=== PATIENT | male | born 1955 | race Caucasian/White ===

== ENCOUNTER 2016-08-17 12:08 | Emergency (ER) | payer OTHER ==
[~2016-08-17] VITALS: Ht 167.6 cm; Wt 82.0 kg
[~2016-08-17 12:08] MED LIST: AMLO10TA2 PO; LEVE500 PO; LISI-515 PO
[2016-08-17 12:18] VITALS: BP 160/97; PULSE 63; RESP 16; TEMP 98.8; O2SAT 96
[2016-08-17] MEDS ORDERED: LISI-515 PO (12:47)
[2016-08-17] MEDS ORDERED: AMLO10TA2 PO (12:47)
[2016-08-17] MEDS ORDERED: LEVE500 PO (12:47)
--- NOTE | 2016-08-17 12:48 | PD ---
HPI Chief Complaint: Seizure Time Seen by Provider: 12:44 Travel History International Travel<30 days: No Contact w/Intl Traveler<30days: No Traveled to known affect area: No History of Present Illness HPI Patient presents with complaints of a seizure yesterday. Reports a past history of hypertension and seizure activity. States he has been without his medications for 3 days. States he is in transition between neurologists currently. Denies any head trauma or loss of consciousness associated with seizure activity yesterday. Denies any new chest pain shortness of breath urinary or bowel symptoms. PFSH Past Medical History Hx Anticoagulant Therapy: No Asthma: Yes Autoimmune Disease: No Anxiety: No Depression: No Heart Rhythm Problems: No Cancer: No Cardiac Catheterization: No Cardiovascular Problems: Yes (HTN) High Cholesterol: No Chemotherapy: No Chest Pain: No Congestive Heart Failure: No COPD: No Cerebrovascular Accident: Yes ( CVA) Diabetes: No Diminished Hearing: No Endocrine: No Gastrointestinal Disorders: No Genitourinary: No Headaches: Yes Hypertension: Yes Immune Disorder: No Implanted Vascular Access Dvce: No Kidney Stones: No Musculoskeletal: No Neurologic: Yes Psychiatric: No Reproductive: No Respiratory: Yes (asthma) Immunizations Current: No Migraines: No Radiation Therapy: No Renal Failure: No 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) Sickle Cell Disease: No Sleep Apnea: No Ulcer: No Past Surgical History Surgical History: No Previous Surgery Abdominal Surgery: No AICD: No Arteriovenous Shunt: No Cardiac Surgery: No Coronary Artery Bypass Graft: No Ear Surgery: No Endocrine Surgery: No Eye Surgery: No Genitourinary Surgery: No Gynecologic Surgery: No Hysterectomy: Yes (htn on meds) Insulin Pump: No Joint Replacement: No Neurologic Surgery: No Oral Surgery: No Pacemaker: No Thoracic Surgery: No Other Surgery: No Family History Family Myocardial Infarction: Yes (mother, father, brother) Social History Alcohol Use: Yes Tobacco Use: Yes (0.5 ppd) Substance Use: No Allergies-Medications (Allergen,Severity, Reaction): Coded Allergies: No Known Allergies (Unverified , 08/17/16) verified/yes Reported Meds & Prescriptions Reported Meds & Active Scripts Active Amlodipine (Amlodipine Besylate) 10 Mg Tab 10 Mg PO DAILY 30 Days Lisinopril 20 Mg Tab 20 Mg PO BID 30 Days Keppra (Levetiracetam) 500 Mg Tab 500 Mg PO BID Review of Systems General / Constitutional: No: Fever Eyes: No: Visual changes HENT: No: Headaches Cardiovascular: No: Chest Pain or Discomfort Respiratory: No: Shortness of Breath Gastrointestinal: No: Abdominal Pain Genitourinary: No: Dysuria Musculoskeletal: No: Pain Skin: No Rash Neurologic: No: Weakness Psychiatric: No: Depression Endocrine: No: Polydipsia Hematologic/Lymphatic: No: Easy Bruising Physical Exam Narrative GENERAL: Well-nourished, well-developed patient. SKIN: Warm and dry. HEAD: Normocephalic. EYES: No scleral icterus. No injection or drainage. NECK: Supple, trachea midline. No JVD or lymphadenopathy. CARDIOVASCULAR: Regular rate and rhythm without murmurs, gallops, or rubs. RESPIRATORY: Breath sounds equal bilaterally. No accessory muscle use. GASTROINTESTINAL: Abdomen soft, non-tender, nondistended. MUSCULOSKELETAL: No cyanosis, or edema. BACK: Nontender without obvious deformity. No CVA tenderness. Data Data Last Documented VS Vital Signs Date Time Temp Pulse Resp B/P Pulse Ox O2 Delivery O2 Flow Rate FiO2 08/17/16 12:34 Room Air 08/17/16 12:18 98.8 63 16 160/97 96 MDM Medical Decision Making Medical Screen Exam Complete: Yes Emergency Medical Condition: Yes Differential Diagnosis Seizures, hypertension, malingering Narrative Course Assessment and plan discussed with patient at bedside Diagnosis Primary Impression: Epilepsy Qualified Code: G40.909 - Nonintractable epilepsy without status epilepticus, unspecified epilepsy type Additional Impression: Hypertension Qualified Code: I10 - Essential hypertension Patient Instructions: General Instructions Additional Instructions: Encouraged patient to resume medications, encouraged to blood pressure log, encouraged to follow-up with his primary care provider and neurologist. Scripts Amlodipine 10 Mg Tab10 Mg PO DAILY 30 Days Ref 0 Prov:Keron Luo MD 08/17/16 Lisinopril 20 Mg Tab20 Mg PO BID 30 Days Ref 0 Prov:Keron Luo MD 08/17/16 Levetiracetam (Keppra)500 Mg [id number] Mg PO BID #60 TAB Ref 0 Prov:Keron Luo MD 08/17/16 Disposition: 01 DISCHARGE HOME Condition: Good Keron Luo MD Aug 17, 2016 12:48
[2016-08-17 13:03] VITALS: BP 165/96
[2016-12-20] MEDS ORDERED: LISI-515 PO (08:18)
== END 2016-08-17 13:04 | disposition home or self-care (01) ==
LOC: PHED 12:08
DX: G40.909 Epilepsy, unspecified, not intractable, without status epilepticus (principal); I10 Essential (primary) hypertension; J45.909 Unspecified asthma, uncomplicated; F17.210 Nicotine dependence, cigarettes, uncomplicated; Z79.899 Other long term (current) drug therapy
CPT/HCPCS: 99283

== ENCOUNTER 2016-09-08 13:32 | Emergency (ER) | payer OTHER ==
[2016-09-08 13:36] VITALS: BP 109/76; PULSE 93; RESP 20; TEMP 98.8; O2SAT 96
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
[2016-09-08 14:19] LABS: AUTOMATED NEUTROPHIL # 6.4 TH/MM3 (1.8-7.7); BASOPHIL % 0.3 % (0.0-2.0); EOSINOPHIL # 0.1 TH/MM3 (0-0.4); EOSINOPHIL % 0.8 % (0.0-4.0); HEMATOCRIT 46.7 % (39.0-51.0); HEMO FLAGS DIFF FINAL; LYMPH % 20.3 % (9.0-44.0); LYMPHOCYTE # 1.8 TH/MM3 (1.0-4.8); MEAN CELL VOLUME 90.3 FL (80.0-100.0); MEAN CORPUSCULAR HEMOGLOBIN 30.1 PG (27.0-34.0); MEAN CORPUSCULAR HGB CONC 33.3 % (32.0-36.0); MONO % 6.8 % (0.0-8.0); NEUT % 71.8 % (16.0-70.0); PLATELET COUNT 264 TH/MM3 (150-450); RED BLOOD COUNT 5.17 MIL/MM3 (4.50-5.90); RED CELL DISTRIBUTION WIDTH 12.8 % (11.6-17.2); WHITE BLOOD COUNT 8.9 TH/MM3 (4.0-11.0)
[2016-09-08 14:28] LABS: POTASSIUM 3.5 MEQ/L (3.5-5.1)
[2016-09-08 14:30] LABS: BICARBONATE 23.8 MEQ/L (21.0-32.0); MAGNESIUM 2.3 MG/DL (1.5-2.5)
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
[2016-09-08 14:49] VITALS: BP 117/76; PULSE 73; RESP 20; O2SAT 96
--- NOTE | 2016-09-08 14:56 | RADHPO ---
EXAM DATE/TIME: 09/08/2016 14:25 [facility] COMPARISON: CT BRAIN W/O CONTRAST, April 27, 2016, 10:06. INDICATIONS : Seizure. RADIATION DOSE: 65.44 CTDIvol (mGy) MEDICAL HISTORY : Cerebrovascular disease. SURGICAL HISTORY : None. ENCOUNTER: Initial ACUITY: 1 day PAIN SCALE: 3/10 LOCATION: cranial TECHNIQUE: Multiple contiguous axial images were obtained of the head. Using automated exposure control and adj ustment of the mA and/or kV according to patient size, radiation dose was kept as low as reasonably a chievable to obtain optimal diagnostic quality images. FINDINGS: CEREBRUM: The ventricles are normal for age. No evidence of midline shift, mass lesion, hemorrhage or acute in farction. No extra-axial fluid collections are seen. Chronic encephalomalacia again seen right parie kimberli lobe POSTERIOR FOSSA: The cerebellum and brainstem are intact. The 4th ventricle is midline. The cerebellopontine angle i s unremarkable. EXTRACRANIAL: The visualized portion of the orbits is intact. SKULL: The calvaria is intact. No evidence of skull fracture. CONCLUSION: No acute intracranial abnormality. Chronic right parietal lobe encephalomalacia. Varinder Hurt MD on September 08, 2016 at 14:54 Board Certified Radiologist. This report was verified electronically.
[2016-09-08] MEDS ORDERED: levETIRAcetam 500 MG TAB PO ONE (15:45)
[2016-09-08 15:51] VITALS: BP 126/82; PULSE 66; RESP 20; O2SAT 99
[2016-12-20] MEDS ORDERED: LISI-515 PO (08:18)
== END 2016-09-08 19:09 | disposition home or self-care (01) ==
LOC: PHED 13:32
DX: G40.909 Epilepsy, unspecified, not intractable, without status epilepticus (principal); Z79.899 Other long term (current) drug therapy
CPT/HCPCS: 70450; 73560; 80048; 83735; 85025

== ENCOUNTER 2016-10-26 18:41 | Emergency (ER) | payer OTHER ==
[~2016-10-26] VITALS: Ht 167.6 cm; Wt 68.0 kg
--- NOTE | 2016-10-26 19:00 | PD ---
HPI Chief Complaint: Possible Seizure Time Seen by Provider: 18:59 Travel History International Travel<30 days: No Contact w/Intl Traveler<30days: No Traveled to known affect area: No History of Present Illness HPI 61-year-old male with known seizure disorder presents to emergency department via EMS status post witnessed seizure at work. Patient is postictal. Patient is supposedly taking Keppra 500 mg twice a day but cannot recall if he's been taking his medications the last several days. Patient has history of chronic back pain and hypertension. Patient complains of pain in the right lower lumbar region and hip, but cannot recall falling or other injury. Patient states he is somewhat nauseous and has his typical postseizure headache. His headache is 5/10. The headache is generalized and aching. He states this is typical for his postseizure state. He has no known drug allergies. PFSH Past Medical History Hx Anticoagulant Therapy: No Asthma: Yes Autoimmune Disease: No Anxiety: No Depression: No Heart Rhythm Problems: No Cancer: No Cardiac Catheterization: No Cardiovascular Problems: Yes (HTN) High Cholesterol: No Chemotherapy: No Chest Pain: No Congestive Heart Failure: No COPD: No Cerebrovascular Accident: Yes ( CVA) Diabetes: No Diminished Hearing: No Endocrine: No Gastrointestinal Disorders: No Genitourinary: No Headaches: Yes Hypertension: Yes Immune Disorder: No Implanted Vascular Access Dvce: No Kidney Stones: No Musculoskeletal: No Neurologic: Yes Psychiatric: No Reproductive: No Respiratory: Yes (asthma) Immunizations Current: No Migraines: No Radiation Therapy: No Renal Failure: No 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) Sickle Cell Disease: No Sleep Apnea: No Ulcer: No Past Surgical History Abdominal Surgery: No AICD: No Arteriovenous Shunt: No Cardiac Surgery: No Coronary Artery Bypass Graft: No Ear Surgery: No Endocrine Surgery: No Eye Surgery: No Genitourinary Surgery: No Gynecologic Surgery: No Hysterectomy: Yes (htn on meds) Insulin Pump: No Joint Replacement: No Neurologic Surgery: No Oral Surgery: No Pacemaker: No Thoracic Surgery: No Other Surgery: No Social History Alcohol Use: Yes Tobacco Use: Yes (0.5 ppd) Substance Use: No Allergies-Medications (Allergen,Severity, Reaction): Coded Allergies: No Known Allergies (Unverified , 10/26/16) verified/yes Reported Meds & Prescriptions Reported Meds & Active Scripts Active Amlodipine (Amlodipine Besylate) 10 Mg Tab 10 Mg PO DAILY 30 Days Lisinopril 20 Mg Tab 20 Mg PO BID 30 Days Keppra (Levetiracetam) 500 Mg Tab 500 Mg PO BID Review of Systems Except as stated in HPI: all other systems reviewed are Neg General / Constitutional: No: Fever Eyes: No: Visual changes HENT: No: Headaches Cardiovascular: No: Chest Pain or Discomfort Respiratory: No: Shortness of Breath Gastrointestinal: No: Abdominal Pain Genitourinary: No: Dysuria Musculoskeletal: Positive: Arthralgias, Pain (see history present illness.) Skin: No Rash Neurologic: No: Weakness Psychiatric: No: Depression Endocrine: No: Polydipsia Hematologic/Lymphatic: No: Easy Bruising Physical Exam Narrative GENERAL: Patient appears postictal. He is oriented to person place and time. SKIN: Warm and dry. Normal color. Normal turgor. HEAD: Atraumatic. Normocephalic. No signs trauma. EYES: Pupils equal and round. No scleral icterus. No injection or drainage. ENT: No nasal bleeding or discharge. Mucous membranes pink and moist. No dental injury. No buccal injury or tongue injury. Pharynx is clear. Airway is patent. NECK: Trachea midline. No JVD. No bony tenderness or step-off. She motion is full and supple. CARDIOVASCULAR: Regular rate and rhythm. RESPIRATORY: No accessory muscle use. Clear to auscultation. Breath sounds equal bilaterally. GASTROINTESTINAL: Abdomen soft, non-tender, nondistended. Hepatic and splenic margins not palpable. MUSCULOSKELETAL: Extremities without clubbing, cyanosis, or edema. No obvious deformities. Patient has tenderness in the soft tissues of the right lower lumbar region, without bony tenderness or step-off. Right hip has normal range of motion without tenderness. Rest of the extremity exam is unremarkable. NEUROLOGICAL: Awake and alert. No obvious cranial nerve deficits. Motor grossly within normal limits. Five out of 5 muscle strength in the arms and legs. Normal speech. PSYCHIATRIC: Appropriate mood and affect; insight and judgment normal. Data Data Last Documented VS Vital Signs Date Time Temp Pulse Resp B/P Pulse Ox O2 Delivery O2 Flow Rate FiO2 10/26/16 20:38 18 10/26/16 19:05 95 Room Air 10/26/16 19:03 97.9 75 105/70 Orders Complete Blood Count With Diff (10/26/16 19:07) Blood Glucose (10/26/16 19:07) Ecg Monitoring (10/26/16 19:07) Iv Access Insert/Monitor (10/26/16 19:) Oximetry (10/26/16 19:07) Comprehensive Metabolic Panel (10/26/16 19:07) Sodium Chlor 0.9% 1000 Ml Inj (Ns 1000 M (10/26/16 19:07) Sodium Chloride 0.9% Flush (Ns Flush) (10/26/16 19:15) Levetiracetam 1000 Mg Inj (Keppra 1000 M (10/26/16 19:15) Ondansetron Inj (Zofran Inj) (10/26/16 19:15) Ketorolac Inj (Toradol Inj) (10/26/16 19:15) Morphine Inj (Morphine Inj) (10/26/16 19:15) Labs Laboratory Tests Test 10/26/16 19:25 White Blood Count 9.0 TH/MM3 Red Blood Count 5.00 MIL/MM3 Hemoglobin 15.3 GM/DL Hematocrit 44.0 % Mean Corpuscular Volume 88.1 FL Mean Corpuscular Hemoglobin 30.7 PG Mean Corpuscular Hemoglobin 34.8 % Concent Red Cell Distribution Width 13.0 % Platelet Count 233 TH/MM3 Mean Platelet Volume 7.8 FL Neutrophils (%) (Auto) 68.8 % Lymphocytes (%) (Auto) 20.1 % Monocytes (%) (Auto) 7.5 % Eosinophils (%) (Auto) 2.7 % Basophils (%) (Auto) 0.9 % Neutrophils # (Auto) 6.2 TH/MM3 Lymphocytes # (Auto) 1.8 TH/MM3 Monocytes # (Auto) 0.7 TH/MM3 Eosinophils # (Auto) 0.2 TH/MM3 Basophils # (Auto) 0.1 TH/MM3 CBC Comment DIFF FINAL Differential Comment Sodium Level 138 MEQ/L Potassium Level 4.1 MEQ/L Chloride Level 106 MEQ/L Carbon Dioxide Level 20.6 MEQ/L Anion Gap 11 MEQ/L Blood Urea Nitrogen 22 MG/DL Creatinine 1.17 MG/DL Estimat Glomerular Filtration 63 ML/MIN Rate Random Glucose 88 MG/DL Calcium Level 9.1 MG/DL Total Bilirubin 0.7 MG/DL Aspartate Amino Transf 26 U/L (AST/SGOT) Alanine Aminotransferase 21 U/L (ALT/SGPT) Alkaline Phosphatase 91 U/L Total Protein 6.9 GM/DL Albumin 4.0 GM/DL MDM Medical Decision Making Medical Screen Exam Complete: Yes Emergency Medical Condition: Yes Medical Record Reviewed: Yes Differential Diagnosis Seizure. Lumbar strain. Muscle spasm. Narrative Course Patient is medically stable and appears postictal at time of exam. Labs ordered including CBC, CMP. IV access is obtained patient is given 1000 mL's normal saline as well as 1000 mg Keppra IV. Patient is given 30 mg Toradol IV as well as 2 mg morphine, and 4 mg Zofran IV. CBC is unremarkable. CMP is unremarkable. 2045 hrs. patient is reassessed and found to be improved. Patient is felt stable for discharge. Patient was discharged home with Keppra 500 mg twice a day #60. He can return the emergency department as needed. Patient should follow with his primary care physician and see about referral to neurologist as discussed. Diagnosis Primary Impression: Seizure disorder as sequela of cerebrovascular accident Additional Impression: Recurrent seizures Referrals: Primary Care Physician Patient Instructions: General Instructions Additional Instructions: Patient is felt stable for discharge. Patient was discharged home with Keppra 500 mg twice a day #60. He can return the emergency department as needed. Patient should follow with his primary care physician and see about referral to neurologist as discussed. Scripts Levetiracetam (Keppra)500 Mg [id number] Mg PO BID #60 TAB Ref 0 Prov:Darien Cerna MD 10/26/16 Disposition: DISCHARGE HOME Condition: Stable Fab Polk Oct 26, 2016 19:00
[2016-10-26 19:03] VITALS: BP 105/70; PULSE 75; RESP 18; TEMP 97.9
[2016-10-26] MEDS ORDERED: SODIUM CHLOR 0.9% 1000 ML INJ 1,000 ML IV ONE (19:07)
[2016-10-26] MEDS ORDERED: levETIRAcetam 1000 MG INJ 100 ML IV ONE (19:15)
[2016-10-26] MEDS ORDERED: SODIUM CHLORIDE 0.9% FLUSH 10 ML FLUSH IVF PRN (19:15)
[2016-10-26] MEDS ORDERED: KETOROLAC TROMETHAMINE 30 MG/ML (IVP) VIAL IV PUSH ONE (19:15)
[2016-10-26] MEDS ORDERED: MORPHINE SULFATE 4 MG/ML INJ IV PUSH ONE (19:15)
[2016-10-26] MEDS ORDERED: ONDANSETRON HCL 4 MG/2 ML VIAL IV PUSH ONE (19:15)
[2016-10-26 19:34] LABS: AUTOMATED NEUTROPHIL # 6.2 TH/MM3 (1.8-7.7); BASOPHIL # 0.1 TH/MM3 (0-0.2); BASOPHIL % 0.9 % (0.0-2.0); EOSINOPHIL # 0.2 TH/MM3 (0-0.4); EOSINOPHIL % 2.7 % (0.0-4.0); HEMO FLAGS DIFF FINAL; LYMPH % 20.1 % (9.0-44.0); LYMPHOCYTE # 1.8 TH/MM3 (1.0-4.8); MEAN CELL VOLUME 88.1 FL (80.0-100.0); MEAN CORPUSCULAR HEMOGLOBIN 30.7 PG (27.0-34.0); MEAN CORPUSCULAR HGB CONC 34.8 % (32.0-36.0); MONO % 7.5 % (0.0-8.0); NEUT % 68.8 % (16.0-70.0); PLATELET COUNT 233 TH/MM3 (150-450)
[2016-10-26 20:13] LABS: ALKALINE PHOSPHATASE 91 U/L (45-117); ALT (GPT) 21 U/L (12-78); ANION GAP 11 MEQ/L (5-15); AST (GOT) 26 U/L (15-37); BICARBONATE 20.6 MEQ/L (21.0-32.0); BLOOD UREA NITROGEN 22 MG/DL (7-18); CHLORIDE 106 MEQ/L (98-107); GLOMERULAR FILTRATION RATE 63 ML/MIN (>89); POTASSIUM 4.1 MEQ/L (3.5-5.1); SODIUM (NA) 138 MEQ/L (136-145); TOTAL BILIRUBIN ADULT 0.7 MG/DL (0.2-1.0)
[2016-10-26] MEDS ORDERED: LEVE500 PO (20:46)
[2016-10-26 21:18] VITALS: BP 103/62; PULSE 53; RESP 18; O2SAT 98
[2016-10-26 21:19] VITALS: O2SAT 98
[2016-10-26 23:10] VITALS: BP 107/66; PULSE 55; RESP 18; O2SAT 98
[2016-10-27 03:36] VITALS: BP 119/70; PULSE 48; RESP 18; O2SAT 99
[2016-12-20] MEDS ORDERED: LISI-515 PO (08:18)
== END 2016-10-27 09:53 | disposition home or self-care (01) ==
LOC: NEPE 18:41
DX: R56.9 Unspecified convulsions (principal); I10 Essential (primary) hypertension; M54.9 Dorsalgia, unspecified; G89.29 Other chronic pain; R51 Headache; J45.909 Unspecified asthma, uncomplicated; Z86.73 Personal history of transient ischemic attack (TIA), and cerebral infarction without residual deficits; F17.210 Nicotine dependence, cigarettes, uncomplicated
CPT/HCPCS: 80053; 85025; 96365; 96375; 99284; J1885; J1953; J2270; J2405; J7030

== ENCOUNTER 2016-11-04 10:21 | Emergency (ER) | payer OTHER ==
[~2016-11-04] VITALS: Ht 167.6 cm; Wt 85.0 kg
[2016-11-04 10:29] VITALS: BP 116/72; PULSE 68; RESP 16; RESP 18; TEMP 98.6; O2SAT 9; O2SAT 98
[2016-11-04] MEDS ORDERED: LORazepam 2 MG/ML VIAL IV PUSH ONE (10:45)
[2016-11-04] MEDS ORDERED: levETIRAcetam INJ 500 MG in SODIUM CHLORIDE 0.9% INJ 100 ML IV ONE (10:45)
[2016-11-04] MEDS ORDERED: KEPP10002 PO (11:01)
--- NOTE | 2016-11-04 11:01 | PD ---
HPI Chief Complaint: Seizure Time Seen by Provider: 10:43 Travel History International Travel<30 days: No Contact w/Intl Traveler<30days: No Traveled to known affect area: No History of Present Illness HPI This is a 61-year-old man who presents to the emergency department with reported seizure. He was at the [facility] when he had a witnessed approximately 1 minute long generalized seizure. Patient states he's had seizures ever since he had a hemorrhagic stroke several years ago. He is on Keppra 500 mg twice daily. Patient emergency department yesterday for seizure. States he takes his Keppra regularly. Does not drink alcohol. Does not take illicit drugs. Despite this he has seizures one to 2 times per month, is usually seen in the hospital following this. History Past Medical History Narrative Medical Chronic back pain Hypertension Seizures Hemorrhagic CVA Social History Alcohol Use: Yes Tobacco Use: Yes (0.5 ppd) Allergies-Medications (Allergen,Severity, Reaction): Coded Allergies: No Known Allergies (Unverified , 10/26/16) verified/yes Reported Meds & Prescriptions Reported Meds & Active Scripts Active Keppra (Levetiracetam) 500 Mg Tab 500 Mg PO BID Amlodipine (Amlodipine Besylate) 10 Mg Tab 10 Mg PO DAILY 30 Days Lisinopril 20 Mg Tab 20 Mg PO BID 30 Days Keppra (Levetiracetam) 500 Mg Tab 500 Mg PO BID Review of Systems Except as stated in HPI: all other systems reviewed are Neg Physical Exam Narrative GENERAL: Well-appearing 61-year-old man, no acute distress. SKIN: Focused skin assessment warm/dry. HEAD: Atraumatic. Normocephalic. EYES: Pupils equal and round. No scleral icterus. No injection or drainage. ENT: No nasal bleeding or discharge. Mucous membranes pink and moist. NECK: Trachea midline. No JVD. CARDIOVASCULAR: Regular rate and rhythm. No murmur appreciated. RESPIRATORY: No accessory muscle use. Clear to auscultation. Breath sounds equal bilaterally. GASTROINTESTINAL: Abdomen soft, non-tender, nondistended. Hepatic and splenic margins not palpable. MUSCULOSKELETAL: No obvious deformities. No clubbing. No cyanosis. No edema. NEUROLOGICAL: Awake and alert. No obvious cranial nerve deficits. Motor grossly within normal limits. Normal speech. PSYCHIATRIC: Appropriate mood and affect; insight and judgment normal. Data Data Last Documented VS Vital Signs Date Time Temp Pulse Resp B/P Pulse Ox O2 Delivery O2 Flow Rate FiO2 11/04/16 10:29 98.6 68 16 116/72 9 Room Air Orders Levetiracetam Inj (Keppra Inj) (11/04/16 10:45) Lorazepam Inj (Ativan Inj) (11/04/16 10:45) MDM Medical Decision Making Medical Screen Exam Complete: Yes Emergency Medical Condition: Yes Differential Diagnosis Poorly controlled seizures, electrolyte abnormality, medication noncompliance, infection, other Narrative Course Medical decision making 61-year-old male presents to the emergency department complaining of seizure. He had a 1 minute generalized seizure prior to arrival. He had a seizure yesterday. He typically is 1-2 seizures per month. Labs and evaluation yesterday was unremarkable. Don't see any evidence of trauma. He takes Keppra 500 twice a day. He states he takes it regularly. Complains of a question that the past. We'll give Ativan. We'll go multiple services Keppra through the IV. He has a primary doctor, would recommend follow-up with neurology, and will increase his Keppra to 1000 twice daily pending neuro follow-up. Diagnosis Primary Impression: Seizure disorder as sequela of cerebrovascular accident Additional Instructions: Increase Keppra to 1000 mg twice daily. Follow up with her primary doctor for referral to neurology. Do not drive or operate heavy machinery until cleared by neurology. You should avoid being in any situation where if you had a seizure it could be dangerous such as swimming, looking on a ladder, or other such activities. Return to the emergency department for any seizures lasting more than 5 minutes , [id number] seizures, or seizures with prolonged confusion afterwards. Med/Other Pt SpecificInfo: Existing Med Changed Scripts Levetiracetam (Keppra)1,000 Mg Tab1,000 Mg PO BID #60 TAB Ref 0 Prov:Chon Ramos MD 11/04/16 Disposition: 01 DISCHARGE HOME Condition: Stable Chon Ramos MD Nov 04, 2016 11:01
[2016-11-04 12:01] VITALS: BP 120/73; PULSE 60; RESP 16; O2SAT 97
[2016-12-20] MEDS ORDERED: LISI-515 PO (08:18)
== END 2016-11-04 12:23 | disposition home or self-care (01) ==
LOC: NEPD 10:21
DX: G40.802 Other epilepsy, not intractable, without status epilepticus (principal); I69.398 Other sequelae of cerebral infarction; I10 Essential (primary) hypertension; F17.200 Nicotine dependence, unspecified, uncomplicated; Z87.39 Personal history of other diseases of the musculoskeletal system and connective tissue; Z86.69 Personal history of other diseases of the nervous system and sense organs
CPT/HCPCS: 96365; 99284; J1953

== ENCOUNTER 2016-11-06 13:46 | Emergency (ER) | payer OTHER ==
[~2016-11-06] VITALS: Ht 167.6 cm; Wt 81.8 kg
[~2016-11-06 13:46] MED LIST changes: +KEPP10002 PO
[2016-11-06 13:50] VITALS: BP 142/74; PULSE 65; RESP 14; TEMP 98.7; O2SAT 97
[2016-11-06] MEDS ORDERED: LORazepam 2 MG/ML VIAL IV PUSH ONE (14:00)
[2016-11-06] MEDS ORDERED: KETOROLAC TROMETHAMINE 30 MG/ML (IVP) VIAL IV PUSH ONE (14:00)
[2016-11-06] MEDS ORDERED: SODIUM CHLOR 0.9% 1000 ML INJ 1,000 ML IV SCH (14:00)
--- NOTE | 2016-11-06 14:02 | PD ---
HPI Chief Complaint: Seizure Time Seen by Provider: 13:55 Travel History International Travel<30 days: No Contact w/Intl Traveler<30days: No Traveled to known affect area: No History of Present Illness HPI Is a 61-year-old man who presents to the emergency department complaining of seizures. I saw the patient emergency department yesterday. He's had seizures ever since he had a hemorrhagic stroke several years ago. He was taking Keppra 5 mg twice daily, we'll increase him yesterday with thousand milligrams twice daily. His seizure medications managed by his primary physician, Dr. Andrews. He's not seen a neurologist in some time. He endorses regular use of the Keppra , but is been having more frequent seizures recently. This he is having about 2 seizures a month. History Past Medical History Narrative Medical Chronic back pain Hypertension Seizures Hemorrhagic CVA Tetanus Vaccination: < 5 Years Influenza Vaccination: No Past Surgical History Surgical History: No Previous Surgery Social History Alcohol Use: No Tobacco Use: Yes (5 cigarettes/day) Allergies-Medications (Allergen,Severity, Reaction): Coded Allergies: No Known Allergies (Unverified , 11/06/16) verified/yes Reported Meds & Prescriptions Reported Meds & Active Scripts Active Keppra (Levetiracetam) 1,000 Mg Tab 1,000 Mg PO BID Amlodipine (Amlodipine Besylate) 10 Mg Tab 10 Mg PO DAILY 30 Days Lisinopril 20 Mg Tab 20 Mg PO BID 30 Days Review of Systems Except as stated in HPI: all other systems reviewed are Neg Physical Exam Narrative GENERAL: Well-appearing 61-year-old woman. SKIN: Focused skin assessment warm/dry. HEAD: Atraumatic. Normocephalic. CARDIOVASCULAR: Regular rate and rhythm. No murmur appreciated. RESPIRATORY: No accessory muscle use. Clear to auscultation. Breath sounds equal bilaterally. GASTROINTESTINAL: Abdomen soft, non-tender, nondistended. Hepatic and splenic margins not palpable. MUSCULOSKELETAL: No obvious deformities. No edema. NEUROLOGICAL: Awake and alert. No obvious cranial nerve deficits. Motor grossly within normal limits. Normal speech. PSYCHIATRIC: Appropriate mood and affect; insight and judgment normal. Data Data Last Documented VS Vital Signs Date Time Temp Pulse Resp B/P Pulse Ox O2 Delivery O2 Flow Rate FiO2 11/06/16 13:50 98.7 65 14 142/74 97 Orders Complete Blood Count With Diff (11/06/16 13:50) Comprehensive Metabolic Panel (11/06/16 13:50) Alcohol (Ethanol) (11/06/16 13:50) Iv Access Insert/Monitor (11/06/16 13:50) Lorazepam Inj (Ativan Inj) (11/06/16 14:00) Ketorolac Inj (Toradol Inj) (11/06/16 14:00) Sodium Chlor 0.9% 1000 Ml Inj (Ns 1000 M (11/06/16 14:00) Labs Laboratory Tests Test 11/06/16 14:00 White Blood Count 9.4 TH/MM3 Red Blood Count 4.50 MIL/MM3 Hemoglobin 13.6 GM/DL Hematocrit 40.1 % Mean Corpuscular Volume 89.0 FL Mean Corpuscular Hemoglobin 30.2 PG Mean Corpuscular Hemoglobin 34.0 % Concent Red Cell Distribution Width 12.7 % Platelet Count 246 TH/MM3 Mean Platelet Volume 7.5 FL Neutrophils (%) (Auto) 65.2 % Lymphocytes (%) (Auto) 23.5 % Monocytes (%) (Auto) 6.0 % Eosinophils (%) (Auto) 4.7 % Basophils (%) (Auto) 0.6 % Neutrophils # (Auto) 6.1 TH/MM3 Lymphocytes # (Auto) 2.2 TH/MM3 Monocytes # (Auto) 0.6 TH/MM3 Eosinophils # (Auto) 0.4 TH/MM3 Basophils # (Auto) 0.1 TH/MM3 CBC Comment DIFF FINAL Differential Comment Sodium Level 144 MEQ/L Potassium Level 3.5 MEQ/L Chloride Level 111 MEQ/L Carbon Dioxide Level 24.5 MEQ/L Anion Gap 9 MEQ/L Blood Urea Nitrogen 15 MG/DL Creatinine 0.75 MG/DL Estimat Glomerular Filtration 105 ML/MIN Rate Random Glucose 88 MG/DL Calcium Level 8.2 MG/DL Total Bilirubin 0.4 MG/DL Aspartate Amino Transf 28 U/L (AST/SGOT) Alanine Aminotransferase 19 U/L (ALT/SGPT) Alkaline Phosphatase 99 U/L Total Protein 6.1 GM/DL Albumin 3.3 GM/DL Ethyl Alcohol Level LESS THAN 3 MG/DL MDM Medical Decision Making Medical Screen Exam Complete: Yes Emergency Medical Condition: Yes Interpretation(s) LABS: CBC is unremarkable. CMP is unremarkable. Hypoproteinemia. Alcohol negative. Differential Diagnosis Seizures, electrolyte abnormality, trauma, noncompliance, other Narrative Course Medical decision making 60-year-old man of recurrent seizures. Here with increasing frequency of seizures. Adjusted his medications yesterday. We'll need more time to see full affect. Will need neurology follow-up. We'll give referral to on-call neurology. Diagnosis Primary Impression: Seizure disorder as sequela of cerebrovascular accident Referrals: Ti Kern MD call for appointment Additional Instructions: Continue Keppra 1000 mg twice daily. Follow with her primary doctor in the next one to 2 days. Follow-up with a neurologist at first available appointment. Return to the emergency department for any new or worsening symptoms. Med/Other Pt SpecificInfo: No Change to Meds Disposition: 01 DISCHARGE HOME Condition: Stable Chon Ramos MD Nov 06, 2016 14:02
[2016-11-06 14:06] LABS: AUTOMATED NEUTROPHIL # 6.1 TH/MM3 (1.8-7.7); BASOPHIL # 0.1 TH/MM3 (0-0.2); BASOPHIL % 0.6 % (0.0-2.0); EOSINOPHIL # 0.4 TH/MM3 (0-0.4); EOSINOPHIL % 4.7 % (0.0-4.0); HEMATOCRIT 40.1 % (39.0-51.0); HEMO FLAGS DIFF FINAL; LYMPH % 23.5 % (9.0-44.0); LYMPHOCYTE # 2.2 TH/MM3 (1.0-4.8); MEAN CORPUSCULAR HEMOGLOBIN 30.2 PG (27.0-34.0); NEUT % 65.2 % (16.0-70.0); PLATELET COUNT 246 TH/MM3 (150-450); RED CELL DISTRIBUTION WIDTH 12.7 % (11.6-17.2); WHITE BLOOD COUNT 9.4 TH/MM3 (4.0-11.0)
[2016-11-06 14:14] LABS: CHLORIDE 111 MEQ/L (98-107); POTASSIUM 3.5 MEQ/L (3.5-5.1); SODIUM (NA) 144 MEQ/L (136-145)
[2016-11-06 14:18] LABS: ANION GAP 9 MEQ/L (5-15); BICARBONATE 24.5 MEQ/L (21.0-32.0); BLOOD UREA NITROGEN 15 MG/DL (7-18)
[2016-11-06 14:21] LABS: ALT (GPT) 19 U/L (12-78); AST (GOT) 28 U/L (15-37); GLOMERULAR FILTRATION RATE 105 ML/MIN (>89)
[2016-11-06 14:23] LABS: TOTAL BILIRUBIN ADULT 0.4 MG/DL (0.2-1.0)
[2016-11-06 14:24] LABS: ALKALINE PHOSPHATASE 99 U/L (45-117)
[2016-11-06 15:05] VITALS: BP 138/78; PULSE 71; RESP 16; O2SAT 98
[2016-11-06 15:10] VITALS: RESP 16
--- NOTE | 2016-11-07 14:00 | EKG ---
Date Performed: 11/06/2016 Time Performed: 13:40:18 PTAGE: 61 years EKG: Sinus rhythm with PAC(s). Borderline ECG Compared to prior tracing no significant change PREVIOUS TRACING : 04/27/2016 10.00 DOCTOR: Eleazar Guallpa Interpretating Date/Time 11/07/2016 13:58:06
[2016-12-20] MEDS ORDERED: LISI-515 PO (08:18)
== END 2016-11-06 15:10 | disposition home or self-care (01) ==
LOC: PHED 13:46
DX: G40.909 Epilepsy, unspecified, not intractable, without status epilepticus (principal); I69.898 Other sequelae of other cerebrovascular disease; R94.31 Abnormal electrocardiogram [ECG] [EKG]; I10 Essential (primary) hypertension; Z72.0 Tobacco use; Z87.39 Personal history of other diseases of the musculoskeletal system and connective tissue; Z86.79 Personal history of other diseases of the circulatory system; Z86.69 Personal history of other diseases of the nervous system and sense organs
CPT/HCPCS: 80053; 80307; 85025; 93005; 96361; 96374; 96375; 99284; J1885; J2060; J7030

== ENCOUNTER 2016-11-12 17:27 | Emergency (ER) | payer OTHER ==
[~2016-11-12] VITALS: Ht 167.6 cm; Wt 80.0 kg
[~2016-11-12 17:27] MED LIST changes: -LEVE500 PO
[2016-11-12 17:36] VITALS: BP 129/77; PULSE 71; RESP 16; TEMP 98.3; O2SAT 99
[2016-11-12] MEDS ORDERED: KETOROLAC TROMETHAMINE 60 MG/2 ML (IM) VIAL IM ONE (18:15)
[2016-11-12] MEDS ORDERED: DEXAMETHASONE SOD PHOS 20 MG/5 ML VIAL IM ONE (18:15)
[2016-11-12] MEDS ORDERED: MEDR4PAK PO (18:55)
[2016-11-12] MEDS ORDERED: PERC5TAB12 PO (18:55)
[2016-11-12] MEDS ORDERED: DIAZ5 PO (18:55)
--- NOTE | 2016-11-12 19:03 | PD ---
HPI Chief Complaint: Pain: Acute or Chronic Time Seen by Provider: 18:06 Travel History International Travel<30 days: No Contact w/Intl Traveler<30days: No Traveled to known affect area: No History of Present Illness HPI Patient is a 61-year-old male with history of low back pain for the past 35 years, presents to emergency room with complaints of exacerbation of low back pain. Patient reports that he has history of chronic low back pain, reports that he is currently being treated by a pain management physician who had sent him for an MRI of his low back, reports that he will not prescribe him any pain medications until he gets this MRI. Patient reports that this morning, his back began to act up on him. Patient reports that he has acute on chronic low back pain with sciatica laying down his right leg. Patient reports that symptoms are similar to his previous episodes, patient denies any saddle anesthesia, denies any incontinence of urine or stool. Patient denies any gait dysfunction, reports that he is walking without any difficulty. Patient denies any new trauma to his low back. Patient here for pain medications for his acute on chronic low back pain PFSH Past Medical History Hx Anticoagulant Therapy: No Asthma: Yes Autoimmune Disease: No Anxiety: No Depression: No Heart Rhythm Problems: No Cancer: No Cardiac Catheterization: No Cardiovascular Problems: Yes High Cholesterol: No Chemotherapy: No Chest Pain: No Congestive Heart Failure: No COPD: No Cerebrovascular Accident: Yes Diabetes: No Diminished Hearing: No Endocrine: No Gastrointestinal Disorders: No Genitourinary: No Headaches: Yes Hypertension: Yes Immune Disorder: No Implanted Vascular Access Dvce: No Kidney Stones: No Musculoskeletal: No Neurologic: Yes Psychiatric: No Reproductive: No Respiratory: Yes (asthma) Immunizations Current: No Migraines: No Radiation Therapy: No Renal Failure: No 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) Sickle Cell Disease: No Sleep Apnea: No Ulcer: No Tetanus Vaccination: < 5 Years Past Surgical History Abdominal Surgery: No AICD: No Arteriovenous Shunt: No Cardiac Surgery: No Coronary Artery Bypass Graft: No Ear Surgery: No Endocrine Surgery: No Eye Surgery: No Genitourinary Surgery: No Gynecologic Surgery: No Hysterectomy: Yes (htn on meds) Insulin Pump: No Joint Replacement: No Neurologic Surgery: No Oral Surgery: No Pacemaker: No Thoracic Surgery: No Other Surgery: No Family History Family Myocardial Infarction: Yes (mother, father, brother) Social History Alcohol Use: No Tobacco Use: Yes (5 cigarettes/day) Substance Use: No Allergies-Medications (Allergen,Severity, Reaction): Coded Allergies: No Known Allergies (Unverified , 11/12/16) verified/yes Reported Meds & Prescriptions Reported Meds & Active Scripts Active Percocet (Oxycodone-Acetaminophen) 5-325 mg Tab 1 Tab PO Q6H PRN Valium (Diazepam) 5 Mg Tab 5 Mg PO BID PRN Medrol Dosepak (Methylprednisolone) 4 Mg Dspk 4 Mg PO DIRECTED Per Pharmacist direction Keppra (Levetiracetam) 1,000 Mg Tab 1,000 Mg PO BID Amlodipine (Amlodipine Besylate) 10 Mg Tab 10 Mg PO DAILY 30 Days Lisinopril 20 Mg Tab 20 Mg PO BID 30 Days Review of Systems General / Constitutional: No: Fever Eyes: No: Visual changes HENT: No: Headaches Cardiovascular: No: Chest Pain or Discomfort Respiratory: No: Shortness of Breath Gastrointestinal: No: Abdominal Pain Genitourinary: No: Dysuria Musculoskeletal: Positive: Pain Skin: No Rash Neurologic: No: Weakness Psychiatric: No: Depression Endocrine: No: Polydipsia Hematologic/Lymphatic: No: Easy Bruising Physical Exam Narrative GENERAL: No acute distress, nontoxic SKIN: Focused skin assessment warm/dry. HEAD: Atraumatic. Normocephalic. EYES: Pupils equal and round. No scleral icterus. No injection or drainage. ENT: No nasal bleeding or discharge. Mucous membranes pink and moist. NECK: Trachea midline. No JVD. CARDIOVASCULAR: Regular rate and rhythm. No murmur appreciated. RESPIRATORY: No accessory muscle use. Clear to auscultation. Breath sounds equal bilaterally. GASTROINTESTINAL: Abdomen soft, non-tender, nondistended. Hepatic and splenic margins not palpable, patient with no saddle anesthesia MUSCULOSKELETAL: No obvious deformities. No clubbing. No cyanosis. No edema. Patient with right lower lumbar paraspinal tenderness, no midline tenderness, patient with no pain with straight leg raises on exam, patient ambulating in the emergency with normal gait NEUROLOGICAL: Awake and alert. No obvious cranial nerve deficits. Motor grossly within normal limits. Normal speech. PSYCHIATRIC: Appropriate mood and affect; insight and judgment normal. Data Data Last Documented VS Vital Signs Date Time Temp Pulse Resp B/P Pulse Ox O2 Delivery O2 Flow Rate FiO2 11/12/16 17:36 98.3 71 16 129/77 99 Room Air Orders Ketorolac Inj (Toradol Inj) (11/12/16 18:15) Dexamethasone Inj (Decadron Inj) (11/12/16 18:15) MDM Medical Decision Making Medical Screen Exam Complete: Yes Emergency Medical Condition: Yes Interpretation(s) Vital Signs Date Time Temp Pulse Resp B/P Pulse Ox O2 Delivery O2 Flow Rate FiO2 11/12/16 17:36 98.3 71 16 129/77 99 Room Air Differential Diagnosis Acute on chronic low back pain, sciatica, cauda equina though unlikely Narrative Course Patient is a 61-year-old male who presents to emergency room with complaints of acute on chronic low back pain. Patient with no new injuries to his low back, no saddle anesthesia, no acute dysfunction, no incontinence or retention of urine or stool. Patient requesting medications to help with acute on chronic low back pain. Patient reports no new injuries, reports that he has had MRI as well as x-rays of his low back in the past. Plan to hold on any imaging as patient with new injuries. 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 Patient will get this MRI as an outpatient as there is no emergent need to get one today emergency room. Signs and symptoms of when to return to the emergency room was reviewed with patient in detail. Patient understands that he should not drive or operate heavy machinery while taking narcotic pain medications. Diagnosis Primary Impression: Lumbago with sciatica, right side Patient Instructions: General Instructions Additional Instructions: Please follow up with pain management doctor as scheduled Please schedule your MRI as outpatient as directed by her pain management doctor Return to the emergency room as needed her symptoms worsen or progress Please do not drive or operate heavy machinery while taking narcotic pain medications and muscle relaxers Med/Other Pt SpecificInfo: Prescription(s) given Scripts Oxycodone-Acetaminophen (Percocet)5-325 mg Tab1 Tab PO Q6H PRN (PAIN) #10 TAB Ref 0 Prov:Denise Padron DO 11/12/16 Diazepam (Valium)5 Mg Tab5 Mg PO BID PRN (MUSCLE SPASM) #12 TAB Ref 0 Prov:Denise Padron DO 5/2/17 Methylprednisolone Dosepak (Medrol Dosepak)4 Mg Dspk4 Mg PO DIRECTED #1 DSPK Ref 0 Per Pharmacist direction Prov:Denise Padron DO 11/12/16 Disposition: 01 DISCHARGE HOME Condition: Stable Denise Padron DO November 12, 2016 19:03
[2016-11-12 19:25] VITALS: BP 135/80; PULSE 70; RESP 18; TEMP 97.6; O2SAT 100
[2016-12-20] MEDS ORDERED: LISI-515 PO (08:18)
== END 2016-11-12 19:44 | disposition home or self-care (01) ==
LOC: PHED 17:27
DX: M54.41 Lumbago with sciatica, right side (principal); I10 Essential (primary) hypertension; R56.9 Unspecified convulsions; F17.210 Nicotine dependence, cigarettes, uncomplicated; Z86.73 Personal history of transient ischemic attack (TIA), and cerebral infarction without residual deficits
CPT/HCPCS: 96372; 99283; J1100; J1885

== ENCOUNTER 2016-11-17 13:31 | Emergency (ER) | payer OTHER ==
[~2016-11-17] VITALS: Ht 167.6 cm; Wt 78.0 kg
[~2016-11-17 13:31] MED LIST changes: +DIAZ5 PO; +MEDR4PAK PO; +PERC5TAB12 PO
[2016-11-17 13:35] VITALS: BP 116/63; PULSE 63; RESP 16; TEMP 98.5; O2SAT 98
[2016-11-17 13:40] VITALS: RESP 16; O2SAT 98
[2016-11-17] MEDS ORDERED: levETIRAcetam 1000 MG INJ 100 ML IV ONE (13:45)
[2016-11-17] MEDS ORDERED: KEPP10002 PO (13:59)
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
[2016-11-17 14:50] VITALS: BP 120/64; PULSE 60; RESP 16; O2SAT 98
[2016-12-20] MEDS ORDERED: LISI-515 PO (08:18)
== END 2016-11-17 14:57 | disposition home or self-care (01) ==
LOC: PHED 13:31
DX: R56.9 Unspecified convulsions (principal); S09.90XA Unspecified injury of head, initial encounter; J45.909 Unspecified asthma, uncomplicated; I10 Essential (primary) hypertension; F17.210 Nicotine dependence, cigarettes, uncomplicated; Z86.73 Personal history of transient ischemic attack (TIA), and cerebral infarction without residual deficits; W22.09XA Striking against other stationary object, initial encounter; Y93.55 Activity, bike riding; Y92.512 Supermarket, store or market as the place of occurrence of the external cause; Y99.8 Other external cause status
CPT/HCPCS: 70450; 96365; 99284; J1953

== ENCOUNTER 2016-11-19 10:41 | Emergency (ER) | payer OTHER ==
[~2016-11-19] VITALS: Ht 157.5 cm; Wt 80.0 kg
--- NOTE | 2016-11-19 10:51 | PD ---
HPI . here to schedule MRI Chief Complaint: Pain: Acute or Chronic Time Seen by Provider: 10:50 Travel History International Travel<30 days: No Contact w/Intl Traveler<30days: No Traveled to known affect area: No History of Present Illness HPI Patient tells me he is here to schedule MRI. He has no emergency. He says he missed a phone call because he has no minutes on his phone and decided to come to [place] to schedule the MRI. He has on standing history of chronic back pain. He denies any changes. PFSH Past Medical History Hx Anticoagulant Therapy: No Asthma: Yes Autoimmune Disease: No Anxiety: No Depression: No Heart Rhythm Problems: No Cancer: No Cardiac Catheterization: No Cardiovascular Problems: Yes High Cholesterol: No Chemotherapy: No Chest Pain: No Congestive Heart Failure: No COPD: No Cerebrovascular Accident: Yes Diabetes: No Diminished Hearing: No Endocrine: No Gastrointestinal Disorders: No Genitourinary: No Headaches: Yes Heparin Induced Thrombocytopen: No Hypertension: Yes Immune Disorder: No Implanted Vascular Access Dvce: No Kidney Stones: No Musculoskeletal: No Neurologic: Yes Psychiatric: No Reproductive: No Respiratory: Yes (asthma) Immunizations Current: No Migraines: No Radiation Therapy: No Renal Failure: No 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) Sickle Cell Disease: No Sleep Apnea: No Ulcer: No ?: Not Past Surgical History Abdominal Surgery: No AICD: No Arteriovenous Shunt: No Cardiac Surgery: No Coronary Artery Bypass Graft: No Ear Surgery: No Endocrine Surgery: No Eye Surgery: No Genitourinary Surgery: No Gynecologic Surgery: No Hysterectomy: Yes (htn on meds) Insulin Pump: No Joint Replacement: No Neurologic Surgery: No Oral Surgery: No Pacemaker: No Thoracic Surgery: No Other Surgery: No Social History Alcohol Use: No Tobacco Use: Yes (5 cigarettes/day) Substance Use: No Allergies-Medications (Allergen,Severity, Reaction): Coded Allergies: No Known Allergies (Unverified , 11/17/16) verified/yes Reported Meds & Prescriptions Reported Meds & Active Scripts Active Keppra (Levetiracetam) 1,000 Mg Tab 1,000 Mg PO BID Keppra (Levetiracetam) 1,000 Mg Tab 1,000 Mg PO BID Amlodipine (Amlodipine Besylate) 10 Mg Tab 10 Mg PO DAILY 30 Days Lisinopril 20 Mg Tab 20 Mg PO BID 30 Days Review of Systems General / Constitutional: No: Fever Eyes: No: Visual changes HENT: No: Headaches Cardiovascular: No: Chest Pain or Discomfort Respiratory: No: Shortness of Breath Gastrointestinal: No: Abdominal Pain Genitourinary: No: Dysuria Musculoskeletal: No: Pain Skin: No Rash Neurologic: No: Weakness Psychiatric: No: Depression Endocrine: No: Polydipsia Hematologic/Lymphatic: No: Easy Bruising Physical Exam Narrative GENERAL: AAO x 3, no acute distress, Well-nourished, well-developed patient. Comfortable SKIN: Warm and dry. No visible rashes or bruising. HEAD: Normocephalic and atraumatic. EYES: No scleral icterus. No injection or drainage. ENT: No nasal drainage noted. Airway patent. NECK: Supple, trachea midline. No JVD. CARDIOVASCULAR: Regular rate and rhythm without murmurs, gallops, or rubs. RESPIRATORY: Breath sounds equal bilaterally. No accessory muscle use. No rhonchi or rales. GASTROINTESTINAL: Visual inspection normal EXTREMITIES: No cyanosis or edema. BACK: Nontender without obvious deformity. No CVA tenderness. PSYCH: AAO x 3, normal affect. Data Data Last Documented VS Vital Signs Date Time Temp Pulse Resp B/P Pulse Ox O2 Delivery O2 Flow Rate FiO2 11/19/16 11:07 98.3 87 17 138/74 98 MDM Medical Decision Making Medical Screen Exam Complete: Yes Emergency Medical Condition: No Medical Record Reviewed: Yes Differential Diagnosis chronic back pain Narrative Course A medical screening exam was performed: At the time of evaluation the presenting medical condition was determined not to be of an emergent nature. The patient was given the option of receiving additional care, but declined. Patient was given options for additional community resources from which to obtain care. The Patient Has Been advised to seek medical attention for their presenting complaint. The patient has been advised to return to the ER at any time if an emergent condition develops. Patient is just here to schedule MRI. He requests a phone to call for an appointment as he does not have minutes on his phone. Diagnosis Primary Impression: Encounter for medical screening examination Condition: Stable Kamille Olvera November 19, 2016 10:51 Kamille Olvera November 19, 2016 10:51
[2016-11-19 11:07] VITALS: BP 138/74; PULSE 87; RESP 17; TEMP 98.3; O2SAT 98
[2016-12-20] MEDS ORDERED: LISI-515 PO (08:18)
== END 2016-11-19 11:22 | disposition left against medical advice (07) ==
LOC: NEPK 10:41
DX: M54.9 Dorsalgia, unspecified (principal); G89.29 Other chronic pain
CPT/HCPCS: 99281

== ENCOUNTER 2016-11-24 11:51 | Emergency (ER) | payer OTHER ==
[~2016-11-24] VITALS: Ht 167.6 cm; Wt 78.2 kg
[~2016-11-24 11:51] MED LIST changes: -DIAZ5 PO; -MEDR4PAK PO; -PERC5TAB12 PO
[2016-11-24 11:57] VITALS: BP 104/62; PULSE 72; RESP 16; TEMP 98.7; O2SAT 99
--- NOTE | 2016-11-24 12:11 | PD ---
HPI Chief Complaint: Skin Problem Time Seen by Provider: 12:08 Travel History International Travel<30 days: No Contact w/Intl Traveler<30days: No Traveled to known affect area: No History of Present Illness HPI 61-year-old male presents the emergency Department with question of cellulitis in the right second toe and foot. Patient states he's had some pain and swelling in the right foot. Patient states he had a seizure 3 days ago. Since that time his right foot has been painful. Automated been bitten by an insect. Patient is able to ambulate but it is painful. His pain is a 8/10 in the foot. Patient takes Keppra for his seizure disorder. He also takes amlodipine and lisinopril for hypertension. Patient denies fever, chills, or other symptoms. He has no known drug allergies. PFSH Past Medical History Hx Anticoagulant Therapy: No Asthma: Yes Autoimmune Disease: No Anxiety: No Depression: No Heart Rhythm Problems: No Cancer: No Cardiac Catheterization: No Cardiovascular Problems: Yes (HTN) High Cholesterol: No Chemotherapy: No Chest Pain: No Congestive Heart Failure: No COPD: No Cerebrovascular Accident: Yes (CVA) Diabetes: No Diminished Hearing: No Endocrine: No Gastrointestinal Disorders: No Genitourinary: No Headaches: Yes Heparin Induced Thrombocytopen: No Hypertension: Yes Immune Disorder: No Implanted Vascular Access Dvce: No Kidney Stones: No Musculoskeletal: No Neurologic: Yes Psychiatric: No Reproductive: No Respiratory: Yes (asthma) Immunizations Current: No Migraines: No Radiation Therapy: No Renal Failure: No 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) Sickle Cell Disease: No Sleep Apnea: No Ulcer: No Past Surgical History Abdominal Surgery: No AICD: No Arteriovenous Shunt: No Cardiac Surgery: No Coronary Artery Bypass Graft: No Ear Surgery: No Endocrine Surgery: No Eye Surgery: No Genitourinary Surgery: No Gynecologic Surgery: No Hysterectomy: Yes (htn on meds) Insulin Pump: No Joint Replacement: No Neurologic Surgery: No Oral Surgery: No Pacemaker: No Thoracic Surgery: No Other Surgery: No Social History Alcohol Use: No Tobacco Use: Yes (5 cigarettes/day) Substance Use: No Allergies-Medications (Allergen,Severity, Reaction): Coded Allergies: No Known Allergies (Unverified , 11/24/16) verified/yes Reported Meds & Prescriptions Reported Meds & Active Scripts Active Keppra (Levetiracetam) 1,000 Mg Tab 1,000 Mg PO BID Amlodipine (Amlodipine Besylate) 10 Mg Tab 10 Mg PO DAILY 30 Days Lisinopril 20 Mg Tab 20 Mg PO BID 30 Days Review of Systems Except as stated in HPI: all other systems reviewed are Neg General / Constitutional: No: Fever Eyes: No: Visual changes HENT: No: Headaches Cardiovascular: No: Chest Pain or Discomfort Respiratory: No: Shortness of Breath Gastrointestinal: No: Abdominal Pain Genitourinary: No: Dysuria Musculoskeletal: Positive: Arthralgias, Limited ROM, Pain Skin: Positive Lesions (see history present illness.), No Rash Neurologic: No: Weakness Psychiatric: No: Depression Endocrine: No: Polydipsia Hematologic/Lymphatic: No: Easy Bruising Physical Exam Exam Limitations: Poor Historian Narrative GENERAL: Patient appears in mild distress. SKIN: Warm and dry. Patient has multiple small excoriations to the right foot, carbajal, and leg. Patient appears to have an insect bite to the dorsal second toe. Patient has obvious swelling and ecchymosis to the right foot. No significant erythema or warmth is noted. No streaking is noted. HEAD: Atraumatic. Normocephalic. EYES: Pupils equal and round. No scleral icterus. No injection or drainage. ENT: No nasal bleeding or discharge. Mucous membranes pink and moist. Pharynx is clear. Airway is patent. NECK: Trachea midline. Supple nontender. CARDIOVASCULAR: Regular rate and rhythm. RESPIRATORY: No accessory muscle use. Clear to auscultation. Breath sounds equal bilaterally. MUSCULOSKELETAL: Extremities without clubbing, cyanosis, or edema. No obvious deformities. Patient has pain with palpation to the right distal foot at the base of the second toe. This area is obviously swollen with ecchymosis present. Toes do not show obvious deformity. NEUROLOGICAL: Awake and alert. No obvious cranial nerve deficits. Motor grossly within normal limits. Five out of 5 muscle strength in the arms and legs. Normal speech. PSYCHIATRIC: Appropriate mood and affect; insight and judgment normal. Data Data Last Documented VS Vital Signs Date Time Temp Pulse Resp B/P Pulse Ox O2 Delivery O2 Flow Rate FiO2 11/24/16 11:57 98.7 72 16 104/62 99 Orders Foot, Complete ([id number]) (11/24/16 12:11) Ice/Cold Pack (11/24/16 12:11) Sulfamet-Trimeth Ds 800-160 Mg (Bactrim (11/24/16 12:15) Naproxen (Naprosyn) (11/24/16 12:15) Splint Or Brace Apply/Monitor (11/24/16 12:52) [facility] Medical Decision Making Medical Screen Exam Complete: Yes Emergency Medical Condition: Yes Differential Diagnosis Insect bite. Cellulitis. Seizure disorder. Right foot contusion. Right foot fracture. Narrative Course Patient is medically stable at time of exam. X-rays of the right foot ordered. Patient is given Bactrim DS by mouth 1 as well as Naprosyn 500 mg by mouth. X-ray shows soft tissue swelling without fracture. Patient will be treated with Bactrim DS twice a day 7 days. Patient will continue on Naprosyn 500 mg twice a day when necessary #20. Patient is placed in a postop shoe for comfort. He is to continue his other meds as previously prescribed. Patient follow up if symptoms do not improve or worsen as discussed. Diagnosis Primary Impression: Contusion of right foot including toes Qualified Code: S90.31XA - Contusion of right foot including toes, initial encounter Additional Impression: Cellulitis Qualified Code: L03.031 - Cellulitis of toe of right foot Referrals: Primary Care Physician Patient Instructions: Cellulitis (ED), Foot Contusion (ED), General Instructions Additional Instructions: Patient is given Bactrim DS by mouth 1 as well as Naprosyn 500 mg by mouth. X-ray shows soft tissue swelling without fracture. Patient will be treated with Bactrim DS twice a day 7 days. Patient will continue on Naprosyn 500 mg twice a day when necessary #20. Patient is placed in a postop shoe for comfort. He is to continue his other meds as previously prescribed. Patient follow up if symptoms do not improve or worsen as discussed. Med/Other Pt SpecificInfo: Prescription(s) given Scripts Naproxen (Naprosyn)500 Mg [id number] Mg PO BID #20 TAB Prov:Toño Carrasquillo MD 11/24/16 Sulfamethoxazole-Trimethoprim (Bactrim DS)800-160 Mg Tab1 Tab PO BID #14 TAB Prov:Toño Carrasquillo MD 5/14/17 Disposition: 01 DISCHARGE HOME Condition: Stable Fab Polk November 24, 2016 12:11
[2016-11-24] MEDS ORDERED: NAPROXEN 500 MG TAB PO ONE (12:15)
[2016-11-24] MEDS ORDERED: SULFAMETHOXAZOLE-TRIMETHOPRIM DS 800-160 MG TAB PO ONE (12:15)
--- NOTE | 2016-11-24 12:43 | RADHPO ---
EXAM DATE/TIME: 11/24/2016 12:27 [facility] COMPARISON: No previous studies available for comparison. INDICATIONS : Red, swollen, painful right foot for 2 days from possible insect bite, patient had seizure 3 days ago with a possible foot injury MEDICAL HISTORY : Stroke. seizures SURGICAL HISTORY : None. ENCOUNTER: Initial ACUITY: 2 days PAIN SCORE: 8/10 LOCATION: Right foot FINDINGS: Three view examination of the right foot demonstrates soft tissue swelling without dislocation, or fr acture. The tarsal bones appear intact. The interphalangeal and metatarsophalangeal joints are int act. The calcaneus is intact. Bony mineralization is normal. CONCLUSION: Soft tissue swelling without fracture. Radames Wallace MD on November 24, 2016 at 12:40 Board Certified Radiologist. This report was verified electronically.
[2016-11-24] MEDS ORDERED: NAPR500 PO (12:55)
[2016-11-24] MEDS ORDERED: BACT800T5 PO (12:55)
[2016-12-20] MEDS ORDERED: LISI-515 PO (08:18)
== END 2016-11-24 13:08 | disposition home or self-care (01) ==
LOC: PHEFT 11:51
DX: S90.31XA Contusion of right foot, initial encounter (principal); L03.031 Cellulitis of right toe; I10 Essential (primary) hypertension; Z72.0 Tobacco use; Z86.69 Personal history of other diseases of the nervous system and sense organs; Z87.09 Personal history of other diseases of the respiratory system; Z86.79 Personal history of other diseases of the circulatory system; X58.XXXA Exposure to other specified factors, initial encounter
CPT/HCPCS: 73630; 99283; L3260

== ENCOUNTER 2016-12-27 15:00 | Emergency (ER) | payer OTHER ==
[~2016-12-27] VITALS: Ht 167.6 cm; Wt 80.0 kg
[~2016-12-27 15:00] MED LIST changes: +BACT800T5 PO; +NAPR500 PO
[2016-12-27 15:13] VITALS: BP 122/79; PULSE 59; RESP 16; TEMP 98.6; O2SAT 98
--- NOTE | 2016-12-27 16:18 | PD ---
HPI Chief Complaint: Back/ Neck Pain or Injury Time Seen by Provider: 15:40 Travel History International Travel<30 days: No Contact w/Intl Traveler<30days: No Traveled to known affect area: No History of Present Illness HPI 61 year old male presents emergency department for evaluation of right low back pain radiating down into the right leg. He reports symptom onset 3 days ago. He reports he has been doing heavy lifting and twisting which exacerbated his chronic sciatica. He reports pain severity as 6 out of 10. Pain is worse with movement and relieved by rest. Similar to previous sciatica. He denies fever, chills, urinary or fecal incontinence, or numbness/tingling/weakness in the extremity. PFSH Past Medical History Narrative Medical Significant for CVA, chronic back pain, sciatica, seizures Hx Anticoagulant Therapy: No Asthma: Yes Autoimmune Disease: No Anxiety: No Depression: No Heart Rhythm Problems: No Cancer: No Cardiac Catheterization: No Cardiovascular Problems: Yes (htn on meds) High Cholesterol: No Chemotherapy: No Chest Pain: No Congestive Heart Failure: No COPD: No Cerebrovascular Accident: Yes (cva) Diabetes: No Diminished Hearing: No Endocrine: No Gastrointestinal Disorders: No Genitourinary: No Headaches: Yes Heparin Induced Thrombocytopen: No Hypertension: Yes Immune Disorder: No Implanted Vascular Access Dvce: No Kidney Stones: No Musculoskeletal: No Neurologic: Yes Psychiatric: No Reproductive: No Respiratory: Yes (asthma) Immunizations Current: No Migraines: No Radiation Therapy: No Renal Failure: No 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) Sickle Cell Disease: No Sleep Apnea: No Ulcer: No Tetanus Vaccination: < 5 Years Past Surgical History Abdominal Surgery: No AICD: No Arteriovenous Shunt: No Cardiac Surgery: No Coronary Artery Bypass Graft: No Ear Surgery: No Endocrine Surgery: No Eye Surgery: No Genitourinary Surgery: No Gynecologic Surgery: No Insulin Pump: No Joint Replacement: No Neurologic Surgery: No Oral Surgery: No Pacemaker: No Thoracic Surgery: No Other Surgery: No Family History Family Myocardial Infarction: Yes (mother, father, brother) Social History Alcohol Use: No Tobacco Use: Yes (5 cigarettes/day) Substance Use: No Allergies-Medications (Allergen,Severity, Reaction): Coded Allergies: No Known Allergies (Unverified , 12/27/16) verified/yes Reported Meds & Prescriptions Reported Meds & Active Scripts Active Lisinopril 20 Mg Tab 20 Mg PO BID 30 Days Naprosyn (Naproxen) 500 Mg Tab 500 Mg PO BID Keppra (Levetiracetam) 1,000 Mg Tab 1,000 Mg PO BID Amlodipine (Amlodipine Besylate) 10 Mg Tab 10 Mg PO DAILY 30 Days Review of Systems Except as stated in HPI: all other systems reviewed are Neg Physical Exam Narrative GENERAL: Alert, well-appearing male, no acute distress SKIN: Focused skin assessment warm/dry. HEAD: Atraumatic. Normocephalic. EYES: Pupils equal and round. No scleral icterus. No injection or drainage. ENT: No nasal bleeding or discharge. Mucous membranes pink and moist. NECK: Trachea midline. No JVD. CARDIOVASCULAR: Regular rate and rhythm. No murmur appreciated. RESPIRATORY: No accessory muscle use. Clear to auscultation. Breath sounds equal bilaterally. GASTROINTESTINAL: Abdomen soft, non-tender, nondistended. Hepatic and splenic margins not palpable. MUSCULOSKELETAL: No obvious deformities. No clubbing. No cyanosis. No edema. NEUROLOGICAL: Awake and alert. No obvious cranial nerve deficits. Motor grossly within normal limits. Normal speech. 2+ DTRs. Dorsiflex and plantarflex intact. 5 out of 5 strength in lower extremities BACK: No midline spine tenderness, no CVA tenderness. Tender over the right paraspinous muscles and SI joint PSYCHIATRIC: Appropriate mood and affect; insight and judgment normal. Data Data Last Documented VS Vital Signs Date Time Temp Pulse Resp B/P Pulse Ox O2 Delivery O2 Flow Rate FiO2 12/27/16 15:13 98.6 59 16 122/79 98 MDM Medical Decision Making Medical Screen Exam Complete: Yes Emergency Medical Condition: Yes Medical Record Reviewed: Yes Differential Diagnosis Sciatica, lumbago, lumbar strain, herniated disc Narrative Course 61-year-old male presents for evaluation of right low back pain radiating down into his leg. He reports a history of sciatica with similar pain. He is asleep on stretcher and I enter room. He does not appear uncomfortable. Physical exam is consistent with sciatica pain. He is ambulating without difficulty. No lower extremity weakness. Diagnosis Primary Impression: Lumbago with sciatica, right side Referrals: Primary Care Physician Scripts Cyclobenzaprine (Flexeril)5 Mg Tab5 Mg PO TID #12 TAB Ref 0 Prov:Jocelyn Cody 12/27/16 Ibuprofen 800 Mg Ysl000 Mg PO Q8H PRN (Pain/Inflammation) #30 TAB Prov:Jocelyn Cody 12/27/16 Disposition: 01 DISCHARGE HOME Condition: Stable Jocelyn Cody Dec 27, 2016 16:18
[2016-12-27] MEDS ORDERED: IBUP800T23 PO (16:21)
[2016-12-27] MEDS ORDERED: CYCL5TAB PO (16:21)
[2016-12-27] MEDS ORDERED: KETOROLAC TROMETHAMINE 60 MG/2 ML (IM) VIAL IM ONE (16:30)
== END 2016-12-27 16:35 | disposition home or self-care (01) ==
LOC: PHEFT 15:00
DX: M54.41 Lumbago with sciatica, right side (principal); I10 Essential (primary) hypertension; F17.210 Nicotine dependence, cigarettes, uncomplicated; Z86.73 Personal history of transient ischemic attack (TIA), and cerebral infarction without residual deficits
CPT/HCPCS: 96372; 99284; J1885

== ENCOUNTER 2016-12-28 12:31 | Emergency (ER) | payer OTHER ==
[~2016-12-28] VITALS: Ht 167.6 cm; Wt 80.0 kg
[~2016-12-28 12:31] MED LIST changes: -BACT800T5 PO; +CYCL5TAB PO; +IBUP800T23 PO
[2016-12-28 12:37] VITALS: BP 117/70; PULSE 67; RESP 16; TEMP 98.2; O2SAT 99
--- NOTE | 2016-12-28 14:19 | RADHPO ---
EXAM DATE/TIME: 12/28/2016 13:56 [facility] COMPARISON: No previous studies available for comparison. INDICATIONS : Low back pain after lifting heavy object MEDICAL HISTORY : Stroke. seizures SURGICAL HISTORY : None. ENCOUNTER: Initial ACUITY: 1 day PAIN SCORE: 8/10 LOCATION: Bilateral low back FINDINGS: 5 views of the lumbar spine demonstrate rightward convex curvature. No fracture or compression deform ity is present. There is decreased disc height at the L3-L4, L4-L5, and L5-S1 levels with endplate sc lerosis and osteophytes. There is no anterolisthesis or retrolisthesis. No pars defect is visualized. Pelvic bones and soft tissues demonstrate no acute finding. CONCLUSION: Lumbar scoliosis with severe degenerative disc disease at L3-L4 through L5-S1. No acute lumbar spine abnormality is identified. Varinder Martinez MD on December 28, 2016 at 14:14 Board Certified Radiologist. This report was verified electronically.
--- NOTE | 2016-12-28 14:25 | PD ---
HPI Chief Complaint: Back/ Neck Pain or Injury Time Seen by Provider: 13:20 Travel History International Travel<30 days: No Contact w/Intl Traveler<30days: No Traveled to known affect area: No History of Present Illness HPI 61-year-old male presents emergency department for evaluation of back pain. Patient was seen yesterday in the emergency room for same complaint. Patient reports his pain has persisted and he is requesting x-rays. He does not endorse worsening of symptoms at this time. He reports symptom onset 4 days ago. He reports he has been doing heavy lifting and twisting which exacerbated his chronic sciatica. He reports pain severity as 6 out of 10. Pain is worse with movement and relieved by rest. Similar to previous sciatica. He denies fever, chills, urinary or fecal incontinence, or numbness/tingling/weakness in the extremity. He reports that shot given to him yesterday helped the pain and he would like the same shot today. PFSH Past Medical History Hx Anticoagulant Therapy: No Asthma: Yes Autoimmune Disease: No Anxiety: No Depression: No Heart Rhythm Problems: No Cancer: No Cardiac Catheterization: No Cardiovascular Problems: Yes (htn on meds) High Cholesterol: No Chemotherapy: No Chest Pain: No Congestive Heart Failure: No COPD: No Cerebrovascular Accident: Yes (cva) Diabetes: No Diminished Hearing: No Endocrine: No Gastrointestinal Disorders: No Genitourinary: No Headaches: Yes Heparin Induced Thrombocytopen: No Hypertension: Yes Immune Disorder: No Implanted Vascular Access Dvce: No Kidney Stones: No Musculoskeletal: No Neurologic: Yes Psychiatric: No Reproductive: No Respiratory: Yes (asthma) Immunizations Current: No Migraines: No Radiation Therapy: No Renal Failure: No 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) Sickle Cell Disease: No Sleep Apnea: No Ulcer: No ?: Not Past Surgical History Surgical History: No Previous Surgery Abdominal Surgery: No AICD: No Arteriovenous Shunt: No Cardiac Surgery: No Coronary Artery Bypass Graft: No Ear Surgery: No Endocrine Surgery: No Eye Surgery: No Genitourinary Surgery: No Gynecologic Surgery: No Insulin Pump: No Joint Replacement: No Neurologic Surgery: No Oral Surgery: No Pacemaker: No Thoracic Surgery: No Other Surgery: No Family History Family Myocardial Infarction: Yes (mother, father, brother) Social History Alcohol Use: No Tobacco Use: Yes (5 cigarettes/day) Substance Use: No Allergies-Medications (Allergen,Severity, Reaction): Coded Allergies: No Known Allergies (Unverified , 12/28/16) verified/yes Reported Meds & Prescriptions Reported Meds & Active Scripts Active Flexeril (Cyclobenzaprine HCl) 5 Mg Tab 5 Mg PO TID Ibuprofen 800 Mg Tab 800 Mg PO Q8H PRN Lisinopril 20 Mg Tab 20 Mg PO BID 30 Days Keppra (Levetiracetam) 1,000 Mg Tab 1,000 Mg PO BID Amlodipine (Amlodipine Besylate) 10 Mg Tab 10 Mg PO DAILY 30 Days Review of Systems Except as stated in HPI: all other systems reviewed are Neg Physical Exam Narrative GENERAL: Well-nourished, well-developed patient. SKIN: Focused skin assessment warm/dry. HEAD: Normocephalic. EYES: No scleral icterus. No injection or drainage. NECK: Supple, trachea midline. No JVD or lymphadenopathy. CARDIOVASCULAR: Regular rate and rhythm without murmurs, gallops, or rubs. RESPIRATORY: Breath sounds equal bilaterally. No accessory muscle use. GASTROINTESTINAL: Abdomen soft, non-tender, nondistended. MUSCULOSKELETAL: No cyanosis, or edema. BACK: Nontender without obvious deformity. No CVA tenderness. Mild tenderness in the lumbar spine region. Right sided paraspinous muscle tenderness. 2+ DTRs. Patient ambulatory without difficulty. 5 out of 5 strength in lower extremities. Data Data Last Documented VS Vital Signs Date Time Temp Pulse Resp B/P Pulse Ox O2 Delivery O2 Flow Rate FiO2 12/28/16 12:37 98.2 67 16 117/70 99 Orders Spine, Lumbar Comp W/Obliq (12/28/16 ) Ketorolac Inj (Toradol Inj) (12/28/16 14:30) [facility] Medical Decision Making Medical Screen Exam Complete: Yes Emergency Medical Condition: Yes Differential Diagnosis Sciatica, lumbar strain, degenerative disc disease Narrative Course 61-year-old male presents emergency department for evaluation of low back pain. Patient has history of sciatica. He reports similar symptoms in the past. He was seen yesterday for the same complaint and presents today requesting x- rays so that he can schedule his pain management appointment this week. He is comfortable asleep on the stretcher when I into the room to examine him. I witnessed him ambulating without difficulty. X-ray of the lumbar spine show no acute fracture but found scoliosis and evidence of degenerative disc disease. Diagnostic findings discussed with patient. He is requesting a shot of Toradol. Patient was instructed to follow up with his pain management doctor. Diagnosis Primary Impression: Lumbago with sciatica, right side Referrals: Pain Management Disposition: 01 DISCHARGE HOME Condition: Stable Jocelyn Cody Dec 28, 2016 14:25
[2016-12-28] MEDS ORDERED: KETOROLAC TROMETHAMINE 60 MG/2 ML (IM) VIAL IM ONE (14:30)
== END 2016-12-28 14:51 | disposition home or self-care (01) ==
LOC: PHEFT 12:31
DX: M54.41 Lumbago with sciatica, right side (principal); F17.210 Nicotine dependence, cigarettes, uncomplicated; I10 Essential (primary) hypertension; Z86.73 Personal history of transient ischemic attack (TIA), and cerebral infarction without residual deficits
CPT/HCPCS: 72110; 96372; 99284; J1885

== ENCOUNTER 2017-01-01 07:05 | Emergency (ER) | payer OTHER ==
[~2017-01-01 07:05] MED LIST changes: -NAPR500 PO
[2017-01-01 07:10] VITALS: BP 124/69; PULSE 85; RESP 16; TEMP 98; O2SAT 97
[2017-01-01] MEDS ORDERED: SODIUM CHLOR 0.9% 1000 ML INJ 1,000 ML IV ONE (07:13)
[2017-01-01 07:15] VITALS: O2SAT 100
[2017-01-01] MEDS ORDERED: levETIRAcetam INJ 500 MG in SODIUM CHLORIDE 0.9% INJ 100 ML IV ONE (07:15)
[2017-01-01] MEDS ORDERED: SODIUM CHLORIDE 0.9% FLUSH 10 ML FLUSH IVF PRN (07:15)
--- NOTE | 2017-01-01 07:19 | PD ---
HPI Chief Complaint: Seizure Time Seen by Provider: 07:08 Travel History International Travel<30 days: No Contact w/Intl Traveler<30days: No Traveled to known affect area: No History of Present Illness HPI The patient is a 61-year-old male who presents to the emergency department via EMS for seizure. 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 The patient was taking Keppra 500 mg twice a day, was recently increased 1000 mg twice a day in October after he was seen for multiple seizures in the emergency department. The patient does not recall his seizure earlier today, does state he bit his tongue, but there is no urinary incontinence. He denies any current headache, neck pain, chest pain, shortness of breath, nausea, vomiting, or abdominal pain. EMS states that the seizure was witnessed, unknown length of time, and the patient initially was postictal. The patient cannot recall his primary physician or neurologist. Symptoms are mild to moderate, possibly exacerbated by history seizures, and there are no current alleviating factors. The patient denies any current illicit drug use or alcohol use, does use tobacco daily. PFSH Past Medical History Hx Anticoagulant Therapy: No Asthma: Yes Autoimmune Disease: No Anxiety: No Depression: No Heart Rhythm Problems: No Cancer: No Cardiac Catheterization: No Cardiovascular Problems: Yes (htn on meds) High Cholesterol: No Chemotherapy: No Chest Pain: No Congestive Heart Failure: No COPD: No Cerebrovascular Accident: Yes (cva) Diabetes: No Diminished Hearing: No Endocrine: No Gastrointestinal Disorders: No Genitourinary: No Headaches: Yes Heparin Induced Thrombocytopen: No Hypertension: Yes Immune Disorder: No Implanted Vascular Access Dvce: No Kidney Stones: No Musculoskeletal: No Neurologic: Yes Psychiatric: No Reproductive: No Respiratory: Yes (asthma) Immunizations Current: No Migraines: No Radiation Therapy: No Renal Failure: No 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) Sickle Cell Disease: No Sleep Apnea: No Ulcer: No Tetanus Vaccination: < 5 Years Influenza Vaccination: Yes Past Surgical History Abdominal Surgery: No AICD: No Arteriovenous Shunt: No Cardiac Surgery: No Coronary Artery Bypass Graft: No Ear Surgery: No Endocrine Surgery: No Eye Surgery: No Genitourinary Surgery: No Gynecologic Surgery: No Insulin Pump: No Joint Replacement: No Neurologic Surgery: No Oral Surgery: No Pacemaker: No Thoracic Surgery: No Other Surgery: No Family History Family Myocardial Infarction: Yes (mother, father, brother) Social History Alcohol Use: No Tobacco Use: Yes (5 cigarettes/day) Substance Use: No Allergies-Medications (Allergen,Severity, Reaction): Coded Allergies: No Known Allergies (Unverified , 01/01/17) verified/yes Reported Meds & Prescriptions Reported Meds & Active Scripts Active Flexeril (Cyclobenzaprine HCl) 5 Mg Tab 5 Mg PO TID Ibuprofen 800 Mg Tab 800 Mg PO Q8H PRN Lisinopril 20 Mg Tab 20 Mg PO BID 30 Days Keppra (Levetiracetam) 1,000 Mg Tab 1,000 Mg PO BID Amlodipine (Amlodipine Besylate) 10 Mg Tab 10 Mg PO DAILY 30 Days Review of Systems Except as stated in HPI: all other systems reviewed are Neg General / Constitutional: No: Fever HENT: No: Headaches, Lightheadedness, Neck Pain Cardiovascular: No: Chest Pain or Discomfort Respiratory: No: Shortness of Breath Gastrointestinal: No: Nausea, Vomiting, Abdominal Pain Genitourinary: No: Incontinence Musculoskeletal: No: Weakness Neurologic: Positive: Seizures, No: Slurred Speech Physical Exam Narrative GENERAL: Awake, alert, pleasant 61-year-old male who appears his stated age and is in no acute respiratory distress. He does appear mildly postictal. SKIN: Focused skin assessment warm/dry. HEAD: Atraumatic. Normocephalic. EYES: Pupils equal and round. Pupils are 4 mm bilateral and reactive. EOMs are intact. ENT: No nasal bleeding or discharge. Superficial abrasions and ecchymosis to the anterior aspect of the tongue. NECK: Trachea midline. No JVD. No tenderness of cervical vertebrae. CARDIOVASCULAR: Regular rate and rhythm. No murmur appreciated. RESPIRATORY: No accessory muscle use. Clear to auscultation. Breath sounds equal bilaterally. GASTROINTESTINAL: Abdomen soft, non-tender, nondistended. No rebound tenderness. MUSCULOSKELETAL: Old appearing right clavicle injury. Moves all 4 extremities without difficulty. Back: No tenderness over the thoracic or lumbar vertebrae. NEUROLOGICAL: Awake and alert. No obvious cranial nerve deficits. Motor grossly within normal limits. Normal speech. Patient is oriented to person, place, and year. Follows commands without difficulty. PSYCHIATRIC: Appropriate mood and affect; insight and judgment normal. Data Data Last Documented VS Vital Signs Date Time Temp Pulse Resp B/P Pulse Ox O2 Delivery O2 Flow Rate FiO2 01/01/17 08:26 61 16 96/57 98 Room Air 01/01/17 07:15 2 01/01/17 07:10 98.0 Orders Complete Blood Count With Diff (01/01/17 07:13) Electrocardiogram (01/01/17 ) Ct Brain W/O Iv Contrast(Rout) (01/01/17 ) Blood Glucose (01/01/17 07:13) Ecg Monitoring (01/01/17 07:13) Iv Access Insert/Monitor (01/01/17 07:13) Oximetry (01/01/17 07:13) Comprehensive Metabolic Panel (01/01/17 07:13) Sodium Chlor 0.9% 1000 Ml Inj (Ns 1000 M (01/01/17 07:13) Sodium Chloride 0.9% Flush (Ns Flush) (01/01/17 07:15) Levetiracetam Inj (Keppra Inj) (01/01/17 07:15) Labs Laboratory Tests Test 01/01/17 07:18 White Blood Count 7.6 TH/MM3 Red Blood Count 5.17 MIL/MM3 Hemoglobin 15.3 GM/DL Hematocrit 46.1 % Mean Corpuscular Volume 89.1 FL Mean Corpuscular Hemoglobin 29.6 PG Mean Corpuscular Hemoglobin 33.3 % Concent Red Cell Distribution Width 12.1 % Platelet Count 280 TH/MM3 Mean Platelet Volume 7.4 FL Neutrophils (%) (Auto) 57.8 % Lymphocytes (%) (Auto) 28.0 % Monocytes (%) (Auto) 8.6 % Eosinophils (%) (Auto) 4.9 % Basophils (%) (Auto) 0.7 % Neutrophils # (Auto) 4.4 TH/MM3 Lymphocytes # (Auto) 2.1 TH/MM3 Monocytes # (Auto) 0.6 TH/MM3 Eosinophils # (Auto) 0.4 TH/MM3 Basophils # (Auto) 0.1 TH/MM3 CBC Comment DIFF FINAL Differential Comment Sodium Level 141 MEQ/L Potassium Level 3.8 MEQ/L Chloride Level 107 MEQ/L Carbon Dioxide Level 17.4 MEQ/L Anion Gap 17 MEQ/L Blood Urea Nitrogen 24 MG/DL Creatinine 1.30 MG/DL Estimat Glomerular Filtration 56 ML/MIN Rate Random Glucose 128 MG/DL Calcium Level 9.3 MG/DL Total Bilirubin 0.5 MG/DL Aspartate Amino Transf 19 U/L (AST/SGOT) Alanine Aminotransferase 22 U/L (ALT/SGPT) Alkaline Phosphatase 86 U/L Total Protein 7.2 GM/DL Albumin 3.9 GM/DL [facility] Medical Decision Making Medical Screen Exam Complete: Yes Emergency Medical Condition: Yes Medical Record Reviewed: Yes Interpretation(s) EKG reveals normal sinus rhythm with a rate of 75. No evidence of WPW or Brugada syndrome. No arrhythmia or ectopy noted. Laboratory Tests Test 01/01/17 07:18 White Blood Count 7.6 TH/MM3 Red Blood Count 5.17 MIL/MM3 Hemoglobin 15.3 GM/DL Hematocrit 46.1 % Mean Corpuscular Volume 89.1 FL Mean Corpuscular Hemoglobin 29.6 PG Mean Corpuscular Hemoglobin 33.3 % Concent Red Cell Distribution Width 12.1 % Platelet Count 280 TH/MM3 Mean Platelet Volume 7.4 FL Neutrophils (%) (Auto) 57.8 % Lymphocytes (%) (Auto) 28.0 % Monocytes (%) (Auto) 8.6 % Eosinophils (%) (Auto) 4.9 % Basophils (%) (Auto) 0.7 % Neutrophils # (Auto) 4.4 TH/MM3 Lymphocytes # (Auto) 2.1 TH/MM3 Monocytes # (Auto) 0.6 TH/MM3 Eosinophils # (Auto) 0.4 TH/MM3 Basophils # (Auto) 0.1 TH/MM3 CBC Comment DIFF FINAL Differential Comment Sodium Level 141 MEQ/L Potassium Level 3.8 MEQ/L Chloride Level 107 MEQ/L Carbon Dioxide Level 17.4 MEQ/L Anion Gap 17 MEQ/L Blood Urea Nitrogen 24 MG/DL Creatinine 1.30 MG/DL Estimat Glomerular Filtration 56 ML/MIN Rate Random Glucose 128 MG/DL Calcium Level 9.3 MG/DL Total Bilirubin 0.5 MG/DL Aspartate Amino Transf 19 U/L (AST/SGOT) Alanine Aminotransferase 22 U/L (ALT/SGPT) Alkaline Phosphatase 86 U/L Total Protein 7.2 GM/DL Albumin 3.9 GM/DL CT of the head reveals stable CT scanning of the head with old infarct in the right parietal occipital region. Differential Diagnosis Differential diagnosis includes seizure, breakthrough seizure, noncompliance, intracranial hemorrhage, hyponatremia, hypocalcemia, syncope. Narrative Course IV was established, labs were drawn and sent, and the patient was placed on cardiac telemetry monitoring and continuous pulse oximetry monitoring. EKG was ordered and interpreted. Sodium level and calcium level were sent to lab. The patient was administered Her [address] of the brain was ordered as patient does have a history of hemorrhagic stroke with breakthrough seizure. The patient's CO2 17.4, and anion gap is 17, most likely related to lactic acidosis from the patient's seizure. Sodium and calcium levels are unremarkable. The BUN was slightly elevated at 24, the patient was administered 1 L of IV fluids. CT reveals a stable CT scan of the head with old infarct in the right parietal occipital region. The patient's vitals are stable, heart rate was 75 at 8:56 AM. The patient was reevaluated, the postictal state had resolved, he was awake and alert and down into his physician was. He states he ran out of his medication 2 days ago. I will rewrite the patient's Keppra 1000 g twice a day. He is requesting medicine for pain, therefore, was administered Toradol 30 mg intravenously. Patient be discharged with Keppra is finished. Diagnosis Primary Impression: Seizure disorder as sequela of cerebrovascular accident Patient Instructions: General Instructions Additional Instructions: Medications as directed. Follow-up with your primary physician. Return if symptoms worsen or progress. Take medications as directed. Follow-up with neurology. Med/Other Pt SpecificInfo: Prescription(s) given Scripts Levetiracetam (Keppra)1,000 Mg Tab1,000 Mg PO BID #60 TAB Ref 0 Prov:Cornell Dalal MD 01/01/17 Disposition: 01 DISCHARGE HOME Condition: Stable Cornell Dalal MD Jan 01, 2017 07:19
[2017-01-01 07:28] LABS: AUTOMATED NEUTROPHIL # 4.4 TH/MM3 (1.8-7.7); BASOPHIL # 0.1 TH/MM3 (0-0.2); BASOPHIL % 0.7 % (0.0-2.0); EOSINOPHIL # 0.4 TH/MM3 (0-0.4); EOSINOPHIL % 4.9 % (0.0-4.0); HEMATOCRIT 46.1 % (39.0-51.0); HEMO FLAGS DIFF FINAL; LYMPHOCYTE # 2.1 TH/MM3 (1.0-4.8); MEAN CELL VOLUME 89.1 FL (80.0-100.0); MEAN CORPUSCULAR HEMOGLOBIN 29.6 PG (27.0-34.0); MEAN CORPUSCULAR HGB CONC 33.3 % (32.0-36.0); MONO % 8.6 % (0.0-8.0); NEUT % 57.8 % (16.0-70.0); PLATELET COUNT 280 TH/MM3 (150-450); RED BLOOD COUNT 5.17 MIL/MM3 (4.50-5.90); RED CELL DISTRIBUTION WIDTH 12.1 % (11.6-17.2); WHITE BLOOD COUNT 7.6 TH/MM3 (4.0-11.0)
[2017-01-01 07:35] LABS: CHLORIDE 107 MEQ/L (98-107); POTASSIUM 3.8 MEQ/L (3.5-5.1); SODIUM (NA) 141 MEQ/L (136-145)
[2017-01-01 07:38] LABS: ANION GAP 17 MEQ/L (5-15); BICARBONATE 17.4 MEQ/L (21.0-32.0); BLOOD UREA NITROGEN 24 MG/DL (7-18)
[2017-01-01 07:41] LABS: ALT (GPT) 22 U/L (12-78); AST (GOT) 19 U/L (15-37); GLOMERULAR FILTRATION RATE 56 ML/MIN (>89)
[2017-01-01 07:43] LABS: TOTAL BILIRUBIN ADULT 0.5 MG/DL (0.2-1.0)
[2017-01-01 07:44] LABS: ALKALINE PHOSPHATASE 86 U/L (45-117)
[2017-01-01 08:26] VITALS: BP 96/57; PULSE 61; RESP 16; O2SAT 98
--- NOTE | 2017-01-01 08:36 | RADHPO ---
EXAM DATE/TIME: 01/01/2017 07:49 Caution: Report not yet finalized and possibly incomplete! [facility] COMPARISON: CT BRAIN W/O CONTRAST, November 17, 2016, 14:04. INDICATIONS : <<Seizure.>> RADIATION DOSE: <<65.61>> CTDIvol (mGy) MEDICAL HISTORY : Hypertension. Cerebrovascular disease. Seizures. SURGICAL HISTORY : Hysterectomy. ENCOUNTER: Initial ACUITY: 1 day PAIN SCALE: 0/10 LOCATION: Cranial TECHNIQUE: Multiple contiguous axial images were obtained of the head. Using automated exposure control and adj ustment of the mA and/or kV according to patient size, radiation dose was kept as low as reasonably a chievable to obtain optimal diagnostic quality images. FINDINGS: There is an old infarct in the right parietal occipital region. The left hemisphere is unremarkable. Posterior fossa appears normal;. Ventricular size is appropriate. There is no parenc hymal hemorrhage or mass lesion. There is no sinus disease. CONCLUSION: Stable CT scan of the head with old infarct in the right parietal occipital region. Aurelio Crisostomo MD FACR on January 01, 2017 at 8:07
[2017-01-01] MEDS ORDERED: KEPP10002 PO (08:58)
[2017-01-01] MEDS ORDERED: KETOROLAC TROMETHAMINE 30 MG/ML (IVP) VIAL IV PUSH ONE (09:00)
[2017-01-01 09:29] VITALS: BP 118/70
--- NOTE | 2017-01-01 09:51 | EKG ---
Date Performed: 01/01/2017 Time Performed: 07:25:45 PTAGE: 61 years EKG: Sinus rhythm NORMAL ECG PREVIOUS TRACING : 11/06/2016 13.40 No significant change from previous tracing noted. DOCTOR: Alexandro Loyola Interpretating Date/Time 01/01/2017 09:50:09
== END 2017-01-01 09:31 | disposition home or self-care (01) ==
LOC: PHED 07:05
DX: R56.9 Unspecified convulsions (principal); J45.909 Unspecified asthma, uncomplicated; I10 Essential (primary) hypertension; F17.210 Nicotine dependence, cigarettes, uncomplicated; Z86.73 Personal history of transient ischemic attack (TIA), and cerebral infarction without residual deficits
CPT/HCPCS: 70450; 80053; 85025; 93005; 96361; 96365; 96375; 99285; J1885; J1953; J7030

== ENCOUNTER 2017-01-22 08:47 | Emergency (ER) | payer OTHER ==
[~2017-01-22] VITALS: Ht 167.6 cm; Wt 78.2 kg
[2017-01-22 08:57] VITALS: BP 97/67; PULSE 79; RESP 18; TEMP 98.4; O2SAT 99
--- NOTE | 2017-01-22 09:04 | PD ---
HPI Chief Complaint: Medication Refill Request Time Seen by Provider: 09:00 Travel History International Travel<30 days: No Contact w/Intl Traveler<30days: No Traveled to known affect area: No History of Present Illness HPI PATIENT HAS A H/O SEIZURES , FOLLOWS UP WITH DR SABI PARSONS, HAS BEEN UNABLE TO MAKE APPOINTMENT AND JUST TOOK HIS LAST KEPPRA TODAY. STATES THAT HE HAS SEIZURES IF HE MISSES DOSES PFSH Past Medical History Hx Anticoagulant Therapy: No Asthma: Yes Autoimmune Disease: No Anxiety: No Depression: No Heart Rhythm Problems: No Cancer: No Cardiac Catheterization: No Cardiovascular Problems: Yes (HTN) High Cholesterol: No Chemotherapy: No Chest Pain: No Congestive Heart Failure: No COPD: No Cerebrovascular Accident: Yes (CVA) Diabetes: No Diminished Hearing: No Endocrine: No Gastrointestinal Disorders: No Genitourinary: No Headaches: Yes Heparin Induced Thrombocytopen: No Hypertension: Yes Immune Disorder: No Implanted Vascular Access Dvce: No Kidney Stones: No Musculoskeletal: No Neurologic: Yes Psychiatric: No Reproductive: No Respiratory: Yes (asthma) Immunizations Current: No Migraines: No Radiation Therapy: No Renal Failure: No 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) Sickle Cell Disease: No Sleep Apnea: No Ulcer: No Past Surgical History Abdominal Surgery: No AICD: No Arteriovenous Shunt: No Cardiac Surgery: No Coronary Artery Bypass Graft: No Ear Surgery: No Endocrine Surgery: No Eye Surgery: No Genitourinary Surgery: No Gynecologic Surgery: No Insulin Pump: No Joint Replacement: No Neurologic Surgery: No Oral Surgery: No Pacemaker: No Thoracic Surgery: No Other Surgery: No Social History Alcohol Use: No Tobacco Use: Yes (5 cigarettes/day) Substance Use: No Allergies-Medications (Allergen,Severity, Reaction): Coded Allergies: No Known Allergies (Unverified , 01/22/17) verified/yes Reported Meds & Prescriptions Reported Meds & Active Scripts Active Keppra (Levetiracetam) 1,000 Mg Tab 1,000 Mg PO BID Flexeril (Cyclobenzaprine HCl) 5 Mg Tab 5 Mg PO TID Ibuprofen 800 Mg Tab 800 Mg PO Q8H PRN Lisinopril 20 Mg Tab 20 Mg PO BID 30 Days Keppra (Levetiracetam) 1,000 Mg Tab 1,000 Mg PO BID Amlodipine (Amlodipine Besylate) 10 Mg Tab 10 Mg PO DAILY 30 Days Review of Systems Except as stated in HPI: all other systems reviewed are Neg Physical Exam Narrative GENERAL: SKIN: Warm and dry. HEAD: Atraumatic. Normocephalic. EYES: Pupils equal and round. No scleral icterus. No injection or drainage. ENT: No nasal bleeding or discharge. Mucous membranes pink and moist. NECK: Trachea midline. No JVD. CARDIOVASCULAR: Regular rate and rhythm. RESPIRATORY: No accessory muscle use. Clear to auscultation. Breath sounds equal bilaterally. GASTROINTESTINAL: Abdomen soft, non-tender, nondistended. Hepatic and splenic margins not palpable. MUSCULOSKELETAL: Extremities without clubbing, cyanosis, or edema. No obvious deformities. NEUROLOGICAL: Awake and alert. No obvious cranial nerve deficits. Motor grossly within normal limits. Five out of 5 muscle strength in the arms and legs. Normal speech. PSYCHIATRIC: Appropriate mood and affect; insight and judgment normal. Data Data Last Documented VS Vital Signs Date Time Temp Pulse Resp B/P Pulse Ox O2 Delivery O2 Flow Rate FiO2 01/22/17 08:57 98.4 79 18 97/67 99 MDM Medical Decision Making Medical Screen Exam Complete: Yes Emergency Medical Condition: No Medical Record Reviewed: Yes Differential Diagnosis N/A Narrative Course N/A Diagnosis Primary Impression: MEDICATION REFILL Scripts Levetiracetam (Keppra)1,000 Mg Tab1,000 Mg PO BID #60 TAB Ref 1 Prov:Gautam Hunt MD 01/22/17 Disposition: 01 DISCHARGE HOME Condition: Stable Gautam Hunt MD Jan 22, 2017 09:04
[2017-01-22] MEDS ORDERED: KEPP10002 PO (09:05)
== END 2017-01-22 09:21 | disposition home or self-care (01) ==
LOC: PHEFT 08:47
DX: G40.909 Epilepsy, unspecified, not intractable, without status epilepticus (principal); Z76.0 Encounter for issue of repeat prescription
CPT/HCPCS: 99281

== ENCOUNTER 2017-01-24 18:33 | Emergency (ER) | payer OTHER ==
[~2017-01-24] VITALS: Ht 167.6 cm; Wt 80.0 kg
[~2017-01-24 18:33] MED LIST changes: -CYCL5TAB PO; -IBUP800T23 PO
[2017-01-24 18:48] VITALS: BP 111/68; PULSE 76; RESP 16; TEMP 98; O2SAT 97
[2017-01-24] MEDS ORDERED: SODIUM CHLOR 0.9% 1000 ML INJ 1,000 ML IV ONE (19:14)
[2017-01-24] MEDS ORDERED: levETIRAcetam INJ 500 MG in SODIUM CHLORIDE 0.9% INJ 100 ML IV ONE (19:15)
[2017-01-24] MEDS ORDERED: SODIUM CHLORIDE 0.9% FLUSH 10 ML FLUSH IVF PRN (19:15)
--- NOTE | 2017-01-24 19:18 | PD ---
HPI Chief Complaint: Seizure Time Seen by Provider: 19:16 Travel History International Travel<30 days: No Contact w/Intl Traveler<30days: No Traveled to known affect area: No History of Present Illness HPI 62-year-old male presents to the emergency department via EMS after a seizure at a park. Patient states he has a known history of seizures. He states that he ran out of his Keppra 2 days ago. He does report he a seizure home yesterday as well. Patient states he had tongue biting. He denies incontinence. Patient denies any headache. No neck pain or back pain. No chest pain or abdominal pain. No shortness of breath. He denies taking alcohol or using any illicit drugs. Patient also reports history of hypertension. He is not currently on any anticoagulants. PFSH Past Medical History Hx Anticoagulant Therapy: No Asthma: Yes Autoimmune Disease: No Anxiety: No Depression: No Heart Rhythm Problems: No Cancer: No Cardiac Catheterization: No Cardiovascular Problems: Yes (HTN) High Cholesterol: No Chemotherapy: No Chest Pain: No Congestive Heart Failure: No COPD: No Cerebrovascular Accident: Yes (CVA) Diabetes: No Diminished Hearing: No Endocrine: No Gastrointestinal Disorders: No Genitourinary: No Headaches: Yes Heparin Induced Thrombocytopen: No Hypertension: Yes Immune Disorder: No Implanted Vascular Access Dvce: No Kidney Stones: No Musculoskeletal: No Neurologic: Yes Psychiatric: No Reproductive: No Respiratory: Yes (asthma) Immunizations Current: No Migraines: No Radiation Therapy: No Renal Failure: No 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) Sickle Cell Disease: No Sleep Apnea: No Ulcer: No Past Surgical History Abdominal Surgery: No AICD: No Arteriovenous Shunt: No Cardiac Surgery: No Coronary Artery Bypass Graft: No Ear Surgery: No Endocrine Surgery: No Eye Surgery: No Genitourinary Surgery: No Gynecologic Surgery: No Insulin Pump: No Joint Replacement: No Neurologic Surgery: No Oral Surgery: No Pacemaker: No Thoracic Surgery: No Other Surgery: No Social History Alcohol Use: No Tobacco Use: Yes (5 cigarettes/day) Substance Use: No Allergies-Medications (Allergen,Severity, Reaction): Coded Allergies: No Known Allergies (Unverified , 01/24/17) verified/yes Reported Meds & Prescriptions Reported Meds & Active Scripts Active Lisinopril 20 Mg Tab 20 Mg PO BID 30 Days Keppra (Levetiracetam) 1,000 Mg Tab 1,000 Mg PO BID Amlodipine (Amlodipine Besylate) 10 Mg Tab 10 Mg PO DAILY 30 Days Review of Systems Except as stated in HPI: all other systems reviewed are Neg Physical Exam Narrative GENERAL: Well-nourished, well-developed male patient, afebrile. SKIN: Focused skin assessment warm/dry. Patient has abrasion to tongue. HEAD: Normocephalic. Atraumatic EYES: No scleral icterus. No injection or drainage. NECK: Supple, trachea midline. No JVD or lymphadenopathy. CARDIOVASCULAR: Regular rate and rhythm without murmurs, gallops, or rubs. Bilateral radial and pedal pulses 2+. RESPIRATORY: Breath sounds equal bilaterally. No accessory muscle use. Lungs sounds are clear to auscultation GASTROINTESTINAL: Abdomen soft, non-tender, nondistended. MUSCULOSKELETAL: No cyanosis, or edema. Bilateral upper and lower extremities strength 5/5. All extremities are neurovascularly intact. BACK: Nontender without obvious deformity. No CVA tenderness. Data Data Last Documented VS Vital Signs Date Time Temp Pulse Resp B/P Pulse Ox O2 Delivery O2 Flow Rate FiO2 01/24/17 19:29 18 01/24/17 18:51 Room Air 01/24/17 18:48 98.0 76 111/68 97 Orders Complete Blood Count With Diff (01/24/17 19:14) Blood Glucose (01/24/17 19:14) Ecg Monitoring (01/24/17 19:14) Iv Access Insert/Monitor (01/24/17 19:14) Oximetry (01/24/17 19:14) Comprehensive Metabolic Panel (01/24/17 19:14) Sodium Chlor 0.9% 1000 Ml Inj (Ns 1000 M (01/24/17 19:14) Sodium Chloride 0.9% Flush (Ns Flush) (01/24/17 19:15) Levetiracetam Inj (Keppra Inj) (01/24/17 19:15) Electrocardiogram (01/24/17 ) Labs Laboratory Tests Test 01/24/17 01/24/17 19:30 20:15 White Blood Count 8.0 TH/MM3 Red Blood Count 5.29 MIL/MM3 Hemoglobin 15.8 GM/DL Hematocrit 47.6 % Mean Corpuscular Volume 90.0 FL Mean Corpuscular Hemoglobin 29.8 PG Mean Corpuscular Hemoglobin 33.1 % Concent Red Cell Distribution Width 13.5 % Platelet Count 254 TH/MM3 Mean Platelet Volume 7.7 FL Neutrophils (%) (Auto) 56.6 % Lymphocytes (%) (Auto) 30.2 % Monocytes (%) (Auto) 8.1 % Eosinophils (%) (Auto) 4.4 % Basophils (%) (Auto) 0.7 % Neutrophils # (Auto) 4.5 TH/MM3 Lymphocytes # (Auto) 2.4 TH/MM3 Monocytes # (Auto) 0.6 TH/MM3 Eosinophils # (Auto) 0.4 TH/MM3 Basophils # (Auto) 0.1 TH/MM3 CBC Comment DIFF FINAL Differential Comment Sodium Level 141 MEQ/L Potassium Level 3.4 MEQ/L Chloride Level 109 MEQ/L Carbon Dioxide Level 24.0 MEQ/L Anion Gap 8 MEQ/L Blood Urea Nitrogen 19 MG/DL Creatinine 1.11 MG/DL Estimat Glomerular Filtration 67 ML/MIN Rate Random Glucose 84 MG/DL Calcium Level 8.6 MG/DL Total Bilirubin 0.8 MG/DL Aspartate Amino Transf 19 U/L (AST/SGOT) Alanine Aminotransferase 17 U/L (ALT/SGPT) Alkaline Phosphatase 79 U/L Total Protein 6.1 GM/DL Albumin 3.4 GM/DL MDM Medical Decision Making Medical Screen Exam Complete: Yes Emergency Medical Condition: Yes Medical Record Reviewed: Yes Differential Diagnosis Medication noncompliance versus breakthrough seizure versus electrolyte abnormality Narrative Course 62-year-old male presents to the emergency department via EMS for evaluation after a seizure in a park. CBC, CMP are ordered and pending. Patient is given normal saline 1 L IV bolus, Keppra 500 mg IV. EKG shows sinus rhythm, heart rate 78, no acute ST changes. CBC shows no acute abnormality. CMP shows no acute abnormality. Patient is instructed to continue Keppra and follow up with his physician. He is to return for any acute, worsening of symptoms. Diagnosis Primary Impression: Seizure Referrals: Primary Care Physician call for appointment Patient Instructions: General Instructions, Recurrent Seizures in Adults (ED) Additional Instructions: Take Keppra as prescribed. Follow-up with your primary care physician. Return to the emergency department for any acute worsening of symptoms. Med/Other Pt SpecificInfo: No Change to Meds Disposition: 01 DISCHARGE HOME Condition: Stable Cordelia Acuna Jan 24, 2017 19:18
[2017-01-24 19:29] VITALS: RESP 18
[2017-01-24 20:02] LABS: AUTOMATED NEUTROPHIL # 4.5 TH/MM3 (1.8-7.7); BASOPHIL # 0.1 TH/MM3 (0-0.2); BASOPHIL % 0.7 % (0.0-2.0); EOSINOPHIL # 0.4 TH/MM3 (0-0.4); EOSINOPHIL % 4.4 % (0.0-4.0); HEMATOCRIT 47.6 % (39.0-51.0); HEMO FLAGS DIFF FINAL; LYMPH % 30.2 % (9.0-44.0); LYMPHOCYTE # 2.4 TH/MM3 (1.0-4.8); MEAN CORPUSCULAR HEMOGLOBIN 29.8 PG (27.0-34.0); MEAN CORPUSCULAR HGB CONC 33.1 % (32.0-36.0); MONO % 8.1 % (0.0-8.0); NEUT % 56.6 % (16.0-70.0); PLATELET COUNT 254 TH/MM3 (150-450); RED BLOOD COUNT 5.29 MIL/MM3 (4.50-5.90); RED CELL DISTRIBUTION WIDTH 13.5 % (11.6-17.2)
--- NOTE | 2017-01-24 20:30 | PD ---
Data Data Last Documented VS Vital Signs Date Time Temp Pulse Resp B/P Pulse Ox O2 Delivery O2 Flow Rate FiO2 01/24/17 19:29 18 01/24/17 18:51 Room Air 01/24/17 18:48 98.0 76 111/68 97 Orders Complete Blood Count With Diff (01/24/17 19:14) Blood Glucose (01/24/17 19:14) Ecg Monitoring (01/24/17 19:14) Iv Access Insert/Monitor (01/24/17 19:14) Oximetry (01/24/17 19:14) Comprehensive Metabolic Panel (01/24/17 19:14) Sodium Chlor 0.9% 1000 Ml Inj (Ns 1000 M (01/24/17 19:14) Sodium Chloride 0.9% Flush (Ns Flush) (01/24/17 19:15) Levetiracetam Inj (Keppra Inj) (01/24/17 19:15) Electrocardiogram (01/24/17 ) Labs Laboratory Tests Test 01/24/17 19:30 White Blood Count 8.0 TH/MM3 Red Blood Count 5.29 MIL/MM3 Hemoglobin 15.8 GM/DL Hematocrit 47.6 % Mean Corpuscular Volume 90.0 FL Mean Corpuscular Hemoglobin 29.8 PG Mean Corpuscular Hemoglobin 33.1 % Concent Red Cell Distribution Width 13.5 % Platelet Count 254 TH/MM3 Mean Platelet Volume 7.7 FL Neutrophils (%) (Auto) 56.6 % Lymphocytes (%) (Auto) 30.2 % Monocytes (%) (Auto) 8.1 % Eosinophils (%) (Auto) 4.4 % Basophils (%) (Auto) 0.7 % Neutrophils # (Auto) 4.5 TH/MM3 Lymphocytes # (Auto) 2.4 TH/MM3 Monocytes # (Auto) 0.6 TH/MM3 Eosinophils # (Auto) 0.4 TH/MM3 Basophils # (Auto) 0.1 TH/MM3 CBC Comment DIFF FINAL Differential Comment MDM Supervised Visit with GRETEL: Yes Narrative Course I, Dr. Nova, have reviewed the advance practice practioner's documentation and am in agreement, met with the patient face to face, made the diagnosis, and the medical decision making was done by me. *My assessment and Findings: 62-year-old male with history of seizure here with complaint of same. Ran out of Keppra 2 days ago stating that he was not able to get a refill and place him and he may have stolen it. He had a witnessed seizure, positive tongue biting but no incontinence. Neuro intact here with no evidence of postictal phase at this time. Neurologic examination is unremarkable. He does have a bite to the tongue. Suspect medication nonadherence, breakthrough seizure. We'll obtain basic laboratory results to evaluate for electrolyte abnormality and a dose of Keppra, discharged home if unremarkable. Kelsie Nova MD Jan 24, 2017 20:30
[2017-01-24 20:58] LABS: ANION GAP 8 MEQ/L (5-15); AST (GOT) 19 U/L (15-37); BLOOD UREA NITROGEN 19 MG/DL (7-18); CHLORIDE 109 MEQ/L (98-107); GLOMERULAR FILTRATION RATE 67 ML/MIN (>89); POTASSIUM 3.4 MEQ/L (3.5-5.1); SODIUM (NA) 141 MEQ/L (136-145)
[2017-01-24 20:59] LABS: ALT (GPT) 17 U/L (12-78)
[2017-01-24 21:01] LABS: ALKALINE PHOSPHATASE 79 U/L (45-117); TOTAL BILIRUBIN ADULT 0.8 MG/DL (0.2-1.0)
--- NOTE | 2017-01-25 12:43 | EKG ---
Date Performed: 01/24/2017 Time Performed: 18:52:01 PTAGE: 62 years EKG: Sinus rhythm NONSPECIFIC T-WAVE ABNORMALITY Compared to prior tracing no significant change BORDERLINE ECG INTERP RETATION BASED ON A DEFAULT AGE OF 40 YEARS PREVIOUS TRACING : 01/01/2017 07.25 DOCTOR: Lobo Schultz Interpretating Date/Time 01/25/2017 12:39:44
== END 2017-01-24 21:19 | disposition home or self-care (01) ==
LOC: NEPE 18:33
DX: R56.9 Unspecified convulsions (principal); R94.31 Abnormal electrocardiogram [ECG] [EKG]; I10 Essential (primary) hypertension; Z72.0 Tobacco use
CPT/HCPCS: 80053; 85025; 93005; 96374; 99284; J1953; J7030

== ENCOUNTER 2017-02-05 05:56 | Inpatient (IN) | payer OTHER ==
[~2017-02-05] VITALS: Ht 167.6 cm; Wt 79.0 kg
[2017-02-05] VITALS (11 sets, daily range): BP systolic 103–121; BP diastolic 55–77; PULSE 51–86; RESP 18; TEMP 96.9–98.5; O2SAT 96–100
--- NOTE | 2017-02-05 06:16 | PD ---
HPI Chief Complaint: Chest Pain Time Seen by Provider: 05:57 Travel History International Travel<30 days: No Contact w/Intl Traveler<30days: No Traveled to known affect area: No History of Present Illness HPI 62-year-old male complains of chest pain. Patient states that he has chest pains yesterday and today. Patient states that the chest pain is dull aching pain pressure pain substernally last between 10 minutes to an hour yesterday. Patient states that the chest pain started again this morning and has been persistent since since then. Patient denies any pain radiation. Patient denies palpitation nausea vomiting diaphoresis. Patient denies any coughing congestion fever chills. Patient has history hypertension and on medication. Patient denies diabetes or hyperlipidemia. Patient is a smoker. Patient has family history of heart disease. Patient status post hemorrhagic CVA. Patient has history of seizure disorder and on Keppra. Patient states that he had stress test done a year ago and was normal. PFSH Past Medical History Hx Anticoagulant Therapy: No Asthma: Yes Autoimmune Disease: No Anxiety: No Depression: No Heart Rhythm Problems: No Cancer: No Cardiac Catheterization: No Cardiovascular Problems: Yes (HTN) High Cholesterol: No Chemotherapy: No Chest Pain: No Congestive Heart Failure: No COPD: No Cerebrovascular Accident: Yes Diabetes: No Diminished Hearing: No Endocrine: No Gastrointestinal Disorders: No Genitourinary: No Headaches: Yes Heparin Induced Thrombocytopen: No Hypertension: Yes Immune Disorder: No Implanted Vascular Access Dvce: No Kidney Stones: No Musculoskeletal: No Neurologic: Yes Psychiatric: No Reproductive: No Respiratory: Yes (asthma) Immunizations Current: No Migraines: No Radiation Therapy: No Renal Failure: No 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) Sickle Cell Disease: No Sleep Apnea: No Ulcer: No Past Surgical History Abdominal Surgery: No AICD: No Arteriovenous Shunt: No Cardiac Surgery: No Coronary Artery Bypass Graft: No Ear Surgery: No Endocrine Surgery: No Eye Surgery: No Genitourinary Surgery: No Gynecologic Surgery: No Insulin Pump: No Joint Replacement: No Neurologic Surgery: No Oral Surgery: No Pacemaker: No Thoracic Surgery: No Other Surgery: No Social History Alcohol Use: No Tobacco Use: Yes (5 cigarettes/day) Substance Use: No Allergies-Medications (Allergen,Severity, Reaction): Coded Allergies: No Known Allergies (Unverified , 02/05/17) verified/yes Reported Meds & Prescriptions Reported Meds & Active Scripts Active Lisinopril 20 Mg Tab 20 Mg PO BID 30 Days Keppra (Levetiracetam) 1,000 Mg Tab 1,000 Mg PO BID Reported Amlodipine (Amlodipine Besylate) 10 Mg Tab 10 Mg PO HS Review of Systems General / Constitutional: No: Fever Eyes: No: Visual changes HENT: No: Headaches Cardiovascular: Positive: Chest Pain or Discomfort Respiratory: No: Shortness of Breath Gastrointestinal: No: Abdominal Pain Genitourinary: No: Dysuria Musculoskeletal: No: Pain Skin: No Rash Neurologic: No: Weakness Psychiatric: No: Depression Endocrine: No: Polydipsia Hematologic/Lymphatic: No: Easy Bruising Physical Exam Narrative GENERAL: Well-nourished, well-developed patient. SKIN: Focused skin assessment warm/dry. HEAD: Normocephalic. EYES: No scleral icterus. No injection or drainage. NECK: Supple, trachea midline. No JVD or lymphadenopathy. CARDIOVASCULAR: Regular rate and rhythm without murmurs, gallops, or rubs. RESPIRATORY: Breath sounds equal bilaterally. No accessory muscle use. GASTROINTESTINAL: Abdomen soft, non-tender, nondistended. MUSCULOSKELETAL: No cyanosis, or edema. BACK: Nontender without obvious deformity. No CVA tenderness. Neurologic exam normal. Data Data Last Documented VS Vital Signs Date Time Temp Pulse Resp B/P Pulse Ox O2 Delivery O2 Flow Rate FiO2 02/05/17 06:34 58 112/70 98 Room Air 02/05/17 06:05 98.2 18 Orders Electrocardiogram (02/05/17 06:08) Complete Blood Count With Diff (02/05/17 06:08) Comprehensive Metabolic Panel (02/05/17 06:08) Creatine Kinase (Cpk) (02/05/17 06:08) Troponin I (02/05/17 06:08) Prothrombin Time / Inr (Pt) (02/05/17 06:08) Act Partial Throm Time (Ptt) (02/05/17 06:08) Chest, Single Ap (02/05/17 06:08) Iv Access Insert/Monitor (02/05/17 06:08) Ecg Monitoring (02/05/17 06:08) Oximetry (02/05/17 06:08) Aspirin (Aspirin) (02/05/17 06:30) Admit Order (Ed Use Only) (02/05/17 06:58) Labs Laboratory Tests Test 02/05/17 06:05 White Blood Count 9.2 TH/MM3 Red Blood Count 5.21 MIL/MM3 Hemoglobin 15.4 GM/DL Hematocrit 45.9 % Mean Corpuscular Volume 88.2 FL Mean Corpuscular Hemoglobin 29.6 PG Mean Corpuscular Hemoglobin 33.6 % Concent Red Cell Distribution Width 12.2 % Platelet Count 297 TH/MM3 Mean Platelet Volume 8.0 FL Neutrophils (%) (Auto) 65.6 % Lymphocytes (%) (Auto) 22.8 % Monocytes (%) (Auto) 5.2 % Eosinophils (%) (Auto) 5.2 % Basophils (%) (Auto) 1.2 % Neutrophils # (Auto) 6.0 TH/MM3 Lymphocytes # (Auto) 2.1 TH/MM3 Monocytes # (Auto) 0.5 TH/MM3 Eosinophils # (Auto) 0.5 TH/MM3 Basophils # (Auto) 0.1 TH/MM3 CBC Comment DIFF FINAL Differential Comment Prothrombin Time 10.7 SEC Prothromb Time International 1.0 RATIO Ratio Activated Partial 27.9 SEC Thromboplast Time Sodium Level 141 MEQ/L Potassium Level 3.7 MEQ/L Chloride Level 109 MEQ/L Carbon Dioxide Level 24.9 MEQ/L Anion Gap 7 MEQ/L Blood Urea Nitrogen 17 MG/DL Creatinine 1.10 MG/DL Estimat Glomerular Filtration 67 ML/MIN Rate Random Glucose 115 MG/DL Calcium Level 9.1 MG/DL Total Bilirubin 0.7 MG/DL Aspartate Amino Transf 18 U/L (AST/SGOT) Alanine Aminotransferase 20 U/L (ALT/SGPT) Alkaline Phosphatase 95 U/L Total Creatine Kinase 108 U/L Troponin I LESS THAN 0.02 NG/ML Total Protein 7.3 GM/DL Albumin 3.9 GM/DL [facility] Medical Decision Making Medical Screen Exam Complete: Yes Emergency Medical Condition: Yes Interpretation(s) 6:14 AM. EKG shows sinus rhythm nonspecific ST-T wave changes. Differential Diagnosis Differential diagnosis including musculoskeletal, angina, AR, PE, pneumothorax. Narrative Course 62-year-old male with chest pain. Aspirin 325 mg by mouth given. Patient will be admitted to the chest pain center [facility]. Diagnosis Primary Impression: Chest pain Qualified Code: R07.9 - Chest pain, unspecified type Toni Cote MD Feb 05, 2017 06:16
[2017-02-05] MEDS ORDERED: AMLO10TA2 PO (06:19)
[2017-02-05] MEDS ORDERED: ASPIRIN 325 MG TAB PO ONE (06:30)
--- NOTE | 2017-02-05 06:35 | RADRPT ---
EXAM DATE/TIME: 02/05/2017 06:21 [facility] COMPARISON: CHEST SINGLE AP, July 31, 2015, 14:11. INDICATIONS : Chest pain. MEDICAL HISTORY : Hypertension. Cerebrovascular disease. Seizures. SURGICAL HISTORY : None. ENCOUNTER: Initial ACUITY: 1 day PAIN SCORE: 6/10 LOCATION: Bilateral chest FINDINGS: Portable AP view of the chest demonstrates a normal-sized cardiac silhouette. No effusion, consolidat ion, or pneumothorax is visualized. The bones and soft tissues demonstrate no acute abnormality. Ther e is a stable ununited distal right clavicle fracture. CONCLUSION: Stable chest x-ray. No acute cardiopulmonary abnormality is identified. Varinder Martinez MD on February 05, 2017 at 6:33 Board Certified Radiologist. This report was verified electronically.
[2017-02-05 06:41] LABS: CHLORIDE 109 MEQ/L (98-107); POTASSIUM 3.7 MEQ/L (3.5-5.1); SODIUM (NA) 141 MEQ/L (136-145)
[2017-02-05 06:43] LABS: BASOPHIL # 0.1 TH/MM3 (0-0.2); BASOPHIL % 1.2 % (0.0-2.0); EOSINOPHIL # 0.5 TH/MM3 (0-0.4); EOSINOPHIL % 5.2 % (0.0-4.0); HEMATOCRIT 45.9 % (39.0-51.0); LYMPH % 22.8 % (9.0-44.0); LYMPHOCYTE # 2.1 TH/MM3 (1.0-4.8); MEAN CELL VOLUME 88.2 FL (80.0-100.0); MEAN CORPUSCULAR HEMOGLOBIN 29.6 PG (27.0-34.0); MEAN CORPUSCULAR HGB CONC 33.6 % (32.0-36.0); MONO % 5.2 % (0.0-8.0); NEUT % 65.6 % (16.0-70.0); PLATELET COUNT 297 TH/MM3 (150-450); RED BLOOD COUNT 5.21 MIL/MM3 (4.50-5.90); RED CELL DISTRIBUTION WIDTH 12.2 % (11.6-17.2); WHITE BLOOD COUNT 9.2 TH/MM3 (4.0-11.0)
[2017-02-05 06:45] LABS: ANION GAP 7 MEQ/L (5-15); BICARBONATE 24.9 MEQ/L (21.0-32.0); BLOOD UREA NITROGEN 17 MG/DL (7-18)
[2017-02-05 06:46] LABS: APTT (PATIENT) 27.9 SEC (24.3-30.1); PROTHROMBIN TIME - PATIENT 10.7 SEC (9.8-11.6)
[2017-02-05 06:48] LABS: ALT (GPT) 20 U/L (12-78); AST (GOT) 18 U/L (15-37); GLOMERULAR FILTRATION RATE 67 ML/MIN (>89)
[2017-02-05 06:50] LABS: HEMO FLAGS DIFF FINAL; TOTAL BILIRUBIN ADULT 0.7 MG/DL (0.2-1.0)
[2017-02-05 06:51] LABS: ALKALINE PHOSPHATASE 95 U/L (45-117); CREATINE KINASE 108 U/L (39-308)
[2017-02-05] MEDS ORDERED: SODIUM CHLORIDE 0.9% FLUSH 10 ML FLUSH IV FLUSH PRN ×2 (07:15→09:15)
[2017-02-05] MEDS ORDERED: SODIUM CHLORIDE 0.9% FLUSH 10 ML FLUSH IV FLUSH SCH (09:00)
[2017-02-05] MEDS ORDERED: NALOXONE HCL 0.4 MG/ML AMP IV PRN (09:15)
[2017-02-05] MEDS ORDERED: MORPHINE SULFATE 4 MG/ML INJ IV PRN (09:15)
[2017-02-05] MEDS ORDERED: ACETAMINOPHEN 325 MG TAB PO PRN ×2 (09:15)
[2017-02-05] MEDS ORDERED: ONDANSETRON HCL 4 MG/2 ML VIAL IVP PRN (09:15)
[2017-02-05 09:28] LABS: CREATINE KINASE 84 U/L (39-308)
[2017-02-05 12:06] LABS: CREATINE KINASE 83 U/L (39-308)
--- NOTE | 2017-02-05 12:22 | HHI.HP ---
[facility] Unknown Admission Diagnosis chest pain Diagnoses: (1) Chest pain Diagnosis: Principal Chief Complaint: chest pain Travel History International Travel<30 Days: No Contact w/Intl Traveler <30 Da: No Traveled to Known Affected Are: No History of Present Illness Written by Angelique Avery PA-C acting as scribe for Dr. Mooney on 02/05/17 at 1215. 62 old male with history of hypertension, seizures, and tobacco use presents complaining of chest pain. He states it started yesterday initially but then he awoke at 3:30 AM this morning again with the pain over the center of his chest described as sharp and "strange". He states the pain was constant and denies radiation. Denies any alleviating or exacerbating factors. Denies any recent fall. Patient has been compliant with his medications. Denies any history of prior FL. He states he was told his ankles are swollen but he has not noted any swelling. Denies any fevers or chills, shortness of breath, nausea, or vomiting. Review of Systems Except as stated in HPI: all other systems reviewed are Neg Past Family Social History Past Medical History Hypertension Seizures Past Surgical History No reported surgeries Reported Medications Reported Meds & Active Scripts Active Lisinopril 20 Mg Tab 20 Mg PO BID 30 Days Keppra (Levetiracetam) 1,000 Mg Tab 1,000 Mg PO BID Reported Amlodipine (Amlodipine Besylate) 10 Mg Tab 10 Mg PO HS Allergies: Coded Allergies: No Known Allergies (Unverified , 02/05/17) verified/yes Family History Patient states his mother and father both had heart disease. His mother is still living in her 80s. His father at age 84 and had his first FL in his 40s. Patient has one brother who ; had an FL in his 40s. Social History Patient denies any alcohol use and denies any history of heavy drinking. He states he would only have 2-3 drinks per year when he did drink. Patient smokes 4 cigarettes per day. He admits to smoking on and off since his 20s. He did quit for 20 years and then restart at the age of 58. Denies illicit drug use. Physical Exam Vital Signs Vital Signs Date Time Temp Pulse Resp B/P Pulse Ox O2 Delivery O2 Flow Rate FiO2 02/05/17 10:02 60 18 103/55 98 02/05/17 07:03 59 02/05/17 07:03 98.5 57 18 104/65 99 Room Air 02/05/17 06:34 58 112/70 98 Room Air 02/05/17 06:15 62 98 Room Air 02/05/17 06:05 98.2 66 18 113/71 98 Physical Exam GENERAL: This is a well-nourished, well-developed patient, in no apparent distress. SKIN: Abrasions to right proximal dorsal forearm which are mildly bleeding. Abrasions to dorsal left hand. Warm and dry. HEAD: Atraumatic. Normocephalic. EYES: Pupils equal round. No scleral icterus. No injection or drainage. NECK: Trachea midline. 4cm x 4cm mobile mass to the posterior neck, likely lipoma. CHEST: Pectus carinatum. CARDIOVASCULAR: Regular rate and rhythm without murmurs, gallops, or rubs. RESPIRATORY: Clear to auscultation. Breath sounds equal bilaterally. No wheezes , rales, or rhonchi. GASTROINTESTINAL: Abdomen soft, non-tender, nondistended. No guarding. MUSCULOSKELETAL: No lower extremity edema bilaterally. NEUROLOGICAL: Awake, alert, and oriented. Motor grossly within normal limits. Five out of 5 muscle strength in bilateral upper extremities. Normal brachioradialis reflexes bilaterally. Hyperreflexic patellar reflex bilaterally. Normal speech. Laboratory Laboratory Tests Test 02/05/17 02/05/17 02/05/17 06:05 08:45 11:30 White Blood Count 9.2 Red Blood Count 5.21 Hemoglobin 15.4 Hematocrit 45.9 Mean Corpuscular Volume 88.2 Mean Corpuscular Hemoglobin 29.6 Mean Corpuscular Hemoglobin 33.6 Concent Red Cell Distribution Width 12.2 Platelet Count 297 Mean Platelet Volume 8.0 Neutrophils (%) (Auto) 65.6 Lymphocytes (%) (Auto) 22.8 Monocytes (%) (Auto) 5.2 Eosinophils (%) (Auto) 5.2 Basophils (%) (Auto) 1.2 Neutrophils # (Auto) 6.0 Lymphocytes # (Auto) 2.1 Monocytes # (Auto) 0.5 Eosinophils # (Auto) 0.5 Basophils # (Auto) 0.1 CBC Comment DIFF FINAL Differential Comment Prothrombin Time 10.7 Prothromb Time International 1.0 Ratio Activated Partial 27.9 Thromboplast Time Sodium Level 141 Potassium Level 3.7 Chloride Level 109 Carbon Dioxide Level 24.9 Anion Gap 7 Blood Urea Nitrogen 17 Creatinine 1.10 Estimat Glomerular Filtration 67 Rate Random Glucose 115 Calcium Level 9.1 Total Bilirubin 0.7 Aspartate Amino Transf 18 (AST/SGOT) Alanine Aminotransferase 20 (ALT/SGPT) Alkaline Phosphatase 95 Total Creatine Kinase 108 84 83 Troponin I LESS THAN 0.02 LESS THAN 0.02 LESS THAN 0.02 Total Protein 7.3 Albumin 3.9 Result Diagram: 02/05/1760402/05/17604 Imaging Last Impressions Chest X-Ray 02/05/17 0608 Signed Impressions: Service Date/Time: Sunday, February 05, 2017 06:21 - CONCLUSION: Stable chest x-ray. No acute cardiopulmonary abnormality is identified. Varinder Martinez MD Assessment and Plan Assessment and Plan 62-year-old male with: Chest pain: Chest x-ray with no acute abnormality noted. Troponin 3 less than 0.02. EKGs personally interpreted. No ischemia evident. Sinus bradycardia on EKG #2 and #3. PVC noted on EKG #1 and #2. Mg normal. -Patient was given 325 mg aspirin in the ED this morning, continue 325 mg daily EC aspirin. -Nitro/Oxycodone/morphine prn chest pain -Telemetry -Patient to undergo nuclear stress test as he does not appear to be a good candidate for the treadmill. Hypertension: -Hold lisinopril and amlodipine due to hypertension Seizures: Continue Keppra. Hyperreflexia B/L lower extremities: TSH ordered and normal. GI prophylaxis: Protonix po. DVT prophylaxis: SCDs. Myocardial perfusion scan shows significant ischemia involving the lateral wall , intermediate risk. Normal EF. Patient informed of results. Spoke with Dr. Cleaning, electronics parts sales representative sewer connector, this evening who advises making the patient NPO after breakfast tomorrow and transferring to the main hospital tomorrow for cardiac catheterization likely tomorrow evening. Cardiology consult placed. Patient transfer order placed for tomorrow morning. Admitted to inpatient. Discussed Condition With This note was transcribed by jefry Avery PA-C. I, Dr. Jp Mooney personally performed the history, physical exam, and medical decision making; and confirmed the accuracy of the information in the transcribed note. Authenticated by Dr. Jp Mooney on 02/05/17 at 18:57. Problem Qualifiers (1) Chest pain: Qualified Code: R07.9 - Chest pain, unspecified type Angelique Avery Feb 05, 2017 12:22 Jp Mooney MD Feb 05, 2017 18:57
[2017-02-05 12:42] LABS: MAGNESIUM 2.1 MG/DL (1.5-2.5)
[2017-02-05] MEDS ORDERED: REGADENOSON INJ 0.4 MG/5 ML SYR IV ONE (15:39)
--- NOTE | 2017-02-05 16:50 | RADRPT ---
EXAM DATE/TIME: 02/05/2017 15:07 [facility] COMPARISON: No previous studies available for comparison. INDICATIONS : Substernal chest pain. Angina. DOSE: 26.8 mCi Tc99m Myoview at stress. 8.7 mCi Tc99m Myoview at rest. 0.4 mg Lexiscan STRESS SYMPTOMS: Dyspnea. EJECTION FRACTION: 60% MEDICAL HISTORY : Stroke. Hypertension. Smoker. Asthma. SURGICAL HISTORY : None. ENCOUNTER: Initial ACUITY: 2 days PAIN SCALE: 4/10 LOCATION: Substernal chest TECHNIQUE: The patient underwent pharmacologic stress with infusion of prescribed dose. Continuous ECG tracing was monitored during stress. Gated SPECT imaging was performed after stress and conventional SPECT i maging was performed at rest. The examination was performed on a SPECT/CT scanner, both attenuation and non-corrected datasets were reviewed. FINDINGS: DISTRIBUTION: The maximum perfused segment at stress is in the posterobasal wall. PERFUSION STUDY: Presented size area of moderately severely diminished relative perfusion involving the lateral wall w hich does not extend to the cardiac apex. There is significant redistribution. GATED STUDY: There is intact wall motion and thickening without hypokinetic or dyskinetic segments. CONCLUSION: Suspect significant ischemia at least involving the lateral wall. RISK CATEGORY: Intermediate (1-3% Annual Mortality Rate) Varinder Perez MD on February 05, 2017 at 16:42 Board Certified Radiologist. This report was verified electronically.
[2017-02-05] MEDS ORDERED: NITROGLYCERIN 0.4 MG SL 25 TABS/BTL SL PRN (18:00)
--- NOTE | 2017-02-05 20:08 | EKG ---
Date Performed: 02/05/2017 Time Performed: 11:15:04 PTAGE: 62 years EKG: SINUS BRADYCARDIA BORDERLINE ECG PREVIOUS TRACING : 02/05/2017 08.52 Compared to prior tracing no significant change DOCTOR: Haylee Cleaning Interpretating Date/Time 02/05/2017 20:07:04
--- NOTE | 2017-02-05 20:20 | EKG ---
Date Performed: 02/05/2017 Time Performed: 08:52:47 PTAGE: 62 years EKG: SINUS BRADYCARDIA WITH OCCASIONAL SUPRAVENTRICULAR PREMATURE COMPLEXES AND ATRIAL PACED BAUDILIO TS BORDERLINE ECG PREVIOUS TRACING : 02/05/2017 06.06 Compared to prior tracing no significant change DOCTOR: Haylee Cleaning Interpretating Date/Time 02/05/2017 20:19:23
--- NOTE | 2017-02-05 20:34 | EKG ---
Date Performed: 02/05/2017 Time Performed: 06:06:33 PTAGE: 62 years EKG: Sinus rhythm WITH OCCASIONAL VENTRICULAR PREMATURE COMPLEXES BORDERLINE ECG PREVIOUS TRACING : 01/24/2017 18.52 Compared to prior tracing no significant change DOCTOR: Haylee Cleaning Interpretating Date/Time 02/05/2017 20:33:14
[2017-02-05] MEDS: DOCUSATE SODIUM 50 MG/SENNA 8.6 MG TAB PO SCH (20:50)
[2017-02-05] MEDS: levETIRAcetam 500 MG TAB PO SCH (20:51)
[2017-02-05] MEDS: SODIUM CHLORIDE 0.9% FLUSH 10 ML FLUSH IV FLUSH SCH (20:51)
[2017-02-06] VITALS (8 sets, daily range): BP systolic 96–118; BP diastolic 63–71; PULSE 48–58; RESP 16–18; TEMP 96.7–97.6; O2SAT 98–100
[2017-02-06 06:20] LABS: AUTOMATED NEUTROPHIL # 3.6 TH/MM3 (1.8-7.7); BASOPHIL # 0.1 TH/MM3 (0-0.2); BASOPHIL % 0.8 % (0.0-2.0); EOSINOPHIL # 0.6 TH/MM3 (0-0.4); EOSINOPHIL % 8.3 % (0.0-4.0); HEMATOCRIT 43.7 % (39.0-51.0); HEMO FLAGS DIFF FINAL; LYMPHOCYTE # 2.1 TH/MM3 (1.0-4.8); MEAN CELL VOLUME 88.6 FL (80.0-100.0); MEAN CORPUSCULAR HEMOGLOBIN 30.1 PG (27.0-34.0); MONO % 7.4 % (0.0-8.0); NEUT % 53.5 % (16.0-70.0); PLATELET COUNT 273 TH/MM3 (150-450); RED BLOOD COUNT 4.93 MIL/MM3 (4.50-5.90); RED CELL DISTRIBUTION WIDTH 12.4 % (11.6-17.2); WHITE BLOOD COUNT 6.9 TH/MM3 (4.0-11.0)
[2017-02-06 06:34] LABS: POTASSIUM 4.5 MEQ/L (3.5-5.1)
[2017-02-06 06:38] LABS: BICARBONATE 25.9 MEQ/L (21.0-32.0)
[2017-02-06] MEDS ORDERED: ASPIRIN EC 325 MG TABEC PO SCH (09:00)
[2017-02-06] MEDS: DOCUSATE SODIUM 50 MG/SENNA 8.6 MG TAB PO SCH ×2 (09:03→21:38)
[2017-02-06] MEDS: levETIRAcetam 500 MG TAB PO SCH ×2 (09:04→21:39)
[2017-02-06] MEDS: SODIUM CHLORIDE 0.9% FLUSH 10 ML FLUSH IV FLUSH SCH ×2 (09:04→21:00)
[2017-02-06] MEDS: PANTOPRAZOLE SOD 40 MG DELAYED RELEASE TAB PO SCH (09:04)
--- NOTE | 2017-02-06 09:38 | TR ---
Date Performed: 02/05/2017 Time Performed: 15:38:07 DOCTOR: Roseann Head DRUG LIST: CLINICAL HISTORY: REASON FOR TEST: Chest pain REASON FOR ENDING: OBSERVATION: CONCLUSION: Lexiscan stress test was performed under standard four minute protocol. Radionuclid e was injected one minute prior to ending the test. No electrocardiographic abormalities were present to suggest ischemia. Nuclear imaging and interpretation are pending. COMMENTS:
--- NOTE | 2017-02-06 10:54 | HHI.PR ---
Subjective Remarks Patient seen today in follow-up for abnormal stress test with anginal symptoms. Patient currently chest pain-free. Plan for cardiac catheterization per cardiology. Patient with chronic severe back pain relieved with oxycodone Objective Vitals Vital Signs Date Time Temp Pulse Resp B/P Pulse Ox O2 Delivery O2 Flow Rate FiO2 02/06/17 10:10 97.2 50 18 96/66 100 02/06/17 08:00 98 21 02/06/17 04:00 97.5 58 16 100/68 98 02/06/17 00:00 96.7 57 16 99/68 98 02/05/17 21:17 97 21 02/05/17 20:00 51 02/05/17 20:00 51 02/05/17 20:00 97.5 55 18 121/77 98 02/05/17 17:32 20 02/05/17 16:20 63 02/05/17 16:00 97.3 51 18 110/68 100 02/05/17 12:00 96.9 52 18 105/71 96 02/05/17 11:00 86 I/O 02/05/17 02/05/17 02/05/17 02/06/17 02/06/17 02/06/17 06:59 14:59 22:59 06:59 14:59 22:59 Intake Total 750 ml Balance 750 ml Intake Oral 750 ml # Voids 4 Result Diagram: 02/06/17 0547 02/06/17 0547 Imaging Last Impressions Myocardial Perfusion Scan Nuc Med 02/05/17 1222 Signed Impressions: Service Date/Time: Sunday, February 05, 2017 15:07 - CONCLUSION: Suspect significant ischemia at least involving the lateral wall. RISK CATEGORY: Intermediate (1-3%% Annual Mortality Rate) Varinder Perez MD Chest X-Ray 02/05/17 0608 Signed Impressions: Service Date/Time: Sunday, February 05, 2017 06:21 - CONCLUSION: Stable chest x-ray. No acute cardiopulmonary abnormality is identified. Varinder Martinez MD Objective Remarks Skin with multiple abrasions GENERAL: This is a well-nourished, well-developed patient, in no apparent distress. CARDIOVASCULAR: Regular rate and rhythm without murmurs, gallops, or rubs. Denies chest pain RESPIRATORY: Clear to auscultation. Breath sounds equal bilaterally. No wheezes , rales, or rhonchi. GASTROINTESTINAL: Abdomen soft, non-tender, nondistended. Normal active bowel sounds MUSCULOSKELETAL: Extremities without clubbing, cyanosis, or edema. NEURO: Alert & Oriented x4 to person, place, time, situation. Moves all ext x4 A/P Problem List: (1) Chest pain ICD Code: R07.9 Status: Acute Plan: With abnormal pharmacological stress test, cardiology to follow with cardiac catheterization today. Continue with IV morphine, aspirin, beta ivette, nitroglycerin Telemetry, bradycardia, sinus Cardiac enzymes negative (2) Epilepsy ICD Code: G40.909 Status: Acute Plan: Patient on Keppra, was previously on gabapentin which she stopped taking for unknown reasons (3) Hypertension ICD Code: I10 Status: Acute Plan: Blood pressure low. Was on amlodipine and lisinopril, but these medications have been held Assessment and Plan Transferred to maintain for cardiac catheterization Problem Qualifiers (1) Chest pain: Qualified Code: R07.9 - Chest pain, unspecified type Payal Richter MD Feb 06, 2017 10:54
[2017-02-06] MEDS ORDERED: HEPARIN-NS/PF INJ 500 ML ONE (18:05)
[2017-02-06] MEDS ORDERED: MIDAZOLAM HCL 2 MG/2 ML VIAL ONE ×3 (18:06→19:17)
[2017-02-06] MEDS ORDERED: HEPARIN SODIUM - IV 10,000 UNITS/10 ML VIAL ONE (18:06)
[2017-02-06] MEDS ORDERED: IOHEXOL 350 MG/ML 50 ML BTL (for Cath Lab) OTHER ONE (18:15)
[2017-02-06] MEDS ORDERED: IOHEXOL 350 MG/ML 100 ML BTL (for Cath Lab) OTHER ONE (18:15)
[2017-02-06] MEDS ORDERED: TICAGRELOR 90 MG TAB PO ONE (19:41)
--- NOTE | 2017-02-06 19:54 | CATHPROC ---
Minded HIS Report Study Information Study Number Admission Scheduled Start Study Start [id number] Feb 05 2017 6:12PM 02/06/2017 Feb 06 2017 6:22PM [place] [facility] Cardiac Catheterization Admit Source Facility Department Transfer in from another acute care facility [facility] - Office Machine Servicer Apprentice Physician and Clinical Staff Initial Haylee Membreno Laser Specialist Elana Hernandez,MAYRA Other cathlab, cathlab Recorder Ellis Norton RCIS(BS) Scrub Sherine Cool,RT(R) (BS) X-Ray Heidy Worrell,RT(R) TECH2 Procedures Performed Procedure Location (Site) Vessel Name Angiogram LV LV Ventricle Coronary Angiograms LCA Left Coronary Coronary Angiograms RCA Right Coronary L Heart Cath PTCA LAD Mid Left Coronary Stent LAD Mid Left Coronary Equipment Time Engineering Assistant Description Size Mfg Part Number Used/Scraped [id number] 19:33 INGRAM CRITICAL CARE STENT, 2.0 12 MINI-VISION RX 2.0 12 Used *[id number] WIRE, BALANCE MIDDLEWEIGHT [id number] 19:09 INGRAM CRITICAL CARE 190CM Used 190CM *[id number] [employer] 19:21 SHEATH, FR7 24CM 7FR 24CM [id number] Used INC. TRANSDUCER, TREcho it [id number] 18:33 JORGE HERNANDEZ * Used W/STOCKCOCK *[id number] 534-548T *[id number] 534-520T *[id number] 534-552S *[id number] [id number] *[id number] *[id number] 19:40 DAIG/ST. ORAL MEDICAL ANGIOSEAL FR8 FR 8 Used *[id number] 18:33 MEDLINE INDUSTRIES PACK, CCL CUSTOM * Used *[id number] 18:33 Gelato [place] PACER PEN, SKIN DUAL W/ RULER * Used *[id number] BALLOON, 1.25 X 10MM [id number] 19:33 MEDTRONIC 10MM Used SPRINTER LEGEND RX *[id number] 19:30 TGR [employer] MEDICAL 30 DAQUAN INDEFLATOR Used *[id number] PSI-6F-11- 19:12 [employer] MEDICAL SHEATH, FR6.5 PRELUDE 11CM FR 6.5 038ACT Used *[id number] PSI-7F-11- 19:19 T[employer] MEDICAL SHEATH, FR7.5 PRELUDE 11CM FR 7.5 11CM Used [id number] 18:33 [employer] MEDICAL WIRE, 3MMJ .035 180CM 180CM Used *[id number] PROBE COVER, STERILE [id number] 18:33 [employer]lo MEDICAL * Used ULTRASOUND W/ GEL *[id number] 18:33 NAMIC MANIFOLD, 4 PORT * Used *[id number] 18:33 NAMIC TUBING, HIGH PRESSURE 48" 48" Used *[id number] 18:33 NYCOMED OMNIPAQUE, 350 MG, 150ML 150ML [id number] Used [id number] 18:33 [employer] MEDICAL BLANKET,WARM AIR CCL * Used *[id number] 18:33 TERUMO MEDICAL SHEATH, FR5 TERUMO (10CM) FR 5 Used *[id number] 18:55 TERUMO MEDICAL SHEATH, FR5 TERUMO (10CM) FR 5 Used *[id number] Equipment Model, Serial, Lot Number and Expiration Data Description Model Number Serial Number Lot Number Expiration Date STENT, 2.0 12 MINI-VISION RX [id number] 10-12-2019 History: Current Medications Medication Dosage/Unit Route Frequency Last Date/Time Taken ASA History: Allergies Allergy Reaction No Known Allergies History: Risk Factors Family History of Hypertension Dyslipidemia Previous CA Previous Heart Failure Premature CAD Yes No Yes No No Prior Valve Prior PCI Prior CABG Surgery No No No Cerebrovascular Peripheral Artery Chronic Lung On Dialysis Diabetes Disease Disease Disease No Yes No No No History: Symptoms/Diagnosis Selection Items Chest pain History: Stress Tests Stress or Imaging Studies Performed Yes Standard Exercise Stress Test No Stress Echo No Stress Test SPECT Stress Test SPECT Result Stress Test SPECT Ischemia Risk/Extent Yes Positive Intermediate Stress Test CMR No Cardiac CTA Coronary Calcium Score No No History: Other Current Smoker Method Packs a Day Years Used Pack Years Yes Cigarettes 1 10 10 Labs Hgb (g/dl) Hct (%) WBC (l/cumm) Platelets (thousands) 11.60-17.00 35.00-51.00 4.00-11.00 150.00-450.00 14.8 43.7 6.9 273 Glucose (mg/dl) BUN (mg/dl) Creatinine (mg/dl) BUN:Creatinine (1:x) 74.00-106.00 7.00-18.00 0.50-1.30 10.00-20.00 79 20 0.7 28.6 Na (meq/l) K (meq/l) 136.00-145.00 3.50-5.10 142 4.5 INR (PTT:PT) 0.90-1.10 1 Troponin I (ng/ml) 0.02-0.05 0.02 Medication Medication Total Dose (Bolus/Oral) Medication Total Dosage/Unit 1% XYLOCAINE 20 mL BRILINTA 180 mg FENTANYL 75 mcg HEPARIN 8000 units NTG (IC) 200 mcg VERSED 6 mg Medications (Bolus/Oral) Medication Time Given Dosage/Unit Administered By Reason VERSED 02/06/2017 6:37:00 PM 2 mg Guy Hernandeza 2 mg VERSED given in lab by Elana Hernandez RN in Left Forearm via Peripheral IV. Ordered by Haylee Archer. FENTANYL 02/06/2017 6:38:17 PM 50 mcg Elana Hernandez 50 mcg FENTANYL given in lab by Elana Hernandez RN in Left Forearm via Peripheral IV. Ordered by Haylee Aguirre. VERSED 02/06/2017 6:43:52 PM 2 mg Elana Hernandez 2 mg VERSED given in lab by Elana Hernandez RN in Left Forearm via Peripheral IV. Ordered by Haylee Archer. 1% XYLOCAINE 02/06/2017 6:51:45 PM 20 mL Haylee Cleaning 20 mL 1% XYLOCAINE given in lab by Haylee Cleaning in Right Groin via Subcutaneous. Ordered by Haylee Dahl. HEPARIN 02/06/2017 7:13:47 PM 6000 units Elana Hernandez 6000 units HEPARIN given in lab by Elana Hernandez RN in Left Forearm via Peripheral IV. Ordered b y Haylee Cleaning. VERSED 02/06/2017 7:17:04 PM 2 mg Elana Hernandez 2 mg VERSED given in lab by Elana Hernandez RN in Left Forearm via Peripheral IV. Ordered by Haylee Archer. FENTANYL 02/06/2017 7:18:11 PM 25 mcg Elana Hernandez 25 mcg FENTANYL given in lab by Elana Hernandez RN in Left Forearm via Peripheral IV. Ordered by Haylee Aguirre. NTG (IC) 02/06/2017 7:25:56 PM 100 mcg Haylee Cleaning 100 mcg NTG (IC) given in lab by Haylee Cleaning via Intra-coronary. Ordered by Haylee Cleaning. HEPARIN 02/06/2017 7:29:00 PM 2000 units Elana Hernandez 2000 units HEPARIN given in lab by Elana Hernandez RN in Left Forearm via Peripheral IV. Ordered b y Haylee Cleaning. NTG (IC) 02/06/2017 7:31:10 PM 100 mcg Haylee Cleaning 100 mcg NTG (IC) given in lab by Haylee Cleaning via Intra-coronary. Ordered by Haylee Cleaning. BRILINTA 02/06/2017 7:50:21 PM 180 mg Elana Hernandez 180 mg BRILINTA given in lab by Elana Hernandez RN via Oral. Ordered by Haylee Cleaning. Initial Case Assessment Cardiovascular HR Rhythm NIBP Chest Pain 50 SR 110/73 0 Edema Present Skin color Skin None Normal Warm Dry Circulatory - Right Pulses Dorsalis Pedis Femoral 3 3 Scale (0,1,2,3,4,d) Circulatory - Left Pulses Dorsalis Pedis Femoral 3 3 Scale (0,1,2,3,4,d) Circulatory - Lower Extremities Color Lower Right Color Lower Left Normal Normal Neurological State Oriented to time-place- Alert Moves all extremities person Respiration - General Respiration Rate SpO2 (%) (B/min) 18 99 Final Case Assessment Cardiovascular HR Rhythm NIBP Chest Pain 50 SR 110/73 0 Edema Present Skin color Skin None Normal Warm Dry Circulatory - Right Pulses Dorsalis Pedis Femoral 3 3 Scale (0,1,2,3,4,d) Circulatory - Left Pulses Dorsalis Pedis Femoral 3 3 Scale (0,1,2,3,4,d) Circulatory - Lower Extremities Color Lower Right Color Lower Left Normal Normal Neurological State Oriented to time-place- Alert Moves all extremities person Respiration - General Respiration Rate SpO2 (%) (B/min) 18 99 Chronological Log Time Study Chronological Log 18:15:39 Patient arrived via Bed. 18:22:46 Patient Name, D.O.B, / Armband Verified By R.N. 18:22:47 Consent signed by the physician and the patient and verified by the Office Machine Servicer Apprentice staff. 18:22:48 Pre-op and post- op instructions given; patient acknowledges understanding of instructions. 18:22:50 Patient has been NPO for More than 6Hrs. 18:22:51 Skin Breakdown-Scabs on both arms 18:23:14 Reference ECG taken Vitals capture started with the following parameters, Patient=Adult, Interval=5 min, Initial Pr qykwqo=244 mmHg, 18:23:16 Deflation Rate=5 mmHg 18:23:19 Patient Warmer Placed on the Table. 18:23:42 History and physical on the chart or being dictated. Assessment: Initial Case, HR=50 BPM, Rhythm=SR, MZOG=889/73 mmhg, Chest Pain=0, Edema=None, Col or=Normal, Skin = Warm, Dry Right Pulses: Sandip Ped=3, Femoral=3 Left Pulses: Sandip Ped=3, Femoral=3 18:23:43 Lower Right Extremities: Color=Normal Lower Left Extremities: Color=Normal Neurological: State=Alert, Ox3, THOMAS Respiration: Resp=18 B/min, SpO2=99 % 18:23:55 HR=45 bpm, EGMG=990/73 mmhg, RhJ9=210.0 %, Resp=10 B/min, Pain=0, Dima=10, Montalvo=2 18:28:11 MD arrived. 18:28:46 HR=43 bpm, LORD=140/68 mmhg, NgG6=114 %, Resp=10 B/min, Pain=0, Dima=10, Montalvo=2 18:33:45 HR=42 bpm, PDTE=443/70 mmhg, Resp=12 B/min, Pain=0, Dima=10, Montalvo=2 18:36:00 Bilateral groins prepped with 2% chlorhexidine, and with a 3 min. waiting time. 18:37:00 2 mg VERSED given in lab by Elana Hernandez, MAYRA in Left Forearm via Peripheral IV. Ordere d by Haylee Cleaning. 18:37:10 A # 20 IV was noted in the Forearm (left). Grade = 0 50 mcg FENTANYL given in lab by Elana Hernandez, MAYRA in Left Forearm via Peripheral IV. Ordere d by Hermila, 18:38:17 Haylee. 18:38:51 HR=55 bpm, EYYH=123/66 mmhg, DbZ4=393.0 %, Resp=12 B/min, Pain=0, Dima=10, Montalvo=2 18:43:01 Pressure channel 1 zeroed. 18:43:45 HR=47 bpm, NIBP=96/72 mmhg, SpO2=99.0 %, Resp=12 B/min 18:43:52 2 mg VERSED given in lab by Elana Hernandez RN in Left Forearm via Peripheral IV. Ordere d by Haylee Cleaning. 18:48:44 HR=45 bpm, MXQS=762/74 mmhg, SpO2=99.0 %, Resp=19 B/min, Pain=0, Dima=10, Montalvo=2 Time Out. Correct patient, correct procedure,correct physician, power injector loaded with cont rast with surgical team 18:51:18 present. Time Out Concurred by MD, individual staff in procedure 18:51:42 Case Start 18:51:45 20 mL 1% XYLOCAINE given in lab by Haylee Cleaning in Right Groin via Subcutaneous. Ordered by Haylee Cleaning. 18:53:36 Access site was Right Femoral Artery. 18:53:46 HR=44 bpm, BRGB=572/65 mmhg, SpO2=98.0 %, Resp=11 B/min, Pain=0, Dima=10, Montalvo=2 18:54:07 A SHEATH, FR5 TERUMO (10CM) FR 5 was advanced into the Fem Art (right) using the Percutaneo us technique. A PIGTAIL ANG. INFINITI CATHETER FR 5 was advanced over a wire. OMNIPAQUE, 350 MG, 150ML 150ML was used 18:55:24 for injections. Recorded Pressure: LV, HR=46, Condition=Condition 1 18:56:33 (Left Ventricle) LV 96/1/6 18:56:45 The LV was injected at 10 cc/sec for a total of 30. OMNIPAQUE, 350 MG, 150ML 150ML used. Recorded Pressure: LV, Ao, HR=50, Condition=Condition 1 18:58:23 (Left Ventricle) LV 81/1/14, (Aorta) Ao 100/47/68 18:58:38 Catheter was removed 18:58:51 HR=45 bpm, NIBP=99/66 mmhg, SpO2=96.0 %, Resp=12 B/min, Pain=0, Dima=10, Montalvo=2 A JL 4.0 INFINITI CATHETER FR 5 was advanced over a wire. OMNIPAQUE, 350 MG, 150ML 150ML was us ed for 18:59:24 injections. Recorded Pressure: Ao, HR=44, Condition=Condition 1 18:59:55 (Aorta) Ao 99/57/75 19:00:34 The LCA was injected and visualized at various angles. OMNIPAQUE, 350 MG, 150ML 150ML used . 19:03:13 Catheter was removed A AR MOD INFINITI CATHETER FR 5 was advanced over a wire. OMNIPAQUE, 350 MG, 150ML 150ML was us ed for 19:03:14 injections. 19:03:56 The RCA was injected and visualized at various angles. OMNIPAQUE, 350 MG, 150ML 150ML used . 19:04:16 HR=46 bpm, ZQIT=006/65 mmhg, SpO2=99.0 %, Resp=16 B/min, Pain=0, Dima=10, Montalvo=2 Recorded Pressure: Ao, HR=48, Condition=Condition 1 19:05:17 (Aorta) Ao 108/59/80 19:08:47 HR=46 bpm, ETHB=402/70 mmhg, SpO2=99.0 %, Resp=14 B/min, Pain=0, Dima=10, Montalvo=2 19:11:10 Catheter was removed A SHEATH, FR6.5 PRELUDE 11CM FR 6.5 was exchanged in the Fem Art (right). This was necessary in order to 19:12:06 accomodate a larger catheter. 6000 units HEPARIN given in lab by Elana Hernandez RN in Left Forearm via Peripheral IV. Ord ered by Hermila, 19:13:47 Haylee. 19:13:50 HR=43 bpm, YKDP=573/66 mmhg, AnL2=293 %, Resp=14 B/min, Pain=0, Dima=10, Montalvo=2 A XBLAD 3.5 GUIDE CATHETER FR 6 was advanced over a wire. OMNIPAQUE, 350 MG, 150ML 150ML was us ed for 19:14:08 injections. 19:15:00 Catheter was removed 19:17:04 2 mg VERSED given in lab by Elana Hernandez RN in Left Forearm via Peripheral IV. Ordere d by Haylee Cleaning. 25 mcg FENTANYL given in lab by Elana Hernandez, MAYRA in Left Forearm via Peripheral IV. Ordere d by Hermila, 19:18:11 Haylee. 19:18:47 HR=45 bpm, NIBP=96/72 mmhg, Resp=21 B/min, Pain=0, Dima=10, Montalvo=2 19:20:00 Activated Clotting Time Drawn A SHEATH, FR7 24CM 7FR 24CM was exchanged in the Fem Art (right). This was necessary in order t o accomodate a 19:20:00 larger catheter. A XB 3.0 GUIDE CATHETER FR 7 was advanced over a wire. OMNIPAQUE, 350 MG, 150ML 150ML was used for 19:21:06 injections. 19:24:25 HR=47 bpm, RMUB=794/71 mmhg, SpO2=92.0 %, Resp=12 B/min, Pain=0, Dima=10, Montalvo=2 19:25:16 ACT (Normal Range 90-180) = 249 19:25:56 100 mcg NTG (IC) given in lab by Haylee Cleaning via Intra-coronary. Ordered by Mookie Cleaning. A BALLOON, 1.25 X 10MM SPRINTER LEGEND RX 10MM was inserted over WIRE, BALANCE MIDDLEWEIGHT 190 CM 19:28:04 190CM via the Fem Art (right). 2000 units HEPARIN given in lab by Elana Hernandez RN in Left Forearm via Peripheral IV. Ord ered by Hermila, 19:29:00 Haylee. A BALLOON, 1.25 X 10MM SPRINTER LEGEND RX 10MM over a WIRE, BALANCE MIDDLEWEIGHT 190CM 190CM in the 19:29:07 LAD Mid was inflated using a 30 DAQUAN INDEFLATOR at 15 daquan for 35 sec. 19:29:24 HR=49 bpm, FMML=048/69 mmhg, SpO2=99.0 %, Resp=14 B/min, Pain=0, Dima=10, Montalvo=2 19:30:20 Balloon Removed. 19:31:10 100 mcg NTG (IC) given in lab by Haylee Cleaning via Intra-coronary. Ordered by Mookie Cleaning. An STENT, 2.0 12 MINI-VISION RX 2.0 12 Bare Metal Stent was inserted through a XB 3.0 GUIDE CAT HETER FR 7 19:32:54 over a WIRE, BALANCE MIDDLEWEIGHT 190CM 190CM. 19:33:50 HR=50 bpm, GDGJ=131/67 mmhg, Resp=9 B/min, Pain=0, Dima=10, Montalvo=2 A STENT, 2.0 12 MINI-VISION RX 2.0 12 was deployed using a 30 DAQUAN INDEFLATOR at 16 atmospheres for 35 seconds 19:34:28 in the LAD Mid. 19:36:19 Delivery device removed 19:36:24 Wire removed 19:36:34 Catheter was removed Assessment: Final Case, HR=50 BPM, Rhythm=SR, FTHV=874/73 mmhg, Chest Pain=0, Edema=None, Color =Normal, Skin = Warm, Dry Right Pulses: Sandip Ped=3, Femoral=3 Left Pulses: Sandip Ped=3, Femoral=3 19:38:49 Lower Right Extremities: Color=Normal Lower Left Extremities: Color=Normal Neurological: State=Alert, Ox3, THOMAS Respiration: Resp=18 B/min, SpO2=99 % 19:38:51 HR=44 bpm, EDOA=596/66 mmhg, SpO2=99.0 %, Resp=17 B/min, Pain=0, Dima=10, Montalvo=2 19:39:02 ANGIOSEAL FR8 FR 8 placement in the Fem Art (right) 19:40:37 Case End 19:40:59 Sterile dressing applied to site 19:41:01 No case complications noted. 19:41:02 Cine recording checked. 19:41:06 Bedside Report will be given. 19:41:08 Implantable Device card placed in patient's chart. 19:41:10 Contrast Scanned 19:41:12 A Left Heart Cath was performed. 19:43:52 HR=49 bpm, IJPX=270/74 mmhg, Resp=9 B/min, Pain=0, Dima=10, Montalvo=2 19:48:51 HR=42 bpm, VJVR=934/69 mmhg, Resp=7 B/min 19:50:21 180 mg BRILINTA given in lab by Elana Hernandez RN via Oral. Ordered by Haylee Cleaning . 19:50:47 Patient moved to stretcher End Study - Contrast Media Used In Study Contrast Total Opened (mL) Total Used (mL) Total Wasted (mL) Omnipaque 150 150 0 End Study - Maximum Contrast Load Max Contrast Load (mL) 543.5 End Study - Radiation Exposure Fluoro Time (minutes) 6.6 End Study - Patient Disposition Complications Transferred To Interventional Outcome No Telemetry Bed successful
[2017-02-06] MEDS ORDERED: SODIUM CHLOR 0.9% 1000 ML INJ 1,000 ML IV SCH (20:05)
[2017-02-06] MEDS ORDERED: MISC INFORMATION XX ONE (20:15)
[2017-02-06] MEDS ORDERED: LIDOCAINE 2% JELLY 30 ML TUBE TOP PRN (20:15)
--- NOTE | 2017-02-06 20:25 | MB ---
cc: AMARA KIRK MD DATE OF CONSULTATION 02/06/17 HISTORY OF PRESENT ILLNESS A 62 year old white male with history of hypertension, seizure disorder and smoking who presented to the [place] emergency room with substernal chest discomfort. It started yesterday morning and was constant without radiation. The patient on previous cardiac history, he underwent nuclear myocardial perfusion study in the chest pain center which showed lateral wall ischemia; this was an intermediate risk study. PAST MEDICAL HISTORY 1. Hypertension 2. Seizure disorder. MEDICATIONS 1. Lisinopril 20 mg twice a day. 2. Keppra. 3. Amlodipine. ALLERGIES None. SOCIAL HISTORY The patient is a smoker. He does not drink alcohol. FAMILY HISTORY Strongly positive for heart disease in direct relatives. REVIEW OF SYSTEMS Otherwise negative. PHYSICAL EXAMINATION VITAL SIGNS: Blood pressure 96/66, pulse 50 and regular. HEENT: Negative. 2+ carotid upstrokes. No bruits. LUNGS: Clear. HEART: Regular with no murmur, gallop or rub. ABDOMEN: Soft, no bruits EXTREMITIES: Without edema. 2+ distal pulses. NEUROLOGIC: Grossly intact. CARDIOLOGY STUDIES EKG was reviewed and showed normal sinus rhythm, PVCs, normal axis and intervals, no acute changes. LABORATORY DATA Hemoglobin 14.8, potassium 4.5, creatinine 0.8. CK and troponin negative x3. TSH 0.9. DIAGNOSES 1. Unstable angina 2. Intermediate risk nuclear myocardial perfusion study consistent with lateral ischemia. 3. Hypertension. 4. Seizure disorder. DISPOSITION Mr. Aguila will undergo cardiac catheterization and cardiac intervention if necessary. He understands the risks and benefits and wishes to proceed. MD RUSSELL Irizarry/ /6:25 PM /8:16 PM
[2017-02-06] MEDS ORDERED: ATORVASTATIN 80 MG TAB PO SCH (21:00)
[2017-02-07] VITALS (14 sets, daily range): BP systolic 90–106; BP diastolic 56–65; PULSE 46–64; RESP 16–18; TEMP 97.8–98.4; O2SAT 96–98
[2017-02-07 05:54] LABS: BASOPHIL # 0.2 TH/MM3 (0-0.2); BASOPHIL % 1.9 % (0.0-2.0); EOSINOPHIL # 0.6 TH/MM3 (0-0.4); EOSINOPHIL % 7.1 % (0.0-4.0); HEMATOCRIT 40.3 % (39.0-51.0); HEMO FLAGS DIFF FINAL; LYMPH % 26.7 % (9.0-44.0); LYMPHOCYTE # 2.3 TH/MM3 (1.0-4.8); MEAN CELL VOLUME 87.3 FL (80.0-100.0); MEAN CORPUSCULAR HGB CONC 35.5 % (32.0-36.0); MONO % 5.6 % (0.0-8.0); NEUT % 58.7 % (16.0-70.0); PLATELET COUNT 229 TH/MM3 (150-450); RED BLOOD COUNT 4.62 MIL/MM3 (4.50-5.90); WHITE BLOOD COUNT 8.6 TH/MM3 (4.0-11.0)
[2017-02-07 06:15] LABS: BICARBONATE 24.8 MEQ/L (21.0-32.0); POTASSIUM 3.6 MEQ/L (3.5-5.1)
[2017-02-07 06:17] LABS: HDL CHOLESTEROL 37.1 MG/DL (40.0-60.0)
[2017-02-07] MEDS ORDERED: ISOSORBIDE MONONITRATE 30 MG TAB PO SCH (07:00)
--- NOTE | 2017-02-07 07:48 | EKG ---
Date Performed: 02/07/2017 Time Performed: 06:01:46 PTAGE: 62 years EKG: Baseline artifact present Sinus bradycardia Low QRS voltages in limb leads Borderline ECG N o significant change from prior electrocardiogram. PREVIOUS TRACING : 02/06/2017 23.01 DOCTOR: Armin Cox Interpretating Date/Time 02/07/2017 07:47:43
--- NOTE | 2017-02-07 07:50 | EKG ---
Date Performed: 02/06/2017 Time Performed: 23:01:48 PTAGE: 62 years EKG: Baseline artifact present Sinus bradycardia Inferior T wave changes are nonspecific Borderl ine ECG Within the constraints of artifact, no definite changes seen. PREVIOUS TRACING : 02/05/2017 11.15 DOCTOR: Armin Cox Interpretating Date/Time 02/07/2017 07:49:23
[2017-02-07] MEDS: SODIUM CHLORIDE 0.9% FLUSH 10 ML FLUSH IV FLUSH SCH (07:59)
[2017-02-07] MEDS: levETIRAcetam 500 MG TAB PO SCH (07:59)
[2017-02-07] MEDS: PANTOPRAZOLE SOD 40 MG DELAYED RELEASE TAB PO SCH (07:59)
[2017-02-07] MEDS: DOCUSATE SODIUM 50 MG/SENNA 8.6 MG TAB PO SCH (07:59)
[2017-02-07] MEDS ORDERED: TICAGRELOR 90 MG TAB PO SCH (09:00)
[2017-02-07] MEDS ORDERED: ASPIRIN 81 MG CHEW TAB PO SCH (09:00)
--- NOTE | 2017-02-07 11:18 | HHI.PR ---
Subjective Remarks Follow-up for unstable STEMI Status post cardiac catheterization Patient denies any chest pain. He is eating breakfast during the interview. Denies any shortness of breathing, palpitation, and his dizziness. He has no complaints. He stated that he had a stent placed this morning and he was told possible discharge today. Objective Vitals Vital Signs Date Time Temp Pulse Resp B/P Pulse Ox O2 Delivery O2 Flow Rate FiO2 02/07/17 08:00 97.8 54 16 90/56 97 02/07/17 08:00 58 02/07/17 06:00 47 02/07/17 05:00 50 02/07/17 04:00 46 02/07/17 03:00 98.4 49 18 97/65 98 02/07/17 03:00 59 02/07/17 02:00 50 02/07/17 01:00 48 02/07/17 00:00 50 02/06/17 23:26 97.6 54 18 118/63 100 02/06/17 23:00 54 02/06/17 22:00 54 02/06/17 20:10 48 18 107/71 99 I/O 02/06/17 02/06/17 02/06/17 02/07/17 02/07/17 02/07/17 07:00 15:00 23:00 07:00 15:00 23:00 Intake Total 480 ml Output Total 1125 ml Balance -645 ml Intake Oral 480 ml Output Urine Total 1125 ml Result Diagram: 02/07/17 0404 02/07/17 0404 Objective Remarks GENERAL: in NAD CARDIOVASCULAR: Regular rate and rhythm without murmurs, gallops, or rubs. RESPIRATORY: Breath sounds equal bilaterally. No accessory muscle use. GASTROINTESTINAL: Abdomen soft, non-tender, nondistended. MUSCULOSKELETAL: Right groin pressure dressing in place. Minimal blood noted.. Medications and IVs Current Medications Aspirin (Aspirin) 325 mg ONCE ONCE PO Last administered on 02/05/17t 06:26; Start 02/05/17 at 06:30; Stop 02/05/17 at 06:31; Status DC Sodium Chloride (NS Flush) 2 ml UNSCH PRN IV FLUSH FLUSH AFTER USING IV ACCESS ; Start 02/05/17 at 07:15; Stop 02/05/17 at 09:35; Status DC Sodium Chloride (NS Flush) 2 ml BID IV FLUSH Last administered on 02/05/17 08: 58; Start 02/05/17 at 09:00; Stop 02/05/17 at 09:35; Status DC Levetriacetam (Keppra) 1,000 mg BID PO Last administered on 02/07/17 07:59; Start 02/05/17 at 21:00 Sodium Chloride (NS Flush) 2 ml UNSCH PRN IV FLUSH FLUSH AFTER USING IV ACCESS ; Start 02/05/17 at 09:15 Sodium Chloride (NS Flush) 2 ml BID IV FLUSH Last administered on 02/07/17 07: 59; Start 02/05/17 at 21:00 Acetaminophen (Tylenol) 650 mg Q4H PRN PO TEMP > 100.4; Start 02/05/17 at 09:15 Ondansetron HCl (Zofran Inj) 4 mg Q6H PRN IVP NAUSEA OR VOMITING; Start at 09:15 Acetaminophen (Tylenol) 650 mg Q6H PRN PO PAIN SCALE 1 TO 2; Start 02/05/17 at 09:15 Morphine Sulfate (Morphine Inj) 2 mg Q3H PRN IV BREAKTHROUGH PAIN; Start at 09:15 Oxycodone HCl (Roxicodone) 5 mg Q4H PRN PO PAIN SCALE 3 TO 10 Last administered on 02/07/17 03:51; Start 02/05/17 at 09:15 Naloxone HCl (Narcan Inj) 0.4 mg UNSCH PRN IV SEE LABEL COMMENTS; Start at 09:15 Senna/Docusate Sodium (Ina-Colace) 1 tab BID PO Last administered on 21:38; Start 02/05/17 at 21:00 Regadenoson (Lexiscan Inj) 0.4 mg STK-MED ONCE IV Last administered on 15:39; Start 02/05/17 at 15:39; Stop 02/05/17 at 15:40; Status DC Aspirin (Ecotrin Ec) 325 mg DAILY PO Last administered on 02/06/17 09:04; Start 02/06/17 at 09:00; Stop 02/06/17 at 20:08; Status DC Pantoprazole Sodium (Protonix) 40 mg DAILY PO Last administered on 02/07/17 07 :59; Start 02/06/17 at 09:00 Nitroglycerin 0.4 mg 0.4 mg Q5M PRN SL CHEST PAIN; Start 02/05/17 at 18:00 Heparin Sodium/ Sodium Chloride (Heparin-NS/Pf Inj) 500 ml @ As Directed STK- MED ONCE .ROUTE Last administered on 02/06/17 18:05; Start 02/06/17 at 18:05; Stop 02/06/17 at 18:06; Status DC Midazolam HCl (Versed Inj) 2 mg STK-MED ONCE .ROUTE Last administered on 18:06; Start 02/06/17 at 18:06; Stop 02/06/17 at 18:07; Status DC Fentanyl Citrate (fentaNYL INJ) 100 mcg STK-MED ONCE .ROUTE Last administered on 02/06/17 18:06; Start 02/06/17 at 18:06; Stop 02/06/17 at 18:07; Status DC Heparin Sodium (Porcine) (Heparin Inj) 10,000 units STK-MED ONCE .ROUTE Last administered on 02/06/17 18:06; Start 02/06/17 at 18:06; Stop 02/06/17 at 18:07 ; Status DC Midazolam HCl (Versed Inj) 2 mg STK-MED ONCE .ROUTE Last administered on 18:39; Start 02/06/17 at 18:39; Stop 02/06/17 at 18:40; Status DC Midazolam HCl (Versed Inj) 2 mg STK-MED ONCE .ROUTE Last administered on 19:17; Start 02/06/17 at 19:17; Stop 02/06/17 at 19:18; Status DC Ticagrelor (Brilinta) 180 mg STK-MED ONCE PO Last administered on 02/06/17 19: 41; Start 02/06/17 at 19:41; Stop 02/06/17 at 19:42; Status DC Lidocaine HCl 1 applic 1 applic UNSCH PRN TOP CATHETER INSERTION; Start at 20:15 Sodium Chloride (NS 1000 ml Inj) 1,000 ml @ 100 mls/hr Q10H IV ; Start at 20:05; Stop 02/07/17 at 00:04; Status DC Aspirin (Aspirin Chew) 81 mg DAILY PO Last administered on 02/07/17 07:59; Start 02/07/17 at 09:00 Ticagrelor (Brilinta) 90 mg BID PO Last administered on 02/07/17 07:58; Start 02/07/17 at 09:00 Miscellaneous Information 1 ONCE ONCE XX ; Start 02/06/17 at 20:15; Stop at 20:26; Status DC Atorvastatin Calcium (Lipitor) 80 mg HS PO Last administered on 02/06/17 21:38 ; Start 02/06/17 at 21:00 Isosorbide Mononitrate (Imdur) 30 mg DAILY@07 PO Last administered on 06:32; Start 02/07/17 at 07:00 Iohexol (OMNIPAQUE 350 INJ ([employer] [place] [employer])) 100 ml STK-MED ONCE OTHER ; Start at 18:15; Stop 02/07/17 at 08:26; Status DC Iohexol (OMNIPAQUE 350 INJ ([employer] [place] [employer])) 50 ml STK-MED ONCE OTHER ; Start at 18:15; Stop 02/07/17 at 08:26; Status DC A/P Problem List: (1) Chest pain ICD Code: R07.9 Status: Acute (2) Epilepsy ICD Code: G40.909 Status: Acute (3) Hypertension ICD Code: I10 Status: Acute Assessment and Plan Unstable angina. -Patient had an abnormal nuclear stress test. -Pending cardiac catheterization report. -Patient is on aspirin, Brilinta, atorvastatin. Beta ivette held secondary to Procardia. Seizure disorder. -On Keppra. Asymptomatic. Hypertension -Blood pressures low lisinopril and amlodipine was held. DVT prophylaxis -SCDs. Discharge Planning Once patient cleared by acquisition associate can be discharged home. Problem Qualifiers (1) Chest pain: Qualified Code: R07.9 - Chest pain, unspecified type Chelsea Miller MD Feb 07, 2017 11:18
[2017-02-07] MEDS ORDERED: ATOR1TAB18 PO (15:00)
[2017-02-07] MEDS ORDERED: ASPI81CH25 PO (15:00)
[2017-02-07] MEDS ORDERED: ISOS30TA3 PO (15:00)
[2017-02-07] MEDS ORDERED: BRIL90TA PO (15:00)
--- NOTE | 2017-02-07 15:02 | HHI.DCPOC ---
Discharge Care Plan Diagnosis: (1) Coronary artery disease (2) Unstable angina Goals to Promote Your Health * To prevent worsening of your condition and complications * To maintain your health at the optimal level Directions to Meet Your Goals Take your medications as prescribed Follow your dietary instruction Follow activity as directed Keep your appointments as scheduled Take your immunizations and boosters as scheduled If your symptoms worsen call your PCP, if no PCP go to Urgent Care Center or Emergency Room Smoking is Dangerous to Your Health. Avoid second hand smoke Call the 24-hour hour crisis hotline for domestic abuse at Chelsea Miller MD Feb 07, 2017 15:01
--- NOTE | 2017-02-07 15:03 | HHI.DS ---
Discharge Summary Admission Date Feb 05, 2017 at 18:12 Discharge Date: Feb 07, 2017 Admitting Diagnosis chest pain (1) Unstable angina ICD Code: I20.0 Diagnosis: Principal (2) Coronary artery disease ICD Code: I25.10 Diagnosis: Principal (3) Epilepsy ICD Code: G40.909 Diagnosis: Secondary (4) Hypertension ICD Code: I10 Diagnosis: Secondary Procedures cardiac catheterization Brief History - From Admission 62 old male with history of hypertension, seizures, and tobacco use presents complaining of chest pain. He states it started yesterday initially but then he awoke at 3:30 AM this morning again with the pain over the center of his chest described as sharp and "strange". He states the pain was constant and denies radiation. Denies any alleviating or exacerbating factors. Denies any recent fall. Patient has been compliant with his medications. Denies any history of prior MD. He states he was told his ankles are swollen but he has not noted any swelling. Denies any fevers or chills, shortness of breath, nausea, or vomiting. CBC/BMP: 02/07/17 0404 02/07/17 0404 Significant Findings Laboratory Tests Test 02/05/17 02/05/17 02/05/17 02/06/17 06:05 08:45 11:30 05:47 Eosinophils (%) (Auto) 5.2 % (0.0-4.0) 8.3 % (0.0-4.0) Eosinophils # (Auto) 0.5 TH/MM3 0.6 TH/MM3 (0-0.4) (0-0.4) Chloride Level 109 MEQ/L 109 MEQ/L (98-107) (98-107) Estimat Glomerular Filtration 67 ML/MIN (>89) Rate Random Glucose 115 MG/DL (74-106) Troponin I LESS THAN 0.02 LESS THAN 0.02 LESS THAN 0.02 NG/ML NG/ML NG/ML (0.02-0.05) (0.02-0.05) (0.02-0.05) Blood Urea Nitrogen 20 MG/DL (7-18) Test 02/07/17 04:04 Eosinophils (%) (Auto) 7.1 % (0.0-4.0) Eosinophils # (Auto) 0.6 TH/MM3 (0-0.4) Chloride Level 108 MEQ/L (98-107) Blood Urea Nitrogen 19 MG/DL (7-18) Calcium Level 8.3 MG/DL (8.5-10.1) Triglycerides Level 260 MG/DL (42-150) HDL Cholesterol 37.1 MG/DL (40.0-60.0) Imaging Last Impressions Myocardial Perfusion Scan Nuc Med 02/05/17 1222 Signed Impressions: Service Date/Time: Friday, February 05, 2017 15:07 - CONCLUSION: Suspect significant ischemia at least involving the lateral wall. RISK CATEGORY: Intermediate (1-3%% Annual Mortality Rate) Varinder Perez MD Chest X-Ray 02/05/17 0608 Signed Impressions: Service Date/Time: Friday, February 05, 2017 06:21 - CONCLUSION: Stable chest x-ray. No acute cardiopulmonary abnormality is identified. Varinder Martinez MD PE at Discharge GENERAL: in NAD CARDIOVASCULAR: Regular rate and rhythm without murmurs, gallops, or rubs. RESPIRATORY: Breath sounds equal bilaterally. No accessory muscle use. GASTROINTESTINAL: Abdomen soft, non-tender, nondistended. MUSCULOSKELETAL: Right groin pressure dressing in place. Minimal blood noted. Pt update on day of discharge See progress note on the day of discharge. Hospital Course Unstable angina. -Patient had an abnormal nuclear stress test. -Patient had a cardiac catheterization showing stable post cath and coronary stenting using a bare metal stent to LAD. -Patient is on aspirin, Brilinta, atorvastatin. Beta ivette held secondary to hypotension and bradycardia. Seizure disorder. -On Keppra. Asymptomatic. Hypertension -Blood pressures low lisinopril and amlodipine was held. Tobacco dependence -Smoking cessation. Pt Condition on Discharge: Stable Discharge Disposition: Discharge Home Discharge Time: <= 30 minutes Discharge Instructions DIET: Follow Instructions for: Heart Healthy Diet Activities you can perform: See Additionl Instruction Other Activity Instructions: as directed by body finisher Follow up Referrals: Cardiology - 2 Weeks with Haylee Cleaning MD PCP Follow-up - 1 Week New Medications: Aspirin (Aspirin Low Strength) 81 Mg Chew 81 MG PO DAILY CAD #30 Ref 0 EA Atorvastatin (Atorvastatin) 80 Mg Tab 80 MG PO HS CAD #30 Ref 0 TAB Isosorbide Mononitrate ER (Isosorbide Mononitrate ER) 30 Mg Kassie 30 MG PO DAILY@07 CAD #30 Ref 0 TAB Ticagrelor (Brilinta) 90 Mg Tab 90 MG PO BID CAD/stent #60 Ref 0 TAB Continued Medications: Levetiracetam (Keppra) 1,000 Mg Tab 1000 MG PO BID Control Seizures #60 Ref 0 TAB Discontinued Medications: Amlodipine (Amlodipine) 10 Mg Tab 10 MG PO HS Blood Pressure Management #30 Ref 0 TAB Lisinopril (Lisinopril) 20 Mg Tab 20 MG PO BID Days 30 Ref 2 TAB Chelsea Miller MD Feb 07, 2017 15:03
--- NOTE | 2017-02-07 15:56 | PD.CARD.PN ---
Subjective Subjective Remarks No CP or SOB, feels much better Objective Medications Current Medications Medications (Trade) Dose Ordered Sig/Natalia Route Start Time Stop Time Status Last Admin (Keppra) 1,000 mg BID PO 02/05/17 21:00 02/07/17 07:59 (NS Flush) 2 ml UNSCH PRN IV FLUSH 02/05/17 09:15 (NS Flush) 2 ml BID IV FLUSH 02/05/17 21:00 02/07/17 07:59 (Tylenol) 650 mg Q4H PRN PO 02/05/17 09:15 (Zofran Inj) 4 mg Q6H PRN IVP 02/05/17 09:15 (Tylenol) 650 mg Q6H PRN PO 02/05/17 09:15 (Morphine Inj) 2 mg Q3H PRN IV 02/05/17 09:15 (Roxicodone) 5 mg Q4H PRN PO 02/05/17 09:15 02/07/17 03:51 (Narcan Inj) 0.4 mg UNSCH PRN IV 02/05/17 09:15 (Ina-Colace) 1 tab BID PO 02/05/17 21:00 02/06/17 21:38 (Protonix) 40 mg DAILY PO 02/06/17 09:00 02/07/17 07:59 (Nitrostat Sl) 0.4 mg Q5M PRN SL 02/05/17 18:00 (Xylocaine 2% Jelly) 1 applic UNSCH PRN TOP 02/06/17 20:15 (Aspirin Chew) 81 mg DAILY PO 02/07/17 09:00 02/07/17 07:59 (Brilinta) 90 mg BID PO 02/07/17 09:00 02/07/17 07:58 (Lipitor) 80 mg HS PO 02/06/17 21:00 02/06/17 21:38 (Imdur) 30 mg DAILY@07 PO 02/07/17 07:00 02/07/17 06:32 Vital Signs / I&O Vital Signs Date Time Temp Pulse Resp B/P Pulse Ox O2 Delivery O2 Flow Rate FiO2 02/07/17 12:00 98.1 55 18 106/59 98 02/07/17 12:00 60 02/07/17 11:51 96 02/07/17 11:00 56 02/07/17 10:00 58 02/07/17 09:00 64 02/07/17 08:00 97.8 54 16 90/56 97 02/07/17 08:00 58 02/07/17 07:00 54 02/07/17 06:00 47 02/07/17 05:00 50 02/07/17 04:00 46 02/07/17 03:00 98.4 49 18 97/65 98 02/07/17 03:00 59 02/07/17 02:00 50 02/07/17 01:00 48 02/07/17 00:00 50 02/06/17 23:26 97.6 54 18 118/63 100 02/06/17 23:00 54 02/06/17 22:00 54 02/06/17 20:10 48 18 107/71 99 I/O 02/06/17 02/06/17 02/06/17 02/07/17 02/07/17 02/07/17 07:00 15:00 23:00 07:00 15:00 23:00 Intake Total 480 ml Output Total 1125 ml Balance -645 ml Intake Oral 480 ml Output Urine Total 1125 ml Physical Exam GENERAL: In NAD SKIN: Warm and dry. HEAD: Normocephalic. EYES: No scleral icterus. No injection or drainage. NECK: Supple, trachea midline. No JVD or lymphadenopathy. CARDIOVASCULAR: Regular rate and rhythm without murmurs, gallops, or rubs. RESPIRATORY: Breath sounds equal bilaterally. No accessory muscle use. GASTROINTESTINAL: Abdomen soft, non-tender, nondistended. MUSCULOSKELETAL: No cyanosis, or edema. Groin stable. Laboratory Laboratory Tests Test 02/07/17 04:04 White Blood Count 8.6 TH/MM3 Red Blood Count 4.62 MIL/MM3 Hemoglobin 14.3 GM/DL Hematocrit 40.3 % Mean Corpuscular Volume 87.3 FL Mean Corpuscular Hemoglobin 31.0 PG Mean Corpuscular Hemoglobin 35.5 % Concent Red Cell Distribution Width 13.0 % Platelet Count 229 TH/MM3 Mean Platelet Volume 7.9 FL Neutrophils (%) (Auto) 58.7 % Lymphocytes (%) (Auto) 26.7 % Monocytes (%) (Auto) 5.6 % Eosinophils (%) (Auto) 7.1 % Basophils (%) (Auto) 1.9 % Neutrophils # (Auto) 5.0 TH/MM3 Lymphocytes # (Auto) 2.3 TH/MM3 Monocytes # (Auto) 0.5 TH/MM3 Eosinophils # (Auto) 0.6 TH/MM3 Basophils # (Auto) 0.2 TH/MM3 CBC Comment DIFF FINAL Differential Comment Sodium Level 142 MEQ/L Potassium Level 3.6 MEQ/L Chloride Level 108 MEQ/L Carbon Dioxide Level 24.8 MEQ/L Anion Gap 9 MEQ/L Blood Urea Nitrogen 19 MG/DL Creatinine 0.75 MG/DL Estimat Glomerular Filtration 105 ML/MIN Rate Random Glucose 95 MG/DL Calcium Level 8.3 MG/DL Total Creatine Kinase 54 U/L Triglycerides Level 260 MG/DL Cholesterol Level 146 MG/DL LDL Cholesterol 57 MG/DL HDL Cholesterol 37.1 MG/DL Cholesterol/HDL Ratio 3.93 RATIO Imaging Last Impressions Myocardial Perfusion Scan Nuc Med 02/05/17 1222 Signed Impressions: Service Date/Time: Sunday, February 05, 2017 15:07 - CONCLUSION: Suspect significant ischemia at least involving the lateral wall. RISK CATEGORY: Intermediate (1-3%% Annual Mortality Rate) Varinder Perez MD Chest X-Ray 02/05/17 0608 Signed Impressions: Service Date/Time: Sunday, February 05, 2017 06:21 - CONCLUSION: Stable chest x-ray. No acute cardiopulmonary abnormality is identified. Varinder Martinez MD Assessment and Plan Problem List: (1) Unstable angina (2) Coronary artery disease (3) Abnormal nuclear stress test (4) Hypertension (5) Tobacco abuse (6) Epilepsy Assessment and Plan Stable post cath and coronary stenting using a bare metal stent to LAD. Continue tx w Brilinta and baby ASA for at least 3 months. Continue statin and Imdur. BP and HR too low to use beta ivette at this time. He was strongly encouraged to quit smoking. DC home. Haylee Cleaning MD Feb 07, 2017 15:56
--- NOTE | 2017-02-11 10:04 | MA ---
cc: AMARA KIRK DATE 02/06/17 INDICATION Unstable angina, class IV angina, intermediate risk nuclear mycoardial perfusion study. PROCEDURE PERFORMED 1. Retrograde heart catheterization with left ventriculography and selective angiography. 2. Angioplasty and stenting of the mid left anterior descending artery. 3. Moderate sedation. ACCESS SITE Right femoral artery. EQUIPMENT USED 7-[place] XB3.0 guide, BMW wire, 1.25 balloon for predilatation, 2.0 x 12 mm Mini vision bare metal stent at 60 atmospheres. MEDICATIONS 1. Versed. 1. IV Fentanyl. 2. IV Heparin. 3. IV Nitroglycerin. 4. IC Brilinta 180 milligrams p.o. CONTRAST Omnipaque 150 cc. BLOOD LOSS Less than 10 cc. COMPLICATIONS None. MINUTE OF HEMOSTASIS Manual compression. RESULTS HEMODYNAMICS Heart rate 43 beats per minute, end diastolic pressure 5 mmHg. Left ventricle 105/5. Aorta 105/___. Left ventricular ejection fraction 60%, wall motion normal. No mitral regurgitation. CORONARY ANGIOGRAPHY Left main coronary patent. Left anterior descending artery has 60% stenosis in the proximal portion-distal portion and 99% stenosis in the midportion. First diagonal artery is a large vessel with 60% ostial stenosis and 70% stenosis in the distal portion. Left circumflex artery has 60% proximal stenosis. OM1 is small and patent. OM2 is small and patent. Right coronary is a large dominant vessel which is patent with mild irregularities. PLV has 50% stenosis in the secondary branch and PDA has distal 60% stenosis. Stenosis in the mid LAD, lesion length 9 mm, pre JOSELO flow 2, post JOSELO flow 3, post stenosis 0. This was a type A lesion. Post intervention angiography revealed excellent patency of the stented segment and no evidence of dissection, thrombosis or distal embolization. DIAGNOSIS 1. Moderate to severe multivessel coronary artery disease with 99% stenosis of a small mid left anterior descending coronary artery. 2. Overall preserved left ventricular systolic function. 3. Successful angioplasty and stenting of the mid left anterior descending artery. DISPOSITION Mr. Aguila will be monitored on telemetry after his procedure. We will continue therapy with Brilinta for at least 3 months and aspirin indefinitely. We will continue aggressive modification of his cardiac risk factors. He was strongly encouraged to quit smoking. He will follow up with his primary care physician in his office after discharge. MD ZABRINA Irizarry /7:48 PM /9:59 AM
== END 2017-02-07 15:40 | disposition home or self-care (01) | DRG 249 ==
LOC: PHED 05:56 → PHEDA 07:00 → PH3A 10:08 → OBSVTOIN 18:12 → HCIS 02-06 19:59
PROVIDERS: ADMIT Family Medicine; ATTEND Family Medicine
PROC: 4A023N7 Measurement of Cardiac Sampling and Pressure, Left Heart, Percutaneous Approach (ICD-10-PCS; 2017-02-06)
PROC: B2111ZZ Fluoroscopy of Multiple Coronary Arteries using Low Osmolar Contrast (ICD-10-PCS; 2017-02-06)
PROC: B2151ZZ Fluoroscopy of Left Heart using Low Osmolar Contrast (ICD-10-PCS; 2017-02-06)
PROC: 02703DZ Dilation of Coronary Artery, One Artery with Intraluminal Device, Percutaneous Approach (ICD-10-PCS; principal; 2017-02-06 17:30)
DX: I25.110 Atherosclerotic heart disease of native coronary artery with unstable angina pectoris (principal); R29.2 Abnormal reflex; I10 Essential (primary) hypertension; G40.909 Epilepsy, unspecified, not intractable, without status epilepticus; I49.3 Ventricular premature depolarization; M54.9 Dorsalgia, unspecified; G89.29 Other chronic pain; F17.210 Nicotine dependence, cigarettes, uncomplicated; Z82.49 Family history of ischemic heart disease and other diseases of the circulatory system; Z86.73 Personal history of transient ischemic attack (TIA), and cerebral infarction without residual deficits
CPT/HCPCS: 71010; 78452; 80048; 80053; 80061; 82550; 83735; 84443; 84484; 85002; 85025; 85610; 85730; 92928; 93005; 93017; 93458; A9502; C1725; C1760; C1769; C1876; C1887; C1893; G0269; J1644; J2250; J2785; J3010; Q9967

== ENCOUNTER 2017-02-12 11:05 | Emergency (ER) | payer OTHER ==
[~2017-02-12] VITALS: Ht 167.6 cm; Wt 74.5 kg
[~2017-02-12 11:05] MED LIST changes: -AMLO10TA2 PO; +ASPI81CH25 PO; +ATOR1TAB18 PO; +BRIL90TA PO; +ISOS30TA3 PO; -LISI-515 PO
[2017-02-12 11:10] VITALS: BP 126/87; PULSE 65; RESP 16; TEMP 98.5; O2SAT 99
[2017-02-12] MEDS ORDERED: LISI-515 PO (11:15)
[2017-02-12] MEDS ORDERED: levETIRAcetam 1000 MG INJ 100 ML IV ONE (11:15)
[2017-02-12] MEDS ORDERED: SODIUM CHLORIDE 0.9% FLUSH 10 ML FLUSH IVF PRN (11:15)
[2017-02-12] MEDS ORDERED: AMLO10TA2 PO (11:15)
[2017-02-12 11:20] VITALS: O2SAT 99
[2017-02-12 11:35] LABS: AUTOMATED NEUTROPHIL # 5.8 TH/MM3 (1.8-7.7); BASOPHIL % 0.5 % (0.0-2.0); EOSINOPHIL # 0.5 TH/MM3 (0-0.4); EOSINOPHIL % 6.6 % (0.0-4.0); HEMO FLAGS DIFF FINAL; LYMPH % 12.2 % (9.0-44.0); LYMPHOCYTE # 0.9 TH/MM3 (1.0-4.8); MEAN CELL VOLUME 87.9 FL (80.0-100.0); MEAN CORPUSCULAR HEMOGLOBIN 29.6 PG (27.0-34.0); MEAN CORPUSCULAR HGB CONC 33.7 % (32.0-36.0); MONO % 5.4 % (0.0-8.0); NEUT % 75.3 % (16.0-70.0); PLATELET COUNT 260 TH/MM3 (150-450); RED BLOOD COUNT 4.77 MIL/MM3 (4.50-5.90); RED CELL DISTRIBUTION WIDTH 12.3 % (11.6-17.2); WHITE BLOOD COUNT 7.6 TH/MM3 (4.0-11.0)
[2017-02-12] MEDS ORDERED: ACETAMINOPHEN/HYDROcodone 325 MG/5 MG TAB PO ONE (11:45)
[2017-02-12 11:47] LABS: CHLORIDE 113 MEQ/L (98-107); POTASSIUM 3.9 MEQ/L (3.5-5.1); SODIUM (NA) 143 MEQ/L (136-145)
[2017-02-12 11:50] LABS: ANION GAP 7 MEQ/L (5-15); BICARBONATE 23.4 MEQ/L (21.0-32.0); BLOOD UREA NITROGEN 17 MG/DL (7-18)
[2017-02-12 11:53] LABS: ALT (GPT) 24 U/L (12-78)
[2017-02-12 11:54] LABS: AST (GOT) 26 U/L (15-37); GLOMERULAR FILTRATION RATE 88 ML/MIN (>89)
[2017-02-12 11:55] LABS: TOTAL BILIRUBIN ADULT 0.7 MG/DL (0.2-1.0)
[2017-02-12 11:56] LABS: ALKALINE PHOSPHATASE 98 U/L (45-117)
--- NOTE | 2017-02-12 12:24 | RADRPT ---
EXAM DATE/TIME: 02/12/2017 11:39 [facility] COMPARISON: CT BRAIN W/O CONTRAST, January 01, 2017, 7:49. INDICATIONS : Trauma. Possible seizure. RADIATION DOSE: 63.62 CTDIvol (mGy) MEDICAL HISTORY : Cerebrovascular disease. Seizures. Hypertension. SURGICAL HISTORY : Hysterectomy. ENCOUNTER: Initial ACUITY: 1 day PAIN SCALE: 0/10 LOCATION: cranial TECHNIQUE: Multiple contiguous axial images were obtained of the head. Using automated exposure control and adj ustment of the mA and/or kV according to patient size, radiation dose was kept as low as reasonably a chievable to obtain optimal diagnostic quality images. DICOM format image data is available electro nically for review and comparison. 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 There i s minimal dilatation of the right lateral ventricle. The left ventricle is intact. There is no pare nchymal hemorrhage, acute infarction or new mass lesion. POSTERIOR FOSSA: The cerebellum and brainstem are intact. The 4th ventricle is midline. The cerebellopontine angle i s unremarkable. EXTRACRANIAL: The visualized portion of the orbits is intact. SKULL: The calvaria is intact. No evidence of skull fracture. CONCLUSION: Right posterior centrum semiovale, negative for an acute process. Etiology for seizures is not appar ent. Aurelio Crisostomo MD FACR on February 12, 2017 at 12:21 Board Certified Radiologist. This report was verified electronically.
--- NOTE | 2017-02-12 12:31 | PD ---
HPI Chief Complaint: Seizure Time Seen by Provider: 11:13 Travel History International Travel<30 days: No Contact w/Intl Traveler<30days: No Traveled to known affect area: No History of Present Illness HPI Patient is a 62-year-old male who comes in after he was found unconscious at [place]. He says he thinks he probably had a seizure. He has history of seizures , and says he felt an aura as is the seizure was going to come on this morning. He is out of his Keppra, he took his last dose last night. He says he has been having frequent seizures however. He says he is feeling fine otherwise prior to the event. He has some pain to his groin and his back, which is been going on for a while. He says he has had the pain in his groin since having a cardiac catheter about 6 days ago. He denies chest pain or shortness of breath. He denies headache, fever, neck pain. 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) Coronary Artery Disease: Yes Diabetes: No Diminished Hearing: No Endocrine: No Gastrointestinal Disorders: No Genitourinary: No Headaches: Yes Heparin Induced Thrombocytopen: No Hypertension: Yes Immune Disorder: No Implanted Vascular Access Dvce: No Kidney Stones: No Musculoskeletal: No Neurologic: Yes Psychiatric: No Reproductive: No Respiratory: Yes (asthma) Immunizations Current: No Migraines: No Radiation Therapy: No Renal Failure: No 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, "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") Sickle Cell Disease: No Sleep Apnea: No Ulcer: No Tetanus Vaccination: < 5 Years Influenza Vaccination: No Past Surgical History Abdominal Surgery: No AICD: No Arteriovenous Shunt: No Body Medical Devices: Cardiac stent Cardiac Surgery: No Coronary Artery Bypass Graft: No Ear Surgery: No Endocrine Surgery: No Eye Surgery: No Genitourinary Surgery: No Gynecologic Surgery: No Insulin Pump: No Joint Replacement: No Neurologic Surgery: No Oral Surgery: No Pacemaker: No Thoracic Surgery: No Other Surgery: No Family History Family Myocardial Infarction: Yes (Mother, father, brother) Social History Alcohol Use: No Tobacco Use: Yes (4 cigarettes/day) Substance Use: No Allergies-Medications (Allergen,Severity, Reaction): Coded Allergies: No Known Allergies (Unverified , 02/12/17) Reported Meds & Prescriptions Reported Meds & Active Scripts Active Brilinta (Ticagrelor) 90 Mg Tab 90 Mg PO BID Isosorbide Mononitrate ER (Isosorbide Mononitrate) 30 Mg Kassie 30 Mg PO DAILY@07 Atorvastatin (Atorvastatin Calcium) 80 Mg Tab 80 Mg PO HS Aspirin Low Strength (Aspirin) 81 Mg Chew 81 Mg PO DAILY Keppra (Levetiracetam) 1,000 Mg Tab 1,000 Mg PO BID Reported Amlodipine (Amlodipine Besylate) 10 Mg Tab 10 Mg PO DAILY Lisinopril 20 Mg Tab 20 Mg PO BID Review of Systems Except as stated in HPI: all other systems reviewed are Neg General / Constitutional: No: Fever, Chills Eyes: No: Blurred Vision HENT: No: Headaches, Lightheadedness Cardiovascular: No: Chest Pain or Discomfort Respiratory: No: Shortness of Breath Gastrointestinal: No: Nausea, Vomiting Musculoskeletal: Positive: Pain Skin: No Rash, No Change in Pigmentation Neurologic: No: Weakness, Dizziness Physical Exam Narrative GENERAL: Awake and alert, in no acute distress. SKIN: Focused skin assessment warm/dry. Small area of ecchymosis to the right groin, this appears to be healing. Abrasions to both forearms. HEAD: Atraumatic. Normocephalic. EYES: Pupils equal and round. No scleral icterus. Extraocular movements intact. ENT: Mucous membranes pink and moist. NECK: Trachea midline. No JVD. CARDIOVASCULAR: Regular rate and rhythm. No murmur appreciated. RESPIRATORY: No accessory muscle use. Clear to auscultation. Breath sounds equal bilaterally. GASTROINTESTINAL: Abdomen soft, non-tender, nondistended. MUSCULOSKELETAL: No obvious deformities. No clubbing. No cyanosis. No edema. No tenderness to palpation of the cervical spine, thoracic spine, lumbar spine. No tenderness to palpation of either of his upper extremities, no pain with movement. NEUROLOGICAL: Awake and alert. No obvious cranial nerve deficits. Motor grossly within normal limits. Normal speech. PSYCHIATRIC: Appropriate mood and affect; insight and judgment normal. Data Data Last Documented VS Vital Signs Date Time Temp Pulse Resp B/P Pulse Ox O2 Delivery O2 Flow Rate FiO2 02/12/17 13:05 65 14 125/74 99 Room Air 02/12/17 11:10 98.5 Orders Complete Blood Count With Diff (02/12/17 11:13) Ct Brain W/O Iv Contrast(Rout) (02/12/17 ) Blood Glucose (02/12/17 11:13) Ecg Monitoring (02/12/17 11:13) Iv Access Insert/Monitor (02/12/17 11:13) Oximetry (02/12/17 11:13) Comprehensive Metabolic Panel (02/12/17 11:13) Sodium Chloride 0.9% Flush (Ns Flush) (02/12/17 11:15) Levetiracetam 1000 Mg Inj (Keppra 1000 M (02/12/17 11:15) Acetamin-Hydrocod 325-5 Mg ([place] 5-325 (02/12/17 11:45) Electrocardiogram (02/12/17 11:11) Labs Laboratory Tests Test 02/12/17 11:25 White Blood Count 7.6 TH/MM3 Red Blood Count 4.77 MIL/MM3 Hemoglobin 14.1 GM/DL Hematocrit 42.0 % Mean Corpuscular Volume 87.9 FL Mean Corpuscular Hemoglobin 29.6 PG Mean Corpuscular Hemoglobin 33.7 % Concent Red Cell Distribution Width 12.3 % Platelet Count 260 TH/MM3 Mean Platelet Volume 7.0 FL Neutrophils (%) (Auto) 75.3 % Lymphocytes (%) (Auto) 12.2 % Monocytes (%) (Auto) 5.4 % Eosinophils (%) (Auto) 6.6 % Basophils (%) (Auto) 0.5 % Neutrophils # (Auto) 5.8 TH/MM3 Lymphocytes # (Auto) 0.9 TH/MM3 Monocytes # (Auto) 0.4 TH/MM3 Eosinophils # (Auto) 0.5 TH/MM3 Basophils # (Auto) 0.0 TH/MM3 CBC Comment DIFF FINAL Differential Comment Sodium Level 143 MEQ/L Potassium Level 3.9 MEQ/L Chloride Level 113 MEQ/L Carbon Dioxide Level 23.4 MEQ/L Anion Gap 7 MEQ/L Blood Urea Nitrogen 17 MG/DL Creatinine 0.87 MG/DL Estimat Glomerular Filtration 88 ML/MIN Rate Random Glucose 92 MG/DL Calcium Level 8.6 MG/DL Total Bilirubin 0.7 MG/DL Aspartate Amino Transf 26 U/L (AST/SGOT) Alanine Aminotransferase 24 U/L (ALT/SGPT) Alkaline Phosphatase 98 U/L Total Protein 7.0 GM/DL Albumin 3.7 GM/DL [facility] Medical Decision Making Medical Screen Exam Complete: Yes Emergency Medical Condition: Yes Medical Record Reviewed: Yes Differential Diagnosis Breakthrough seizure versus medication noncompliance versus electrolyte abnormality Narrative Course Patient is a 62-year-old male comes in after a likely seizure. Exam shows abrasions to both forearms, no neurologic abnormalities. IV established, labs sent. Labs show no acute abnormalities. CT head performed shows no acute abnormalities. Patient loaded with Keppra. Given a dose of pain medicine. He has the prescription for his Breath, he just needs to get it filled. He is advised to get his medication and take it as directed. Advised follow-up with his doctor and neurology. Advised to return to the emergency department as needed for any worsening symptoms. Diagnosis Primary Impression: Seizure Referrals: Ti Kern MD call for appointment Patient Instructions: General Instructions, Recurrent Seizures in Adults (DC) Additional Instructions: Take her Keppra as directed. Follow-up with her doctor. Return to the emergency department as needed for any worsening symptoms. Disposition: 01 DISCHARGE HOME Condition: Stable Nida Argueta MD Feb 12, 2017 12:30
[2017-02-12 13:05] VITALS: BP 125/74; PULSE 65; RESP 14; O2SAT 99
--- NOTE | 2017-02-13 15:41 | EKG ---
Date Performed: 02/12/2017 Time Performed: 11:11:53 PTAGE: 62 years EKG: Sinus rhythm Since previous tracing, no significant change noted NORMAL ECG PREVIOUS TRACING : 02/07/2017 06.01.46 DOCTOR: Roseann Head Interpretating Date/Time 02/13/2017 15:40:28
== END 2017-02-12 13:35 | disposition home or self-care (01) ==
LOC: PHED 11:05
DX: R56.9 Unspecified convulsions (principal); I10 Essential (primary) hypertension; I25.10 Atherosclerotic heart disease of native coronary artery without angina pectoris; Z72.0 Tobacco use
CPT/HCPCS: 70450; 80053; 85025; 93005; 96365; 99285; J1953

== ENCOUNTER 2017-02-13 11:43 | Emergency (ER) | payer OTHER ==
[~2017-02-13 11:43] MED LIST changes: +AMLO10TA2 PO; +LISI-515 PO
[2017-02-13 11:45] VITALS: BP 129/74; PULSE 79; RESP 18; TEMP 98.3; O2SAT 100
--- NOTE | 2017-02-13 11:53 | PD ---
HPI Chief Complaint: Seizure Time Seen by Provider: 11:45 Travel History International Travel<30 days: No Contact w/Intl Traveler<30days: No Traveled to known affect area: No History of Present Illness HPI PATIENT SEEN HERE YESTERDAY FOR SAME...WELL KNOWN TO [employer]SOLE [employer]MENT WORK[employer]. PATIENT GOT MULTIPLE IV LABS, CT HEAD AND LOADED WITH KEPPRA IV YESTERDAY. PER PT HE WAS PLANNING ON TAKING HIS KEPPRA THIS MORNING BUT FORGOT. PT HAS A F/U WITH NEUROLOGY WELL. 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) Coronary Artery Disease: Yes Diabetes: No Diminished Hearing: No Endocrine: No Gastrointestinal Disorders: No Genitourinary: No Headaches: Yes Heparin Induced Thrombocytopen: No Hypertension: Yes Immune Disorder: No Implanted Vascular Access Dvce: No Kidney Stones: No Musculoskeletal: No Neurologic: Yes Psychiatric: No Reproductive: No Respiratory: Yes (asthma) Immunizations Current: No Migraines: No Radiation Therapy: No Renal Failure: No 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, "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") Sickle Cell Disease: No Sleep Apnea: No Ulcer: No Past Surgical History Abdominal Surgery: No AICD: No Arteriovenous Shunt: No Body Medical Devices: Cardiac stent Cardiac Surgery: No Coronary Artery Bypass Graft: No Ear Surgery: No Endocrine Surgery: No Eye Surgery: No Genitourinary Surgery: No Gynecologic Surgery: No Insulin Pump: No Joint Replacement: No Neurologic Surgery: No Oral Surgery: No Pacemaker: No Thoracic Surgery: No Other Surgery: No Social History Alcohol Use: No Tobacco Use: Yes (4 cigarettes/day) Substance Use: No Allergies-Medications (Allergen,Severity, Reaction): Coded Allergies: No Known Allergies (Unverified , 02/13/17) Reported Meds & Prescriptions Reported Meds & Active Scripts Active Brilinta (Ticagrelor) 90 Mg Tab 90 Mg PO BID Isosorbide Mononitrate ER (Isosorbide Mononitrate) 30 Mg Kassie 30 Mg PO DAILY@07 Atorvastatin (Atorvastatin Calcium) 80 Mg Tab 80 Mg PO HS Aspirin Low Strength (Aspirin) 81 Mg Chew 81 Mg PO DAILY Keppra (Levetiracetam) 1,000 Mg Tab 1,000 Mg PO BID Reported Amlodipine (Amlodipine Besylate) 10 Mg Tab 10 Mg PO DAILY Lisinopril 20 Mg Tab 20 Mg PO BID Review of Systems Except as stated in HPI: all other systems reviewed are Neg Neurologic: Positive: Seizures Physical Exam Narrative GENERAL: SKIN: Warm and dry. HEAD: Atraumatic. Normocephalic. EYES: Pupils equal and round. No scleral icterus. No injection or drainage. ENT: No nasal bleeding or discharge. Mucous membranes pink and moist. NECK: Trachea midline. No JVD. CARDIOVASCULAR: Regular rate and rhythm. RESPIRATORY: No accessory muscle use. Clear to auscultation. Breath sounds equal bilaterally. GASTROINTESTINAL: Abdomen soft, non-tender, nondistended. MUSCULOSKELETAL: Extremities without clubbing, cyanosis, or edema. No obvious deformities. NEUROLOGICAL: Awake and alert. No obvious cranial nerve deficits. Motor grossly within normal limits. Five out of 5 muscle strength in the arms and legs. Normal speech. PSYCHIATRIC: Appropriate mood and affect; insight and judgment normal. Data Data Last Documented VS Vital Signs Date Time Temp Pulse Resp B/P Pulse Ox O2 Delivery O2 Flow Rate FiO2 02/13/17 11:45 98.3 79 18 129/74 100 Orders Blood Glucose (02/13/17 11:46) Fosphenytoin Inj (Cerebyx Inj) (02/13/17 12:00) [facility] Medical Decision Making Medical Screen Exam Complete: Yes Emergency Medical Condition: Yes Medical Record Reviewed: Yes Differential Diagnosis SEIZURE V HYPOGLYCEMIA V NONCOMPLIANCE Narrative Course REVIEWED LABS, CT HEAD, ELECTROLYTES AND KEPPRA LOADED YESTERDAY,....TODAY ACCUCHECK 109, PT NOTED TO BE A/O AND AMBULATORY, WILL GIVE CEREBYX PARTIAL LOAD AND PO KEPPRAX1 Diagnosis Primary Impression: Recurrent seizures Disposition: DISCHARGE HOME Condition: Stable Gautam Hunt MD Feb 13, 2017 11:53
[2017-02-13] MEDS ORDERED: FOSPHENYTOIN SODIUM 500 MG PE/10 ML VIAL IV ONE (12:00)
[2017-02-13] MEDS ORDERED: levETIRAcetam 500 MG TAB PO ONE (12:00)
[2017-02-13 13:23] VITALS: BP 128/78
[2017-02-14] MEDS ORDERED: CEPH-460 PO (14:09)
[2017-02-14] MEDS ORDERED: BACT800T5 PO (14:09)
== END 2017-02-13 13:25 | disposition home or self-care (01) ==
LOC: PHED 11:43
DX: G40.909 Epilepsy, unspecified, not intractable, without status epilepticus (principal); F17.210 Nicotine dependence, cigarettes, uncomplicated; Z79.899 Other long term (current) drug therapy
CPT/HCPCS: 96374; 99284; Q2009

== ENCOUNTER 2017-02-14 08:13 | Emergency (ER) | payer OTHER ==
[~2017-02-14] VITALS: Ht 167.6 cm; Wt 75.0 kg
[2017-02-14] VITALS (7 sets, daily range): BP systolic 119–131; BP diastolic 68–93; PULSE 57–66; RESP 13–24; TEMP 98.5; O2SAT 98–100
[2017-02-14] MEDS ORDERED: levETIRAcetam 500 MG TAB PO ONE (08:45)
--- NOTE | 2017-02-14 09:01 | PD ---
HPI Chief Complaint: Psychiatric Symptoms Time Seen by Provider: 08:33 Travel History International Travel<30 days: No Contact w/Intl Traveler<30days: No Traveled to known affect area: No History of Present Illness HPI This is a 62-year-old male who is homeless who presents to the emergency department having increasing thoughts of killing himself with depression. He says he thought about jumping off the bridge this morning. He says his thoughts are more frequent, constant and severe. He is in the emergency department fairly frequently because he has poor control of seizures. He says he didn't take his Keppra today. 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/27/2011) Coronary Artery Disease: Yes Diabetes: No Diminished Hearing: No Endocrine: No Gastrointestinal Disorders: No Genitourinary: No Headaches: Yes Heparin Induced Thrombocytopen: No Hypertension: Yes Immune Disorder: No Implanted Vascular Access Dvce: No Kidney Stones: No Musculoskeletal: No Neurologic: Yes Psychiatric: No Reproductive: No Respiratory: Yes (asthma) Immunizations Current: No Migraines: No Radiation Therapy: No Renal Failure: No 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, "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") Sickle Cell Disease: No Sleep Apnea: No Ulcer: No Tetanus Vaccination: < 5 Years Influenza Vaccination: Yes ?: Not Past Surgical History Abdominal Surgery: No AICD: No Arteriovenous Shunt: No Body Medical Devices: Cardiac stent Cardiac Surgery: No Coronary Artery Bypass Graft: No Ear Surgery: No Endocrine Surgery: No Eye Surgery: No Genitourinary Surgery: No Gynecologic Surgery: No Insulin Pump: No Joint Replacement: No Neurologic Surgery: No Oral Surgery: No Pacemaker: No Thoracic Surgery: No Other Surgery: No Family History Family Myocardial Infarction: Yes (mother, father, brother) Social History Alcohol Use: No Tobacco Use: Yes (4 cigarettes/day) Substance Use: No Allergies-Medications (Allergen,Severity, Reaction): Coded Allergies: No Known Allergies (Unverified , 02/14/17) Reported Meds & Prescriptions Reported Meds & Active Scripts Active Brilinta (Ticagrelor) 90 Mg Tab 90 Mg PO BID Isosorbide Mononitrate ER (Isosorbide Mononitrate) 30 Mg Kassie 30 Mg PO DAILY@07 Atorvastatin (Atorvastatin Calcium) 80 Mg Tab 80 Mg PO HS Aspirin Low Strength (Aspirin) 81 Mg Chew 81 Mg PO DAILY Keppra (Levetiracetam) 1,000 Mg Tab 1,000 Mg PO BID Reported Amlodipine (Amlodipine Besylate) 10 Mg Tab 10 Mg PO DAILY Lisinopril 20 Mg Tab 20 Mg PO BID Review of Systems Except as stated in HPI: all other systems reviewed are Neg Physical Exam Narrative GENERAL:Well appearing, disheveled SKIN: Scaly wounds with some clear discharge over the right and left upper extremities, healing with no evidence of cellulitis HEAD: Atraumatic. Normocephalic. EYES: Pupils equal and round. No injection or drainage. ENT: Moist mucous membranes NECK: Trachea midline. CARDIOVASCULAR: Regular rate and rhythm. No murmur appreciated. RESPIRATORY: Clear to auscultation. Breath sounds equal bilaterally. GASTROINTESTINAL: Abdomen soft, non-tender, nondistended. MUSCULOSKELETAL: No obvious deformities. NEUROLOGICAL: Awake and alert. No obvious cranial nerve deficits. Moving all extremities. PSYCHIATRIC: Appropriate mood and affect; insight and judgment normal. Data Data Last Documented VS Vital Signs Date Time Temp Pulse Resp B/P Pulse Ox O2 Delivery O2 Flow Rate FiO2 02/14/17 13:43 57 21 126/68 98 Room Air 02/14/17 08:31 98.5 Orders Complete Blood Count With Diff (02/14/17 08:37) Comprehensive Metabolic Panel (02/14/17 08:37) Psych Screen (02/14/17 08:37) Drug Screen, Random Urine (02/14/17 08:37) Alcohol (Ethanol) (02/14/17 08:37) Levetiracetam (Keppra) (02/14/17 08:45) Diet Heart Healthy (02/14/17 Breakfast) Clindamycin Inj (Cleocin Inj) (02/14/17 10:15) Labs Laboratory Tests Test 02/14/17 02/14/17 09:08 12:00 White Blood Count 14.7 TH/MM3 Red Blood Count 4.92 MIL/MM3 Hemoglobin 14.5 GM/DL Hematocrit 43.2 % Mean Corpuscular Volume 87.8 FL Mean Corpuscular Hemoglobin 29.5 PG Mean Corpuscular Hemoglobin 33.6 % Concent Red Cell Distribution Width 13.6 % Platelet Count 250 TH/MM3 Mean Platelet Volume 7.3 FL Neutrophils (%) (Auto) 74.8 % Lymphocytes (%) (Auto) 10.4 % Monocytes (%) (Auto) 10.2 % Eosinophils (%) (Auto) 4.1 % Basophils (%) (Auto) 0.5 % Neutrophils # (Auto) 11.0 TH/MM3 Lymphocytes # (Auto) 1.5 TH/MM3 Monocytes # (Auto) 1.5 TH/MM3 Eosinophils # (Auto) 0.6 TH/MM3 Basophils # (Auto) 0.1 TH/MM3 CBC Comment DIFF FINAL Differential Comment Sodium Level 139 MEQ/L Potassium Level 3.7 MEQ/L Chloride Level 108 MEQ/L Carbon Dioxide Level 21.4 MEQ/L Anion Gap 10 MEQ/L Blood Urea Nitrogen 24 MG/DL Creatinine 0.91 MG/DL Estimat Glomerular Filtration 84 ML/MIN Rate Random Glucose 91 MG/DL Calcium Level 8.9 MG/DL Total Bilirubin 0.8 MG/DL Aspartate Amino Transf 31 U/L (AST/SGOT) Alanine Aminotransferase 29 U/L (ALT/SGPT) Alkaline Phosphatase 102 U/L Total Protein 7.5 GM/DL Albumin 3.8 GM/DL Ethyl Alcohol Level LESS THAN 3 MG/DL Urine Opiates Screen NEG Urine Barbiturates Screen NEG Urine Amphetamines Screen NEG Urine Benzodiazepines Screen NEG Urine Cocaine Screen NEG Urine Cannabinoids Screen NEG MDM Medical Decision Making Medical Screen Exam Complete: Yes Emergency Medical Condition: Yes Interpretation(s) afebrile, no tachycardia, normotensive leukocytosis 75% neutrophils electrolytes within normal limits urine drug screen alcohol negative Differential Diagnosis depression, suicidal ideation, bipolar disorder, adjustment reaction Narrative Course This is a 62-year-old male with a history chronic homelessness who presents to the emergency department reporting depression and suicidal ideation. He does have some skin erosion and wounds on his upper extremities. He has a white count of 14 which I suspect is related to his wounds. Patient is medically cleared for psychiatric evaluation. If he is discharged he should be discharged home on antibiotics. Diagnosis Primary Impression: Wound infection Patient Instructions: General Instructions Additional Instructions: If you develop fever, increasing redness, warmth, or spreading of your infection , or severe pain return to the emergency department immediately as you may require antibiotics through your IV. Complete your course of antibiotics as prescribed. Med/Other Pt SpecificInfo: Prescription(s) given Scripts Sulfamethoxazole-Trimethoprim (Bactrim DS)800-160 Mg Tab1 Tab PO BID #14 TAB Ref 0 Prov:Bee Babcock MD 02/14/17 Cephalexin (Keflex)500 Mg Cmn416 Mg PO Q12H 7 Days Ref 0 Prov:Bee Babcock MD 02/14/17 Bee Babcock MD Feb 14, 2017 09:01
[2017-02-14 09:31] LABS: BASOPHIL # 0.1 TH/MM3 (0-0.2); BASOPHIL % 0.5 % (0.0-2.0); EOSINOPHIL # 0.6 TH/MM3 (0-0.4); EOSINOPHIL % 4.1 % (0.0-4.0); HEMATOCRIT 43.2 % (39.0-51.0); HEMO FLAGS DIFF FINAL; LYMPH % 10.4 % (9.0-44.0); LYMPHOCYTE # 1.5 TH/MM3 (1.0-4.8); MEAN CELL VOLUME 87.8 FL (80.0-100.0); MEAN CORPUSCULAR HEMOGLOBIN 29.5 PG (27.0-34.0); MEAN CORPUSCULAR HGB CONC 33.6 % (32.0-36.0); MONO % 10.2 % (0.0-8.0); NEUT % 74.8 % (16.0-70.0); PLATELET COUNT 250 TH/MM3 (150-450); RED BLOOD COUNT 4.92 MIL/MM3 (4.50-5.90); RED CELL DISTRIBUTION WIDTH 13.6 % (11.6-17.2); WHITE BLOOD COUNT 14.7 TH/MM3 (4.0-11.0)
[2017-02-14 10:10] LABS: BLOOD UREA NITROGEN 24 MG/DL (7-18); GLOMERULAR FILTRATION RATE 84 ML/MIN (>89)
[2017-02-14 10:11] LABS: ALKALINE PHOSPHATASE 102 U/L (45-117); ALT (GPT) 29 U/L (12-78); ANION GAP 10 MEQ/L (5-15); AST (GOT) 31 U/L (15-37); BICARBONATE 21.4 MEQ/L (21.0-32.0); CHLORIDE 108 MEQ/L (98-107); POTASSIUM 3.7 MEQ/L (3.5-5.1); SODIUM (NA) 139 MEQ/L (136-145); TOTAL BILIRUBIN ADULT 0.8 MG/DL (0.2-1.0)
[2017-02-14] MEDS ORDERED: CLINDAMYCIN INJ 600 MG in SODIUM CHLORIDE 0.9% INJ 100 ML IV ONE (10:15)
[2017-02-14 12:31] LABS: AMPHETAMINE, URINE NEG (NEG); BARBITURATES, URINE NEG (NEG); COCAINE, URINE NEG (NEG)
[2017-02-14] MEDS ORDERED: BACT800T5 PO (14:09)
[2017-02-14] MEDS ORDERED: CEPH-460 PO (14:09)
--- NOTE | 2017-02-14 15:14 | PD ---
History of Present Illness Chief Complaint: Psychiatric Symptoms Time Seen by Provider: 15:05 Travel History International Travel<30 Days: No Contact w/Intl Traveler<30days: No Known affected area: No Legal Status Legal Status: [place] History of Present Illness: History of Present Illness HPI This is a 62-year-old male with no psychiatric history , homeless who presents to the emergency department reporting thoughts of killing himself. He reports that he had thoughts about jumping off the bridge this morning but that he saw a man and asked him to call the police so that he could come to the hospital for help. This patient has had multiple visits to the Ed for treatment of seizures. he has never reported feeling depressed or has expressed suicidality. EMR is reviewed. This is the first contact with psychiatry. No toxicology is available for review. The patient is seen in main ed. Sitter at bedside. he is watching television and appears comfortable. he is calm, engaging . Speech is clear and logical. There is no evidence that he is experiencing any hallucinatory process and does not appear internally stimulated. Speech is of regular rate and tone. He states that he was feeling suicidal and was hopeless since yesterday and that these feelings began yesterday when " they told me I had to leave". He has been homeless for the past 3 years and stays at his son's house . He is unhappy because his son will only let him sleep in the house and not stay there during the day. Patient does not appear depressed at this time. He tells me that he will like to obtain help with housing . " I'm here to get options like how to get a place to live". He shares with me that he has $200. oo left for the month since he had to pay his son for letting him stay in the house and that he will like help in getting a room to rent. No suicidal or homicidal ideation, intent or plan. 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/27/2011) Coronary Artery Disease: Yes Diabetes: No Diminished Hearing: No Endocrine: No Gastrointestinal Disorders: No Genitourinary: No Headaches: Yes Heparin Induced Thrombocytopen: No Hypertension: Yes Immune Disorder: No Implanted Vascular Access Dvce: No Kidney Stones: No Musculoskeletal: No Neurologic: Yes Psychiatric: No Reproductive: No Respiratory: Yes (asthma) Immunizations Current: No Migraines: No Radiation Therapy: No Renal Failure: No 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, "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") Sickle Cell Disease: No Sleep Apnea: No Ulcer: No Tetanus Vaccination: < 5 Years Influenza Vaccination: Yes ?: Not Past Surgical History Abdominal Surgery: No AICD: No Arteriovenous Shunt: No Body Medical Devices: Cardiac stent Cardiac Surgery: No Coronary Artery Bypass Graft: No Ear Surgery: No Endocrine Surgery: No Eye Surgery: No Genitourinary Surgery: No Gynecologic Surgery: No Insulin Pump: No Joint Replacement: No Neurologic Surgery: No Oral Surgery: No Pacemaker: No Thoracic Surgery: No Other Surgery: No Psychiatric History Psychiatric History Hx Psychiatric Treatment: None History of Inpatient Treatment: No Guns or firearms in home: No Social History Single male. Homeless. On social security . has 2 sons. Hx Alcohol Use: No Hx Tobacco Use: Yes (4 cigarettes/day) Hx Substance Use: No Other Substances Used: PT DENIES Hx of Substance Use Treatment: No Family Psychiatric History None reported Allergies-Medications (Allergen,Severity, Reaction): Coded Allergies: No Known Allergies (Unverified , 02/14/17) Reported Meds & Prescriptions Reported Meds & Active Scripts Active Bactrim DS (Sulfamethoxazole-Trimethoprim) 800-160 Mg Tab 1 Tab PO BID Keflex (Cephalexin) 500 Mg Cap 500 Mg PO Q12H 7 Days Brilinta (Ticagrelor) 90 Mg Tab 90 Mg PO BID Isosorbide Mononitrate ER (Isosorbide Mononitrate) 30 Mg Kassie 30 Mg PO DAILY@07 Atorvastatin (Atorvastatin Calcium) 80 Mg Tab 80 Mg PO HS Aspirin Low Strength (Aspirin) 81 Mg Chew 81 Mg PO DAILY Keppra (Levetiracetam) 1,000 Mg Tab 1,000 Mg PO BID Reported Amlodipine (Amlodipine Besylate) 10 Mg Tab 10 Mg PO DAILY Lisinopril 20 Mg Tab 20 Mg PO BID Review of Systems Constitutional: COMPLAINS OF: Fatigue Endocrine: DENIES: Heat/cold intolerance, Polydipsia, Polyuria, Polyphagia Eyes: DENIES: Blurred vision, Diplopia, Eye inflammation, Eye pain, Vision loss , Photosensitivity, Double Vision Ears, nose, mouth, throat: DENIES: Tinnitus, Hearing loss, Vertigo, Nasal discharge, Oral lesions, Throat pain, Hoarseness, Ear Pain, Running Nose, Epistaxis, Sinus Pain, Toothache, Odynophagia Respiratory: DENIES: Apneas, Cough, Snoring, Wheezing, Hemoptysis, Sputum production, Shortness of breath Gastrointestinal: DENIES: Abdominal pain, Black stools, Bloody stools, Constipation, Diarrhea, Nausea, Vomiting, Difficulty Swallowing, Anorexia Genitourinary: DENIES: Sexual dysfunction, Urinary frequency, Urinary incontinence, Urgency, Hematuria, Dysuria, Nocturia, Penile Discharge, Testicular Pain, Testicular Swelling Musculoskeletal: DENIES: Joint pain, Muscle aches, Stiffness, Joint Swelling, Back pain, Neck pain Integumentary: DENIES: Abnormal pigmentation, Nail changes, Pruritus, Rash Hematologic/lymphatic: DENIES: Bruising, Lymphadenopathy Neurologic: COMPLAINS OF: Seizures Psychiatric: DENIES: Anxiety, Confusion, Mood changes, Depression, Hallucinations, Agitation, Suicidal Ideation, Homicidal Ideation, Delusions Exam Alert: Yes [place]: Person (ox4) Mood: Calm Affect: Appropriate Speech: Clear, Logical Eye Contact: Normal Memory Intact: Comment (No impairmetn) Hallucinations: Other (negative) Delusions: Yes Suicidal: Ideation (negative) Homicidal: Ideation (Negative) Insight/Judgement Poor. Not impaired MDM Medical Decision Making Medical Record Reviewed: Yes Assessment/Plan This is a 62-year-old male with no psychiatric history , homeless who presents to the emergency department reporting thoughts of killing himself. He reports that he had thoughts about jumping off the bridge this morning but that he saw a man and asked him to call the police so that he could come to the hospital for help. Patient later states that he is looking for assistance with housing services. He denies suicidal ideation. or plan. Accepts voucher for [place]. States " that's a good plan. Maybe they can help me get more stable housing" Discharge from psychiatry. Orders Complete Blood Count With Diff (02/14/17 08:37) Comprehensive Metabolic Panel (02/14/17 08:37) Psych Screen (02/14/17 08:37) Drug Screen, Random Urine (02/14/17 08:37) Alcohol (Ethanol) (02/14/17 08:37) Levetiracetam (Keppra) (02/14/17 08:45) Diet Heart Healthy (02/14/17 Breakfast) Clindamycin Inj (Cleocin Inj) (02/14/17 10:15) Results Vital Signs Date Time Temp Pulse Resp B/P Pulse Ox O2 Delivery O2 Flow Rate FiO2 02/14/17 13:43 57 21 126/68 98 Room Air 02/14/17 11:00 58 13 126/93 98 Room Air 02/14/17 10:00 60 16 119/72 99 Room Air 02/14/17 09:30 66 24 127/75 99 Room Air 02/14/17 08:31 18 02/14/17 08:31 98.5 61 18 131/81 99 Room Air 02/14/17 08:27 98.5 62 18 131/81 99 Laboratory Tests Test 02/14/17 02/14/17 09:08 12:00 White Blood Count 14.7 Red Blood Count 4.92 Hemoglobin 14.5 Hematocrit 43.2 Mean Corpuscular Volume 87.8 Mean Corpuscular Hemoglobin 29.5 Mean Corpuscular Hemoglobin 33.6 Concent Red Cell Distribution Width 13.6 Platelet Count 250 Mean Platelet Volume 7.3 Neutrophils (%) (Auto) 74.8 Lymphocytes (%) (Auto) 10.4 Monocytes (%) (Auto) 10.2 Eosinophils (%) (Auto) 4.1 Basophils (%) (Auto) 0.5 Neutrophils # (Auto) 11.0 Lymphocytes # (Auto) 1.5 Monocytes # (Auto) 1.5 Eosinophils # (Auto) 0.6 Basophils # (Auto) 0.1 CBC Comment DIFF FINAL Differential Comment Sodium Level 139 Potassium Level 3.7 Chloride Level 108 Carbon Dioxide Level 21.4 Anion Gap 10 Blood Urea Nitrogen 24 Creatinine 0.91 Estimat Glomerular Filtration 84 Rate Random Glucose 91 Calcium Level 8.9 Total Bilirubin 0.8 Aspartate Amino Transf 31 (AST/SGOT) Alanine Aminotransferase 29 (ALT/SGPT) Alkaline Phosphatase 102 Total Protein 7.5 Albumin 3.8 Ethyl Alcohol Level LESS THAN 3 Urine Opiates Screen NEG Urine Barbiturates Screen NEG Urine Amphetamines Screen NEG Urine Benzodiazepines Screen NEG Urine Cocaine Screen NEG Urine Cannabinoids Screen NEG Diagnosis Primary Impression: adjustment disorder Additional Impressions: Wound infection Malingering Psychiatrically Cleared: Yes Patient Instructions: General Instructions Additional Instructions: If you develop fever, increasing redness, warmth, or spreading of your infection , or severe pain return to the emergency department immediately as you may require antibiotics through your IV. Complete your course of antibiotics as prescribed. Prescriptions Sulfamethoxazole-Trimethoprim (Bactrim DS)800-160 Mg Tab1 Tab PO BID #14 TAB Ref 0 Prov:Bee Babcock MD 02/14/17 Cephalexin (Keflex)500 Mg [id number] Mg PO Q12H 7 Days Ref 0 Prov:Bee Babcock MD 02/14/17 Problem Qualifiers Nelly Salas EMERGENCY DEPARTMENT TECHNICIAN Feb 14, 2017 15:14
== END 2017-02-14 17:20 | disposition home or self-care (01) ==
LOC: NEPC 08:13
DX: F43.20 Adjustment disorder, unspecified (principal); Z76.5 Malingerer [conscious simulation]; F17.210 Nicotine dependence, cigarettes, uncomplicated; Z95.5 Presence of coronary angioplasty implant and graft; I10 Essential (primary) hypertension; Z86.73 Personal history of transient ischemic attack (TIA), and cerebral infarction without residual deficits; I25.10 Atherosclerotic heart disease of native coronary artery without angina pectoris; Z79.82 Long term (current) use of aspirin; Z59.0 Homelessness
CPT/HCPCS: 80053; 80307; 85025; 96365

== ENCOUNTER 2017-02-21 08:18 | Emergency (ER) | payer OTHER ==
[~2017-02-21] VITALS: Ht 167.6 cm; Wt 77.0 kg
[~2017-02-21 08:18] MED LIST changes: +BACT800T5 PO; +CEPH-460 PO
[2017-02-21 08:31] VITALS: BP 140/85; PULSE 67; RESP 20; TEMP 98.3; O2SAT 97
[2017-02-21] MEDS ORDERED: AMLO10TA2 PO (08:44)
[2017-02-21] MEDS ORDERED: KEPP10002 PO (08:44)
[2017-02-21] MEDS ORDERED: LISI-515 PO (08:44)
--- NOTE | 2017-02-21 08:44 | PD ---
HPI Chief Complaint: Seizure Time Seen by Provider: 08:35 Travel History International Travel<30 days: No Contact w/Intl Traveler<30days: No Traveled to known affect area: No History of Present Illness HPI 62-year-old male states that someone stole his Norvasc, lisinopril and Keppra prescriptions and he was told he had a seizure. He states he was only able to take a 500 mg dose last night and this morning when he supposed to be on 1000. He states he had his normal dose yesterday morning. He states that since he was here he took all of his antibiotic like he should and denies any other concurrent complaints. Patient cannot give description of seizure but staff at said that it was a generalized tonic-clonic seen by the son. History is limited from patient. PFSH Past Medical History Hx Anticoagulant Therapy: Yes (ASPIRIN) Asthma: Yes Autoimmune Disease: No Anxiety: No Depression: Yes Heart Rhythm Problems: No Cancer: No Cardiac Catheterization: Yes (STENT X1) Cardiovascular Problems: Yes (HTN) High Cholesterol: No Chemotherapy: No Chest Pain: No Congestive Heart Failure: No COPD: No Cerebrovascular Accident: Yes (Hemmorhagic CVA 06/27/2011) Coronary Artery Disease: Yes Diabetes: No Diminished Hearing: No Endocrine: No Gastrointestinal Disorders: No Genitourinary: No Headaches: Yes Heparin Induced Thrombocytopen: No Hypertension: Yes Immune Disorder: No Implanted Vascular Access Dvce: No Kidney Stones: No Musculoskeletal: No Neurologic: Yes Psychiatric: No Reproductive: No Respiratory: Yes (asthma) Immunizations Current: No Migraines: No Radiation Therapy: No Renal Failure: No 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, "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") Sickle Cell Disease: No Sleep Apnea: No Ulcer: No Tetanus Vaccination: < 5 Years Influenza Vaccination: No Past Surgical History Abdominal Surgery: No AICD: No Arteriovenous Shunt: No Body Medical Devices: Cardiac stent Cardiac Surgery: No Coronary Artery Bypass Graft: No Ear Surgery: No Endocrine Surgery: No Eye Surgery: No Genitourinary Surgery: No Gynecologic Surgery: No Insulin Pump: No Joint Replacement: No Neurologic Surgery: No Oral Surgery: No Pacemaker: No Thoracic Surgery: No Other Surgery: No Family History Family Myocardial Infarction: Yes (mother, father, brother) Social History Alcohol Use: No Tobacco Use: Yes (4 cigarettes/day) Substance Use: No Allergies-Medications (Allergen,Severity, Reaction): Coded Allergies: No Known Allergies (Unverified , 02/21/17) Reported Meds & Prescriptions Reported Meds & Active Scripts Active Lisinopril 20 Mg Tab 20 Mg PO BID Amlodipine (Amlodipine Besylate) 10 Mg Tab 10 Mg PO DAILY Keppra (Levetiracetam) 1,000 Mg Tab 1,000 Mg PO BID Aspirin Low Strength (Aspirin) 81 Mg Chew 81 Mg PO DAILY Review of Systems Except as stated in HPI: all other systems reviewed are Neg Physical Exam Narrative GENERAL: Well-nourished, well-developed patient. SKIN: Warm and dry. No active signs of cellulitis to arms HEAD: Normocephalic and atraumatic. EYES: No injection or drainage. ENT: No nasal drainage noted. NECK: Supple, trachea midline. CARDIOVASCULAR: Regular rate and rhythm RESPIRATORY: No increased effort. No accessory muscle use. GASTROINTESTINAL: Abdomen soft, nondistended. NEUROLOGICAL: Awake and alert. Motor and sensory grossly within normal limits. Normal speech. Data Data Last Documented VS Vital Signs Date Time Temp Pulse Resp B/P Pulse Ox O2 Delivery O2 Flow Rate FiO2 02/21/17 08:31 98.3 67 20 140/85 97 Orders Lorazepam (Ativan) (02/21/17 08:45) Levetiracetam (Keppra) (02/21/17 08:45) MDM Medical Decision Making Medical Screen Exam Complete: Yes Emergency Medical Condition: Yes Medical Record Reviewed: Yes (past history confirm) Differential Diagnosis Seizure, subtherapeutic medication, noncompliance Narrative Course Patient with recent laboratory studies one week ago without emergent hyponatremia, there is mild elevation in white blood cell count the patient had cellulitis at that time. Patient with cellulitis resolution and has had a seizure with taking less of his seizure medication than he should. Will dose with Ativan to decrease seizure threshold and give his Keppra dose here and hold on other testing and refill his medications. He is in agreement to this plan No seizure here,Patient denies any new complaints and states that they are feeling better. Patient happy with care, all questions answered. Patient knows that follow up is incumbent on them and to return to the emergency room immediately if new or worsening symptoms develop. Patient given strict return precautions, vitals reviewed and are normal, agrees to further workup as an outpatient. Diagnosis Primary Impression: Seizure Additional Impression: Medication refill Patient Instructions: General Instructions Additional Instructions: Return as needed, follow with primary on Friday, take seizure medication as directed, monitor your blood pressure Med/Other Pt SpecificInfo: Prescription(s) given Scripts Lisinopril 20 Mg Tab20 Mg PO BID #30 TAB Ref 0 Prov:Zamzam Foster MD 02/21/17 Amlodipine 10 Mg Tab10 Mg PO DAILY #30 TAB Ref 0 Prov:Zamzam Foster MD 02/21/17 Levetiracetam (Keppra)1,000 Mg Tab1,000 Mg PO BID #60 TAB Ref 0 Prov:Zamzam Foster MD 02/21/17 Disposition: 01 DISCHARGE HOME Condition: Stable Zamzam Foster MD Feb 21, 2017 08:44 Zamzam Foster MD Feb 21, 2017 08:44
[2017-02-21] MEDS ORDERED: LORazepam 0.5 MG TAB PO ONE (08:45)
[2017-02-21] MEDS ORDERED: levETIRAcetam 500 MG TAB PO ONE (08:45)
== END 2017-02-21 12:05 | disposition home or self-care (01) ==
LOC: NEPE 08:18
DX: R56.9 Unspecified convulsions (principal); Z76.0 Encounter for issue of repeat prescription; F17.210 Nicotine dependence, cigarettes, uncomplicated; J45.909 Unspecified asthma, uncomplicated; I10 Essential (primary) hypertension; I25.10 Atherosclerotic heart disease of native coronary artery without angina pectoris; F32.9 Major depressive disorder, single episode, unspecified; Z79.82 Long term (current) use of aspirin; Z86.73 Personal history of transient ischemic attack (TIA), and cerebral infarction without residual deficits
CPT/HCPCS: 99284

== ENCOUNTER 2017-02-24 12:13 | Emergency (ER) | payer OTHER ==
[~2017-02-24] VITALS: Ht 167.6 cm; Wt 75.0 kg
[~2017-02-24 12:13] MED LIST changes: -ATOR1TAB18 PO; -BACT800T5 PO; -BRIL90TA PO; -CEPH-460 PO; -ISOS30TA3 PO
[2017-02-24 12:29] VITALS: BP 96/53; PULSE 61; RESP 16; TEMP 98.4; O2SAT 99
[2017-02-24] MEDS ORDERED: LIDOCAINE 1%/EPINEPHrine 1:100,000 SOLN 20 ML VIAL INFIL ONE (12:45)
[2017-02-24] MEDS ORDERED: IBUPROFEN 600 MG TAB PO ONE (13:15)
--- NOTE | 2017-02-24 13:15 | PD ---
HPI Chief Complaint: Head Injury Time Seen by Provider: 12:37 Travel History International Travel<30 days: No Contact w/Intl Traveler<30days: No Traveled to known affect area: No History of Present Illness HPI 62-year-old male arrives to the ER with a complaint of scalp pain. He was attempting to leave his house there is bedroom window and accidentally struck the vertex of the scalp against the upper part of the windowsill. He's had pain since then. He's also had bleeding. No numbness tingling or weakness. No loss of consciousness. The pain is worse with palpation. Patient states he has had a tetanus within the last 5 years. 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) Coronary Artery Disease: Yes Diabetes: No Diminished Hearing: No Endocrine: No Gastrointestinal Disorders: No Genitourinary: No Headaches: Yes Heparin Induced Thrombocytopen: No Hypertension: Yes Immune Disorder: No Implanted Vascular Access Dvce: No Kidney Stones: No Musculoskeletal: No Neurologic: Yes Psychiatric: No Reproductive: No Respiratory: Yes (asthma) Immunizations Current: No Migraines: No Radiation Therapy: No Renal Failure: No 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, "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") Sickle Cell Disease: No Sleep Apnea: No Ulcer: No Influenza Vaccination: Yes Past Surgical History Abdominal Surgery: No AICD: No Arteriovenous Shunt: No Body Medical Devices: Cardiac stent Cardiac Surgery: No Coronary Artery Bypass Graft: No Ear Surgery: No Endocrine Surgery: No Eye Surgery: No Genitourinary Surgery: No Gynecologic Surgery: No Insulin Pump: No Joint Replacement: No Neurologic Surgery: No Oral Surgery: No Pacemaker: No Thoracic Surgery: No Other Surgery: No Family History Family Myocardial Infarction: Yes (mother, father, brother) Social History Alcohol Use: No Tobacco Use: Yes (4 cigarettes/day) Substance Use: No Allergies-Medications (Allergen,Severity, Reaction): Coded Allergies: No Known Allergies (Unverified , 02/24/17) Reported Meds & Prescriptions Reported Meds & Active Scripts Active Lisinopril 20 Mg Tab 20 Mg PO BID Amlodipine (Amlodipine Besylate) 10 Mg Tab 10 Mg PO DAILY Keppra (Levetiracetam) 1,000 Mg Tab 1,000 Mg PO BID Aspirin Low Strength (Aspirin) 81 Mg Chew 81 Mg PO DAILY Review of Systems Except as stated in HPI: all other systems reviewed are Neg Physical Exam Narrative GENERAL: 62-year-old male well-nourished well-developed no acute distress SKIN: Warm and dry. HEAD: Atraumatic. Normocephalic. Approximate 7 cm curvilinear laceration at the vertex of the scalp. EYES: Pupils equal and round. No scleral icterus. No injection or drainage. ENT: No nasal bleeding or discharge. Mucous membranes pink and moist. NEUROLOGICAL: Awake and alert. No obvious cranial nerve deficits. Motor grossly within normal limits. Five out of 5 muscle strength in the arms and legs. Normal speech. PSYCHIATRIC: Appropriate mood and affect; insight and judgment normal. Data Data Last Documented VS Vital Signs Date Time Temp Pulse Resp B/P Pulse Ox O2 Delivery O2 Flow Rate FiO2 02/24/17 12:29 98.4 61 16 96/53 99 Vital signs reviewed Orders Lidocai-Epi 1%-1:100,000 Inj (Xylocaine- (02/24/17 12:45) Ibuprofen (Motrin) (02/24/17 13:15) MDM Medical Decision Making Medical Screen Exam Complete: Yes Emergency Medical Condition: Yes Differential Diagnosis Laceration, avulsion, skull fracture Narrative Course Laceration repaired. Return precautions discussed. Procedures Procedure Narrative LACERATION LOCATION: Vertex of scalp LENGTH: 7cm NUMBER OF STITCHES/STEPHANIE: 6 REPAIR: The area of the laceration was prepped with Betadine and sterilely draped. The laceration was infiltrated with Lidocaine. The wound was copiously irrigated and explored without evidence of foreign body, tendon injury or neurovascular injury. The wound was closed using [place]. This was a single layer repair. A sterile dressing was applied. The patient was advised to keep the dressing clean and dry. Patient tolerated the procedure well. Diagnosis Primary Impression: Scalp laceration Qualified Code: S01.01XA - Laceration of scalp, initial encounter Additional Instructions: Please return to the ER in 10 days for staple removal. Med/Other Pt SpecificInfo: No Change to Meds Disposition: DISCHARGE HOME Condition: Stable Enoch Ling MD Feb 24, 2017 13:15
== END 2017-02-24 13:31 | disposition home or self-care (01) ==
LOC: PHEFT 12:13
DX: S01.01XA Laceration without foreign body of scalp, initial encounter (principal); F17.210 Nicotine dependence, cigarettes, uncomplicated; W22.8XXA Striking against or struck by other objects, initial encounter; Y92.003 Bedroom of unspecified non-institutional (private) residence as the place of occurrence of the external cause
CPT/HCPCS: 12002

== ENCOUNTER 2017-03-12 08:55 | Emergency (ER) | payer OTHER ==
[~2017-03-12] VITALS: Ht 167.6 cm; Wt 74.0 kg
[2017-03-12 09:01] VITALS: BP 105/65; PULSE 50; RESP 16; TEMP 97.7; O2SAT 99
--- NOTE | 2017-03-12 09:21 | PD ---
HPI Chief Complaint: Wound/Suture/Staple Re-Check Time Seen by Provider: 09:06 Travel History International Travel<30 days: No Contact w/Intl Traveler<30days: No Traveled to known affect area: No History of Present Illness HPI 62-year-old male came to the emergency room for getting his scarlett taken out from his scalp. Patient had a scalp laceration which he had scarlett applied and was asked to return in 10 days to get the scarlett out. He is otherwise doing fine. [facility] Past Medical History Narrative Medical List of his past medical, surgical, social and family history reviewed from the nursing note. Hx Anticoagulant Therapy: Yes (ASPIRIN) Asthma: Yes Autoimmune Disease: No Anxiety: No Depression: Yes Heart Rhythm Problems: No Cancer: No Cardiac Catheterization: Yes (STENT X1) Cardiovascular Problems: Yes High Cholesterol: No Chemotherapy: No Chest Pain: No Congestive Heart Failure: No COPD: No Cerebrovascular Accident: Yes (Hemmorhagic CVA 06/27/2011) Coronary Artery Disease: Yes Diabetes: No Diminished Hearing: No Endocrine: No Gastrointestinal Disorders: No Genitourinary: No Headaches: Yes Heparin Induced Thrombocytopen: No Hypertension: Yes Immune Disorder: No Implanted Vascular Access Dvce: No Kidney Stones: No Musculoskeletal: No Neurologic: Yes Psychiatric: No Reproductive: No Respiratory: Yes (asthma) Immunizations Current: No Migraines: No Radiation Therapy: No Renal Failure: No 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, "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") Sickle Cell Disease: No Sleep Apnea: No Ulcer: No Past Surgical History Abdominal Surgery: No AICD: No Arteriovenous Shunt: No Body Medical Devices: Cardiac stent Cardiac Surgery: No Coronary Artery Bypass Graft: No Ear Surgery: No Endocrine Surgery: No Eye Surgery: No Genitourinary Surgery: No Gynecologic Surgery: No Insulin Pump: No Joint Replacement: No Neurologic Surgery: No Oral Surgery: No Pacemaker: No Thoracic Surgery: No Other Surgery: No Social History Alcohol Use: No Tobacco Use: Yes (4 cigarettes/day) Substance Use: No Allergies-Medications (Allergen,Severity, Reaction): Coded Allergies: No Known Allergies (Unverified , 03/13/17) Comments No known drug allergies Reported Meds & Prescriptions Reported Meds & Active Scripts Active Pantoprazole (Pantoprazole Sodium) 40 Mg Tab 40 Mg PO DAILY Atorvastatin (Atorvastatin Calcium) 40 Mg Tab 40 Mg PO DAILY Plavix (Clopidogrel Bisulfate) 75 Mg Tab 75 Mg PO DAILY Keppra (Levetiracetam) 1,000 Mg Tab 1,000 Mg PO BID Aspirin Low Strength (Aspirin) 81 Mg Chew 81 Mg PO DAILY Narrative Medication List of his home medications reviewed from the nursing note Review of Systems Except as stated in HPI: all other systems reviewed are Neg Physical Exam Narrative GENERAL: Awake, alert, no obvious distress SKIN: Focused skin assessment warm/dry. HEAD: Laceration wound on the top of the head on the vertex has 6 scarlett. The wound appears to be completely healed. No discharge. EYES: Pupils equal and round. No scleral icterus. No injection or drainage. ENT: No nasal bleeding or discharge. Mucous membranes pink and moist. NECK: Trachea midline. No JVD. CARDIOVASCULAR: Regular rate and rhythm. No murmur appreciated. RESPIRATORY: No accessory muscle use. Clear to auscultation. Breath sounds equal bilaterally. GASTROINTESTINAL: Abdomen soft, non-tender, nondistended. Hepatic and splenic margins not palpable. MUSCULOSKELETAL: No obvious deformities. No clubbing. No cyanosis. No edema. NEUROLOGICAL: Awake and alert. No obvious cranial nerve deficits. Motor grossly within normal limits. Normal speech. PSYCHIATRIC: Appropriate mood and affect; insight and judgment normal. Data Data Last Documented VS Vital Signs Date Time Temp Pulse Resp B/P (MAP) Pulse Ox O2 Delivery O2 Flow Rate FiO2 03/12/17 09:32 03/12/17 09:01 97.7 50 16 99 Room Air MDM Medical Decision Making Medical Screen Exam Complete: Yes Emergency Medical Condition: Yes Medical Record Reviewed: Yes Differential Diagnosis Staple removal Narrative Course 9:19 AM scarlett were taken out. Please refer to my procedure note. Patient will be discharged home. Procedures Procedure Narrative Staple removal: 6 scarlett were taken out from the vertex of the head. The wound appears to be healing good. No discharge. Patient tolerated the procedure well. EKG Prior to Arrival: No Diagnosis Primary Impression: Encounter for removal of scarlett Referrals: Primary Care Physician Additional Instructions: You can wash and shampoo your scalp. Follow-up with your primary care. Med/Other Pt SpecificInfo: No Change to Meds Disposition: 01 DISCHARGE HOME Condition: Stable Janice Dsouza MD Mar 12, 2017 09:21
[2017-03-13] MEDS ORDERED: TICA1TAB PO (13:48)
== END 2017-03-12 09:33 | disposition home or self-care (01) ==
LOC: PHED 08:55
DX: Z48.02 Encounter for removal of sutures (principal)
CPT/HCPCS: 99281

== ENCOUNTER 2017-03-13 12:46 | Observation (INO) | payer OTHER ==
[2017-03-13] VITALS (10 sets, daily range): BP systolic 105–137; BP diastolic 67–83; PULSE 38–88; RESP 18; TEMP 97.4–98; O2SAT 98–100
[~2017-03-13] VITALS: Ht 167.6 cm; Wt 78.7 kg
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
[2017-03-13 13:24] LABS: AUTOMATED NEUTROPHIL # 3.7 TH/MM3 (1.8-7.7); BASOPHIL % 0.5 % (0.0-2.0); EOSINOPHIL # 0.5 TH/MM3 (0-0.4); EOSINOPHIL % 7.2 % (0.0-4.0); HEMATOCRIT 41.7 % (39.0-51.0); HEMO FLAGS DIFF FINAL; LYMPH % 28.1 % (9.0-44.0); LYMPHOCYTE # 1.8 TH/MM3 (1.0-4.8); MEAN CELL VOLUME 90.3 FL (80.0-100.0); MEAN CORPUSCULAR HEMOGLOBIN 30.7 PG (27.0-34.0); MONO % 6.6 % (0.0-8.0); NEUT % 57.6 % (16.0-70.0); PLATELET COUNT 267 TH/MM3 (150-450); RED BLOOD COUNT 4.61 MIL/MM3 (4.50-5.90); RED CELL DISTRIBUTION WIDTH 13.9 % (11.6-17.2); WHITE BLOOD COUNT 6.4 TH/MM3 (4.0-11.0)
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
[2017-03-13 13:36] LABS: CHLORIDE 109 MEQ/L (98-107); POTASSIUM 3.8 MEQ/L (3.5-5.1); SODIUM (NA) 140 MEQ/L (136-145)
[2017-03-13 13:40] LABS: ANION GAP 7 MEQ/L (5-15); APTT (PATIENT) 27.6 SEC (24.3-30.1); BICARBONATE 23.6 MEQ/L (21.0-32.0); BLOOD UREA NITROGEN 18 MG/DL (7-18); PROTHROMBIN TIME - PATIENT 11.1 SEC (9.8-11.6)
[2017-03-13 13:43] LABS: ALT (GPT) 27 U/L (12-78); AST (GOT) 20 U/L (15-37); GLOMERULAR FILTRATION RATE 91 ML/MIN (>89)
[2017-03-13 13:44] LABS: TOTAL BILIRUBIN ADULT 0.6 MG/DL (0.2-1.0)
[2017-03-13 13:46] LABS: ALKALINE PHOSPHATASE 75 U/L (45-117)
[2017-03-13] MEDS ORDERED: TICA1TAB PO (13:48)
[2017-03-13 14:03] LABS: CREATINE KINASE 65 U/L (39-308)
[2017-03-13] MEDS ORDERED: HEPARIN-D5W 25,000 U/250 ML 250 ML IV PRN (15:00)
[2017-03-13] MEDS ORDERED: ONDANSETRON HCL 4 MG/2 ML VIAL IV PRN (15:00)
[2017-03-13] MEDS ORDERED: SODIUM CHLORIDE 0.9% FLUSH 10 ML FLUSH IVF PRN (15:00)
[2017-03-13] MEDS ORDERED: ACETAMINOPHEN 325 MG TAB PO PRN (15:00)
[2017-03-13] MEDS: SODIUM CHLOR 0.9% 1000 ML INJ 1,000 ML IV SCH ×2 (15:19→23:00)
[2017-03-13] MEDS ORDERED: SODIUM CHLORIDE 0.9% FLUSH 10 ML FLUSH IV FLUSH PRN (16:45)
[2017-03-13] MEDS ORDERED: NITROGLYCERIN 0.4 MG SL 25 TABS/BTL SL PRN (16:45)
[2017-03-13] MEDS ORDERED: MORPHINE SULFATE 4 MG/ML INJ IV PRN (16:45)
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
[2017-03-13 17:58] LABS: CREATINE KINASE 49 U/L (39-308)
[2017-03-13] MEDS: SODIUM CHLORIDE 0.9% FLUSH 10 ML FLUSH IV FLUSH SCH ×2 (21:00)
[2017-03-13] MEDS ORDERED: LISINOPRIL 20 MG TAB PO SCH (21:00)
[2017-03-13] MEDS: levETIRAcetam 500 MG TAB PO SCH (21:49)
[2017-03-14] VITALS (17 sets, daily range): BP systolic 94–111; BP diastolic 53–69; PULSE 41–102; RESP 16–18; TEMP 97.6–98.5; O2SAT 93–97
[2017-03-14 00:44] LABS: APTT (PATIENT) 40.9 SEC (24.3-30.1)
[2017-03-14 00:55] LABS: CREATINE KINASE 53 U/L (39-308)
[2017-03-14] MEDS: SODIUM CHLOR 0.9% 1000 ML INJ 1,000 ML IV SCH ×2 (05:40→09:53)
[2017-03-14] MEDS ORDERED: CLOPIDOGREL 300 MG TAB PO ONE (08:00)
[2017-03-14] MEDS: SODIUM CHLORIDE 0.9% FLUSH 10 ML FLUSH IV FLUSH SCH ×2 (09:00)
[2017-03-14] MEDS ORDERED: ATORVASTATIN 40 MG TAB PO SCH (09:00)
[2017-03-14] MEDS ORDERED: ASPIRIN EC 81 MG TABEC PO SCH (09:00)
[2017-03-14] MEDS ORDERED: PANTOPRAZOLE SOD 40 MG DELAYED RELEASE TAB PO SCH (09:00)
[2017-03-14] MEDS: levETIRAcetam 500 MG TAB PO SCH (09:50)
[2017-03-14] MEDS ORDERED: INFLUENZA VIRUS VACCINE (QUADRIVALENT) 0.5 ML SYR IM ONE (10:00)
[2017-03-14] MEDS ORDERED: PNEUMOCOCCAL POLYVALENT INJ 25 MCG/0.5 ML SYR IM ONE (10:00)
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
[2017-03-14] MEDS ORDERED: ASPI81CH25 PO (14:47)
[2017-03-14] MEDS ORDERED: ATOR40TA16 PO (14:48)
[2017-03-14] MEDS ORDERED: PANT40TA3 PO (14:48)
[2017-03-14] MEDS ORDERED: PLAV75TA29 PO (14:48)
[2017-03-14] MEDS ORDERED: KEPP10002 PO (14:48)
--- NOTE | 2017-03-14 14:48 | HHI.DCPOC ---
Discharge Care Plan Diagnosis: (1) Chest pain Your Health Problems Are: Chest Pain Additional Problems PLEASE TAKE ALL OF YOUR MEDICINES, CONTACT YOUR PRIMARY CARE DOCTOR OR REST ROOM ATTENDANT IF YOU RUN OUT OF YOUR MEDICINES BEFORE YOUR NEXT VISIT. Goals to Promote Your Health * To prevent worsening of your condition and complications * To maintain your health at the optimal level Directions to Meet Your Goals Take your medications as prescribed Follow your dietary instruction Follow activity as directed Keep your appointments as scheduled Take your immunizations and boosters as scheduled If your symptoms worsen call your PCP, if no PCP go to Urgent Care Center or Emergency Room Smoking is Dangerous to Your Health. Avoid second hand smoke Call the 24-hour hour crisis hotline for domestic abuse at Theo Sandoval MD Mar 14, 2017 14:48
--- NOTE | 2017-03-14 20:39 | EKG ---
Date Performed: 03/14/2017 Time Performed: 05:13:20 PTAGE: 62 years EKG: Sinus bradycardia Abnormal ECG PREVIOUS TRACING : 03/13/2017 17.23 Compared to prior tracing no significant change DOCTOR: Horacio Ling Interpretating Date/Time 03/14/2017 20:37:56
--- NOTE | 2017-03-15 01:06 | EKG ---
Date Performed: 03/13/2017 Time Performed: 17:23:02 PTAGE: 62 years EKG: SINUS BRADYCARDIA ABNORMAL RHYTHM ECG PREVIOUS TRACING : 03/13/2017 12.50 Compared to prior tracing no significant change DOCTOR: Horacio Ling Interpretating Date/Time 03/15/2017 01:05:15
--- NOTE | 2017-03-15 01:21 | EKG ---
Date Performed: 03/13/2017 Time Performed: 12:50:38 PTAGE: 62 years EKG: SINUS BRADYCARDIA BORDERLINE ECG Compared to the PREVIOUS TRACING , no significant change DOCTOR: Horacio Ling Interpretating Date/Time 03/15/2017 01:20:30
[2017-03-15] MEDS ORDERED: CLOPIDOGREL 75 MG TAB PO SCH (09:00)
== END 2017-03-14 17:50 | disposition home or self-care (01) ==
LOC: PHED 12:46 → UNDOADMIN 14:55 → PHEDA 14:55 → INTOOBSV 16:35 → HCIS 20:32 → PHEDA 20:32
PROVIDERS: ADMIT Hospitalist; ATTEND Hospitalist
DX: R07.9 Chest pain, unspecified (principal); I25.110 Atherosclerotic heart disease of native coronary artery with unstable angina pectoris; I10 Essential (primary) hypertension; G40.409 Other generalized epilepsy and epileptic syndromes, not intractable, without status epilepticus; J45.909 Unspecified asthma, uncomplicated; Z91.19 Patient's noncompliance with other medical treatment and regimen; Z59.0 Homelessness; R00.1 Bradycardia, unspecified; Z72.0 Tobacco use; Z95.5 Presence of coronary angioplasty implant and graft; Z86.73 Personal history of transient ischemic attack (TIA), and cerebral infarction without residual deficits
CPT/HCPCS: 71010; 80053; 80307; 82550; 84484; 85025; 85610; 85730; 93005; 96361; 96365; 99285; G0378; J1644; J7030

== ENCOUNTER 2017-03-16 09:08 | Emergency (ER) | payer OTHER ==
[~2017-03-16] VITALS: Ht 167.6 cm; Wt 80.0 kg
[~2017-03-16 09:08] MED LIST changes: -AMLO10TA2 PO; +ATOR40TA16 PO; -LISI-515 PO; +PANT40TA3 PO; +PLAV75TA29 PO
[2017-03-16 09:22] VITALS: BP 160/97; PULSE 74; RESP 24; TEMP 98.4; O2SAT 99
[2017-03-16 09:23] VITALS: O2SAT 99
[2017-03-16 09:30] VITALS: BP 191/87; PULSE 88; RESP 27; O2SAT 100
[2017-03-16] MEDS ORDERED: levETIRAcetam 1000 MG INJ 100 ML IV ONE (09:30)
[2017-03-16] MEDS ORDERED: LORazepam 2 MG/ML VIAL IV PUSH ONE (09:30)
[2017-03-16] MEDS ORDERED: SODIUM CHLORIDE 0.9% FLUSH 10 ML FLUSH IVF PRN (09:30)
--- NOTE | 2017-03-16 09:40 | PD ---
HPI . Seizure Chief Complaint: Seizure Time Seen by Provider: 09:21 Travel History International Travel<30 days: No Contact w/Intl Traveler<30days: No Traveled to known affect area: No History of Present Illness HPI This is a homeless patient who has had a previous stroke and a resultant seizure disorder. He states that he recently lost his backpack with all of his medicines and it including his Keppra. He has not had Her in 4 days. He awakened this morning feeling sore as if he had had a seizure. He is also complaining with increased left-sided weakness. He subsequently presented to us by [facility] for further evaluation. PFSH Past Medical History Hx Anticoagulant Therapy: Yes (ASPIRIN) Asthma: Yes Autoimmune Disease: No Anxiety: No Depression: Yes Heart Rhythm Problems: No Cancer: No Cardiac Catheterization: Yes (STENT X1) Cardiovascular Problems: Yes High Cholesterol: No Chemotherapy: No Chest Pain: No Congestive Heart Failure: No COPD: No Cerebrovascular Accident: Yes (LEFT DEFICIT) Coronary Artery Disease: Yes Diabetes: No Diminished Hearing: No Endocrine: No Gastrointestinal Disorders: No Genitourinary: No Headaches: Yes Heparin Induced Thrombocytopen: No Hypertension: Yes Immune Disorder: No Implanted Vascular Access Dvce: No Kidney Stones: No Musculoskeletal: No Neurologic: Yes Psychiatric: No Reproductive: No Respiratory: Yes (asthma) Immunizations Current: No Migraines: No Radiation Therapy: No Renal Failure: No 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, "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") Sickle Cell Disease: No Sleep Apnea: No Ulcer: No Past Surgical History Abdominal Surgery: No AICD: No Arteriovenous Shunt: No Body Medical Devices: Cardiac stent Cardiac Surgery: No Coronary Artery Bypass Graft: No Ear Surgery: No Endocrine Surgery: No Eye Surgery: No Genitourinary Surgery: No Gynecologic Surgery: No Insulin Pump: No Joint Replacement: No Neurologic Surgery: No Oral Surgery: No Pacemaker: No Thoracic Surgery: No Other Surgery: No Family History Family Myocardial Infarction: Yes (mother, father, brother) Social History Alcohol Use: Yes Tobacco Use: Yes (4 cigarettes/day) Substance Use: No Allergies-Medications (Allergen,Severity, Reaction): Coded Allergies: No Known Allergies (Unverified , 03/13/17) Reported Meds & Prescriptions Reported Meds & Active Scripts Active Pantoprazole (Pantoprazole Sodium) 40 Mg Tab 40 Mg PO DAILY Atorvastatin (Atorvastatin Calcium) 40 Mg Tab 40 Mg PO DAILY Plavix (Clopidogrel Bisulfate) 75 Mg Tab 75 Mg PO DAILY Keppra (Levetiracetam) 1,000 Mg Tab 1,000 Mg PO BID Review of Systems Except as stated in HPI: all other systems reviewed are Neg Neurologic: Positive: Focal Abnormalities, Other (seizure) Physical Exam Narrative GENERAL: Patient presented to us awake and alert and able to give his own history. He developed a diffuse, tonic-clonic seizure shortly after arrival. SKIN: warm/dry. HEAD: Normocephalic. Atraumatic. EYES: Pupils equal and round. No scleral icterus. No injection or drainage. ENT: No nasal bleeding or discharge. Mucous membranes pink and moist. NECK: Trachea midline. Full range of motion without pain.. CARDIOVASCULAR: Regular rate and rhythm. RESPIRATORY: No accessory muscle use. Clear to auscultation. Breath sounds equal bilaterally. GASTROINTESTINAL: Abdomen soft. Nontender. Bowel sounds present. Nondistended. MUSCULOSKELETAL: No obvious deformities. NEUROLOGICAL: Awake and alert. No obvious cranial nerve deficits. Motor strength in the upper extremities is full and equal. He is unable to lift his lower extremities up off the stretcher. Normal speech. PSYCHIATRIC: Appropriate mood and affect; insight and judgment normal. Data Data Last Documented VS Vital Signs Date Time Temp Pulse Resp B/P (MAP) Pulse Ox O2 Delivery O2 Flow Rate FiO2 03/16/17 09:30 88 27 191/87 (121) 100 Nasal Cannula 2.00 Orders Orders Blood Glucose (03/16/17 09:15) Oximetry (03/16/17 09:15) Iv Access Insert/Monitor (03/16/17 09:15) Ecg Monitoring (03/16/17 09:15) Oxygen Administration (03/16/17 09:15) Basic Metabolic Panel (Bmp) (03/16/17 09:15) Complete Blood Count With Diff (03/16/17 09:22) Ct Brain W/O Iv Contrast(Rout) (03/16/17 ) Sodium Chloride 0.9% Flush (Ns Flush) (03/16/17 09:30) Levetiracetam 1000 Mg Inj (Keppra 1000 M (03/16/17 09:30) Lorazepam Inj (Ativan Inj) (03/16/17 09:30) Electrocardiogram (03/16/17 09:23) Labs Laboratory Tests Test 03/16/17 09:30 White Blood Count 8.1 TH/MM3 Red Blood Count 4.84 MIL/MM3 Hemoglobin 14.7 GM/DL Hematocrit 45.0 % Mean Corpuscular Volume 93.0 FL Mean Corpuscular Hemoglobin 30.3 PG Mean Corpuscular Hemoglobin Concent 32.6 % Red Cell Distribution Width 15.2 % Platelet Count 270 TH/MM3 Mean Platelet Volume 7.4 FL Neutrophils (%) (Auto) 54.6 % Lymphocytes (%) (Auto) 31.4 % Monocytes (%) (Auto) 9.3 % Eosinophils (%) (Auto) 4.0 % Basophils (%) (Auto) 0.7 % Neutrophils # (Auto) 4.4 TH/MM3 Lymphocytes # (Auto) 2.5 TH/MM3 Monocytes # (Auto) 0.7 TH/MM3 Eosinophils # (Auto) 0.3 TH/MM3 Basophils # (Auto) 0.1 TH/MM3 CBC Comment DIFF FINAL Differential Comment Blood Urea Nitrogen 14 MG/DL Creatinine 1.08 MG/DL Random Glucose 93 MG/DL Calcium Level 8.6 MG/DL Sodium Level 142 MEQ/L Potassium Level 3.6 MEQ/L Chloride Level 108 MEQ/L Carbon Dioxide Level 19.5 MEQ/L Anion Gap 15 MEQ/L Estimat Glomerular Filtration Rate 69 ML/MIN MDM Medical Decision Making Medical Screen Exam Complete: Yes Emergency Medical Condition: Yes Medical Record Reviewed: Yes (admitted for chest pain. He ruled out. stent about a month ago. CVA and sz disorder) Interpretation(s) EKG shows a sinus rhythm with a lot of underlying artifact. No ST segment elevation or depression. Differential Diagnosis Differential diagnosis of seizure includes but is not limited to epilepsy, electrolyte abnormality, previous stroke, closed head injury Narrative Course This patient presents after an apparent seizure. He had a seizure here. I am loading him with Keppra. He has had Ativan for the acute seizure. This patient's muscular strength has returned normal. CBC & BMP Diagram 03/16/17 09:30 Calcium Level 8.[address] 03/16/17 0000 Signed Impressions: Service Date/Time: Thursday, March 16, 2017 10:00 - CONCLUSION: No significant change has occurred. Paulino Serrano MD This patient is stable for discharge. He states that he does have prescriptions. He does not need any refills. Diagnosis Primary Impression: Seizure Additional Impression: Elia's paralysis (postepileptic) Patient Instructions: General Instructions, Recurrent Seizures in Adults (DC) Disposition: 01 DISCHARGE HOME Condition: Stable Hoda Banuelos MD Mar 16, 2017 09:40
[2017-03-16 09:50] LABS: AUTOMATED NEUTROPHIL # 4.4 TH/MM3 (1.8-7.7); BASOPHIL # 0.1 TH/MM3 (0-0.2); BASOPHIL % 0.7 % (0.0-2.0); EOSINOPHIL # 0.3 TH/MM3 (0-0.4); HEMO FLAGS DIFF FINAL; LYMPH % 31.4 % (9.0-44.0); LYMPHOCYTE # 2.5 TH/MM3 (1.0-4.8); MEAN CORPUSCULAR HEMOGLOBIN 30.3 PG (27.0-34.0); MEAN CORPUSCULAR HGB CONC 32.6 % (32.0-36.0); MONO % 9.3 % (0.0-8.0); NEUT % 54.6 % (16.0-70.0); PLATELET COUNT 270 TH/MM3 (150-450); RED BLOOD COUNT 4.84 MIL/MM3 (4.50-5.90); RED CELL DISTRIBUTION WIDTH 15.2 % (11.6-17.2); WHITE BLOOD COUNT 8.1 TH/MM3 (4.0-11.0)
[2017-03-16 10:04] LABS: BICARBONATE 19.5 MEQ/L (21.0-32.0); POTASSIUM 3.6 MEQ/L (3.5-5.1)
--- NOTE | 2017-03-16 10:24 | RADRPT ---
EXAM DATE/TIME: 03/16/2017 10:00 [facility] COMPARISON: CT BRAIN W/O CONTRAST, February 12, 2017, 11:39. INDICATIONS : Hemiparesis. RADIATION DOSE: 36.38 CTDIvol (mGy) MEDICAL HISTORY : Seizures. Cerebrovascular disease. Hypertension. SURGICAL HISTORY : None. ENCOUNTER: Initial ACUITY: 1 day PAIN SCALE: 3/10 LOCATION: cranial TECHNIQUE: Multiple contiguous axial images were obtained of the head. Using automated exposure control and adj ustment of the mA and/or kV according to patient size, radiation dose was kept as low as reasonably a chievable to obtain optimal diagnostic quality images. DICOM format image data is available electro nically for review and comparison. FINDINGS: No signs of acute infarct, hemorrhage, or mass. There is a remote right parietal infarct with encepha lomalacia and gliosis and mild ex vacuo dilatation of the right posterior horn unchanged. No fracture s. CONCLUSION: No significant change has occurred. Paulino Serrano MD on March 16, 2017 at 10:22 Board Certified Radiologist. This report was verified electronically.
[2017-03-16 11:03] VITALS: BP 118/67; PULSE 63; RESP 18; O2SAT 99
--- NOTE | 2017-03-16 12:36 | EKG ---
Date Performed: 03/16/2017 Time Performed: 09:23:07 PTAGE: 62 years EKG: Sinus rhythm NORMAL ECG NO PREVIOUS TRACING DOCTOR: Chon Cavanaugh Interpretating Date/Time 03/16/2017 12:35:05
== END 2017-03-16 11:38 | disposition home or self-care (01) ==
LOC: NEPC 09:08
DX: G40.401 Other generalized epilepsy and epileptic syndromes, not intractable, with status epilepticus (principal); G83.84 Todd's paralysis (postepileptic); I25.10 Atherosclerotic heart disease of native coronary artery without angina pectoris; I10 Essential (primary) hypertension; Z95.5 Presence of coronary angioplasty implant and graft; Z86.73 Personal history of transient ischemic attack (TIA), and cerebral infarction without residual deficits; Z59.0 Homelessness
CPT/HCPCS: 70450; 80048; 85025; 93005; 96365; 96375; 99285; J1953; J2060

== ENCOUNTER 2017-03-21 11:30 | Inpatient (IN) | payer OTHER ==
[~2017-03-21] VITALS: Ht 167.6 cm; Wt 75.6 kg
[~2017-03-21 11:30] MED LIST changes: -ASPI81CH25 PO; +LACTATED RINGER'S 1000 ML INJ 1,000 ML IV ONE; +MIDAZOLAM HCL 2 MG/2 ML VIAL IV ONE; +ONDANSETRON HCL 4 MG/2 ML VIAL IV PUSH ONE; +PHENYLEPHRINE HCL 10 MG/ML VIAL IV ONE; +PROPOFOL 200 MG/20 ML AMP IV ONE; +ePHEDrine/NS 25 MG/5 ML SYR IV ONE
[2017-03-21 11:46] VITALS: BP 174/106; PULSE 65; RESP 18; TEMP 98; O2SAT 100
[2017-03-21 11:50] VITALS: BP 174/106; PULSE 65; RESP 18; TEMP 98; O2SAT 100
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
[2017-03-21] MEDS ORDERED: TETANUS/DIPHTHERIA TOXOID ADULT 0.5 ML VIAL IM ONE (12:00)
[2017-03-21 12:20] LABS: BASOPHIL # 0.1 TH/MM3 (0-0.2); EOSINOPHIL # 0.1 TH/MM3 (0-0.4); HEMATOCRIT 39.7 % (39.0-51.0); HEMO FLAGS DIFF FINAL; LYMPHOCYTE # 1.3 TH/MM3 (1.0-4.8); MEAN CELL VOLUME 91.5 FL (80.0-100.0); MEAN CORPUSCULAR HEMOGLOBIN 30.8 PG (27.0-34.0); MEAN CORPUSCULAR HGB CONC 33.6 % (32.0-36.0); MONO % 6.6 % (0.0-8.0); NEUT % 71.4 % (16.0-70.0); PLATELET COUNT 206 TH/MM3 (150-450); RED BLOOD COUNT 4.34 MIL/MM3 (4.50-5.90)
[2017-03-21] MEDS ORDERED: HYDROmorphone HCL PF 1 MG/ML VIAL IV PUSH ONE (12:30)
[2017-03-21 12:34] LABS: APTT (PATIENT) 25.8 SEC (24.3-30.1); PROTHROMBIN TIME - PATIENT 10.7 SEC (9.8-11.6)
[2017-03-21 12:37] LABS: ALT (GPT) 20 U/L (12-78); ANION GAP 7 MEQ/L (5-15); AST (GOT) 17 U/L (15-37); BICARBONATE 25.4 MEQ/L (21.0-32.0); BLOOD UREA NITROGEN 9 MG/DL (7-18); CHLORIDE 109 MEQ/L (98-107); GLOMERULAR FILTRATION RATE 103 ML/MIN (>89); POTASSIUM 3.9 MEQ/L (3.5-5.1); SODIUM (NA) 141 MEQ/L (136-145)
[2017-03-21 12:39] LABS: ALKALINE PHOSPHATASE 86 U/L (45-117); TOTAL BILIRUBIN ADULT 0.5 MG/DL (0.2-1.0)
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
[2017-03-21 13:00] VITALS: BP 169/87; PULSE 53; RESP 18; O2SAT 100
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
[2017-03-21 15:00] VITALS: BP 150/86; PULSE 55; RESP 18; TEMP 98; O2SAT 100
[2017-03-21] MEDS ORDERED: GENTAMICIN SULFATE 80 MG/2 ML VIAL ONE (15:10)
[2017-03-21] MEDS ORDERED: SODIUM CHLOR 0.9% 1000 ML INJ 1,000 ML IV SCH (15:12)
[2017-03-21] MEDS ORDERED: ONDANSETRON HCL 4 MG/2 ML VIAL IV PRN (15:15)
[2017-03-21] MEDS ORDERED: ACETAMINOPHEN/HYDROcodone 325 MG/5 MG TAB PO PRN ×2 (15:15)
[2017-03-21] MEDS ORDERED: SODIUM CHLORIDE 0.9% FLUSH 10 ML FLUSH IV FLUSH PRN ×2 (15:15→16:15)
[2017-03-21] MEDS ORDERED: HYDROmorphone HCL PF 1 MG/ML VIAL IVP PRN (15:15)
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
[2017-03-21] MEDS ORDERED: ceFAZolin INJ 1,000 MG VIAL ONE (15:58)
[2017-03-21] MEDS ORDERED: VANCOMYCIN HCL 1000 MG VIAL ONE (15:58)
[2017-03-21] MEDS ORDERED: NALOXONE HCL 0.4 MG/ML AMP IV PRN (16:15)
[2017-03-21] MEDS ORDERED: MISCELLANEOUS PHARMACY INFORMATION XX ONE (16:15)
[2017-03-21] MEDS ORDERED: LACTULOSE SYRUP 20 GM/30 ML CUP PO PRN (16:15)
[2017-03-21] MEDS ORDERED: MISCELLANEOUS NURSING INFORMATION XX PRN (16:15)
[2017-03-21] MEDS: PCA - TOTAL MG DILAUDID DELIVERED PER SHIFT OTHER SCH ×2 (16:15→21:49)
[2017-03-21] MEDS ORDERED: BISACODYL 10 MG SUPP RECTAL PRN (16:15)
[2017-03-21] MEDS ORDERED: SENNOSIDES 8.6 MG TAB PO PRN (16:15)
[2017-03-21] MEDS ORDERED: oxyCODONE/ACETAMINOPHEN 5 MG/325 MG TAB PO PRN (16:15)
[2017-03-21] MEDS ORDERED: ONDANSETRON HCL 4 MG/2 ML VIAL IVP PRN (16:15)
[2017-03-21] MEDS ORDERED: MAGNESIUM HYDROXIDE SUSP 30 ML CUP PO PRN (16:15)
[2017-03-21] MEDS: ENOXAPARIN SODIUM 40 MG/0.4 ML SYRINGE SQ SCH (16:15)
[2017-03-21] MEDS ORDERED: diphenhydrAMINE HCL 25 MG CAP PO PRN (16:15)
[2017-03-21] MEDS ORDERED: Post-op Orders (for Pharmacy) MISC XX ONE (16:15)
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
[2017-03-21] MEDS: ceFAZolin 2 GM PREMIX 50 ML IV SCH ×2 (17:00→23:26)
[2017-03-21] MEDS ORDERED: HEPARIN SODIUM - SQ 10,000 UNITS/ML VIAL ONE (17:28)
--- NOTE | 2017-03-21 19:11 | PD.OP ---
Operative Report Preoperative Diagnosis: (1) Bicondylar fracture of right tibia Postoperative Diagnosis: (1) Bicondylar fracture of right tibia (2) Acute lateral meniscus tear of right knee Procedure: Right Tibia Plateau ORIF Right Knee Open Lateral Meniscus Tear Anesthesia: General Surgeon: Gabino Mann MD Monorail Operator(s): Ten TELLO Operation and Findings: see dictation Gabino Mann MD Mar 21, 2017 19:11
[2017-03-21] MEDS ORDERED: *MEPERIDINE 25 MG INJ VIAL PERIprocedural Use ONLY ONE (19:26)
[2017-03-21] MEDS: LACTATED RINGER'S 1000 ML INJ 1,000 ML IV SCH (19:30)
--- NOTE | 2017-03-21 19:38 | RADRPT ---
EXAM DATE/TIME: 03/21/2017 18:22 [place] COMPARISON: TIBIA/FIBULA RIGHT (AP/LAT), March 21, 2017, 12:03. INDICATIONS : Orif right tib. MEDICAL HISTORY : Cardiovascular disease. Seizures. Hypertension.Tibial plateau fracture SURGICAL HISTORY : Heart stent. ENCOUNTER: Subsequent ACUITY: 1 day PAIN SCORE: Non-responsive. LOCATION: Right Tib Fib. FINDINGS: There is sideplate and screw fixation of proximal right tibia. Slightly comminuted proximal fibular f racture present. Improved alignment compared with the earlier exam. CONCLUSION: 1. Fixation of comminuted proximal tibial fracture. Rc Carroll MD on March 21, 2017 at 19:36 Board Certified Radiologist. This report was verified electronically.
[2017-03-21 19:45] LABS: HEMATOCRIT 38.4 % (39.0-51.0); REVIEW FLAG FINAL
[2017-03-21] MEDS ORDERED: DO NOT ADM ANY ANTICOAGULANT DRUGS PRN (20:30)
[2017-03-21] MEDS: HYDROmorphone HCL PCA 6 MG/30 ML IV SCH (20:59)
[2017-03-21 21:21] VITALS: BP 115/69; PULSE 84; RESP 16; TEMP 98.5; O2SAT 99
[2017-03-21 21:34] VITALS: O2SAT 99
[2017-03-21] MEDS: levETIRAcetam 500 MG TAB PO SCH (21:46)
[2017-03-21] MEDS: DOCUSATE SODIUM 50 MG/SENNA 8.6 MG TAB PO SCH (21:46)
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
[2017-03-21] MEDS: SODIUM CHLORIDE 0.9% FLUSH 10 ML FLUSH IV FLUSH SCH (21:47)
[2017-03-22] VITALS (7 sets, daily range): BP systolic 92–142; BP diastolic 55–82; PULSE 67–100; RESP 16–18; TEMP 95.6–98.8; O2SAT 93–100
[2017-03-22] MEDS: LACTATED RINGER'S 1000 ML INJ 1,000 ML IV SCH (03:11)
[2017-03-22] MEDS: PCA - TOTAL MG DILAUDID DELIVERED PER SHIFT OTHER SCH ×3 (05:29→21:58)
[2017-03-22 05:43] LABS: AUTOMATED NEUTROPHIL # 7.5 TH/MM3 (1.8-7.7); BASOPHIL % 0.2 % (0.0-2.0); EOSINOPHIL % 0.1 % (0.0-4.0); HEMATOCRIT 24.8 % (39.0-51.0); HEMO FLAGS DIFF FINAL; LYMPH % 16.3 % (9.0-44.0); LYMPHOCYTE # 1.6 TH/MM3 (1.0-4.8); MEAN CELL VOLUME 90.8 FL (80.0-100.0); MEAN CORPUSCULAR HEMOGLOBIN 30.8 PG (27.0-34.0); MEAN CORPUSCULAR HGB CONC 33.9 % (32.0-36.0); MONO % 8.6 % (0.0-8.0); NEUT % 74.8 % (16.0-70.0); PLATELET COUNT 176 TH/MM3 (150-450); RED BLOOD COUNT 2.73 MIL/MM3 (4.50-5.90); RED CELL DISTRIBUTION WIDTH 14.7 % (11.6-17.2)
[2017-03-22 06:16] LABS: BICARBONATE 26.2 MEQ/L (21.0-32.0); CALCIUM-PROTEIN CORRECTED 8.5 MG/DL (8.5-10.1); POTASSIUM 4.1 MEQ/L (3.5-5.1); TOTAL BILIRUBIN ADULT 0.5 MG/DL (0.2-1.0)
[2017-03-22] MEDS: ATORVASTATIN 40 MG TAB PO SCH (08:07)
[2017-03-22] MEDS: levETIRAcetam 500 MG TAB PO SCH ×2 (08:07→21:57)
[2017-03-22] MEDS: PANTOPRAZOLE SOD 40 MG DELAYED RELEASE TAB PO SCH (08:07)
[2017-03-22] MEDS: ceFAZolin 2 GM PREMIX 50 ML IV SCH (08:07)
[2017-03-22] MEDS: DOCUSATE SODIUM 50 MG/SENNA 8.6 MG TAB PO SCH ×2 (08:07→21:57)
[2017-03-22] MEDS: HYDROmorphone HCL PCA 6 MG/30 ML IV SCH ×3 (08:30→22:15)
[2017-03-22] MEDS: SODIUM CHLORIDE 0.9% FLUSH 10 ML FLUSH IV FLUSH SCH ×2 (08:30→21:58)
[2017-03-22] MEDS ORDERED: PNEUMOCOCCAL POLYVALENT INJ 25 MCG/0.5 ML SYR IM ONE (09:00)
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
--- NOTE | 2017-03-22 12:29 | PD.ORT.PN ---
Subjective Subjective Remarks pain controlled unable to void Objective Vitals Vital Signs Date Time Temp Pulse Resp B/P (MAP) Pulse Ox O2 Delivery O2 Flow Rate FiO2 03/22/17 10:01 18 03/22/17 08:30 16 03/22/17 08:00 96.5 74 18 100/55 (70) 99 03/22/17 05:29 18 03/22/17 04:00 98.1 86 16 92/59 (70) 98 03/22/17 00:00 95.6 100 16 92/60 (71) 97 03/21/17 21:49 18 03/21/17 21:34 99 03/21/17 21:21 98.5 84 16 115/69 (84) 99 03/21/17 21:00 72 14 108/66 (80) 100 Room Air 03/21/17 20:59 16 03/21/17 20:45 72 14 106/65 (79) 99 Room Air 03/21/17 20:30 90 19 102/59 (73) 99 Room Air 03/21/17 20:15 88 15 108/60 (76) 100 Room Air 03/21/17 20:08 84 15 113/65 (81) 99 Room Air 03/21/17 19:30 72 13 139/79 (99) 99 Room Air 03/21/17 19:15 97.9 72 13 132/72 (92) 99 Room Air 03/21/17 15:16 03/21/17 15:00 98.0 55 18 150/86 (107) 100 Room Air 03/21/17 13:29 16 03/21/17 13:00 53 18 169/87 (114) 100 Room Air I/O 03/21/17 03/21/17 03/21/17 03/22/17 03/22/17 03/22/17 06:59 14:59 22:59 06:59 14:59 22:59 Intake Total 2950 ml 960 ml Output Total 1800 ml 975 ml Balance 1150 ml -15 ml Intake Oral 960 ml IV Total 2700 ml Autotransfusion 250 ml Output Urine Total 650 ml Drainage Total 300 ml 325 ml Estimated Blood Loss 1500 ml Bladder Scan Volume Amount 776 ml Result Diagram: 03/22/1751203/22/17512 Objective Remarks Right loower extremity brace in place Calves soft NVI Assessment & Plan Problem List: (1) Bicondylar fracture of right tibia ICD Codes: S82.141A - Displaced bicondylar fracture of right tibia, initial encounter for closed fracture Status: Acute Qualifiers: Assessment and Plan Non weight bearing Lovenox He will need to be on plavix PT Medical consult regarding unable to void Monitor Gabino Mann MD Mar 22, 2017 12:29
--- NOTE | 2017-03-22 13:56 | EKG ---
Date Performed: 03/21/2017 Time Performed: 13:53:08 PTAGE: 62 years EKG: SINUS BRADYCARDIA WITH OCCASIONAL SUPRAVENTRICULAR PREMATURE COMPLEXES MODERATE ST DEPRESSI ON ABNORMAL ECG PREVIOUS TRACING : 03/16/2017 09.23 Since prior tracing, sinus rate has slowed. DOCTOR: Lobo Schultz Interpretating Date/Time 03/22/2017 13:54:46
[2017-03-22] MEDS ORDERED: SODIUM CHLORID 0.9% 500 ML INJ 500 ML IV ONE (14:00)
[2017-03-22] MEDS: TAMSULOSIN HCL 0.4 MG CAP PO SCH (14:19)
[2017-03-22] MEDS: ENOXAPARIN SODIUM 40 MG/0.4 ML SYRINGE SQ SCH (16:06)
[2017-03-23] VITALS (9 sets, daily range): BP systolic 121–135; BP diastolic 58–72; PULSE 79–102; RESP 16–18; TEMP 97.6–99.8; O2SAT 95–100
[2017-03-23] MEDS: PCA - TOTAL MG DILAUDID DELIVERED PER SHIFT OTHER SCH ×3 (04:34→23:06)
[2017-03-23 07:28] LABS: REVIEW FLAG FINAL
[2017-03-23 07:32] LABS: HEMATOCRIT 19.9 % (39.0-51.0)
[2017-03-23] MEDS: ATORVASTATIN 40 MG TAB PO SCH (07:57)
[2017-03-23] MEDS: DOCUSATE SODIUM 50 MG/SENNA 8.6 MG TAB PO SCH ×2 (07:57→23:05)
[2017-03-23] MEDS: levETIRAcetam 500 MG TAB PO SCH ×2 (07:57→23:05)
[2017-03-23] MEDS: PANTOPRAZOLE SOD 40 MG DELAYED RELEASE TAB PO SCH (07:57)
[2017-03-23] MEDS: TAMSULOSIN HCL 0.4 MG CAP PO SCH (07:57)
[2017-03-23] MEDS: SODIUM CHLORIDE 0.9% FLUSH 10 ML FLUSH IV FLUSH SCH ×2 (07:57→23:05)
[2017-03-23] MEDS: HYDROmorphone HCL PCA 6 MG/30 ML IV SCH (09:30)
--- NOTE | 2017-03-23 09:41 | PD.ORT.PN ---
Subjective Subjective Remarks Patient comfortable. Pain controlled. Objective Vitals Vital Signs Date Time Temp Pulse Resp B/P (MAP) Pulse Ox O2 Delivery O2 Flow Rate FiO2 03/23/17 07:41 99.6 80 17 125/64 (84) 99 03/23/17 04:34 17 03/23/17 03:45 99.1 102 18 133/72 (92) 95 03/23/17 00:10 99.7 100 18 126/70 (88) 95 03/22/17 22:15 18 03/22/17 21:58 18 03/22/17 20:20 96.7 67 18 142/82 (102) 93 03/22/17 15:30 98.8 91 18 126/61 (82) 99 03/22/17 14:54 18 03/22/17 14:24 16 03/22/17 14:00 16 03/22/17 13:50 96 03/22/17 12:00 96.9 94 18 126/73 (90) 100 I/O 03/22/17 03/22/17 03/22/17 03/23/17 03/23/17 03/23/17 07:00 15:00 23:00 07:00 15:00 23:00 Intake Total 960 ml 1270 ml 360 ml 480 ml Output Total 975 ml 1700 ml 1300 ml Balance -15 ml 1270 ml -1340 ml -820 ml Intake Oral 960 ml 720 ml 360 ml 480 ml IV Total 550 ml Output Urine Total 650 ml 1600 ml 1250 ml Drainage Total 325 ml 100 ml 50 ml Bladder Scan Volume Amount 776 ml # Voids 0 # Bowel Movements 0 0 0 Result Diagram: 03/23/17 0649 03/22/17 0513 Objective Remarks Right lower extremity wound vac in place brace in place calves soft NVI Assessment & Plan Problem List: (1) Bicondylar fracture of right tibia ICD Codes: S82.141A - Displaced bicondylar fracture of right tibia, initial encounter for closed fracture Status: Acute Qualifiers: Assessment and Plan Hgb 6.9 medical involved Physical therapy: Non weight bearing to RLE DVT prophylaxis: Lovenox He will need to be on plavix, recent hx of stent placement D/C planning:SNF vs Home Monitor Ten Hernandez Mar 23, 2017 09:40
[2017-03-23] MEDS: MAGNESIUM HYDROXIDE SUSP 30 ML CUP PO SCH ×2 (10:02→23:05)
[2017-03-23] MEDS: LACTULOSE SYRUP 20 GM/30 ML CUP PO SCH (10:02)
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
[2017-03-23] MEDS: oxyCODONE/ACETAMINOPHEN 5 MG/325 MG TAB PO PRN ×2 (15:21→23:07)
[2017-03-23] MEDS: ENOXAPARIN SODIUM 40 MG/0.4 ML SYRINGE SQ SCH (17:11)
[2017-03-24] VITALS (7 sets, daily range): BP systolic 102–125; BP diastolic 58–73; PULSE 76–83; RESP 16–18; TEMP 97.8–100; O2SAT 96–100
[2017-03-24] MEDS: PCA - TOTAL MG DILAUDID DELIVERED PER SHIFT OTHER SCH ×4 (04:13→19:33)
[2017-03-24 04:31] LABS: BASOPHIL % 0.3 % (0.0-2.0); EOSINOPHIL # 0.2 TH/MM3 (0-0.4); EOSINOPHIL % 2.3 % (0.0-4.0); HEMATOCRIT 23.3 % (39.0-51.0); HEMO FLAGS DIFF FINAL; LYMPHOCYTE # 1.7 TH/MM3 (1.0-4.8); MEAN CORPUSCULAR HEMOGLOBIN 30.7 PG (27.0-34.0); MEAN CORPUSCULAR HGB CONC 34.1 % (32.0-36.0); MONO % 10.3 % (0.0-8.0); NEUT % 72.1 % (16.0-70.0); PLATELET COUNT 162 TH/MM3 (150-450); RED BLOOD COUNT 2.59 MIL/MM3 (4.50-5.90); RED CELL DISTRIBUTION WIDTH 14.7 % (11.6-17.2)
[2017-03-24 05:02] LABS: ALT (GPT) 14 U/L (12-78); ANION GAP 5 MEQ/L (5-15); AST (GOT) 15 U/L (15-37); BLOOD UREA NITROGEN 7 MG/DL (7-18); CHLORIDE 105 MEQ/L (98-107); GLOMERULAR FILTRATION RATE 119 ML/MIN (>89); POTASSIUM 4.2 MEQ/L (3.5-5.1); SODIUM (NA) 139 MEQ/L (136-145)
[2017-03-24 05:12] LABS: ALKALINE PHOSPHATASE 56 U/L (45-117); TOTAL BILIRUBIN ADULT 0.6 MG/DL (0.2-1.0)
[2017-03-24] MEDS: oxyCODONE/ACETAMINOPHEN 5 MG/325 MG TAB PO PRN ×3 (05:12→18:28)
[2017-03-24] MEDS: ATORVASTATIN 40 MG TAB PO SCH (07:29)
[2017-03-24] MEDS: TAMSULOSIN HCL 0.4 MG CAP PO SCH (07:29)
[2017-03-24] MEDS: LACTULOSE SYRUP 20 GM/30 ML CUP PO SCH (07:29)
[2017-03-24] MEDS: MAGNESIUM HYDROXIDE SUSP 30 ML CUP PO SCH ×2 (07:29→19:32)
[2017-03-24] MEDS: PANTOPRAZOLE SOD 40 MG DELAYED RELEASE TAB PO SCH (07:30)
[2017-03-24] MEDS: DOCUSATE SODIUM 50 MG/SENNA 8.6 MG TAB PO SCH ×2 (07:30→19:32)
[2017-03-24] MEDS: levETIRAcetam 500 MG TAB PO SCH ×2 (07:30→19:32)
[2017-03-24] MEDS: SODIUM CHLORIDE 0.9% FLUSH 10 ML FLUSH IV FLUSH SCH ×2 (07:30→19:32)
--- NOTE | 2017-03-24 07:43 | PD.ORT.PN ---
Subjective Subjective Remarks Patient resting comfortably. No complaints. Objective Vitals Vital Signs Date Time Temp Pulse Resp B/P (MAP) Pulse Ox O2 Delivery O2 Flow Rate FiO2 03/24/17 03:30 98.4 77 18 119/71 (87) 96 03/23/17 23:07 98.7 82 18 132/62 (85) 96 03/23/17 23:06 18 03/23/17 19:05 99.5 83 18 127/65 (85) 98 03/23/17 18:01 99.3 95 18 121/66 97 03/23/17 15:15 99.7 79 16 126/63 95 03/23/17 15:00 99.8 88 16 128/58 (81) 98 03/23/17 15:00 98.8 88 16 128/58 98 03/23/17 14:00 16 03/23/17 11:33 97.6 89 17 135/67 (89) 100 03/23/17 10:00 16 03/23/17 09:30 16 I/O 03/23/17 03/23/17 03/23/17 03/24/17 03/24/17 03/24/17 07:00 15:00 23:00 07:00 15:00 23:00 Intake Total 480 ml 950 ml 740 ml 480 ml Output Total 1300 ml 1100 ml 1175 ml 1000 ml Balance -820 ml -150 ml -435 ml -520 ml Intake Oral 480 ml 950 ml 480 ml 480 ml Packed Cells 250 ml Blood Product IV Normal Saline Flush 10 ml Output Urine Total 1250 ml 1100 ml 1075 ml 1000 ml Drainage Total 50 ml 100 ml 0 ml # Bowel Movements 0 0 0 0 Result Diagram: 03/24/1740403/24/17404 Objective Remarks Right lower extremity wound vac in place brace in place calves soft, no pain with passive range of motion of ankle or toes NVI Assessment & Plan Problem List: (1) Bicondylar fracture of right tibia ICD Codes: S82.141A - Displaced bicondylar fracture of right tibia, initial encounter for closed fracture Status: Acute Qualifiers: Assessment and Plan Continue VAC per Dr. Mann's orders Physical therapy: Non weight bearing to RLE DVT prophylaxis: Lovenox He will need to be on plavix, recent hx of stent placement D/C planning:SNF vs Home Elia Correa MD Mar 24, 2017 07:43
[2017-03-24] MEDS ORDERED: BISACODYL EC 5 MG TABEC PO ONE (09:00)
[2017-03-24] MEDS ORDERED: BISACODYL 10 MG SUPP RECTAL ONE (09:00)
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
--- NOTE | 2017-03-24 12:59 | RADRPT ---
EXAM DATE/TIME: 03/24/2017 12:25 [facility] COMPARISON: US CAROTID ARTERIES, January 18, 2016, 15:01. INDICATIONS : Cerebrovascular accident. MEDICAL HISTORY : Hypertension. CVA. Seizures. Coronary artery disease. Asthma. Anticoagulant therapy, Aspirin. SURGICAL HISTORY : Coronary artery stent. Hysterectomy. Cardiac cath. Depression. ENCOUNTER: Initial ACUITY: 1 day PAIN SCORE: 0/10 LOCATION: Bilateral neck PEAK SYSTOLIC VELOCITIES (cm/sec): ICA/CCA RATIO: Right: 0.8 Left: 0.7 ICA: Right: 76 Left: 82 CCA: Right: 100 Left: 126 ECA: Right: 116 Left: 110 VERTEBRAL: Right: 53 antegrade Left: 50 antegrade Elevated flow velocities and ICA/CCA ratios have been found to correlate with increased degrees of vessel stenosis, calculated as percentage of diameter relative to a normal segment of distal ICA/CCA FINDINGS: RIGHT CAROTID: Mild plaque involving the carotid bulb and ICA origin. No significant stenosis is visualized. The wa veforms are within normal limits. LEFT CAROTID: Mild plaque involving the proximal ICA. No significant stenosis is visualized. The waveforms are wit hin normal limits. VERTEBRAL ARTERIES: Antegrade flow is seen in both vertebral arteries. MISCELLANEOUS: None. CONCLUSION: 1. Mild atherosclerotic plaque bilaterally. No hemodynamically significant stenosis involving either carotid artery. 2. Antegrade flow involving both vertebral arteries. Darryl Moreno Jr., MD on March 24, 2017 at 12:49 Board Certified Radiologist. This report was verified electronically.
[2017-03-24] MEDS: CLOPIDOGREL 75 MG TAB PO SCH (13:10)
[2017-03-24] MEDS: ENOXAPARIN SODIUM 40 MG/0.4 ML SYRINGE SQ SCH (18:28)
[2017-03-25] VITALS (8 sets, daily range): BP systolic 118–128; BP diastolic 60–77; PULSE 70–92; RESP 16–18; TEMP 97.7–100.5; O2SAT 97–100
[2017-03-25] MEDS: oxyCODONE/ACETAMINOPHEN 5 MG/325 MG TAB PO PRN ×3 (04:50→19:53)
[2017-03-25] MEDS: MAGNESIUM HYDROXIDE SUSP 30 ML CUP PO SCH ×2 (07:51→19:53)
[2017-03-25] MEDS: ATORVASTATIN 40 MG TAB PO SCH (07:52)
[2017-03-25] MEDS: levETIRAcetam 500 MG TAB PO SCH ×2 (07:52→19:53)
[2017-03-25] MEDS: LACTULOSE SYRUP 20 GM/30 ML CUP PO SCH (07:52)
[2017-03-25] MEDS: TAMSULOSIN HCL 0.4 MG CAP PO SCH (07:53)
[2017-03-25] MEDS: PANTOPRAZOLE SOD 40 MG DELAYED RELEASE TAB PO SCH (07:53)
[2017-03-25] MEDS: CLOPIDOGREL 75 MG TAB PO SCH (07:53)
[2017-03-25] MEDS: DOCUSATE SODIUM 50 MG/SENNA 8.6 MG TAB PO SCH ×2 (07:53→19:53)
[2017-03-25] MEDS: SODIUM CHLORIDE 0.9% FLUSH 10 ML FLUSH IV FLUSH SCH ×2 (07:58→19:54)
[2017-03-25 08:56] LABS: HEMATOCRIT 21.9 % (39.0-51.0); REVIEW FLAG FINAL
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
--- NOTE | 2017-03-25 10:34 | PD.ORT.PN ---
Subjective Subjective Remarks pain controlled Objective Vitals Vital Signs Date Time Temp Pulse Resp B/P (MAP) Pulse Ox O2 Delivery O2 Flow Rate FiO2 03/25/17 07:30 97.7 70 17 118/65 (82) 98 03/24/17 23:45 99.6 78 17 102/62 (75) 97 03/24/17 20:00 100.0 83 16 116/59 (78) 100 03/24/17 17:39 99 21 03/24/17 16:00 98.3 79 16 116/60 (78) 100 03/24/17 11:24 98.1 76 18 125/58 (80) 100 I/O 03/24/17 03/24/17 03/24/17 03/25/17 03/25/17 03/25/17 07:00 15:00 23:00 07:00 15:00 23:00 Intake Total 480 ml 960 ml 240 ml 240 ml Output Total 1000 ml 1000 ml 0 ml 900 ml Balance -520 ml -40 ml 240 ml -660 ml Intake Oral 480 ml 960 ml 240 ml 240 ml Output Urine Total 1000 ml 950 ml 900 ml Drainage Total 0 ml 50 ml 0 ml 0 ml # Voids 4 1 # Bowel Movements 0 0 0 0 Result Diagram: 03/25/17 0751 03/24/17 0405 Objective Remarks Right lower extremity wound vac in place brace in place calves soft, no pain with passive range of motion of ankle or toes NVI Assessment & Plan Ortho Post Op Day #: 4 Problem List: (1) Bicondylar fracture of right tibia ICD Codes: S82.141A - Displaced bicondylar fracture of right tibia, initial encounter for closed fracture Status: Acute Qualifiers: Assessment and Plan ORIFTibial Plateau POD # 4 Continue VAC for 1 more day Physical therapy: Non weight bearing to RLE DVT prophylaxis: Lovenox He will need to be on plavix, recent hx of stent placement Resume Plavix on discharge D/C planning:[facility] Gabino Mann MD Mar 25, 2017 10:34
[2017-03-25] MEDS ORDERED: SODIUM CHLOR 0.9% 250 ML INJ 250 ML IV ONE (12:00)
[2017-03-25] MEDS: PCA - TOTAL MG DILAUDID DELIVERED PER SHIFT OTHER SCH ×2 (13:20→19:54)
--- NOTE | 2017-03-25 14:58 | RADRPT ---
EXAM DATE/TIME: 03/25/2017 13:47 [facility] COMPARISON: FOOT RIGHT COMPLETE ([id number]), November 24, 2016, 12:27. INDICATIONS : Trauma. MEDICAL HISTORY : Hypertension seizures SURGICAL HISTORY : None. ENCOUNTER: Initial ACUITY: 4 - 6 days PAIN SCORE: 4/10 LOCATION: Right foot FINDINGS: Three view examination of the right foot demonstrates no soft tissue swelling, dislocation, or fractu re. The tarsal bones appear intact. The interphalangeal and metatarsophalangeal joints are intact. The calcaneus is intact. Bony mineralization is normal. CONCLUSION: 1. No acute fracture or dislocation. Dao Marcano MD on March 25, 2017 at 14:53 Board Certified Radiologist. This report was verified electronically.
[2017-03-25] MEDS: ENOXAPARIN SODIUM 40 MG/0.4 ML SYRINGE SQ SCH (17:10)
[2017-03-25 22:38] LABS: HEMATOCRIT 24.8 % (39.0-51.0); REVIEW FLAG FINAL
[2017-03-26 00:40] VITALS: BP 132/82; PULSE 82; RESP 17; TEMP 98.9; O2SAT 98
[2017-03-26] MEDS: oxyCODONE/ACETAMINOPHEN 5 MG/325 MG TAB PO PRN ×3 (06:05→21:00)
[2017-03-26 08:00] VITALS: BP 141/67; PULSE 63; RESP 18; TEMP 97.2; O2SAT 97
[2017-03-26] MEDS: ATORVASTATIN 40 MG TAB PO SCH (08:15)
[2017-03-26] MEDS: TAMSULOSIN HCL 0.4 MG CAP PO SCH (08:15)
[2017-03-26] MEDS: CLOPIDOGREL 75 MG TAB PO SCH (08:16)
[2017-03-26] MEDS: DOCUSATE SODIUM 50 MG/SENNA 8.6 MG TAB PO SCH ×2 (08:16→21:00)
[2017-03-26] MEDS: PANTOPRAZOLE SOD 40 MG DELAYED RELEASE TAB PO SCH (08:16)
[2017-03-26] MEDS: MAGNESIUM HYDROXIDE SUSP 30 ML CUP PO SCH ×2 (08:16→21:00)
[2017-03-26] MEDS: LACTULOSE SYRUP 20 GM/30 ML CUP PO SCH (08:16)
[2017-03-26] MEDS: levETIRAcetam 500 MG TAB PO SCH ×2 (08:16→21:00)
[2017-03-26] MEDS: SODIUM CHLORIDE 0.9% FLUSH 10 ML FLUSH IV FLUSH SCH ×2 (08:17→21:00)
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
[2017-03-26 12:00] VITALS: BP 120/73; PULSE 79; RESP 18; TEMP 98.5; O2SAT 100
[2017-03-26] MEDS: PCA - TOTAL MG DILAUDID DELIVERED PER SHIFT OTHER SCH ×2 (14:00→21:00)
[2017-03-26] MEDS: ENOXAPARIN SODIUM 40 MG/0.4 ML SYRINGE SQ SCH (15:53)
[2017-03-26 16:00] VITALS: BP 137/70; PULSE 74; RESP 18; TEMP 100.3; O2SAT 98
--- NOTE | 2017-03-26 17:55 | PD.ORT.PN ---
Subjective Subjective Remarks Patient comfortable. Pain controlled. Objective Vitals Vital Signs Date Time Temp Pulse Resp B/P (MAP) Pulse Ox O2 Delivery O2 Flow Rate FiO2 03/26/17 14:35 16 03/26/17 14:00 16 03/26/17 12:00 98.5 79 18 120/73 (89) 100 03/26/17 08:00 97.2 63 18 141/67 (91) 97 03/26/17 00:40 98.9 82 17 132/82 (99) 98 03/25/17 20:40 100.5 92 18 121/77 (92) 98 03/25/17 18:00 99 21 I/O 03/25/17 03/25/17 03/25/17 03/26/17 03/26/17 03/26/17 07:00 15:00 23:00 07:00 15:00 23:00 Intake Total 240 ml 725 ml 1070 ml Output Total 900 ml 750 ml 50 ml 400 ml Balance -660 ml 725 ml 320 ml -50 ml -400 ml Intake Oral 240 ml 720 ml 720 ml IV Total 50 ml Packed Cells 250 ml Blood Product IV Normal Saline Flush 5 ml 50 ml Output Urine Total 900 ml 750 ml 400 ml Drainage Total 0 ml 0 ml 50 ml # Voids 4 # Bowel Movements 0 0 1 Result Diagram: 03/25/17212903/24/175 Objective Remarks Right lower extremity wound vac removed by RN incision well approximated sutures intact minimal bloody drainage noted no signs of infection noted brace in place calves soft, no pain with passive range of motion of ankle or toes NVI Assessment & Plan Problem List: (1) Bicondylar fracture of right tibia ICD Codes: S82.141A - Displaced bicondylar fracture of right tibia, initial encounter for closed fracture Status: Acute Qualifiers: Assessment and Plan ORIFTibial Plateau POD # 5 Daily dressing changes. Clean with alcohol and apply a new dry primapore dressing. Wound vac removed today Physical therapy: Non weight bearing to RLE DVT prophylaxis: Lovenox He will need to be on plavix, recent hx of stent placement Resume Plavix on discharge Orthopedically stable for discharge D/C planning:SNF F/U in [address] Mann or OMER in office Ten Hernandez Mar 26, 2017 17:55
[2017-03-26] MEDS ORDERED: WALKER WHEELS/F1 MIS (17:59)
[2017-03-26] MEDS ORDERED: WHEEMIS3 (17:59)
[2017-03-26 19:40] VITALS: BP 132/80; PULSE 74; RESP 18; TEMP 99.8; O2SAT 100
[2017-03-26 23:50] VITALS: BP 131/79; PULSE 80; RESP 17; TEMP 99.3; O2SAT 97
[2017-03-27 00:50] VITALS: BP 124/80; PULSE 75; RESP 18; TEMP 98.6; O2SAT 97
[2017-03-27] MEDS: PCA - TOTAL MG DILAUDID DELIVERED PER SHIFT OTHER SCH ×3 (02:45→20:41)
[2017-03-27] MEDS: oxyCODONE/ACETAMINOPHEN 5 MG/325 MG TAB PO PRN ×3 (05:59→19:22)
[2017-03-27] MEDS ORDERED: MAGN400S PO (07:51)
[2017-03-27] MEDS ORDERED: SENN1TAB PO (07:51)
[2017-03-27] MEDS: CLOPIDOGREL 75 MG TAB PO SCH (07:59)
[2017-03-27] MEDS: TAMSULOSIN HCL 0.4 MG CAP PO SCH (07:59)
[2017-03-27 08:00] VITALS: BP 134/76; PULSE 66; RESP 18; TEMP 96.9; O2SAT 99
[2017-03-27] MEDS: ATORVASTATIN 40 MG TAB PO SCH (08:00)
[2017-03-27] MEDS: PANTOPRAZOLE SOD 40 MG DELAYED RELEASE TAB PO SCH (08:00)
[2017-03-27] MEDS: DOCUSATE SODIUM 50 MG/SENNA 8.6 MG TAB PO SCH ×2 (08:00→19:22)
[2017-03-27] MEDS: MAGNESIUM HYDROXIDE SUSP 30 ML CUP PO SCH ×2 (08:00→19:22)
[2017-03-27] MEDS: LACTULOSE SYRUP 20 GM/30 ML CUP PO SCH (08:00)
[2017-03-27] MEDS: levETIRAcetam 500 MG TAB PO SCH ×2 (08:00→19:22)
[2017-03-27] MEDS: SODIUM CHLORIDE 0.9% FLUSH 10 ML FLUSH IV FLUSH SCH ×2 (08:01→19:21)
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
[2017-03-27] MEDS ORDERED: TAMS5CAP PO (11:31)
[2017-03-27] MEDS ORDERED: Lactulose Liq PO (11:32)
[2017-03-27 11:52] VITALS: BP 124/68; PULSE 70; RESP 18; TEMP 97.6; O2SAT 99
[2017-03-27 16:00] VITALS: BP 118/62; PULSE 75; RESP 18; TEMP 98.8; O2SAT 99
[2017-03-27] MEDS: ENOXAPARIN SODIUM 40 MG/0.4 ML SYRINGE SQ SCH (16:21)
[2017-03-27 20:17] VITALS: BP 114/66; PULSE 76; RESP 18; TEMP 98.6; O2SAT 98
[2017-03-28 00:10] VITALS: BP 124/80; PULSE 75; RESP 18; TEMP 98.6; O2SAT 97
[2017-03-28] MEDS: oxyCODONE/ACETAMINOPHEN 5 MG/325 MG TAB PO PRN ×2 (04:57→11:56)
[2017-03-28 08:00] VITALS: BP 124/70; PULSE 62; RESP 18; TEMP 98; O2SAT 99
[2017-03-28] MEDS: MAGNESIUM HYDROXIDE SUSP 30 ML CUP PO SCH (09:00)
[2017-03-28] MEDS: LACTULOSE SYRUP 20 GM/30 ML CUP PO SCH (09:00)
[2017-03-28] MEDS: DOCUSATE SODIUM 50 MG/SENNA 8.6 MG TAB PO SCH (09:00)
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
[2017-03-28] MEDS: TAMSULOSIN HCL 0.4 MG CAP PO SCH (09:16)
[2017-03-28] MEDS: ATORVASTATIN 40 MG TAB PO SCH (09:16)
[2017-03-28] MEDS: PANTOPRAZOLE SOD 40 MG DELAYED RELEASE TAB PO SCH (09:16)
[2017-03-28] MEDS: levETIRAcetam 500 MG TAB PO SCH (09:16)
[2017-03-28] MEDS: CLOPIDOGREL 75 MG TAB PO SCH (09:16)
[2017-03-28] MEDS: SODIUM CHLORIDE 0.9% FLUSH 10 ML FLUSH IV FLUSH SCH (09:18)
[2017-03-28] MEDS ORDERED: NEUR300C PO (10:14)
[2017-03-28] MEDS: PCA - TOTAL MG DILAUDID DELIVERED PER SHIFT OTHER SCH (11:57)
[2017-03-28 12:00] VITALS: BP 110/82; PULSE 92; RESP 18; TEMP 98; O2SAT 99
[2017-03-28] MEDS ORDERED: GABAPENTIN 300 MG CAP PO SCH (13:00)
[2017-03-28] MEDS ORDERED: PERC5TAB12 PO (13:44)
[2017-03-28] MEDS ORDERED: ENOX40P SQ (13:45)
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
== END 2017-03-28 15:08 | DRG 488 ==
LOC: NEPE 11:30 → NEDA 13:56 → N06B 21:08
PROVIDERS: ADMIT Surgery; ATTEND Surgery
PROC: 0QSG04Z Reposition Right Tibia with Internal Fixation Device, Open Approach (ICD-10-PCS; 2017-03-21)
PROC: 0SQC0ZZ Repair Right Knee Joint, Open Approach (ICD-10-PCS; principal; 2017-03-21 15:35)
PROC: 30233N1 Transfusion of Nonautologous Red Blood Cells into Peripheral Vein, Percutaneous Approach (ICD-10-PCS; 2017-03-23)
DX: S82.141A Displaced bicondylar fracture of right tibia, initial encounter for closed fracture (principal); D62 Acute posthemorrhagic anemia; I10 Essential (primary) hypertension; G40.909 Epilepsy, unspecified, not intractable, without status epilepticus; F17.210 Nicotine dependence, cigarettes, uncomplicated; I25.10 Atherosclerotic heart disease of native coronary artery without angina pectoris; J45.909 Unspecified asthma, uncomplicated; F32.9 Major depressive disorder, single episode, unspecified; S83.281A Other tear of lateral meniscus, current injury, right knee, initial encounter; R33.9 Retention of urine, unspecified; V03.19XA Pedestrian with other conveyance injured in collision with car, pick-up truck or van in traffic accident, initial encounter; Y93.55 Activity, bike riding; I69.30 Unspecified sequelae of cerebral infarction; Y92.410 Unspecified street and highway as the place of occurrence of the external cause; Z59.0 Homelessness; Z95.5 Presence of coronary angioplasty implant and graft; Z79.02 Long term (current) use of antithrombotics/antiplatelets
CPT/HCPCS: 36430; 70450; 71010; 72125; 73030; 73564; 73590; 73630; 76000; 80053; 85014; 85018; 85025; 85610; 85730; 86850; 86900; 86901; 86920; 90471; 90714; 90732; 93005; 93880; 94150; 94667; 94668; 96374; C1713; G0009; J0690; J1170; J1580; J1644; J1650; J2175; J2250; J2370; J2405; J3010; J3370; J7040; J7050; J7120; L1830; L1845; P9016

== ENCOUNTER 2017-05-27 16:10 | Observation (INO) | payer OTHER ==
[~2017-05-27 16:10] MED LIST changes: +ENOX40P SQ; -LACTATED RINGER'S 1000 ML INJ 1,000 ML IV ONE; +Lactulose Liq PO; +MAGN400S PO; -MIDAZOLAM HCL 2 MG/2 ML VIAL IV ONE; +NEUR300C PO; -ONDANSETRON HCL 4 MG/2 ML VIAL IV PUSH ONE; +PERC5TAB12 PO; -PHENYLEPHRINE HCL 10 MG/ML VIAL IV ONE; -PROPOFOL 200 MG/20 ML AMP IV ONE; +SENN1TAB PO; +TAMS5CAP PO; +WALKER WHEELS/F1 MIS; +WHEEMIS3; -ePHEDrine/NS 25 MG/5 ML SYR IV ONE
[2017-05-27 16:11] VITALS: BP 175/86; PULSE 73; RESP 16; TEMP 98.4; O2SAT 100
--- NOTE | 2017-05-27 17:35 | RADRPT ---
EXAM DATE/TIME: 05/27/2017 17:10 [facility] COMPARISON: CT BRAIN W/O CONTRAST, March 21, 2017, 12:36. INDICATIONS : Dizzy,fall ,pain left forehead. RADIATION DOSE: 37.59 CTDIvol (mGy) MEDICAL HISTORY : Cerebrovascular disease. Cardiovascular disease Seizures.HTN SURGICAL HISTORY : None. ENCOUNTER: Initial ACUITY: 1 day PAIN SCALE: 5/10 LOCATION: cranial TECHNIQUE: Multiple contiguous axial images were obtained of the head. Using automated exposure control and adj ustment of the mA and/or kV according to patient size, radiation dose was kept as low as reasonably a chievable to obtain optimal diagnostic quality images. DICOM format image data is available electro nically for review and comparison. FINDINGS: CEREBRUM: There is mild generalized atrophy. 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 No midline shift, mass lesion, hemorrhage or acute infarction. No extra-axial fluid collections are seen. POSTERIOR FOSSA: The cerebellum and brainstem demonstrate no acute finding. The 4th ventricle is midline. The cerebe llopontine angle is unremarkable. EXTRACRANIAL: There is mild left frontal scalp soft tissue swelling. SKULL: The calvaria is intact. No evidence of skull fracture. CONCLUSION: 1. Mild left frontal scalp soft tissue swelling. No fracture or acute intracranial abnormality is samir ntified. 2. Stable right temporal and occipital region encephalomalacia. Varinder Martinez MD on May 27, 2017 at 17:31 Board Certified Radiologist. This report was verified electronically.
--- NOTE | 2017-05-27 17:54 | RADRPT ---
EXAM DATE/TIME: 05/27/2017 17:31 [facility] COMPARISON: KNEE RIGHT COMPLETE (4VWS), May 27, 2017, 17:26. INDICATIONS : Chest pain after fall. MEDICAL HISTORY : Cerebrovascular disease. Cardiovascular disease Seizures.HTN SURGICAL HISTORY : ORIF right knee. ENCOUNTER: Initial ACUITY: 1 day PAIN SCORE: 5/10 LOCATION: Bilateral chest FINDINGS: The cardiac and mediastinal contours are within normal limits. The lungs are clear. The osseous struc tures demonstrate an old ununited fracture of the right clavicle but are otherwise intact. CONCLUSION: 1. 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 2. No acute cardiopulmonary findings identified. Enoch Crisostomo MD on May 27, 2017 at 17:52 Board Certified Radiologist. This report was verified electronically.
--- NOTE | 2017-05-27 18:02 | RADRPT ---
EXAM DATE/TIME: 05/27/2017 17:26 [facility] COMPARISON: TIBIA/FIBULA RIGHT (AP/LAT), March 21, 2017, 12:03. TIBIA/FIBULA RIGHT (AP/LAT), March 21, 017, 18:22. FOOT RIGHT COMPLETE ([id number]), March 25, 2017, 13:47. INDICATIONS : Right knee pain after fall. MEDICAL HISTORY : Cerebrovascular disease. Cardiovascular disease Seizures.HTN SURGICAL HISTORY : ORIF right knee. ENCOUNTER: Initial ACUITY: 1 day PAIN SCORE: 10/10 LOCATION: Right Knee. FINDINGS: There is been previous plating of a comminuted fracture involving the distal tibia. The alignment of the fracture fragments is similar compared to the prior study dated 03/21/17. The hardware appears inta ct. Note is made of a mildly comminuted fracture of the proximal fibula as well. CONCLUSION: Known fracture through the proximal tibia the alignment appears similar to the immediate postoperativ e exam of 03/21/17. The fracture through the fibula appears stable as well. Enoch Crisostomo MD on May 27, 2017 at 17:59 Board Certified Radiologist. This report was verified electronically.
[2017-05-27 19:50] LABS: AUTOMATED NEUTROPHIL # 4.7 TH/MM3 (1.8-7.7); BASOPHIL # 0.1 TH/MM3 (0-0.2); BASOPHIL % 0.8 % (0.0-2.0); EOSINOPHIL # 0.5 TH/MM3 (0-0.4); EOSINOPHIL % 5.4 % (0.0-4.0); HEMATOCRIT 33.5 % (39.0-51.0); HEMO FLAGS DIFF FINAL; LYMPHOCYTE # 2.5 TH/MM3 (1.0-4.8); MEAN CORPUSCULAR HEMOGLOBIN 23.3 PG (27.0-34.0); MEAN CORPUSCULAR HGB CONC 31.4 % (32.0-36.0); MONO % 9.6 % (0.0-8.0); NEUT % 55.2 % (16.0-70.0); PLATELET COUNT 284 TH/MM3 (150-450); RED BLOOD COUNT 4.53 MIL/MM3 (4.50-5.90); RED CELL DISTRIBUTION WIDTH 18.4 % (11.6-17.2); WHITE BLOOD COUNT 8.5 TH/MM3 (4.0-11.0)
[2017-05-27 20:01] LABS: APTT (PATIENT) 28.1 SEC (24.3-30.1); PROTHROMBIN TIME - PATIENT 10.6 SEC (9.8-11.6)
[2017-05-27 20:15] LABS: ANION GAP 7 MEQ/L (5-15); BLOOD UREA NITROGEN 17 MG/DL (7-18); CHLORIDE 105 MEQ/L (98-107); GLOMERULAR FILTRATION RATE 85 ML/MIN (>89); MAGNESIUM 1.9 MG/DL (1.5-2.5); POTASSIUM 3.8 MEQ/L (3.5-5.1); SODIUM (NA) 139 MEQ/L (136-145)
[2017-05-27 20:18] VITALS: BP 144/78; PULSE 50; RESP 16; O2SAT 100
[2017-05-27 20:20] LABS: CREATINE KINASE 149 U/L (39-308)
[2017-05-27 20:32] LABS: CKMB 1.4 NG/ML (0.5-3.6)
[2017-05-27] MEDS ORDERED: ACETAMINOPHEN/HYDROcodone 325 MG/5 MG TAB PO ONE (21:00)
[2017-05-27] MEDS ORDERED: NITROGLYCERIN 0.4 MG SL 25 TABS/BTL SL PRN (21:00)
[2017-05-27] MEDS ORDERED: ACETAMINOPHEN 500 MG CPLT PO PRN (21:00)
[2017-05-27] MEDS ORDERED: SODIUM CHLORIDE 0.9% FLUSH 10 ML FLUSH IV FLUSH PRN (21:00)
[2017-05-27] MEDS ORDERED: levETIRAcetam 500 MG TAB PO ONE (21:00)
[2017-05-27] MEDS ORDERED: ASPIRIN 81 MG CHEW TAB CHEW ONE (21:00)
[2017-05-27] MEDS ORDERED: ONDANSETRON HCL 4 MG/2 ML VIAL IV PUSH PRN (21:00)
[2017-05-27] MEDS: SODIUM CHLORIDE 0.9% FLUSH 10 ML FLUSH IV FLUSH SCH (21:10)
--- NOTE | 2017-05-27 21:10 | PD ---
HPI Chief Complaint: Chest Pain Time Seen by Provider: 20:16 Travel History International Travel<30 days: No Contact w/Intl Traveler<30days: No Traveled to known affect area: No History of Present Illness HPI 62-year-old male came to the emergency room with history of chest pain at 3:30 this morning. It woke the patient up. Patient says that he felt like a pressure sensation on his chest. He also drank some alcohol last night and he is on heavy pain medications for his chronic pain. There he was groggy and he stumbled and fell. He came in complaining of some head injury and knee and elbow pain. Patient had blood test and x-rays done prior to being brought into the room. He also had CT scan of his head done. All these were negative from trauma perspective. Patient had a stent put in on February 06, 2017. He was supposed to take Brilinta which she is not since he says that the group home never discharge him with that prescription. Currently he says that the pain is letting off. His blood test results are back and they are within acceptable limits. [facility] Past Medical History Narrative Medical List of his past medical, surgical, social and family history is reviewed from the nursing note. Hx Anticoagulant Therapy: Yes (ASPIRIN) Asthma: Yes Autoimmune Disease: No Anxiety: No Depression: Yes Heart Rhythm Problems: No Cancer: No Cardiac Catheterization: Yes (STENT X1) Cardiovascular Problems: Yes (HTN) High Cholesterol: No Chemotherapy: No Chest Pain: No Congestive Heart Failure: No COPD: No Cerebrovascular Accident: Yes (LEFT DEFICIT) Coronary Artery Disease: Yes Diabetes: No Diminished Hearing: No Endocrine: No Gastrointestinal Disorders: No Genitourinary: No Headaches: Yes Heparin Induced Thrombocytopen: No Hypertension: Yes Immune Disorder: No Implanted Vascular Access Dvce: No Kidney Stones: No Musculoskeletal: No Neurologic: Yes Psychiatric: No Reproductive: No Respiratory: Yes (asthma) Immunizations Current: Yes Migraines: No Radiation Therapy: No Renal Failure: No 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, "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") Sickle Cell Disease: No Sleep Apnea: No Ulcer: No Past Surgical History Abdominal Surgery: No AICD: No Arteriovenous Shunt: No Body Medical Devices: Cardiac stent Cardiac Surgery: Yes (STENT ) Coronary Artery Bypass Graft: No Ear Surgery: No Endocrine Surgery: No Eye Surgery: No Genitourinary Surgery: No Gynecologic Surgery: No Insulin Pump: No Joint Replacement: No Neurologic Surgery: No Oral Surgery: No Pacemaker: No Thoracic Surgery: No Other Surgery: Yes Family History Family Myocardial Infarction: Yes (mother, father, brother) Social History Alcohol Use: Yes (OCCASIONALLY) Tobacco Use: Yes (2 cigarettes/day) Substance Use: No Allergies-Medications (Allergen,Severity, Reaction): Coded Allergies: No Known Allergies (Unverified , 03/13/17) Comments No known drug allergies. Reported Meds & Prescriptions Reported Meds & Active Scripts Active Neurontin (Gabapentin) 300 Mg Cap 300 Mg PO TID 15 Days [Lactulose Liq] 30 ML Syrp 30 Ml PO DAILY 15 Days Flomax (Tamsulosin HCl) 0.4 Mg Cap 0.4 Mg PO DAILY 15 Days Senna Plus 8.6-50 mg (Sennosides-Docusate Sodium) 8.6 Mg-50 Mg Tab 1 Tab PO BID 15 Days Eq Milk of Magnesia (Magnesium Hydroxide) 400 Mg/5 Ml Isabela 30 Ml PO Q12HR 15 Days Walker with Front Wheels (Device) 1 Mis Mis Ea .ROUTE DIRECTED Wheelchair Elevated Leg (Device) 1 Mis Mis Ea .ROUTE DIRECTED Pantoprazole (Pantoprazole Sodium) 40 Mg Tab 40 Mg PO DAILY Atorvastatin (Atorvastatin Calcium) 40 Mg Tab 40 Mg PO DAILY Plavix (Clopidogrel Bisulfate) 75 Mg Tab 75 Mg PO DAILY Keppra (Levetiracetam) 1,000 Mg Tab 1,000 Mg PO BID Reported Percocet (Oxycodone-Acetaminophen) 5-325 mg Tab 1 Tab PO Q4HR PRN Narrative Medication List of his home medications reviewed from the nursing note. Review of Systems Except as stated in HPI: all other systems reviewed are Neg Cardiovascular: Positive: Chest Pain or Discomfort Musculoskeletal: Positive: Pain Physical Exam Narrative GENERAL: Awake, slurred speech, no obvious distress SKIN: Focused skin assessment warm/dry. HEAD: Atraumatic. Normocephalic. EYES: Pupils equal and round. No scleral icterus. No injection or drainage. ENT: No nasal bleeding or discharge. Mucous membranes pink and moist. NECK: Trachea midline. No JVD. CARDIOVASCULAR: Regular rate and rhythm. No murmur appreciated. RESPIRATORY: No accessory muscle use. Clear to auscultation. Breath sounds equal bilaterally. GASTROINTESTINAL: Abdomen soft, non-tender, nondistended. Hepatic and splenic margins not palpable. MUSCULOSKELETAL: No obvious deformities. No clubbing. No cyanosis. No edema. NEUROLOGICAL: Awake and alert. No obvious cranial nerve deficits. Motor grossly within normal limits. Slurred speech. PSYCHIATRIC: Appropriate mood and affect; insight and judgment normal. Data Data Last Documented VS Vital Signs Date Time Temp Pulse Resp B/P (MAP) Pulse Ox O2 Delivery O2 Flow Rate FiO2 05/27/17 20:18 50 16 144/78 (100) 100 Room Air 05/27/17 16:11 98.4 Orders Orders Electrocardiogram (05/27/17 16:41) Basic Metabolic Panel (Bmp) (05/27/17 16:41) Ckmb (Isoenzyme) Profile (05/27/17 16:41) Complete Blood Count With Diff (05/27/17 16:41) Magnesium (Mg) (05/27/17 16:41) Prothrombin Time / Inr (Pt) (05/27/17 16:41) Act Partial Throm Time (Ptt) (05/27/17 16:41) Troponin I (05/27/17 16:41) Lipase (05/27/17 16:41) Chest, Pa & Lat (05/27/17 16:41) Ct Brain W/O Iv Contrast(Rout) (05/27/17 ) Knee, Complete (4vws) (05/27/17 ) CKMB (05/27/17 18:45) CKMB% (05/27/17 18:45) Acetamin-Hydrocod 325-5 Mg ([place] 5-325 (05/27/17 21:00) Admit Order (Ed Use Only) (05/27/17 20:51) Levetiracetam (Keppra) (05/27/17 21:00) Aspirin Chew (Aspirin Chew) (05/28/17 09:00) Aspirin Chew (Aspirin Chew) (05/27/17 21:00) Place In Observation (05/27/17 20:51) Activity Bed Rest With Brp (05/27/17 20:51) Vital Signs (Adult) Q4H (05/27/17 20:51) Cardiac Rhythm .As Directed (05/27/17 20:51) Notify Dr: Other .PRN (05/27/17 20:51) Notify Dr. Valerio (05/27/17 20:51) Resp Oxygen Nasal Cannula (05/27/17 ) Diet Heart Healthy (05/28/17 Breakfast) Ckmb (Isoenzyme) Profile (05/27/17 20:51) Ckmb (Isoenzyme) Profile (05/27/17 23:51) Troponin I (05/27/17 20:51) Troponin I (05/27/17 23:51) Electrocardiogram (05/27/17 20:51) Electrocardiogram (05/27/17 23:51) ^ Obtain (05/27/17 20:51) Sodium Chloride 0.9% Flush (Ns Flush) (05/27/17 21:00) Sodium Chloride 0.9% Flush (Ns Flush) (05/27/17 21:00) Acetaminophen (Tylenol) (05/27/17 21:00) Ondansetron Inj (Zofran Inj) (05/27/17 21:00) Nitroglycerin Sl (Nitrostat Sl) (05/27/17 21:00) [employer] / Telemetry [email or web address] (05/27/17 20:51) Labs Laboratory Tests Test 05/27/17 18:45 White Blood Count 8.5 TH/MM3 Red Blood Count 4.53 MIL/MM3 Hemoglobin 10.5 GM/DL Hematocrit 33.5 % Mean Corpuscular Volume 74.0 FL Mean Corpuscular Hemoglobin 23.3 PG Mean Corpuscular Hemoglobin Concent 31.4 % Red Cell Distribution Width 18.4 % Platelet Count 284 TH/MM3 Mean Platelet Volume 7.6 FL Neutrophils (%) (Auto) 55.2 % Lymphocytes (%) (Auto) 29.0 % Monocytes (%) (Auto) 9.6 % Eosinophils (%) (Auto) 5.4 % Basophils (%) (Auto) 0.8 % Neutrophils # (Auto) 4.7 TH/MM3 Lymphocytes # (Auto) 2.5 TH/MM3 Monocytes # (Auto) 0.8 TH/MM3 Eosinophils # (Auto) 0.5 TH/MM3 Basophils # (Auto) 0.1 TH/MM3 CBC Comment DIFF FINAL Differential Comment Prothrombin Time 10.6 SEC Prothromb Time International Ratio 1.0 RATIO Activated Partial Thromboplast Time 28.1 SEC Blood Urea Nitrogen 17 MG/DL Creatinine 0.90 MG/DL Random Glucose 69 MG/DL Calcium Level 8.5 MG/DL Magnesium Level 1.9 MG/DL Sodium Level 139 MEQ/L Potassium Level 3.8 MEQ/L Chloride Level 105 MEQ/L Carbon Dioxide Level 27.0 MEQ/L Anion Gap 7 MEQ/L Estimat Glomerular Filtration Rate 85 ML/MIN Total Creatine Kinase 149 U/L Creatine Kinase MB 1.4 NG/ML Troponin I LESS THAN 0.02 NG/ML Lipase 56 U/L MDM Medical Decision Making Medical Screen Exam Complete: Yes Emergency Medical Condition: Yes Medical Record Reviewed: Yes Interpretation(s) Twelve-lead EKG was reviewed by me. Questionable junctional bradycardia with normal axis, PACs. Heart rate of 51 bpm. Differential Diagnosis ACS, non-STEMI Narrative Course 9:16 PM patient is not on Brilinta. He has significant history of coronary artery disease. I would admit him to the chest pain center. Patient understands this plan. Given him 2 baby aspirin's to chew and his Keppra dose for tonight. Procedures EKG Prior to Arrival: No Diagnosis Primary Impression: Chest pain Qualified Codes: R07.9 - Chest pain, unspecified Admitting Information Admitting Physician Requests: Observation Janice Dsouza MD May 27, 2017 21:10
--- NOTE | 2017-05-27 21:25 | EKG ---
Date Performed: 05/27/2017 Time Performed: 18:53:05 PTAGE: 62 years EKG: JUNCTIONAL BRADYCARDIA WITH OCCASIONAL SUPRAVENTRICULAR PREMATURE COMPLEXES ABNORMAL RHYTHM ECG Compared to prior tracing no significant change DOCTOR: Haylee Cleaning Interpretating Date/Time 05/27/2017 21:24:22
[2017-05-27 21:59] LABS: CREATINE KINASE 150 U/L (39-308)
[2017-05-27 22:11] LABS: CKMB 1.5 NG/ML (0.5-3.6)
[2017-05-27 22:46] VITALS: BP 150/87; PULSE 56; RESP 20; TEMP 97.6; O2SAT 97
[2017-05-28 00:37] LABS: CREATINE KINASE 101 U/L (39-308)
[2017-05-28 00:50] LABS: CKMB 1.3 NG/ML (0.5-3.6)
[2017-05-28 01:23] VITALS: BP 137/66; PULSE 54; RESP 18; TEMP 97.9; O2SAT 98
[2017-05-28 01:43] VITALS: PULSE 54
[2017-05-28 03:50] VITALS: BP 137/67; PULSE 57; RESP 19; TEMP 98.1; O2SAT 97
[2017-05-28 07:08] VITALS: PULSE 52
[2017-05-28] MEDS: SODIUM CHLORIDE 0.9% FLUSH 10 ML FLUSH IV FLUSH SCH (07:48)
[2017-05-28 08:12] VITALS: BP 146/81; PULSE 63; RESP 16; TEMP 98; O2SAT 98
[2017-05-28] MEDS ORDERED: oxyCODONE/ACETAMINOPHEN 5 MG/325 MG TAB PO PRN (08:30)
[2017-05-28] MEDS ORDERED: MAGNESIUM HYDROXIDE SUSP 30 ML CUP PO SCH (09:00)
[2017-05-28] MEDS ORDERED: TAMSULOSIN HCL 0.4 MG CAP PO SCH (09:00)
[2017-05-28] MEDS ORDERED: levETIRAcetam 500 MG TAB PO SCH (09:00)
[2017-05-28] MEDS ORDERED: GABAPENTIN 300 MG CAP PO SCH (09:00)
[2017-05-28] MEDS ORDERED: CLOPIDOGREL 75 MG TAB PO SCH (09:00)
[2017-05-28] MEDS ORDERED: ASPIRIN 81 MG CHEW TAB CHEW SCH (09:00)
[2017-05-28] MEDS ORDERED: ATORVASTATIN 40 MG TAB PO SCH (09:00)
[2017-05-28] MEDS ORDERED: PANTOPRAZOLE SOD 40 MG DELAYED RELEASE TAB PO SCH (09:00)
--- NOTE | 2017-05-28 09:00 | HHI.HP ---
[facility] Primary Care Physician Varinder Strange MD Chief Complaint Chest pain History of Present Illness This is a 62-year-old male that presented to the ED with a complaint of chest discomfort that woke him up at 3:30 yesterday morning. Was a pressure sensation in left side of his chest. States it felt similar to when he needed a stent January 2017. Last about 10 minutes. Denies shortness breath, nausea, or diaphoresis. Then yesterday had some alcohol and stated that he felt groggy and stumbled and fell. He is complaining of hitting his head and hurting his knee. Patient also has history of tibial plateau fracture that was repaired in March this year. Was released from rehabilitation a couple days ago and is now staying with son. Voices compliance with all medications. Review of Systems General: Patient denies fevers, chills recent, and recent travel HEENT: Patient denies headache, sore throat, difficulty swallowing. Cardiovascular: Has the chest discomfort as mentioned above. Denies sensation of heart beating rapidly or irregularly. No syncope. Denies diaphoresis. Respiratory: Denies shortness of breath or inspirational chest discomfort. Denies coughing wheezing or hemoptysis. GI: Patient denies nausea, vomiting, diarrhea, abdominal pain, bloody stools. Musculoskeletal: Complains of right knee pain. He had repair of a tibial plateau fracture March this year. Denies calf pain or edema. Neurovascular: Patient denies numbness, tingling, weakness in extremities. Denies headache. Endocrine: Denies polyuria and polydipsia. Hematologic: Denies easy bruising. Skin: Denies rash or itching. Past Family Social History Allergies: Coded Allergies: No Known Allergies (Unverified , 03/13/17) Past Medical History CAD, hypertension, hyperlipidemia, seizure disorder, tobacco abuse, and recent right tibial plateau fracture with repair. Past Surgical History Cardiac catheterization 01/27 with stent. Repair of tibial plateau fracture right knee. Reported Medications Reported Meds & Active Scripts Active Neurontin (Gabapentin) 300 Mg Cap 300 Mg PO TID 15 Days Flomax (Tamsulosin HCl) 0.4 Mg Cap 0.4 Mg PO DAILY 15 Days Senna Plus 8.6-50 mg (Sennosides-Docusate Sodium) 8.6 Mg-50 Mg Tab 1 Tab PO BID 15 Days Eq Milk of Magnesia (Magnesium Hydroxide) 400 Mg/5 Ml Isabela 30 Ml PO Q12HR 15 Days Walker with Front Wheels (Device) 1 Mis Mis Ea .ROUTE DIRECTED Wheelchair Elevated Leg (Device) 1 Mis Mis Ea .ROUTE DIRECTED Pantoprazole (Pantoprazole Sodium) 40 Mg Tab 40 Mg PO DAILY Atorvastatin (Atorvastatin Calcium) 40 Mg Tab 40 Mg PO DAILY Plavix (Clopidogrel Bisulfate) 75 Mg Tab 75 Mg PO DAILY Keppra (Levetiracetam) 1,000 Mg Tab 1,000 Mg PO BID Reported Percocet (Oxycodone-Acetaminophen) 5-325 mg Tab 1 Tab PO Q4HR PRN Active Ordered Medications Current Medications Medications (Trade) Dose Ordered Sig/Natalia Route Start Time Stop Time Status Last Admin (Aspirin Chew) 162 mg DAILY CHEW 05/28/17 09:00 05/28/17 07:47 (NS Flush) 2 ml UNSCH PRN IV FLUSH 05/27/17 21:00 (NS Flush) 2 ml BID IV FLUSH 05/27/17 21:00 05/28/17 07:48 (Tylenol) 500 mg Q4H PRN PO 05/27/17 21:00 05/28/17 07:49 (Zofran Inj) 4 mg Q6H PRN IV PUSH 05/27/17 21:00 (Nitrostat Sl) 0.4 mg Q5M PRN SL 05/27/17 21:00 (Lipitor) 40 mg DAILY PO 05/28/17 09:00 (Plavix) 75 mg DAILY PO 05/28/17 09:00 (Neurontin) 300 mg TID PO 05/28/17 09:00 (Keppra) 1,000 mg BID PO 05/28/17 09:00 (Milk Of Magnesia Liq) 30 ml Q12HR PO 05/28/17 09:00 (Protonix) 40 mg DAILY PO 05/28/17 09:00 (Flomax) 0.4 mg DAILY PO 05/28/17 09:00 (Percocet 5-325 Mg) 1 tab Q4HR PRN PO 05/28/17 08:30 Family History There is family history of CAD. Social History States he smokes a couple cigarettes a day. States has occasional alcohol but will not elaborate further. Denies illicit drugs. Physical Exam Vital Signs Vital Signs Date Time Temp Pulse Resp B/P (MAP) Pulse Ox O2 Delivery O2 Flow Rate FiO2 05/28/17 08:12 98.0 63 16 146/81 (102) 98 05/28/17 07:08 52 05/28/17 06:33 21 05/28/17 03:50 98.1 57 19 137/67 (90) 97 05/28/17 01:43 54 05/28/17 01:23 97.9 54 18 137/66 (89) 98 05/27/17 22:46 97.6 56 20 150/87 (108) 97 05/27/17 21:15 05/27/17 20:18 50 16 144/78 (100) 100 Room Air 05/27/17 16:11 98.4 73 16 175/86 (115) 100 Physical Exam GENERAL: This is a well-nourished, well-developed patient, in no apparent distress. Patient speaks in clear complete sentences. Patient is pleasant. HEENT: Head is atraumatic and normocephalic. Neck is supple without lymphadenopathy and trachea is midline. No JVD or carotid bruits. CARDIOVASCULAR: Regular rate and rhythm without murmurs, gallops, or rubs. RESPIRATORY: Clear to auscultation. Breath sounds equal bilaterally. No wheezes , rales, or rhonchi. Chest wall is nontender. No use of accessory muscles. GASTROINTESTINAL: Abdomen is nontender, nondistended. Abdomen soft. No obvious pulsatile mass or bruit. No CVA tenderness. Strong femoral pulses bilaterally. Normal bowel sounds in all quadrants. MUSCULOSKELETAL: Patient is moving upper and lower extremities freely but there is discomfort with range of motion of his right knee. No calf tenderness or edema, no Homans sign. Strong pulses in upper and lower extremities. NEUROLOGICAL: Patient is alert and oriented. Cranial nerves 2-12 are grossly intact. No focal deficits and speech is clear. SKIN: No rash and turgor is normal. Laboratory Laboratory Tests Test 05/27/17 18:45 05/27/17 21:05 05/27/17 23:56 White Blood Count 8.5 Red Blood Count 4.53 Hemoglobin 10.5 Hematocrit 33.5 Mean Corpuscular Volume 74.0 Mean Corpuscular Hemoglobin 23.3 Mean Corpuscular Hemoglobin Concent 31.4 Red Cell Distribution Width 18.4 Platelet Count 284 Mean Platelet Volume 7.6 Neutrophils (%) (Auto) 55.2 Lymphocytes (%) (Auto) 29.0 Monocytes (%) (Auto) 9.6 Eosinophils (%) (Auto) 5.4 Basophils (%) (Auto) 0.8 Neutrophils # (Auto) 4.7 Lymphocytes # (Auto) 2.5 Monocytes # (Auto) 0.8 Eosinophils # (Auto) 0.5 Basophils # (Auto) 0.1 CBC Comment DIFF FINAL Differential Comment Prothrombin Time 10.6 Prothromb Time International Ratio 1.0 Activated Partial Thromboplast Time 28.1 Blood Urea Nitrogen 17 Creatinine 0.90 Random Glucose 69 Calcium Level 8.5 Magnesium Level 1.9 Sodium Level 139 Potassium Level 3.8 Chloride Level 105 Carbon Dioxide Level 27.0 Anion Gap 7 Estimat Glomerular Filtration Rate 85 Total Creatine Kinase 149 150 101 Creatine Kinase MB 1.4 1.5 1.3 Troponin I LESS THAN 0.02 LESS THAN 0.02 LESS THAN 0.02 Lipase 56 Result Diagram: 05/27/17 1845 05/27/17 1845 Imaging Last 48 hours Impressions Chest X-Ray 05/27/17 1641 Signed Impressions: Service Date/Time: Saturday, May 27, 2017 17:31 - CONCLUSION: 1. 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 2. No acute cardiopulmonary findings identified. Enoch Crisostomo MD Knee X-Ray 05/27/17 0000 Signed Impressions: Service Date/Time: Saturday, May 27, 2017 17:26 - CONCLUSION: Known fracture through the proximal tibia the alignment appears similar to the immediate postoperative exam of 03/21/17. The fracture through the fibula appears stable as well. Enoch Crisostomo MD Head CT 05/27/17 0000 Signed Impressions: Service Date/Time: Saturday, May 27, 2017 17:10 - CONCLUSION: 1. Mild left frontal scalp soft tissue swelling. No fracture or acute intracranial abnormality is identified. 2. Stable right temporal and occipital region encephalomalacia. Varinder Martinez MD Course EKGs have sinus rhythm without significant ST segment depressions or elevations. Caprini VTE Risk Assessment Caprini VTE Risk Assessment: Mod/High Risk (score >= 2) Caprini Risk Assessment Model Point Value = 1 Point Value = 2 Point Value = 3 Point Value = 5 Age 41-60 Minor surgery BMI > 25 kg/m2 Swollen legs Varicose veins or History of unexplained or recurrent spontaneous Oral contraceptives or hormone replacement Sepsis (< 1 month) Serious lung disease, including pneumonia (< 1 month) Abnormal pulmonary function Acute myocardial infarction Congestive heart failure (< 1 month) History of inflammatory bowel disease Medical patient at bed rest Age 61-74 Arthroscopic surgery Major open surgery (> 45 min) Laparoscopic surgery (> 45 min) Malignancy Confined to bed (> 72 hours) Immobilizing plaster cast Central venous access Age >= 75 History of VTE Family history of VTE Factor V Leiden Prothrombin [id number] Lupus anticoagulant Anticardiolipin antibodies Elevated serum homocysteine Heparin-induced thrombocytopenia Other congenital or acquired thrombophilia Stroke (< 1 month) Elective arthroplasty Hip, pelvis, or leg fracture Acute spinal cord injury (< 1 month) Prophylaxis Regimen Total Risk Factor Score Risk Level Prophylaxis Regimen 0-1 Low Early ambulation 2 Moderate Order ONE of the following: *Sequential Compression Device (SCD) *Heparin 5000 units SQ BID 3-4 Higher Order ONE of the following medications: *Heparin 5000 units SQ TID *Enoxaparin/Lovenox 40 mg SQ daily (WT < 150 kg, CrCl > 30 mL/min) *Enoxaparin/Lovenox 30 mg SQ daily (WT < 150 kg, CrCl > 10-29 mL/min) *Enoxaparin/Lovenox 30 mg SQ BID (WT < 150 kg, CrCl > 30 mL/min) AND/OR *Sequential Compression Device (SCD) 5 or more Highest Order ONE of the following medications: *Heparin 5000 units SQ TID (Preferred with Epidurals) *Enoxaparin/Lovenox 40 mg SQ daily (WT < 150 kg, CrCl > 30 mL/min) *Enoxaparin/Lovenox 30 mg SQ daily (WT < 150 kg, CrCl > 10-29 mL/min) *Enoxaparin/Lovenox 30 mg SQ BID (WT < 150 kg, CrCl > 30 mL/min) AND *Sequential Compression Device (SCD) Assessment and Plan Assessment and Plan * Chest pain: Patient does it history of CAD. He has not followed with cardiology after having stent placed in January. He has been seen by Dr. Head cardiology and the chest pain center. He will undergo a Lexiscan and if that is nonischemic he'll be discharged home with instructions follow-up with PCP as well as uniform room attendant. He should return to ED for interval issues. * Right knee pain: Patient had recent repair of a tibial plateau fracture. X- rays show stable by radiology. * Hypertension: Continue current medication * Hyperlipidemia: Continue current medication. * Tobacco abuse: Patient counseled on importance of smoking cessation. A she is stable at this time. He is agreeable to this plan. Sanjay Minaya May 28, 2017 09:00
[2017-05-28 10:27] LABS: HDL CHOLESTEROL 52.7 MG/DL (40.0-60.0); INDIRECT BILIRUBIN 0.5 MG/DL (0.0-0.8); TOTAL BILIRUBIN ADULT 0.6 MG/DL (0.2-1.0)
[2017-05-28] MEDS ORDERED: REGADENOSON INJ 0.4 MG/5 ML SYR ONE (12:00)
--- NOTE | 2017-05-28 13:17 | RADRPT ---
EXAM DATE/TIME: 05/28/2017 11:37 [facility] COMPARISON: MYOCARDIAL PERF PHARM SPECT, GATED W/EF, February 05, 2017, 15:07. INDICATIONS : Left sided chest pain. Angina. Coronary artery disease. DOSE: 26.3 mCi Tc99m Myoview at stress. 8.5 mCi Tc99m Myoview at rest. 0.4 mg Lexiscan STRESS SYMPTOMS: Chest tightness and shortness of breath. EJECTION FRACTION: 68% MEDICAL HISTORY : Hypertension. SURGICAL HISTORY : Coronary artery stent. Right tibia repair. ENCOUNTER: Initial ACUITY: 1 day PAIN SCALE: 4/10 LOCATION: Substernal chest TECHNIQUE: The patient underwent pharmacologic stress with infusion of prescribed dose. Continuous ECG tracing was monitored during stress. Gated SPECT imaging was performed after stress and conventional SPECT i maging was performed at rest. The examination was performed on a SPECT/CT scanner, both attenuation and non-corrected datasets were reviewed. FINDINGS: DISTRIBUTION: The maximum perfused segment at stress is in the anterior wall. PERFUSION STUDY: The pattern of perfusion at stress is within normal limits. GATED STUDY: There is intact wall motion and thickening without hypokinetic or dyskinetic segments. CONCLUSION: 1. No reversible perfusion defect to indicate stress-induced myocardial ischemia identified. RISK CATEGORY: Low (<1% Annual Mortality Rate) Enoch Crisostomo MD on May 28, 2017 at 13:14 Board Certified Radiologist. This report was verified electronically.
[2017-05-28 13:21] VITALS: BP 156/77; PULSE 60; RESP 16; TEMP 99.4; O2SAT 100
[2017-05-28] MEDS ORDERED: NITR1SUB3 SL (13:26)
[2017-05-28] MEDS ORDERED: AMLO5TAB2 PO (13:26)
--- NOTE | 2017-05-28 13:27 | HHI.DCPOC ---
Discharge Care Plan Diagnosis: (1) Chest pain (2) Coronary artery disease (3) H/O heart artery stent (4) Hypertension (5) Tobacco abuse (6) Hyperlipidemia Goals to Promote Your Health * To prevent worsening of your condition and complications * To maintain your health at the optimal level Directions to Meet Your Goals Take your medications as prescribed Follow your dietary instruction Follow activity as directed Keep your appointments as scheduled Take your immunizations and boosters as scheduled If your symptoms worsen call your PCP, if no PCP go to Urgent Care Center or Emergency Room Smoking is Dangerous to Your Health. Avoid second hand smoke Call the 24-hour hour crisis hotline for domestic abuse at Sanjay Minaya May 28, 2017 13:27
--- NOTE | 2017-05-28 16:22 | EKG ---
Date Performed: 05/28/2017 Time Performed: 01:32:43 PTAGE: 62 years EKG: SINUS BRADYCARDIA WITH MARKED SINUS ARRHYTHMIA BORDERLINE ECG Since PREVIOUS TRACING , no significant change noted PREVIOUS TRACIN05/27/2017 23.01 DOCTOR: Roseann Head Interpretating Date/Time 05/28/2017 16:21:52
--- NOTE | 2017-05-28 16:31 | TR ---
Date Performed: 05/28/2017 Time Performed: 12:00:12 DOCTOR: Roseann Head DRUG LIST: CLINICAL HISTORY: CHEST PAIN REASON FOR TEST: CHEST PAIN REASON FOR ENDING: OBSERVATION: CONCLUSION: Lexiscan stress test was performed under standard four minute protocol. Radionuclid e was injected one minute prior to ending the test. No electrocardiographic abormalities were present to suggest ischemia. Nuclear imaging and interpretation are pending. COMMENTS:
--- NOTE | 2017-05-28 16:35 | EKG ---
Date Performed: 05/27/2017 Time Performed: 21:31:03 PTAGE: 62 years EKG: Ectopic Atrial Rhythm ABNORMAL RHYTHM ECG PREVIOUS TRACING : 05/27/2017 18.53 DOCTOR: Roseann Head Interpretating Date/Time 05/28/2017 16:35:08
--- NOTE | 2017-05-28 16:36 | EKG ---
Date Performed: 05/27/2017 Time Performed: 23:01:58 PTAGE: 62 years EKG: SINUS BRADYCARDIA WITH MARKED SINUS ARRHYTHMIA BORDERLINE ECG Artifact Since PREVIOUS TRACING , now bradycardic PREVIOUS TRACIN05/27/2017 18.53 DOCTOR: Roseann Head Interpretating Date/Time 05/28/2017 16:35:55
== END 2017-05-28 14:46 | disposition home or self-care (01) ==
LOC: NEPC 16:10 → NEDA 20:53 → NEPFCDU 22:04
PROVIDERS: ADMIT Internal Medicine Interventional Cardiology; ATTEND Internal Medicine Interventional Cardiology
DX: R07.89 Other chest pain (principal); M25.561 Pain in right knee; I10 Essential (primary) hypertension; E78.5 Hyperlipidemia, unspecified; I25.10 Atherosclerotic heart disease of native coronary artery without angina pectoris; R94.31 Abnormal electrocardiogram [ECG] [EKG]; I20.9 Angina pectoris, unspecified; R06.02 Shortness of breath; R00.1 Bradycardia, unspecified; M25.529 Pain in unspecified elbow; G93.89 Other specified disorders of brain; G40.909 Epilepsy, unspecified, not intractable, without status epilepticus; J45.909 Unspecified asthma, uncomplicated; I69.354 Hemiplegia and hemiparesis following cerebral infarction affecting left non-dominant side; F32.9 Major depressive disorder, single episode, unspecified; F17.210 Nicotine dependence, cigarettes, uncomplicated; Z79.899 Other long term (current) drug therapy; Z95.5 Presence of coronary angioplasty implant and graft; W01.0XXA Fall on same level from slipping, tripping and stumbling without subsequent striking against object, initial encounter
CPT/HCPCS: 70450; 71020; 73564; 78452; 80048; 80061; 80076; 82550; 82552; 83690; 83735; 84484; 85025; 85610; 85730; 93005; 93017; 99285; A9502; G0378; J2785

== ENCOUNTER 2017-06-01 17:20 | Emergency (ER) | payer OTHER ==
[~2017-06-01] VITALS: Ht 167.6 cm; Wt 82.0 kg
[~2017-06-01 17:20] MED LIST changes: +AMLO5TAB2 PO; -ENOX40P SQ; -Lactulose Liq PO; +NITR1SUB3 SL
[2017-06-01 17:25] VITALS: BP 137/74; PULSE 82; RESP 16; TEMP 97.8; O2SAT 100
[2017-06-01 17:54] VITALS: RESP 18; O2SAT 99
[2017-06-01] MEDS ORDERED: levETIRAcetam INJ 100 ML IV ONE (18:30)
[2017-06-01] MEDS ORDERED: KEPP10002 PO (19:11)
--- NOTE | 2017-06-01 19:11 | PD ---
HPI Chief Complaint: Seizure Time Seen by Provider: 17:55 Travel History International Travel<30 days: No Contact w/Intl Traveler<30days: No Traveled to known affect area: No History of Present Illness HPI This 62 old man who presents emergency department after being found unresponsive on hospital property. He came to feels like he may have had a seizure. He was initially confused but this is resolved now. He denies any complaint at this time. States he ran out of his Keppra couple days ago. Denies any headache, neck pain, head trauma. He does have a recent leg fracture which is still sore and bothering him. A little bit of back pain as well. Urinary symptoms briefly seen in the hospital for chest pain. No other recent illness or injury. History Past Medical History Narrative Medical Seizures Asthma CAD Hypertension on hyperlipidemia Tetanus Vaccination: < 5 Years Social History Alcohol Use: Yes (OCCASIONALLY) Tobacco Use: Yes (2 cigarettes/day) Allergies-Medications (Allergen,Severity, Reaction): Coded Allergies: No Known Allergies (Unverified Allergy, Unknown, 06/01/17) Reported Meds & Prescriptions Reported Meds & Active Scripts Active Amlodipine (Amlodipine Besylate) 5 Mg Tab 5 Mg PO DAILY Nitroglycerin SL (Nitroglycerin) 0.4 Mg Subl 0.4 Mg SL DIRECTED PRN ONE TABLET UNDER THE TONGUE NEEDED FOR CHEST PAIN, MAY REPEAT EVERY FIVE MINUTES FOR A TOTAL OF 3 DOSES OR CALL 911 IF NO RELIEF Neurontin (Gabapentin) 300 Mg Cap 300 Mg PO TID 15 Days Flomax (Tamsulosin HCl) 0.4 Mg Cap 0.4 Mg PO DAILY 15 Days Walker with Front Wheels (Device) 1 Mis Mis Ea .ROUTE DIRECTED Wheelchair Elevated Leg (Device) 1 Mis Mis Ea .ROUTE DIRECTED Pantoprazole (Pantoprazole Sodium) 40 Mg Tab 40 Mg PO DAILY Atorvastatin (Atorvastatin Calcium) 40 Mg Tab 40 Mg PO DAILY Plavix (Clopidogrel Bisulfate) 75 Mg Tab 75 Mg PO DAILY Keppra (Levetiracetam) 1,000 Mg Tab 1,000 Mg PO BID Review of Systems Except as stated in HPI: all other systems reviewed are Neg Physical Exam Narrative GENERAL: Well-appearing 62-year-old man, no acute distress. SKIN: Focused skin assessment warm/dry. HEAD: Normocephalic. No evidence of trauma. EYES: Pupils equal and round. No scleral icterus. No injection or drainage. ENT: No nasal bleeding or discharge. Mucous membranes pink and moist. NECK: Trachea midline. No JVD. Full painless range of motion. CARDIOVASCULAR: Regular rate and rhythm. No murmur appreciated. RESPIRATORY: No accessory muscle use. Clear to auscultation. Breath sounds equal bilaterally. GASTROINTESTINAL: Abdomen soft, non-tender, nondistended. Hepatic and splenic margins not palpable. MUSCULOSKELETAL: No obvious deformities. No edema. NEUROLOGICAL: Awake and alert. No obvious cranial nerve deficits. Motor grossly within normal limits. Normal speech. PSYCHIATRIC: Appropriate mood and affect; insight and judgment normal. Data Data Last Documented VS Vital Signs Date Time Temp Pulse Resp B/P (MAP) Pulse Ox O2 Delivery O2 Flow Rate FiO2 06/01/17 17:54 99 Room Air 06/01/17 17:54 18 06/01/17 17:25 97.8 82 137/74 (95) Orders Orders Blood Glucose (06/01/17 17:43) Iv Access Insert/Monitor (06/01/17 17:43) Ecg Monitoring (06/01/17 17:43) Oxygen Administration (06/01/17 17:43) Basic Metabolic Panel (Bmp) (06/01/17 17:43) Oximetry (06/01/17 17:43) Levetiracetam 1000 Mg Inj (Keppra 1000 M (06/01/17 18:30) Labs Laboratory Tests Test 06/01/17 17:25 [facility] Medical Decision Making Medical Screen Exam Complete: Yes Emergency Medical Condition: Yes Differential Diagnosis Seizures, head injury, infection, weakness, other Narrative Course Medical decision-making 62-year-old man who presents emergency room complaining of stable episode, probable seizure. Looks well. States a Keppra for several days. Will dose Keppra, check electrolytes, likely discharge. Patient signed out to Dr. Ansari the follow-up on the results of labs. Diagnosis Primary Impression: Seizure Additional Instructions: Take Keppra as prescribed. Follow Up with your primary doctor in the next 2-4 days. Med/Other Pt SpecificInfo: Prescription(s) given Scripts Levetiracetam (Keppra) 1,000 Mg Tab 1000 MG PO BID for Control Seizures, #60 TAB 0 Refills Prov: Chon Ramos MD 06/01/17 Disposition: 01 DISCHARGE HOME Condition: Stable Chon Ramos MD Jun 01, 2017 19:11
[2017-06-01 19:24] LABS: BICARBONATE 22.4 MEQ/L (21.0-32.0); POTASSIUM 3.8 MEQ/L (3.5-5.1)
--- NOTE | 2017-06-01 19:32 | PD ---
Data Data Last Documented VS Vital Signs Date Time Temp Pulse Resp B/P (MAP) Pulse Ox O2 Delivery O2 Flow Rate FiO2 06/01/17 17:54 99 Room Air 06/01/17 17:54 18 06/01/17 17:25 97.8 82 137/74 (95) Orders Orders Blood Glucose (06/01/17 17:43) Iv Access Insert/Monitor (06/01/17 17:43) Ecg Monitoring (06/01/17:43) Oxygen Administration (06/01/17:43) Basic Metabolic Panel (Bmp) (06/01/17 17:43) Oximetry (06/01/17 17:43) Levetiracetam 1000 Mg Inj (Keppra 1000 M (06/01/17 18:30) Labs Laboratory Tests Test 06/01/17 17:25 Blood Urea Nitrogen 8 MG/DL Creatinine 0.91 MG/DL Random Glucose 83 MG/DL Calcium Level 8.5 MG/DL Sodium Level 137 MEQ/L Potassium Level 3.8 MEQ/L Chloride Level 108 MEQ/L Carbon Dioxide Level 22.4 MEQ/L Anion Gap 7 MEQ/L Estimat Glomerular Filtration Rate 84 ML/MIN [facility] Medical Record Reviewed: Yes Supervised Visit with GRETEL: No Narrative Course During the course of the patients emergency department visit, the patients history, examination, and differential diagnosis were reviewed with the patient. The patient was placed on a site monitor with oximetry and frequent blood pressure monitoring. The patient had IV access obtained and blood work sent for analysis. The patient's case is checked out to me by Dr. Ramos. Please see his complete history and physical. The patient was initially provided Keppra 1 g IV. The patients laboratory studies were reviewed and remarkable for a basic metabolic profile that shows a chloride of 108, GFR of 84 The patient reports that he is normally on Keppra 1 g by mouth twice a day. He reports that he's been out of this medication over the last few days. The patient will be given a refill of this medication. The patient is instructed to follow-up with his physician in 1 week. The patient is resting comfortably and feels better, is alert and in no distress. The patients results and examination findings were discussed with the patient. The repeat examination is unremarkable and benign. The history, exam, diagnostic testing, and current condition do not suggest any significant pathology to warrant further testing, continued ED treatment, admission, or surgical evaluation at this point. The vital signs have been stable. The patient does not have uncontrollable pain, intractable vomiting, or other significant symptoms. The patient's condition is stable and appropriate for discharge. The patient will pursue further outpatient evaluation with a primary care physician or other designated or consulting physician as indicated in the discharge instructions. The patient expressed understanding and was agreeable with this plan. Diagnosis Primary Impression: Seizure Referrals: Primary Care Physician 3 days Patient Instructions: General Instructions, Recurrent Seizures in Adults (ED) Departure Forms: Tests/Procedures Additional Instruction: Take Keppra as prescribed. Follow Up with your primary doctor in the next 2-4 days. Med/Other Pt SpecificInfo: Prescription(s) given Scripts Levetiracetam (Keppra) 1,000 Mg Tab 1000 MG PO BID for Control Seizures, #60 TAB 0 Refills Prov: Chon Ramos MD 06/01/17 Disposition: 01 DISCHARGE HOME Condition: Stable Tonya Ansari MD Jun 01, 2017 19:32
== END 2017-06-01 20:24 | disposition home or self-care (01) ==
LOC: NEPE 17:20
DX: R56.9 Unspecified convulsions (principal); M54.9 Dorsalgia, unspecified; J45.909 Unspecified asthma, uncomplicated; I25.10 Atherosclerotic heart disease of native coronary artery without angina pectoris; I10 Essential (primary) hypertension; E78.5 Hyperlipidemia, unspecified; F17.210 Nicotine dependence, cigarettes, uncomplicated; Z79.02 Long term (current) use of antithrombotics/antiplatelets; Z79.899 Other long term (current) drug therapy
CPT/HCPCS: 80048; 96374; 99284; J1953

== ENCOUNTER 2017-06-05 22:25 | Emergency (ER) | payer OTHER ==
[~2017-06-05 22:25] MED LIST changes: -MAGN400S PO; -PERC5TAB12 PO; -SENN1TAB PO
[2017-06-05 22:31] VITALS: BP 145/91; PULSE 75; RESP 21; TEMP 98.6; O2SAT 100
[2017-06-05] MEDS ORDERED: DILA100C PO (23:43)
[2017-06-05] MEDS ORDERED: PHENYTOIN INJ 1,000 MG in SODIUM CHLORIDE 0.9% INJ 100 ML IV ONE (23:45)
--- NOTE | 2017-06-05 23:48 | PD ---
HPI Chief Complaint: Seizure Time Seen by Provider: 23:33 Travel History International Travel<30 days: No Contact w/Intl Traveler<30days: No Traveled to known affect area: No History of Present Illness HPI This patient has history of seizure disorder. He is supposed to be taking Keppra but his insurance will not cover it and he cannot get the prescription filled. He's been off it for a while now. He got a one-time IV load when he was here in the ER a few days ago but hasn't had any since. He was here visiting his son who is an inpatient and while visiting him had a seizure. He denies injury. He feels fine at this time he did bite his tongue during the seizure but feels well. Denies head injury or any head or neck pain. Symptoms severity is mild. No alleviating factors. Duration event was about 1 minute. Symptoms exacerbated by inability to obtain Keppra PFSH Past Medical History Hx Anticoagulant Therapy: Yes (ASPIRIN) Asthma: Yes Autoimmune Disease: No Anxiety: No Depression: Yes Heart Rhythm Problems: No Cancer: No Cardiac Catheterization: Yes (STENT X1) Cardiovascular Problems: Yes (HTN) High Cholesterol: No Chemotherapy: No Chest Pain: No Congestive Heart Failure: No COPD: No Cerebrovascular Accident: Yes Coronary Artery Disease: Yes Diabetes: No Diminished Hearing: No Endocrine: No Gastrointestinal Disorders: No Genitourinary: No Headaches: Yes Heparin Induced Thrombocytopen: No Hypertension: Yes Immune Disorder: No Implanted Vascular Access Dvce: No Kidney Stones: No Musculoskeletal: No Neurologic: Yes Psychiatric: No Reproductive: No Respiratory: Yes (asthma) Immunizations Current: Yes Migraines: No Radiation Therapy: No Renal Failure: No 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, "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") Sickle Cell Disease: No Sleep Apnea: No Ulcer: No Past Surgical History Abdominal Surgery: No AICD: No Arteriovenous Shunt: No Body Medical Devices: Cardiac stent Cardiac Surgery: Yes (STENT ) Coronary Artery Bypass Graft: No Ear Surgery: No Endocrine Surgery: No Eye Surgery: No Genitourinary Surgery: No Gynecologic Surgery: No Insulin Pump: No Joint Replacement: No Neurologic Surgery: No Oral Surgery: No Pacemaker: No Thoracic Surgery: No Other Surgery: Yes Family History Family Myocardial Infarction: Yes (mother, father, brother) Social History Alcohol Use: Yes (OCCASIONALLY) Tobacco Use: Yes (2 cigarettes/day) Substance Use: No Allergies-Medications (Allergen,Severity, Reaction): Coded Allergies: No Known Allergies (Unverified Allergy, Unknown, 06/05/17) Reported Meds & Prescriptions Reported Meds & Active Scripts Active Keppra (Levetiracetam) 1,000 Mg Tab 1,000 Mg PO BID Amlodipine (Amlodipine Besylate) 5 Mg Tab 5 Mg PO DAILY Nitroglycerin SL (Nitroglycerin) 0.4 Mg Subl 0.4 Mg SL DIRECTED PRN ONE TABLET UNDER THE TONGUE NEEDED FOR CHEST PAIN, MAY REPEAT EVERY FIVE MINUTES FOR A TOTAL OF 3 DOSES OR CALL 911 IF NO RELIEF Neurontin (Gabapentin) 300 Mg Cap 300 Mg PO TID 15 Days Flomax (Tamsulosin HCl) 0.4 Mg Cap 0.4 Mg PO DAILY 15 Days Walker with Front Wheels (Device) 1 Mis Mis Ea .ROUTE DIRECTED Wheelchair Elevated Leg (Device) 1 Mis Mis Ea .ROUTE DIRECTED Pantoprazole (Pantoprazole Sodium) 40 Mg Tab 40 Mg PO DAILY Atorvastatin (Atorvastatin Calcium) 40 Mg Tab 40 Mg PO DAILY Plavix (Clopidogrel Bisulfate) 75 Mg Tab 75 Mg PO DAILY Review of Systems General / Constitutional: No: Fever Eyes: No: Visual changes HENT: No: Headaches Cardiovascular: No: Chest Pain or Discomfort Respiratory: No: Shortness of Breath Gastrointestinal: No: Abdominal Pain Genitourinary: No: Dysuria Musculoskeletal: No: Pain Skin: No Rash Neurologic: Positive: Seizures, No: Weakness Psychiatric: No: Depression Endocrine: No: Polydipsia Hematologic/Lymphatic: No: Easy Bruising Physical Exam Narrative GENERAL: Well-nourished, well-developed patient in no apparent distress. SKIN: Focused skin assessment reveals no rash and nodules. Skin is Warm and dry. HEAD: Atraumatic. Normocephalic. EYES: Pupils equal and round. No scleral icterus. No injection or drainage. ENT: No nasal bleeding or discharge. Mucous membranes pink and moist. Ecchymosis at the tip of the tongue NECK: Trachea midline. No JVD. No midline tenderness CARDIOVASCULAR: Regular rate and rhythm. No murmur appreciated. RESPIRATORY: No accessory muscle use. Clear to auscultation. Breath sounds equal bilaterally. GASTROINTESTINAL: Abdomen soft, non-tender, nondistended. Hepatic and splenic margins not palpable. MUSCULOSKELETAL: No obvious deformities. No clubbing. No cyanosis. No edema. NEUROLOGICAL: Awake and alert. No obvious cranial nerve deficits. Motor grossly within normal limits. Normal speech. PSYCHIATRIC: Appropriate mood and affect; insight and judgment normal. Data Data Last Documented VS Vital Signs Date Time Temp Pulse Resp B/P (MAP) Pulse Ox O2 Delivery O2 Flow Rate FiO2 06/05/17 22:34 81 21 100 Room Air 06/05/17 22:31 98.6 145/91 (109) Orders Orders Phenytoin Inj (Dilantin Inj) (06/05/17 23:45) MDM Medical Decision Making Medical Screen Exam Complete: Yes Emergency Medical Condition: Yes Medical Record Reviewed: Yes Differential Diagnosis Breakthrough seizure, noncompliance, anxiety, tremor Narrative Course I have reviewed the patient's electronic medical record. Reviewed his most recent visit which was 4 seizure. He had full lab workup at that time IV placed Had a lengthy discussion regarding his seizure medications. He likes the Keppra but cannot afford it and his insurance does not cover it. We discussed at length. He's been on Dilantin before and did not have an allergic reaction to it. He says it made him anxious. I'm recommending a Dilantin load and I will write him one month of Dilantin until he can decide to continue or change medications after discussion with his physician. He is agreeable. Diagnosis Primary Impression: Recurrent seizures Additional Instructions: The patient was advised to follow up with their physician and return if they worsen. Take Dilantin as prescribed. Discussed with your physician when you should continue or change to a different medication Med/Other Pt SpecificInfo: Prescription(s) given Scripts Phenytoin Extended (Dilantin) 100 Mg Cap 100 MG PO TID for Control Seizures, #90 CAP 0 Refills Prov: Toño Carrasquillo MD 06/05/17 Disposition: 01 DISCHARGE HOME Condition: Stable Toño Carrasquillo MD Jun 05, 2017 23:48
[2017-06-05 23:49] VITALS: BP 124/72; PULSE 76; RESP 18; O2SAT 100
== END 2017-06-06 04:41 | disposition home or self-care (01) ==
LOC: NEPE 22:25
DX: G40.909 Epilepsy, unspecified, not intractable, without status epilepticus (principal); J45.909 Unspecified asthma, uncomplicated; F32.9 Major depressive disorder, single episode, unspecified; I10 Essential (primary) hypertension; I25.10 Atherosclerotic heart disease of native coronary artery without angina pectoris; F17.210 Nicotine dependence, cigarettes, uncomplicated; Z86.73 Personal history of transient ischemic attack (TIA), and cerebral infarction without residual deficits; Z79.01 Long term (current) use of anticoagulants; Z79.899 Other long term (current) drug therapy
CPT/HCPCS: 96374; 99284; J1165

== ENCOUNTER 2017-06-18 05:53 | Emergency (ER) | payer OTHER ==
[~2017-06-18] VITALS: Ht 165.1 cm; Wt 85.0 kg
[~2017-06-18 05:53] MED LIST changes: +DILA100C PO
[2017-06-18 06:01] VITALS: BP 149/73; PULSE 57; RESP 20; TEMP 98.1; O2SAT 100
[2017-06-18] MEDS ORDERED: LISI10TA3 PO (06:01)
[2017-06-18 06:22] VITALS: O2SAT 98
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
[2017-06-18 06:43] LABS: AUTOMATED NEUTROPHIL # 3.2 TH/MM3 (1.8-7.7); BASOPHIL # 0.1 TH/MM3 (0-0.2); BASOPHIL % 0.9 % (0.0-2.0); EOSINOPHIL # 0.6 TH/MM3 (0-0.4); EOSINOPHIL % 9.4 % (0.0-4.0); HEMATOCRIT 38.4 % (39.0-51.0); HEMO FLAGS DIFF FINAL; LYMPH % 32.3 % (9.0-44.0); LYMPHOCYTE # 2.1 TH/MM3 (1.0-4.8); MEAN CELL VOLUME 73.6 FL (80.0-100.0); MEAN CORPUSCULAR HEMOGLOBIN 23.5 PG (27.0-34.0); MONO % 8.5 % (0.0-8.0); NEUT % 48.9 % (16.0-70.0); PLATELET COUNT 262 TH/MM3 (150-450); RED BLOOD COUNT 5.21 MIL/MM3 (4.50-5.90); RED CELL DISTRIBUTION WIDTH 21.3 % (11.6-17.2); WHITE BLOOD COUNT 6.5 TH/MM3 (4.0-11.0)
[2017-06-18 06:48] LABS: PROTHROMBIN TIME - PATIENT 10.4 SEC (9.8-11.6)
[2017-06-18 06:53] LABS: ALT (GPT) 18 U/L (12-78); ANION GAP 7 MEQ/L (5-15); AST (GOT) 16 U/L (15-37); BICARBONATE 26.1 MEQ/L (21.0-32.0); BLOOD UREA NITROGEN 15 MG/DL (7-18); CHLORIDE 108 MEQ/L (98-107); GLOMERULAR FILTRATION RATE 74 ML/MIN (>89); POTASSIUM 3.7 MEQ/L (3.5-5.1); SODIUM (NA) 141 MEQ/L (136-145)
[2017-06-18 06:56] LABS: ALKALINE PHOSPHATASE 119 U/L (45-117); CREATINE KINASE 114 U/L (39-308); TOTAL BILIRUBIN ADULT 0.3 MG/DL (0.2-1.0)
--- NOTE | 2017-06-18 06:58 | RADRPT ---
EXAM DATE/TIME: 06/18/2017 06:35 [facility] COMPARISON: CHEST SINGLE AP, March 21, 2017, 12:19. INDICATIONS : Fall, seizure, short of breath. MEDICAL HISTORY : Cerebrovascular disease. Cardiovascular disease Seizures. HTN SURGICAL HISTORY : None. ENCOUNTER: Initial ACUITY: 1 day PAIN SCORE: 5/10 LOCATION: Bilateral chest FINDINGS: A single view of the chest demonstrates the lungs to be symmetrically aerated without evidence of mas s, infiltrate or effusion. The cardiomediastinal contours are unremarkable. Osseous structures are stable in appearance with old right clavicular fracture. CONCLUSION: No acute disease. Jovanni Gaston MD on June 18, 2017 at 6:56 Board Certified Radiologist. This report was verified electronically.
[2017-06-18 07:05] LABS: ALCOHOL LESS THAN 3 MG/DL (0-5)
[2017-06-18 07:17] LABS: CKMB 1.2 NG/ML (0.5-3.6)
--- NOTE | 2017-06-18 07:18 | RADRPT ---
EXAM DATE/TIME: 06/18/2017 06:37 [facility] COMPARISON: No previous studies available for comparison. INDICATIONS : Right hip pain, from fall. MEDICAL HISTORY : None. SURGICAL HISTORY : None. ENCOUNTER: Initial ACUITY: 1 day PAIN SCORE: 5/10 LOCATION: Right hip FINDINGS: Examination of the right hip was performed with AP Pelvis. The primary and secondary trabecular miguel damaris of the femoral neck is intact. The hip joint is of normal width without significant sclerosis or bony hypertrophy. The acetabulum is grossly intact. CONCLUSION: No acute fracture or joint dislocation. Khari Cowan MD on June 18, 2017 at 7:16 Board Certified Radiologist. This report was verified electronically.
--- NOTE | 2017-06-18 07:19 | RADRPT ---
EXAM DATE/TIME: 06/18/2017 06:40 [facility] COMPARISON: KNEE RIGHT COMPLETE (4VWS), May 27, 2017, 17:26. INDICATIONS : Knee pain, from fall, medial portion of knee. MEDICAL HISTORY : None. SURGICAL HISTORY : ORIF Knee. ENCOUNTER: Initial ACUITY: 1 day PAIN SCORE: 5/10 LOCATION: Right knee FINDINGS: Today's exam is compared to the prior study of 05/27/2017. There is internal fixation for previous fr acture involving the possible tibia. There is no change in the alignment or position of the fracture fragments. Hardware remains grossly intact. No joint dislocation. No change in the fractures involvin g the proximal fibula. No evidence of joint effusion. CONCLUSION: No change in the alignment or position of the fracture fragments involving the tibia and fibula. Khari Cowan MD on June 18, 2017 at 7:16 Board Certified Radiologist. This report was verified electronically.
--- NOTE | 2017-06-18 07:28 | RADRPT ---
EXAM DATE/TIME: 06/18/2017 07:15 [facility] COMPARISON: CT BRAIN W/O CONTRAST, May 27, 2017, 17:10. INDICATIONS : Seizure, fell off bench. RADIATION DOSE: 36.25 CTDIvol (mGy) MEDICAL HISTORY : Seizures. Cardiovascular disease Hypertension. SURGICAL HISTORY : None. ENCOUNTER: Initial ACUITY: 1 day PAIN SCALE: 3/10 LOCATION: Bilateral cranial TECHNIQUE: Multiple contiguous axial images were obtained of the head. Using automated exposure control and adj ustment of the mA and/or kV according to patient size, radiation dose was kept as low as reasonably a chievable to obtain optimal diagnostic quality images. DICOM format image data is available electro nically for review and comparison. FINDINGS: CEREBRUM: The ventricles are normal for age. No evidence of midline shift, mass lesion, hemorrhage or acute in farction. There is stable encephalomalacia involving the right temporal/occipital region. No extra-a xial fluid collections are seen. POSTERIOR FOSSA: The cerebellum and brainstem are intact. The 4th ventricle is midline. The cerebellopontine angle i s unremarkable. EXTRACRANIAL: The visualized portion of the orbits is intact. SKULL: The calvaria is intact. No evidence of skull fracture. CONCLUSION: Stable CT scan of the brain compared to the prior examination. No new or acute intracranial pathology . Khari Cowan MD on June 18, 2017 at 7:26 Board Certified Radiologist. This report was verified electronically.
--- NOTE | 2017-06-18 07:42 | RADRPT ---
EXAM DATE/TIME: 06/18/2017 07:15 [facility] COMPARISON: CT CERVICAL SPINE W/O CONTRAST, March 21, 2017, 12:36. INDICATIONS : Seizure, fell of bench. RADIATION DOSE: 21.91 CTDIvol (mGy) MEDICAL HISTORY : Cardiovascular disease. Hypertension. Seizures. SURGICAL HISTORY : None. ENCOUNTER: Initial ACUITY: 1 day PAIN SCALE: 3/10 LOCATION: Bilateral neck TECHNIQUE: Volumetric scanning of the cervical spine was performed. Multiplanar reconstructions in the sagittal, coronal and oblique axial planes were performed. Using automated exposure control and adjustment o f the mA and/or kV according to patient size, radiation dose was kept as low as reasonably achievable to obtain optimal diagnostic quality images. DICOM format image data is available electronically f or review and comparison. FINDINGS: Today's exam is compared to the prior study of 03/21/2017. There has been no new or significant changes but the overall appearance of the cervical spine. There continues to be diffuse moderate primary bon y degenerative changes, disc degeneration and disc space narrowing from C3-C7. No compression fractur e is demonstrated. Facet arthritis is again noted bilaterally. CONCLUSION: Stable CT scan of the cervical spine compared to 03/21/2017. No acute bony fracture. Stable diffuse robin vazquez degenerative changes, disc degeneration and disc space narrowing. Khari Cowan MD on June 18, 2017 at 7:37 Board Certified Radiologist. This report was verified electronically.
--- NOTE | 2017-06-18 08:23 | RADRPT ---
EXAM DATE/TIME: 06/18/2017 07:23 [place] COMPARISON: No previous studies available for comparison. INDICATIONS : Seizure, fell of bench. RADIATION DOSE: 35.86 CTDIvol (mGy) MEDICAL HISTORY : Cardiovascular disease. Hypertension. Seizures. SURGICAL HISTORY : None. ENCOUNTER: Initial ACUITY: 1 day PAIN SCALE: 3/10 LOCATION: Bilateral Paraspinal TECHNIQUE: Volumetric scanning of the lumbar spine was performed. Multiplanar reconstructions in the sagittal, coronal and oblique axial planes were performed. Using automated exposure control and adjustment of the mA and/or kV according to patient size, radiation dose was kept as low as reasonably achievable t o obtain optimal diagnostic quality images. DICOM format image data is available electronically for review and comparison. FINDINGS: VERTEBRAE: Small Schmorl's node at T11. Vertebral body heights are otherwise intact with. ALIGNMENT: Levoscoliosis of the lower lumbar spine centered at L4-5. Sagittal alignment is maintained. T12-L1: Diffuse disc bulge with vacuum disc phenomenon. Effacement of the anterior thecal sac. Mild caudal ri ght neural final narrowing. L1-L2: Diffuse disc bulge with mild vacuum disc phenomenon and eccentric left lateral osteophytes. Mild liga mentum flavum hypertrophy. The mild to moderate caudal bilateral neural frontal narrowing. L2-L3: Severe disc space loss with vacuum disc phenomenon and endplate sclerosis. Prominent anterior osteoph ytes and endplate sclerosis. Posterior disc osteophyte complex, moderate ligamentum flavum hypertroph y result in central canal narrowing to approximately 7 mm. Mild right and mild to moderate left facet arthropathy. The severe right neural foraminal stenosis secondary to disc osteophyte complex. L3-L4: Severe disc space loss with vacuum disc phenomenon and prominent anterior osteophytes. Prominent endp late sclerosis. Posterior disc osteophyte complex. Moderate ligamentum flavum hypertrophy and mild bi lateral facet arthropathy. Resultant central canal narrowing to approximately 8 mm. Moderate left and mild to moderate right neural foraminal stenosis L4-L5: Severe disc space loss with vacuum disc phenomenon and anterior osteophytes. Endplate sclerosis. Post erior disc osteophyte complex, ligament of flavum hypertrophy and moderate bilateral facet arthropath y. Central canal narrowing to approximately 9 mm. Mild to moderate bilateral neural foraminal narrowi ng. L5-S1: Sacralized L5 vertebral body. No significant disc bulge or protrusion. The central canal is patent. N o significant neural foraminal stenosis. CONCLUSION: 1. No acute fracture or subluxation. 2. Levoscoliosis of the lower lumbar spine centered at L4-5 with associated advanced multilevel degen erative spondylosis resulting in moderate to severe central canal stenosis most prominently at L2-4, as above. Dao Marcano MD on June 18, 2017 at 8:10 Board Certified Radiologist. This report was verified electronically.
[2017-06-18 08:43] VITALS: BP 135/83; PULSE 55; RESP 12; TEMP 97.9; O2SAT 100
[2017-06-18 09:11] LABS: BLOOD, URINE NEG (NEG); COMMENT (UR) CULT NOT INDICATED; CULTURE IF INDICATED CULT NOT INDICATED; GLUCOSE,URINE NEG (NEG); KETONE, URINE NEG (NEG); MUCUS URINE FEW /lpf (OCC); NITRITE,URINE NEG (NEG); PH, URINE 6.5 (5.0-8.5); URINE COLOR YELLOW (YELLW/STRAW)
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
--- NOTE | 2017-06-18 10:08 | EKG ---
Date Performed: 06/18/2017 Time Performed: 06:03:48 PTAGE: 62 years EKG: SINUS BRADYCARDIA WITH FREQUENT SUPRAVENTRICULAR PREMATURE COMPLEXES ABNORMAL RHYTHM ECG Co mpared to prior tracing no significant change DOCTOR: Haylee Cleaning Interpretating Date/Time 06/18/2017 10:06:51
== END 2017-06-18 10:17 | disposition home or self-care (01) ==
LOC: NEPE 05:53
DX: R56.9 Unspecified convulsions (principal); M25.561 Pain in right knee; R07.9 Chest pain, unspecified; R06.02 Shortness of breath; F17.210 Nicotine dependence, cigarettes, uncomplicated; I10 Essential (primary) hypertension; I25.10 Atherosclerotic heart disease of native coronary artery without angina pectoris; E78.5 Hyperlipidemia, unspecified
CPT/HCPCS: 70450; 71010; 72125; 72131; 73502; 73564; 80053; 80185; 80307; 81001; 82550; 82552; 83690; 83735; 83880; 84484; 85025; 85610; 85730; 93005; 99285

== ENCOUNTER 2017-07-31 11:01 | Emergency (ER) | payer OTHER ==
[~2017-07-31] VITALS: Ht 167.6 cm; Wt 78.0 kg
[~2017-07-31 11:01] MED LIST changes: +LISI10TA3 PO; -WHEEMIS3
[2017-07-31 11:13] VITALS: BP 147/74; PULSE 62; RESP 12; TEMP 98.4; O2SAT 98
[2017-07-31] MEDS ORDERED: levETIRAcetam INJ 100 ML IV ONE (11:30)
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
[2017-07-31 12:17] LABS: BICARBONATE 25.9 MEQ/L (21.0-32.0); CALCIUM 8.5 MG/DL (8.5-10.1); CREATININE 1.12 MG/DL (0.60-1.30)
[2017-07-31] MEDS ORDERED: LEVE500 PO (13:34)
== END 2017-07-31 14:03 | disposition home or self-care (01) ==
LOC: NEPE 11:01
DX: G40.909 Epilepsy, unspecified, not intractable, without status epilepticus (principal); I10 Essential (primary) hypertension; F17.210 Nicotine dependence, cigarettes, uncomplicated
CPT/HCPCS: 80048; 96374; 99284; J1953

== ENCOUNTER 2017-08-06 11:42 | Emergency (ER) | payer OTHER ==
[~2017-08-06] VITALS: Ht 167.6 cm; Wt 79.0 kg
[~2017-08-06 11:42] MED LIST changes: +LEVE500 PO; -NEUR300C PO; -NITR1SUB3 SL; -PANT40TA3 PO; -PLAV75TA29 PO; -TAMS5CAP PO; -WALKER WHEELS/F1 MIS
[2017-08-06 11:48] VITALS: BP 107/73; PULSE 59; RESP 18; TEMP 98.1; O2SAT 96
[2017-08-06] MEDS ORDERED: LORazepam 1 MG TAB PO ONE (12:15)
[2017-08-06] MEDS ORDERED: levETIRAcetam INJ 100 ML IV ONE (12:15)
[2017-08-06] MEDS ORDERED: LEVE500 PO (12:19)
--- NOTE | 2017-08-06 12:19 | PD ---
HPI Chief Complaint: Seizure Time Seen by Provider: 11:59 Travel History International Travel<30 days: No Contact w/Intl Traveler<30days: No Traveled to known affect area: No History of Present Illness HPI 62-year-old male was brought in by EMS after a seizure episode. Patient has history of seizure and has not been compliant with his medication. Patient supposedly taking Keppra. He states that he has not taken Keppra for the past week. Patient states that he has not filled his prescription of Keppra. Patient has a local physician for follow-up and has insurance. Patient denies any headache. Patient denies any neck pain. Patient denies any chest pain or shortness of breath. Patient denies abdominal pain. Patient denies any focal weakness or numbness of extremity. Patient denies any injury during the seizure episode today. Patient denies any alcohol or illicit drug abuse. PFSH Past Medical History Hx Anticoagulant Therapy: Yes (hasnt been taking plavix since mar 2017) Asthma: Yes Autoimmune Disease: No Anxiety: No Depression: Yes Heart Rhythm Problems: No Cancer: No Cardiac Catheterization: Yes (STENT X1) Cardiovascular Problems: Yes (1 stent) High Cholesterol: No Chemotherapy: No Chest Pain: No Congestive Heart Failure: No COPD: No Cerebrovascular Accident: Yes Coronary Artery Disease: Yes Diabetes: No Diminished Hearing: No Endocrine: No Gastrointestinal Disorders: No Genitourinary: No Headaches: Yes Heparin Induced Thrombocytopen: No Hypertension: Yes Immune Disorder: No Implanted Vascular Access Dvce: No Kidney Stones: No Musculoskeletal: No Neurologic: Yes Psychiatric: No Reproductive: No Respiratory: Yes (asthma) Immunizations Current: Yes Migraines: No Radiation Therapy: No Renal Failure: No 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, "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") Sickle Cell Disease: No Sleep Apnea: No Ulcer: No Influenza Vaccination: Yes ?: Not Past Surgical History Abdominal Surgery: No AICD: No Arteriovenous Shunt: No Body Medical Devices: Cardiac stent Cardiac Surgery: Yes (STENT ) Coronary Artery Bypass Graft: No Ear Surgery: No Endocrine Surgery: No Eye Surgery: No Genitourinary Surgery: No Gynecologic Surgery: No Insulin Pump: No Joint Replacement: No Neurologic Surgery: No Oral Surgery: No Pacemaker: No Thoracic Surgery: No Other Surgery: Yes Family History Family Myocardial Infarction: Yes (mother, father, brother) Social History Alcohol Use: Yes (OCCASIONALLY) Tobacco Use: Yes (2 cigarettes/day) Substance Use: No Allergies-Medications (Allergen,Severity, Reaction): Coded Allergies: No Known Allergies (Unverified Allergy, Unknown, 08/06/17) Reported Meds & Prescriptions Reported Meds & Active Scripts Active Keppra (Levetiracetam) 500 Mg Tab 1,000 Mg PO BID Keppra (Levetiracetam) 1,000 Mg Tab 1,000 Mg PO BID Reported Lisinopril 10 Mg Tab 20 Mg PO DAILY Review of Systems General / Constitutional: No: Fever Eyes: No: Visual changes HENT: No: Headaches Cardiovascular: No: Chest Pain or Discomfort Respiratory: No: Shortness of Breath Gastrointestinal: No: Abdominal Pain Genitourinary: No: Dysuria Musculoskeletal: No: Pain Skin: No Rash Neurologic: Positive: Seizures, No: Weakness Psychiatric: No: Depression Endocrine: No: Polydipsia Hematologic/Lymphatic: No: Easy Bruising Physical Exam Narrative GENERAL: Well-nourished, well-developed patient. SKIN: Focused skin assessment warm/dry. HEAD: Normocephalic. EYES: No scleral icterus. No injection or drainage. Pupils 2 mm equal reactive. NECK: Supple, trachea midline. No JVD or lymphadenopathy. CARDIOVASCULAR: Regular rate and rhythm without murmurs, gallops, or rubs. RESPIRATORY: Breath sounds equal bilaterally. No accessory muscle use. GASTROINTESTINAL: Abdomen soft, non-tender, nondistended. MUSCULOSKELETAL: No cyanosis, or edema. BACK: Nontender without obvious deformity. No CVA tenderness. Neurologic exam: Patient's awake and alert oriented 3. No obvious focal neurological deficit. Data Data Last Documented VS Vital Signs Date Time Temp Pulse Resp B/P (MAP) Pulse Ox O2 Delivery O2 Flow Rate FiO2 08/06/17 12:23 55 18 134/78 (96) 96 Nasal Cannula 2.00 08/06/17 11:48 98.1 Orders Orders Levetiracetam Inj (Keppra Inj) (08/06/17 12:15) Complete Blood Count With Diff (08/06/17 12:09) Basic Metabolic Panel (Bmp) (08/06/17 12:09) Iv Access Insert/Monitor (08/06/17 12:09) Ecg Monitoring (08/06/17 12:09) Oximetry (08/06/17 12:09) Lorazepam (Ativan) (08/06/17 12:15) Labs Laboratory Tests Test 08/06/17 12:15 White Blood Count 7.6 TH/MM3 Red Blood Count 4.97 MIL/MM3 Hemoglobin 11.6 GM/DL Hematocrit 36.9 % Mean Corpuscular Volume 74.4 FL Mean Corpuscular Hemoglobin 23.3 PG Mean Corpuscular Hemoglobin Concent 31.3 % Red Cell Distribution Width 24.2 % Platelet Count 242 TH/MM3 Mean Platelet Volume 8.0 FL Neutrophils (%) (Auto) 68.3 % Lymphocytes (%) (Auto) 21.5 % Monocytes (%) (Auto) 6.9 % Eosinophils (%) (Auto) 2.7 % Basophils (%) (Auto) 0.6 % Neutrophils # (Auto) 5.3 TH/MM3 Lymphocytes # (Auto) 1.6 TH/MM3 Monocytes # (Auto) 0.5 TH/MM3 Eosinophils # (Auto) 0.2 TH/MM3 Basophils # (Auto) 0.0 TH/MM3 CBC Comment AUTO DIFF Differential Comment AUTO DIFF CONFIRMED Target Cells 1+ Ovalocytes 1+ Blood Urea Nitrogen 12 MG/DL Creatinine 0.76 MG/DL Random Glucose 84 MG/DL Calcium Level 8.2 MG/DL Sodium Level 140 MEQ/L Potassium Level 3.5 MEQ/L Chloride Level 108 MEQ/L Carbon Dioxide Level 26.4 MEQ/L Anion Gap 6 MEQ/L Estimat Glomerular Filtration Rate 103 ML/MIN MDM Medical Decision Making Medical Screen Exam Complete: Yes Emergency Medical Condition: Yes Interpretation(s) 12:53 PM. CBC with hemoglobin 11.6 hematocrit 36.9. MCV 74.4. BMP within normal limit. Calcium 8.2. Differential Diagnosis Differential diagnosis including breakthrough seizure, electronic abnormality, noncompliance. Narrative Course 62-year-old male with seizure. History of seizure and noncompliance with medication. Keppra 1 g IV given. Ativan 1 g by mouth given. Diagnosis Primary Impression: Breakthrough seizure Additional Impression: Noncompliance Patient Instructions: General Instructions Additional Instructions: Advised patient strongly to take Keppra as directed. Follow-up with personal physician. Return as needed. Med/Other Pt SpecificInfo: Prescription(s) given Scripts Levetiracetam (Keppra) 500 Mg Tab 1000 MG PO BID for Control Seizures, #120 TAB 0 Refills Prov: Toni Cote MD 08/06/17 Disposition: 01 DISCHARGE HOME Condition: Stable Toni Cote MD Aug 06, 2017 12:19
[2017-08-06 12:23] VITALS: BP 134/78; PULSE 55; RESP 18; O2SAT 96
[2017-08-06 12:23] LABS: AUTOMATED NEUTROPHIL # 5.3 TH/MM3 (1.8-7.7); BASOPHIL % 0.6 % (0.0-2.0); EOSINOPHIL # 0.2 TH/MM3 (0-0.4); EOSINOPHIL % 2.7 % (0.0-4.0); HEMATOCRIT 36.9 % (39.0-51.0); HEMOGLOBIN 11.6 GM/DL (13.0-17.0); LYMPH % 21.5 % (9.0-44.0); LYMPHOCYTE # 1.6 TH/MM3 (1.0-4.8); MEAN CELL VOLUME 74.4 FL (80.0-100.0); MEAN CORPUSCULAR HEMOGLOBIN 23.3 PG (27.0-34.0); MEAN CORPUSCULAR HGB CONC 31.3 % (32.0-36.0); MONO % 6.9 % (0.0-8.0); MONOCYTE # 0.5 TH/MM3 (0-0.9); NEUT % 68.3 % (16.0-70.0); PLATELET COUNT 242 TH/MM3 (150-450); RED BLOOD COUNT 4.97 MIL/MM3 (4.50-5.90); RED CELL DISTRIBUTION WIDTH 24.2 % (11.6-17.2); WHITE BLOOD COUNT 7.6 TH/MM3 (4.0-11.0)
[2017-08-06 12:38] LABS: CALCIUM 8.2 MG/DL (8.5-10.1)
[2017-08-06 12:39] LABS: BICARBONATE 26.4 MEQ/L (21.0-32.0)
[2017-08-06 12:42] LABS: CREATININE 0.76 MG/DL (0.60-1.30)
[2017-08-06 12:47] LABS: OVALOCYTES 1+ (NORMAL); TARGET CELLS 1+ (NORMAL)
[2017-08-06 13:27] VITALS: BP 146/89
== END 2017-08-06 13:29 | disposition home or self-care (01) ==
LOC: PHED 11:42
DX: G40.909 Epilepsy, unspecified, not intractable, without status epilepticus (principal); Z91.19 Patient's noncompliance with other medical treatment and regimen; J45.909 Unspecified asthma, uncomplicated; F32.9 Major depressive disorder, single episode, unspecified; I25.10 Atherosclerotic heart disease of native coronary artery without angina pectoris; I10 Essential (primary) hypertension; F17.200 Nicotine dependence, unspecified, uncomplicated; Z86.73 Personal history of transient ischemic attack (TIA), and cerebral infarction without residual deficits; Z95.5 Presence of coronary angioplasty implant and graft
CPT/HCPCS: 80048; 85025; 96365; 99283; J1953

== ENCOUNTER 2017-08-13 16:47 | Inpatient (IN) | payer OTHER ==
[2017-08-13] VITALS (12 sets, daily range): BP systolic 0–230; BP diastolic 0–149; PULSE 0–78; RESP 0–27; TEMP 94.5–94.6; O2SAT 0–100
[~2017-08-13 16:47] MED LIST changes: -AMLO5TAB2 PO; -ATOR40TA16 PO; -DILA100C PO
[2017-08-13] MEDS ORDERED: AMIODARONE INJ 450 MG in DEXTROSE 5% IN WATE(EXCEL) INJ 241 ML IV PRN ×2 (17:04)
[2017-08-13] MEDS ORDERED: AMIODARONE INJ 450 MG in SODIUM CHLOR 0.9% (EXCEL) INJ 250 ML IV PRN (17:04)
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
[2017-08-13] MEDS: SODIUM CHLOR 0.9% 1000 ML INJ 1,000 ML IV SCH ×2 (17:14→17:32)
[2017-08-13 17:20] LABS: AUTOMATED NEUTROPHIL # 1.5 TH/MM3 (1.8-7.7); BASOPHIL % 0.1 % (0.0-2.0); EOSINOPHIL # 0.1 TH/MM3 (0-0.4); HEMATOCRIT 51.4 % (39.0-51.0); HEMOGLOBIN 16.2 GM/DL (13.0-17.0); LYMPH % 70.4 % (9.0-44.0); LYMPHOCYTE # 4.5 TH/MM3 (1.0-4.8); MEAN CELL VOLUME 77.6 FL (80.0-100.0); MEAN CORPUSCULAR HEMOGLOBIN 24.5 PG (27.0-34.0); MEAN CORPUSCULAR HGB CONC 31.6 % (32.0-36.0); MEAN PLATELET VOLUME 8.1 FL (7.0-11.0); MONO % 3.6 % (0.0-8.0); MONOCYTE # 0.2 TH/MM3 (0-0.9); NEUT % 23.9 % (16.0-70.0); PLATELET COUNT 153 TH/MM3 (150-450); RED BLOOD COUNT 6.62 MIL/MM3 (4.50-5.90); RED CELL DISTRIBUTION WIDTH 26.2 % (11.6-17.2); WHITE BLOOD COUNT 6.4 TH/MM3 (4.0-11.0)
[2017-08-13] MEDS ORDERED: PROPOFOL 1000 MG/100 ML INJ 100 ML IV PRN (17:30)
[2017-08-13] MEDS ORDERED: niCARdipine INJ 25 MG in SODIUM CHLOR 0.9% 250 ML INJ 240 ML IV PRN (17:30)
[2017-08-13 17:45] LABS: INTERNATIONAL NORMALIZED RATIO 1.6 RATIO; PROTHROMBIN TIME - PATIENT 15.7 SEC (9.8-11.6)
[2017-08-13] MEDS ORDERED: SODIUM BICARBONATE 8.4% INJ 100 MEQ in DEXTROSE 5% IN WATE 1000ML INJ 1,000 ML IV SCH ×2 (17:45)
[2017-08-13] MEDS ORDERED: SODIUM BICARBONATE 8.4% INJ 50 MEQ/50 ML SYR IV PUSH ONE (17:45)
--- NOTE | 2017-08-13 17:54 | RADRPT ---
EXAM DATE/TIME: 08/13/2017 17:33 [facility] COMPARISON: No previous studies available for comparison. INDICATIONS : Shortness of breath MEDICAL HISTORY : Unobtainable SURGICAL HISTORY : Unobtainable ENCOUNTER: Initial ACUITY: 1 day PAIN SCORE: Non-responsive. LOCATION: Bilateral chest FINDINGS: A single AP supine portable view of the chest was obtained and demonstrates an endotracheal tube in p lace with the tip approximately 3-4 cm above the lamar. A nasogastric tube is seen coursing through the esophagus and into the stomach. Bilateral alveolar opacities are present in both lungs right grea ter than left. The heart size is at the upper limits of normal. There is no distinct effusion. The [place] structures are intact. CONCLUSION: 1. Diffuse bilateral airspace disease right greater than left of concern for pulmonary edema. This ma y be noncardiogenic. 2. Status post intubation and nasogastric tube placement. Jovanni Gaston MD on August 13, 2017 at 17:50 Board Certified Radiologist. This report was verified electronically.
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
[2017-08-13 18:04] LABS: OVALOCYTES 1+ (NORMAL); TEARDROP RBCS 1+ (NORMAL)
[2017-08-13 18:05] LABS: BURR CELLS 1+ (NORMAL)
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
[2017-08-13] MEDS ORDERED: MAGNESIUM HYDROXIDE SUSP 30 ML CUP PO PRN (18:45)
[2017-08-13] MEDS ORDERED: DEXTROSE 50% IN WATER 50 ML VIAL(D50) IV PUSH PRN (18:45)
[2017-08-13] MEDS ORDERED: CHLORHEXIDINE GLUCONATE 2 % 1 PACK (2 CLOTHS) TOP PRN (18:45)
[2017-08-13] MEDS ORDERED: RESP: ALBUTEROL 2.5 MG/IPRATROPIUM 0.5 MG NEB (PRN) INH (18:45)
[2017-08-13] MEDS ORDERED: ACETAMINOPHEN 325 MG TAB PO PRN (18:45)
[2017-08-13] MEDS ORDERED: ONDANSETRON HCL 4 MG/2 ML VIAL IV PUSH PRN (18:45)
[2017-08-13] MEDS ORDERED: MISCELLANEOUS NURSING INFORMATION XX SCH (18:45)
[2017-08-13] MEDS ORDERED: NOREPINEPHRINE-DEXTROSE DRIP 250 ML IV ONE (19:36)
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
--- NOTE | 2017-08-13 19:59 | PD.PROCEDR ---
Procedure Note Procedure CPR procedure note Presenting rhythm: PEA arrest Event Details: Attempted to retain spontaneous circulation, will was unsuccessful. The patient . Procedure Description: Arrived at [facility]. Followed ACLS guidelines. See code sheet for details. I was personally present for the entire CPR event. Darrius Dunbar MD Aug 13, 2017 19:59
[2017-08-13] MEDS ORDERED: CHLORHEXIDINE 0.12% (ORAL KIT) 15 ML CUP MT SCH (20:00)
[2017-08-13] MEDS ORDERED: ENOXAPARIN SODIUM 40 MG/0.4 ML SYRINGE SQ SCH (20:00)
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
[2017-08-13] MEDS ORDERED: FAMOTIDINE 20 MG/2 ML VIAL IV PUSH SCH (21:00)
[2017-08-13] MEDS ORDERED: DOCUSATE SODIUM 50 MG/SENNA 8.6 MG TAB PO SCH (21:00)
--- NOTE | 2017-08-13 21:16 | EKG ---
Date Performed: 08/13/2017 Time Performed: 17:16:48 PTAGE: 89 years EKG: Marked baseline artifact Sinus rhythm WITH SINUS ARRHYTHMIA RIGHT BUNDLE BRANCH BLOCK LEFT ANTERIOR FASCICULAR BLOCK ABNORMAL ECG NO PREVIOUS TRACING DOCTOR: Armin Cox Interpretating Date/Time 08/13/2017 21:15:50
[2017-08-13] MEDS ORDERED: RESP: ALBUTEROL 2.5 MG/IPRATROPIUM 0.5 MG NEB (SCH) INH (22:00)
[2017-08-14] MEDS ORDERED: INSULIN NovoLIN REGULAR SUPPLEMENTAL SCALE SQ SCH
[2017-08-14] MEDS ORDERED: CHLORHEXIDINE GLUCONATE 2 % 1 PACK (2 CLOTHS) TOP SCH (04:00)
== END 2017-08-13 19:41 | disposition expired | DRG 208 ==
LOC: NEPC 16:47 → EDBD 17:47 → NEDA 17:47 → MERGE 17:47 → HIMW 18:00
PROVIDERS: ADMIT Internal Medicine Critical Care Medicine; ATTEND Internal Medicine Critical Care Medicine
PROC: 5A1935Z Respiratory Ventilation, Less than 24 Consecutive Hours (ICD-10-PCS; principal; 2017-08-13)
PROC: 5A12012 Performance of Cardiac Output, Single, Manual (ICD-10-PCS; 2017-08-13)
DX: J96.01 Acute respiratory failure with hypoxia (principal); I46.9 Cardiac arrest, cause unspecified; G93.1 Anoxic brain damage, not elsewhere classified; E87.4 Mixed disorder of acid-base balance; J96.02 Acute respiratory failure with hypercapnia; J80 Acute respiratory distress syndrome; G40.909 Epilepsy, unspecified, not intractable, without status epilepticus; Z91.14 Patient's other noncompliance with medication regimen; W16.111A Fall into natural body of water striking water surface causing drowning and submersion, initial encounter; Y93.55 Activity, bike riding; Y92.830 Public park as the place of occurrence of the external cause; R40.2432 Glasgow coma scale score 3-8, at arrival to emergency department
CPT/HCPCS: 36600; 51702; 70450; 71045; 72125; 80307; 82805; 85025; 85610; 85730; 87040; 87205; 87641; 92950; 93005; 94002; 96365; 96375; J0282; J7030; J7050; J7070